=== PATIENT | female | born 1960 | race Caucasian/White ===

== ENCOUNTER → 2019-05-26 10:17 | Outpatient (BNVA) | payer BC, SELFPAY | PROVIDERS: Family Provider Family Medicine; PCP Family Medicine; Referring Provider Family Medicine; Visit Provider Orthopaedic Surgery | DX: M25.562 Pain in left knee (principal); M25.561 Pain in right knee | CPT/HCPCS: 73560; 73565 ==

== ENCOUNTER 2019-05-26 15:36 | Outpatient (CLI) | payer BC, SELFPAY | END 2019-05-26 15:37 | disposition home or self-care (01) | LOC: SPT 15:37 | PROVIDERS: Family Provider Family Medicine; PCP Family Medicine; Visit Provider Orthopaedic Surgery | DX: M17.0 Bilateral primary osteoarthritis of knee (principal) | CPT/HCPCS: L1812 ==

== ENCOUNTER 2019-08-31 16:44 | Inpatient (IN) | payer BC, SELFPAY ==
[2019-08-31] VITALS (8 sets, daily range): BP systolic 109–144; BP diastolic 56–85; PULSE 85–123; RESP 18–22; TEMP 36.5–36.9; O2SAT 94–97; BMI 46.8
--- NOTE | 2019-08-31 16:47 | XR_ITS ---
WS: [id number] PORTABLE CHEST HISTORY: cp COMPARISON: 07/27/2018 Lungs are clear and well expanded. No pleural effusion or pneumothorax. Cardiac size: Normal. Mediastinum/Aorta: Normal mediastinum. No osseous abnormality seen. XR/XR chest 1V portable [id number] IMPRESSION: Unremarkable portable chest.
--- NOTE | 2019-08-31 16:47 | ECG_ITS ---
Measurements Intervals [place] Rate: 119 P: 37 FL: 158 QRS: 166 QRSD: 136 T: 6 QT: 347 QTc: 490 SINUS TACHYCARDIA INDETERMINATE AXIS RIGHT BUNDLE BRANCH BLOCK [120+ ms QRS DURATION, UPRIGHT V1, 40+ ms S IN I/ I/aVL/V4/V5/V6] Compared to ECG 07/27/2018 19:36:47 Indeterminate axis now present Sinus rhythm no longer present Right-axis deviation no longer present Myocardial infarct finding no longer present Electronically Signed On 08-31-2019 18:11:32 CDT by Don Ruggiero M.D. [id number]
--- NOTE | 2019-08-31 16:49 | ED_ITS ---
HPI - Chest Pain General: Chief Complaint: Chest Pain Stated Complaint: CHEST PAIN Time Seen by Provider: 08/31/19 16:47 Source: patient and EMS Mode of arrival: EMS Limitations: no limitations History of Present Illness: HPI narrative: 59-year-old female has a history of high blood pressure along with diabetes states she was having chest pain at clinic today. She states the past pain is a pressure type pain radiates down her left arm and she did have nausea and diaphoresis with this. Denies any shortness of breath. Denies any worsening improving factors. Patient states her pain is currently improved after nitro. complaint: chest pain Onset (ago): hour(s) Timing of current episode: episodic Pain location: substernal Pain radiation: left arm Severity: moderate Quality: tightness Relieving factors: nitroglycerin Exacerbating factors: nothing Associated symptoms: Reports nausea; Deny abdominal pain, dyspnea, fever(s) or vomiting Review of Systems Const: Denies: fever, chills, body aches or change in appetite Eyes: Denies: blurry vision or eye discomfort ENMT: Denies: throat pain or dental pain Card: Reports: chest pain Resp: Denies: shortness of breath GI: Reports: nausea; Denies: abdominal pain, vomiting or diarrhea : Denies: painful urination Musc: Denies: neck pain or back pain Skin/Breast: Denies: rash Neuro: Denies: headache Psych: Denies: depression Kem/Lymph: Denies: easy bruising All/Imm: Denies: hives PFSH ED PFSH: Medical History (Updated 08/31/19 @ 20:11 by Jennifer Morgan MD) BMI 45.0-49.9, adult Controlled type 2 diabetes mellitus Degenerative joint disease of knee Depression Gastric reflux Hypertension Hypothyroid Morbid obesity JOSE (obstructive sleep apnea) Poor high blood pressure control Restless leg syndrome Sleep apnea Surgical History (Updated 08/31/19 @ 19:56 by Don Urbina MD) History of appendectomy History of intestinal surgery Bowel obstruction in childhood Hx of cholecystectomy Family History (Updated 08/31/19 @ 19:56 by Don Urbina MD) Other Cancer Family history of premature coronary artery disease Stroke Social History (Updated 08/31/19 @ 19:56 by Don Urbina MD) Smoking and tobacco status: never smoked Alcohol intake: never Substance/Drug Use: never Lives independently: Yes Housing: House Marital status: Single Physical Exam Const: COMMON NORMALS: no apparent distress, oriented x3 and healthy appearing HENMT: COMMON NORMALS: normocephalic and head/scalp atraumatic HEAD & SCALP: normocephalic and atraumatic Eye: COMMON NORMALS: PERRL and EOMs intact bilaterally PUPIL: Yes PERRL Neck/C-Spine: COMMON NORMALS: full ROM and supple Chest: COMMONS NORMALS: inspection of chest normal and palpation of chest normal Resp: COMMON NORMALS: normal respiratory effort, no retractions, no use of accessory muscles and clear to auscultation bilaterally AUSCULTATION: clear to auscultation bilaterally Cardio: COMMON NORMALS: regular rate, regular rhythm and no murmurs RATE: regular rate RHYTHM: regular rhythm GI: COMMON NORMALS: normal to inspection, nondistended, normoactive bowel sounds, soft to palpation, non-tender and no masses PALPATION: Yes soft Extremity: COMMON NORMALS: normal to inspection and full ROM Neuro: COMMON NORMALS: oriented x3, moves all extremities and no focal motor deficits Psych: COMMON NORMALS: mental status grossly normal, thought process normal and cooperative THOUGHT PROCESS: normal thought process Skin: COMMON NORMALS: no rashes or lesions noted and no wounds GENERAL SKIN EXAM: no rashes or lesions noted Course Vital Signs: Vital signs: Vital Signs Temperature 98.5 F 08/31/19 16:44 Pulse Rate 93 08/31/19 19:15 Respiratory Rate 18 08/31/19 19:15 Blood Pressure 109/71 08/31/19 19:15 Pulse Oximetry 96 08/31/19 19:15 MDM - Chest Pain MDM Narrative: Medical decision making narrative: Patient presents here with chest pain repeat troponins normal. EKG is unchanged from previous. She does have multiple risk factors I spoke to hospitalist on-call and will admit. Lab Data: Labs: Lab Results 08/31/19 08/31/19 08/31/19 Range/Units 17:02 17:02 17:02 WBC 13.5 H (4.0-10.0) 10^3/ uL RBC 5.09 (4.1-5.3) 10^6/u L Hgb 14.1 (11.5-15.3) g/dL Hct 46.6 (37.0-47.0) % MCV 91.6 (81-99) fL MCH 27.7 L (28.0-34.0) pg MCHC 30.3 (30.0-36.0) g/dL RDW 13.9 (12.1-15.1) % Plt Count 553 H (130-400) 10^3/c mm MPV 9.1 (7.4-10.4) fL Neut % (Auto) 73.4 % Lymph % (Auto) 17.3 % [place] % (Auto) 7.3 % Eos % (Auto) 1.1 % Baso % (Auto) 0.5 % Neut # (Auto) 9.9 H (1.8-7.7) 10^3/u L Lymph # (Auto) 2.3 (0.8-4.8) 10^3/u L [place] # (Auto) 1.0 H (0.2-0.9) 10^3/u L Eos # (Auto) 0.2 (0.0-0.8) 10^3/u L Baso # (Auto) 0.1 (0.0-0.1) 10^3/u L Nucleated RBC % (a uto) 0 % Nucleated RBCs # 0.0 /100WBC Sodium 141 (136-145) mmol/L Potassium 3.7 (3.5-5.1) mmol/L Chloride 109 H (98-107) mmol/L Carbon Dioxide 16 L (22-29) mmol/L Anion Gap 19.7 H (5-19) BUN 12 (8-23) mg/dL Creatinine 1.1 H (0.5-0.9) mg/dL GFR Calculation 50.5 L (90-130) mL/min Glucose 123 H (65-115) mg/dL Calculated Osmolal ity 289 (285-295) mOsm/k g Calcium 9.9 (8.5-10.5) mg/dL Total Bilirubin 0.2 (0.15-1.2) mg/dL AST 21 (0-32) U/L ALT 33 (0-33) U/L Alkaline Phosphata se 131 H (35-105) IU/L Troponin T Baselin e 11 H (0-10) ng/mL Troponin T 120 Min [place] (0-10) ng/mL Total Protein 6.7 (6.6-8.7) g/dL Albumin 3.9 (3.5-5.2) g/dL Globulin 2.8 (1.3-4.6) g/dL Lipase 40 (13-60) U/L 08/31/19 Range/Units 18:58 WBC (4.0-10.0) 10^3/ uL RBC (4.1-5.3) 10^6/u L Hgb (11.5-15.3) g/dL Hct (37.0-47.0) % MCV (81-99) fL MCH (28.0-34.0) pg MCHC (30.0-36.0) g/dL RDW (12.1-15.1) % Plt Count (130-400) 10^3/c mm MPV (7.4-10.4) fL Neut % (Auto) % Lymph % (Auto) % [place] % (Auto) % Eos % (Auto) % Baso % (Auto) % Neut # (Auto) (1.8-7.7) 10^3/u L Lymph # (Auto) (0.8-4.8) 10^3/u L [place] # (Auto) (0.2-0.9) 10^3/u L Eos # (Auto) (0.0-0.8) 10^3/u L Baso # (Auto) (0.0-0.1) 10^3/u L Nucleated RBC % (a uto) % Nucleated RBCs # /100WBC Sodium (136-145) mmol/L Potassium (3.5-5.1) mmol/L Chloride (98-107) mmol/L Carbon Dioxide (22-29) mmol/L Anion Gap (5-19) BUN (8-23) mg/dL Creatinine (0.5-0.9) mg/dL GFR Calculation (90-130) mL/min Glucose (65-115) mg/dL Calculated Osmolal ity (285-295) mOsm/k g Calcium (8.5-10.5) mg/dL Total Bilirubin (0.15-1.2) mg/dL AST (0-32) U/L ALT (0-33) U/L Alkaline Phosphata se (35-105) IU/L Troponin T Baselin e (0-10) ng/mL Troponin T 120 Min [place] 15.72 H (0-10) ng/mL Total Protein (6.6-8.7) g/dL Albumin (3.5-5.2) g/dL Globulin (1.3-4.6) g/dL Lipase (13-60) U/L Imaging Data^: CT Chest: Radiologist's impression: [address] [address] [address] Scan Report Signed Patient: Tracee Walden Unit #: [id number] : 1960 Age/Sex: 59 / F ADM Date: 08/31/19 Loc: ER Room/Bed: Attending Dr: Ordering Provider/Ordering MD: Jennifer Morgan MD Date of Service: 08/31/19 Procedure(s): CT angio chest PE protcl [id number] Accession Number(s): [id number] Report Number: [id number] PROCEDURE INFORMATION: Exam: CT Angiography Chest With Contrast Exam date and time: 08/31/2019 6:01 PM Age: 59 years old Clinical indication: Pain; Shortness of breath; Chest pressure; Additional info: Chest pain TECHNIQUE: Imaging protocol: Computed tomographic angiography of the chest with intravenous contrast. 3D rendering: MIP and/or 3D reconstructed images were created by the technologist. Radiation optimization: All CT scans at this facility use at least one of these dose optimization techniques: automated exposure control; mA and/or kV adjustment per patient size (includes targeted exams where dose is matched to clinical indication); or iterative reconstruction. Contrast material: VISI 320; Contrast volume: 66 ml; Contrast route: IV; COMPARISON: CTA Chest-Pulmonary Emb [id number] 07/27/2018 11:11 PM RADIATION DOSE METRICS: Total DLP: 614.03 mGy-cm FINDINGS: Pulmonary arteries: There is no evidence of filling defects within the pulmonary arterial circulation to suggest pulmonary embolism. Main pulmonary artery is 3.6 cm in diameter. This suggests some element of pulmonary hypertension. Correlation with clinical findings is suggested. Aorta: Unremarkable. No aortic aneurysm. No aortic dissection. Lungs: Unremarkable. No consolidation. No masses. Pleural space: Unremarkable. No pneumothorax. No pleural effusion. Heart: There are findings of left ventricular hypertrophy. Lymph nodes: There are small paratracheal lymph nodes and small prevascular lymph nodes but no adenopathy. Bones/joints: There are mild degenerative changes in the thoracic spine. Soft tissues: Unremarkable. CT/CT angio chest PE protcl [id number] IMPRESSION: 1. No evidence of pulmonary embolism. 2. Left ventricular hypertrophy. 3. Possible pulmonary hypertension. EKG Data^: EKG 1: Attestation: I personally reviewed and interpreted this EKG as follows: EKG interpretation date: 08/31/19 EKG interpretation time: 16:48 Interpretation: sinus tach hr 119 rbbb no change from ekg 07/27/18 qrs 136 qtc 418 EKG 2: Attestation: I personally reviewed and interpreted this EKG as follows: EKG interpretation date: 08/31/19 EKG interpretation time: 18:54 Interpretation: nsr hr [address] or t wave abnormalities qrs 146 qtc 44 3 Discharge Plan Discharge Patient Disposition: Admitted As Inpatient Clinical Impression: Chest pain Qualifiers: Chest pain type: other chest pain Qualified Code(s): R07.89 - Other chest pain Condition: Stable Referrals: Tracee Rivas DO [Primary Care Provider] - Coding Level of Care Code ED Nocturnist for Chg Fwd Exam Comprehensive
[2019-08-31] MEDS: morphine 4 mg/mL SDV 1 mL IVP (17:03)
[2019-08-31] MEDS: ondansetron 2 mg/ML SDV 2 mL 4 MG IVP (17:03)
[2019-08-31 17:07] LABS: Basophils # 0.1 10^3/uL (0.0-0.1); Basophils % 0.5 %; Eosinophils # 0.2 10^3/uL (0.0-0.8); Eosinophils % 1.1 %; Hematocrit 46.6 % (37.0-47.0); Hemoglobin 14.1 g/dL (11.5-15.3); Lymphocytes # 2.3 10^3/uL (0.8-4.8); Lymphocytes % 17.3 %; Mean Corpuscular HGB Conc 30.3 g/dL (30.0-36.0); Mean Corpuscular Hemoglobin 27.7 pg (28.0-34.0); Mean Corpuscular Volume 91.6 fL (81-99); Mean Platelet Volume 9.1 fL (7.4-10.4); Monocytes % 7.3 %; Neutrophils # 9.9 10^3/uL (1.8-7.7); Neutrophils % 73.4 %; Nucleated Red Blood Cells % 0 %; Platelet Count 553 10^3/cmm (130-400); Red Blood Count 5.09 10^6/uL (4.1-5.3); Red Cell Distribution Width 13.9 % (12.1-15.1); White Blood Count 13.5 10^3/uL (4.0-10.0)
[2019-08-31] MEDS: aspirin 81 mg Chew Tablet 324 MG PO (17:12)
[2019-08-31 17:22] LABS: Alanine Aminotransferase 33 U/L (0-33); Albumin Level 3.9 g/dL (3.5-5.2); Alkaline Phosphatase 131 IU/L (35-105); Anion Gap 19.7 (5-19); Aspartate Amino Transferase 21 U/L (0-32); Blood Urea Nitrogen 12 mg/dL (8-23); Calcium 9.9 mg/dL (8.5-10.5); Carbon Dioxide 16 mmol/L (22-29); Chloride 109 mmol/L (98-107); Globulin 2.8 g/dL (1.3-4.6); Glomerular Filtration Rate 50.5 mL/min (90-130); Glucose 123 mg/dL (65-115); Lipase 40 U/L (13-60); Osmolality Calculated 289 mOsm/kg (285-295); Potassium 3.7 mmol/L (3.5-5.1); Sodium 141 mmol/L (136-145); Total Bilirubin 0.2 mg/dL (0.15-1.2); Total Protein 6.7 g/dL (6.6-8.7)
[2019-08-31 17:32] LABS: Troponin(5th) Baseline 11 ng/mL (0-10)
--- NOTE | 2019-08-31 17:36 | CTR_ITS ---
PROCEDURE INFORMATION: Exam: CT Angiography Chest With Contrast Exam date and time: 08/31/2019 6:01 PM Age: 59 years old Clinical indication: Pain; Shortness of breath; Chest pressure; Additional info: Chest pain TECHNIQUE: Imaging protocol: Computed tomographic angiography of the chest with intravenous contrast. 3D rendering: MIP and/or 3D reconstructed images were created by the technologist. Radiation optimization: All CT scans at this facility use at least one of these dose optimization techniques: automated exposure control; mA and/or kV adjustment per patient size (includes targeted exams where dose is matched to clinical indication); or iterative reconstruction. Contrast material: VISI 320; Contrast volume: 66 ml; Contrast route: IV; COMPARISON: CTA Chest-Pulmonary Emb [id number] 07/27/2018 11:11 PM RADIATION DOSE METRICS: Total DLP: 614.03 mGy-cm FINDINGS: Pulmonary arteries: There is no evidence of filling defects within the pulmonary arterial circulation to suggest pulmonary embolism. Main pulmonary artery is 3.6 cm in diameter. This suggests some element of pulmonary hypertension. Correlation with clinical findings is suggested. Aorta: Unremarkable. No aortic aneurysm. No aortic dissection. Lungs: Unremarkable. No consolidation. No masses. Pleural space: Unremarkable. No pneumothorax. No pleural effusion. Heart: There are findings of left ventricular hypertrophy. Lymph nodes: There are small paratracheal lymph nodes and small prevascular lymph nodes but no adenopathy. Bones/joints: There are mild degenerative changes in the thoracic spine. Soft tissues: Unremarkable. CT/CT angio chest PE protcl [id number] IMPRESSION: 1. No evidence of pulmonary embolism. 2. Left ventricular hypertrophy. 3. Possible pulmonary hypertension. Radiation Dose CTDIVOL = (mGy): DLP = 614.03 (mGy-cm)
[2019-08-31] MEDS: iodixanol 320 mg/mL 100mL Btl IV (18:24)
--- NOTE | 2019-08-31 18:47 | ECG_ITS ---
Measurements Intervals [place] Rate: 91 P: 30 OR: 165 QRS: 172 QRSD: 146 T: 4 QT: 394 QTc: 486 SINUS RHYTHM INDETERMINATE AXIS RIGHT BUNDLE BRANCH BLOCK Compared to ECG 08/31/2019 16:48:51 Sinus tachycardia no longer present Electronically Signed On 09-01-2019 19:50:36 CDT by Lisa Mahan M.D. [email or web address]
[2019-08-31 19:19] LABS: Troponin 5 2HR 15.72 ng/mL (0-10); Troponin 5 2HR Delta 4.72 ABS# (0-10)
--- NOTE | 2019-08-31 19:57 | PM.HP ---
Providers/Chief Complaint Primary Care Provider: Tracee Rivas DO Chief Complaint: CHEST PAIN History of Present Illness Tracee Walden is a 59 year old female who does not carry any history of coronary disease/DC came in with chief complaint of chest pain. She carries multiple risk factors of coronary disease such as morbid obesity, obstructive sleep apnea, dyslipidemia, hypothyroidism, family history of coronary disease. Patient is stating that on Friday she started experiencing chest pain at rest, she would describe the chest pain as heaviness, substernal, reproducible, not associated with position. This chest pain lasted for couple of minutes, it was radiating towards her left arm which she would describe as tingling and numbness. She took sublingual nitroglycerin which relieved her left arm numbness and tingling but not her substernal chest pain. Her blood pressure was also in 200s. She also started experiencing semisolid stools on Friday, she had burger from [employer], she has had more than 10 episodes of liquidy stool. She has not noticed any bleeding in her stool nor fever or vomiting. She has been experiencing nausea, some abdominal cramps. Patient is also endorsing shortness of breath on exertion, she is denying orthopnea and PND, she is using CPAP machine with setting of 5 cm water at night for sleep apnea which she is avoiding using for last couple of days because she felt suffocation with its use. Today she went to PCP clinic and was interrupted to the emergency department via ambulance for her chest pain. Diagnostics in ER revealed normal hemodynamics, no significant delta of troponin, EKG shows LVH, initial EKG sinus tachycardia with subsequent EKG findings of normal sinus rhythm, CTA chest ruled out PE Patient asymptomatic at the time of my interview Review of Systems Const: Reports: body aches and fatigue; Denies: fever or chills Eyes: Denies: change in vision ENMT: Denies: throat pain Card: Reports: chest pain and shortness of breath on exertion; Denies: palpitations, swelling of feet/ankles, pre-syncope or shortness of breath when lying down Resp: Reports: shortness of breath GI: Reports: abdominal pain, nausea and diarrhea; Denies: vomiting, vomiting blood or difficulty swallowing : Denies: flank pain or difficulty urinating Musc: Reports: back pain, joint pain and limited range of motion; Denies: neck pain Skin/Breast: Reports: rash and chronic lesion Neuro: Denies: headache Psych: Reports: anxiety and depression Endo: Denies: excessive urination Kem/Lymph: Denies: easy bruising All/Imm: Denies: hives Medications/Allergies Home Medications Medication Instructions Recorded Confirmed Last Taken Type HINGED KNEE BRACE #1 ea NS 05/26/19 08/31/19 Unknown Rx bupropion HCl 150 mg 24 hr tablet, 300 mg PO QAM 05/26/19 08/31/19 08/31/19 History extended release duloxetine 30 mg capsule,delayed 30 mg PO DAILY 05/26/19 08/31/19 08/31/19 History release sprinkle hydrocodone 10 mg-acetaminophen 1 tab PO BID PRN 05/26/19 08/31/19 08/31/19 History 325 mg tablet metformin 1,000 mg tablet 1,000 mg PO BID 05/26/19 08/31/19 08/31/19 History spironolactone 25 mg tablet 25 mg PO DAILY PRN 05/26/19 08/31/19 08/31/19 History topiramate 200 mg capsule,extended 200 mg PO DAILY 05/26/19 08/31/19 08/31/19 History release 24 hr hydralazine 25 mg PO BID PRN 08/31/19 08/31/19 08/31/19 History levothyroxine 25 mcg PO DAILY 08/31/19 08/31/19 08/31/19 History levothyroxine 200 mcg PO DAILY 08/31/19 08/31/19 08/31/19 History lorazepam 0.5 mg PO BID PRN 08/31/19 08/31/19 08/31/19 History metoclopramide HCl 5 mg PO DAILY 08/31/19 08/31/19 08/31/19 History ropinirole 2 mg PO BEDTIME 08/31/19 08/31/19 08/30/19 History tramadol 50 mg PO DAILY 08/31/19 08/31/19 08/31/19 History trazodone 150 mg PO BEDTIME 08/31/19 08/31/19 08/30/19 History Allergies Allergy/AdvReac Type Severity Reaction Status Date / Time oxycodone Allergy ALGY-Hives Verified 08/31/19 16:52 PFSH Acute PFSH: Medical History BMI 45.0-49.9, adult Controlled type 2 diabetes mellitus Degenerative joint disease of knee Depression Gastric reflux Hypertension Hypothyroid Morbid obesity JOSE (obstructive sleep apnea) Poor high blood pressure control Restless leg syndrome Sleep apnea Surgical History History of appendectomy History of intestinal surgery Bowel obstruction in childhood Hx of cholecystectomy Family History Other Cancer Family history of premature coronary artery disease Stroke Social History Smoking and tobacco status: never smoked Alcohol intake: never Substance/Drug Use: never Lives independently: Yes Housing: House Marital status: Single Vitals/I&O/Wt Last Vital Signs Temp 98.5 F 08/31/19 16:44 Pulse 93 08/31/19 19:15 Resp 18 08/31/19 19:15 BP 109/71 08/31/19 19:15 Pulse Ox 96 08/31/19 19:15 Weight last 48 hrs Weight 139.706 kg Physical Exam Narrative: EXAM NARRATIVE: Very pleasant female Morbidly obese Sitting comfortable in her bed, saturating well on room air, normal hemodynamics S1, S2 no signs of active heart failure Abdomen soft, nontender, nondistended, bowel sound present, mild tenderness on deep palpation in mid hypogastric area Lower extremity no signs of edema GCS 15, alert oriented x3 Nonfocal neurological exam Patient seems to have low/depressed mood She has multiple tender points, chest pain is reproducible EOMI, Data : 08/31/19 17:02 08/31/19 17:02 A&P Assessment and plan (1) Unstable angina: Status: Acute (2) Morbid obesity: Status: Acute (3) Sleep apnea: Status: Acute (4) Hypertension: Status: Acute Additional A&P Information Unstable angina Chest pain at rest, lasted few minutes, relief of symptoms with nitroglycerin however chest pain is reproducible, she has multiple risk factors for coronary disease such as family history, obesity, JOSE, hypothyroidism She is denying previous history of coronary disease, I would go ahead order echo and Lexiscan stress test in the morning She cannot do a treadmill stress test because of her degenerative joint disease Currently chest pain-free, EKG does not show any infarct or ischemic changes, no significant rise in troponin, CTA ruled out PE Hypertension: Essential: Uncontrolled Patient is stating that her blood pressure was high on Friday when she started experiencing symptoms, EKG and CTA is consistent with LVH, will do echo, she might benefit from long-term use of lisinopril Obstructive sleep apnea: CPAP auto titration She has been avoiding use of CPAP at home Hypothyroidism: Continue levothyroxine, check TSH and A1c level Fibromyalgia: Patient is on multiple anti-psychotics and antidepressants We had discussion about trying to cut number of her medications to avoid complications Full code DVT prophylaxis Lovenox Cardiac diet, n.p.o. after midnight Attestations Medical Necessity Statement*: Anticipating discharge in less than 48 hours, needs stress test for chest pain Time Spent in Patient Care: 40 Coding Level of Care Code Acute Bran Mixer for [facility] Fwd Diagnoses Unstable angina I20.0 Morbid obesity E66.01 Sleep apnea G47.30 Hypertension I10
[2019-08-31 20:30] LABS: Lactic Acid level (Lactate) 1.7 mmol/L (0.5-2.2)
--- NOTE | 2019-08-31 22:43 | ECG_ITS ---
NAME OF STUDY: LEXISCAN SESTAMIBI STRESS TEST INDICATION: Chest Pain, NOTE: Please note that this is the electrocardiogram portion of the Lexiscan/Sestamibi stress test. The perfusion scan will be documented separately. DATA: Baseline heart rate was 78 beats per minute. Baseline blood pressure was 152/98 millimeters of mercury. Target heart rate was 159. Maximum heart rate achieved was 106. which was 66 % of the predicted target heart rate. Maximum blood pressure was 165/104 millimeters of mercury. The reason for ending the test was completion of the protocol. The patient did not experience any symptoms. ELECTROCARDIOGRAM: BASELINE: Sinus rhythm. Normal axis. Incomplete right bundle branch block, no ST-T changes suggestive of ischemia noted. No arrhythmia noted. After Lexiscan injection, nonspecific inferior ST-T changes noted. No arrhythmia noted. CONCLUSION: Please note due to baseline abnormality of the EKG specificity and sensitivity of the EKG portion of LexiScan MIBI stress test will be low 1. EKG not suggestive of ischemia 2. Lexiscan injection unremarkable. 3. Perfusion scan will be documented separately. Electronically Signed On 09-01-2019 13:29:05 CDT by Don Ruggiero M.D. [email or web address]
--- NOTE | 2019-08-31 22:47 | ECG_ITS ---
Measurements Intervals [place] Rate: 79 P: 58 NH: 180 QRS: 25 QRSD: 111 T: 41 QT: 375 QTc: 432 SINUS RHYTHM INDETERMINATE AXIS INCOMPLETE RIGHT BUNDLE BRANCH BLOCK MODERATE T-WAVE ABNORMALITY, CONSIDER ANTERIOR ISCHEMIA Compared to ECG 08/31/2019 16:48:51 Incomplete right bundle-branch block now present T-wave abnormality now present Possible ischemia now present Sinus tachycardia no longer present Right bundle-branch block no longer present Electronically Signed On 09-01-2019 19:47:39 CDT by Lisa Mahan M.D. [email or web address]
--- NOTE | 2019-08-31 23:13 | PC.NURSE ---
PT ARRIVED TO ROOM 254-2 FROM ED. PT AMBULATED TO BED FROM [place]. PT HAS A SINUS RHYTHM. VS T - 97.7, BP - 144/85, HR - 94, RR - 18, SPO2 - 95% ON ROOM AIR. C/O PAIN 6/10. PT C/O HEAD ACHE AND LEFT ARM PAIN. HYDROCODONE 10/325 WAS GIVEN FOR PAIN. WILL CONTINUE TO MONITOR.
[2019-08-31] MEDS: ropinirole 2 mg Tablet PO (23:21)
[2019-08-31] MEDS: enoxaparin 40 mg/0.4 mL Syringe SUBCUT (23:21)
[2019-08-31] MEDS: HYDROcodone-acetaminophen 10-325 mg Tablet 1 TAB PO (23:21)
[2019-08-31] MEDS: topiramate 100 mg Tablet 200 MG PO (23:21)
[2019-08-31] MEDS: trazodone 150 mg Tablet PO (23:21)
[2019-08-31 23:30] LABS: Troponin 5 6HR 15.65 ng/mL (0-10); Troponin 5 6HR Delta 4.65 ng/L (0-12)
[2019-08-31 23:35] LABS: Estmated Average Glucose 137; Hemoglobin A1C 6.4 % (4.0-6.0)
[2019-08-31 23:39] LABS: Chol HDL Ratio 4.06 mg/dL (0.0-4.40); Cholesterol 207 mg/dL (0-200); HDL Cholesterol 51 mg/dL (60-100); LDL Cholesterol Calculated 123 mg/dL (50-129); LDL HDL Ratio 2.41 RATIO (0.00-3.22); Thyroid Stimulating Hormone 1.07 uIU/mL (0.27-4.20); Triglycerides 167 mg/dL (0-150)
[2019-09-01] VITALS (7 sets, daily range): BP systolic 109–157; BP diastolic 73–101; PULSE 73–92; RESP 18–22; TEMP 36.3–36.7; O2SAT 92–95
[2019-09-01] MEDS: acetaminophen 325 mg Tablet 650 MG PO ×3 (00:25→22:50)
[2019-09-01 05:18] LABS: Basophils % 0.2 %; Eosinophils # 0.2 10^3/uL (0.0-0.8); Eosinophils % 1.2 %; Hematocrit 43.5 % (37.0-47.0); Hemoglobin 13.4 g/dL (11.5-15.3); Lymphocytes # 2.4 10^3/uL (0.8-4.8); Lymphocytes % 19.9 %; Mean Corpuscular HGB Conc 30.8 g/dL (30.0-36.0); Mean Corpuscular Volume 94.2 fL (81-99); Mean Platelet Volume 9.3 fL (7.4-10.4); Monocytes # 1.2 10^3/uL (0.2-0.9); Monocytes % 9.7 %; Neutrophils # 8.3 10^3/uL (1.8-7.7); Neutrophils % 68.4 %; Nucleated Red Blood Cells % 0 %; Platelet Count 475 10^3/cmm (130-400); Red Blood Count 4.62 10^6/uL (4.1-5.3); Red Cell Distribution Width 14.1 % (12.1-15.1); White Blood Count 12.1 10^3/uL (4.0-10.0)
[2019-09-01 05:39] LABS: Anion Gap 16.3 (5-19); Blood Urea Nitrogen 17 mg/dL (8-23); Calcium 10.3 mg/dL (8.5-10.5); Carbon Dioxide 22 mmol/L (22-29); Chloride 105 mmol/L (98-107); Glomerular Filtration Rate 41.6 mL/min (90-130); Glucose 111 mg/dL (65-115); Osmolality Calculated 287 mOsm/kg (285-295); Potassium 3.3 mmol/L (3.5-5.1); Sodium 140 mmol/L (136-145)
[2019-09-01] MEDS: buPROPion XL (24 HR) 300 mg Tablet PO (06:21)
--- NOTE | 2019-09-01 07:00 | USCV_ITS ---
Tracee Walden Age: 59 Gender: F : 1960 Exam Date: 09/01/2019 08:14 Ordering Phys: Don Urbina MD Technologist: Carolann Boo Exam Location: [facility] [place] Indication: chest pain BP: 158 / 97 HR: 82 Rhythm: Sinus Technical Quality: Adequate MEASUREMENTS (Male / Female) Normal Values 2D ECHO LV Diastolic Diameter PLAX 3.9 cm 4.2 - 5.9 / 3.9 - 5.3 cm LV Systolic Diameter PLAX 3.5 cm LV Chamber Size 3.5 cm IVS Diastolic Thickness 1.4 cm 0.6 - 1.0 / 0.6 - 0.9 cm IVS Systolic Thickness 1.7 cm LVPW Diastolic Thickness 1.6 cm 0.6 - 1.0 / 0.6 - 0.9 cm LVPW Systolic Thickness 1.7 cm RV Chamber Size 3.3 cm LVOT Diameter 2.0 cm LV Ejection Fraction 2D Teich 25.2 % LV Ejection Fraction MOD 2C 57.0 % LV Ejection Fraction 2C AL 55.9 % LA Diameter 4.3 cm LA Width 2.6 cm LA Height 3.8 cm RA Width 2.2 cm RA Height 3.1 cm Aorta at Sinotubular Diameter 2.5 cm M-MODE LV Diastolic Diameter MM 4.7 cm 4.2 - 5.9 / 3.9 - 5.3 cm LV Systolic Diameter MM 3.1 cm LV Ejection Fraction MM Teich 62.1 % IVS Diastolic Thickness MM 1.1 cm 0.6 - 1.0 / 0.6 - 0.9 cm IVS Systolic Thickness MM 1.4 cm LVPW Diastolic Thickness MM 1.1 cm 0.6 - 1.0 / 0.6 - 0.9 cm LVPW Systolic Thickness MM 1.3 cm Aortic Annulus Diameter 2.9 cm LA Ao Ratio MM 1.5 MV E Point Septal Separation 0.5 cm DOPPLER AV Peak Velocity 187.0 cm/s LVOT Peak Velocity 99.0 cm/s AV Area Cont Eq vti 2.0 cm squared AV Area Cont Eq pk 1.7 cm squared MV Area PHT 2.8 cm squared Mitral E to A Ratio 0.9 MV E' Velocity 11.0 cm/s Mitral E to MV E' Ratio 7.5 Mitral E to LV E' Lateral Ratio 6.7 Mitral E to LV E' Septal Ratio 8.5 TR Peak Velocity 198.0 cm/s TR Peak Gradient 15.7 mmHg TV Peak E Velocity 55.0 cm/s Right Atrial Pressure 3.0 mmHg Pulmonary Artery Systolic Pressu 18.7 mmHg PV Peak Velocity 135.0 cm/s RV Acceleration Time 0.1 s RV Ejection Time 0.4 s RV AcT/ET 0.3 FINDINGS Left Ventricle Normal left ventricular cavity size. Normal left ventricular systolic function. No regional wall motion abnormalities. Left ventricular ejection fraction is estimated at 62 %. Grade I/IV diastolic dysfunction (abnormal relaxation filling pattern), normal to mildly elevated filling pressures. Right Ventricle The right ventricle is normal in size and function. Right Atrium The right atrium is normal in size. Left Atrium The left atrium is normal in size. Mitral Valve Structurally normal mitral valve without significant stenosis or prolapse. There is no mitral regurgitation. Aortic Valve Structurally normal aortic valve without significant sclerosis or stenosis. There is no aortic regurgitation. Tricuspid Valve Structurally normal tricuspid valve without significant stenosis or regurgitation. Pulmonary artery systolic pressure is normal. Pulmonic Valve Structurally normal pulmonic valve without significant stenosis. There is no pulmonic regurgitation. Pericardium Normal pericardium without effusion. Aorta Normal ascending aorta dimension. CONCLUSIONS 1-Normal left ventricular cavity size. Normal left ventricular systolic function. No regional wall motion abnormalities. Left ventricular ejection fraction is estimated at 62 %. Grade I/IV diastolic dysfunction (abnormal relaxation filling pattern), normal to mildly elevated filling pressures. 2-There is no pericardial effusion. 3-No significant valve abnormalities. 4-Right atrial pressure is around 5 mm of mercury. 5-There are no prior echocardiogram studies to compare 12/12/2017. Don Ruggiero MD (Electronically Signed) Final Date: 01 September 2019 17:31 S
--- NOTE | 2019-09-01 07:00 | NMCV_ITS ---
NM gabi perf SPECT r/s* [id number] Tracee Walden Age: 59 Gender: F : 1960 Exam Date: 09/01/2019 07:13 Ordering Phys: Don Urbina MD Technologist: KEYA Armendariz Exam Location: [facility] Indications: CHEST PAIN STRESS TEST [facility] IMAGE PROTOCOL Rest/Stress 1 Lexiscan Day Radiopharmaceutical Dose (mCi) Administration Site Administered by Rest: Tc-99m 10.7 IV KEYA Armendariz Sestamibi Stress:Tc-99m 32.4 IV KEYA Mckeon Sestamibi Rest: 01-Sep-2019 60 Discovery 630 Stress: 01-Sep-2019 30 Discovery 630 0.4mg Lexiscan. Images obtained in supine and prone position. SPECT RESULTS Technical Quality: Good Raw Data Analysis: Breast attenuation Image Corrections: No attenuation or motion correction applied Summed Stress Score: 6 Summed Rest Score: 0 Summed Difference Score: 6 PERFUSION FINDINGS SPECT images demonstrate homogeneous tracer distribution throughout the myocardium. FUNCTIONAL RESULTS (calculated via Gated SPECT) Stress Image LV EF (%): 71 Stress EDV (mL):79 TID: 0.85 Stress ESV (mL):23 Rest Image LV EF (%): 71 FUNCTIONAL FINDINGS: There is normal left ventricular systolic function. IMPRESSIONS Myocardial perfusion imaging is normal and low probability for obstructive coronary artery disease. EKG segment will be documented separately. Don Ruggiero MD (Electronically Signed) Final Date: 01 September 2019 13:07 S
[2019-09-01] MEDS: regadenoson 0.4 Mg/5 ml Syringe IVP (08:13)
[2019-09-01] MEDS: topiramate 100 mg Tablet 200 MG PO (09:55)
[2019-09-01] MEDS: levothyroxine 25 mcg Tablet PO (09:55)
[2019-09-01] MEDS: duloxetine 30 mg Capsule PO (09:55)
[2019-09-01] MEDS: TRAMadol 50 mg Tablet PO (09:55)
[2019-09-01] MEDS: levothyroxine 100 mcg Tablet 200 MCG PO (09:55)
--- NOTE | 2019-09-01 09:59 | PC.CHAP ---
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 [] Patient/Family/Request visit [] Outpatient visit [] Follow-up visit [] Physician referral [] Code/Alert [x] Routine visit [] Staff referral [] Actively dying [] Patient sleeping [] Family support [] [] Out of room [] Palliative care [] [] Receiving care in room [] Pre-surgical visit [] Trauma [] Long length of stay [] ICU visit [] Other: Relational/Emotional Strength [] Patient feels connected with others/family/visitors/staff [] Distress [] Loneliness/isolation [] Abandonment Spirituality of Patient [] Person of Aubrie [] Attends Gnosticism of their Aubrie [] Believes in Prayer [] Reads Bible or Congregation materials [] There are Spiritual issues to be addressed 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] Prayer [] Active listening [] Non-anxious presence [] Spiritual/emotional support [] Crisis/trauma care [] Spiritual counseling [] Bereavement support [] Provided bereavement packet [] Provided Bible/devotional materials [] Provided toy/stuffed animal, coloring book to patient or family member [] Provided Communion [] Anointing/[place] [] Salvation [x] Completed spiritual assessment [] Other: Impact on Illness or Injury [] Angry [] Fearful [x] Anxious [] Often cries [] Exhaustion [] Unable to work [] Unable to attend roman catholic [] Unable to walk/stand [] Unable to read [] Unable to drive [] Unable to eat/drink [] Unable to sleep [] Unable to be with family [] Patient intubated [] Other: Summary Patient completed stress test. Little anxious, but feeling much better Time spent with patient 10 min
--- NOTE | 2019-09-01 13:46 | CTR_ITS ---
PROCEDURE INFORMATION: Exam: CT Abdomen And Pelvis With Contrast Exam date and time: 09/01/2019 1:55 PM Age: 59 years old Clinical indication: Nausea and other: Diarrhea; Abdominal pain; Localized; Lower; Prior surgery; Surgery type: Stomach, gb, appy; Additional info: Llq pain TECHNIQUE: Imaging protocol: Computed tomography of the abdomen and pelvis with intravenous contrast. Axial, coronal and sagittal reformatted images were created and reviewed. Radiation optimization: All CT scans at this facility use at least one of these dose optimization techniques: automated exposure control; mA and/or kV adjustment per patient size (includes targeted exams where dose is matched to clinical indication); or iterative reconstruction. Contrast material: VISI 320; Contrast volume: 95 ml; Contrast route: IV; COMPARISON: CT abdomen pelvis w con* [id number] 11/29/2016 8:05 PM RADIATION DOSE METRICS: Total DLP: 1908.02 mGy-cm FINDINGS: Mediastinum: Small hiatal hernia with contrast in the distal esophagus, suggesting reflux. Liver: Unremarkable. Gallbladder and bile ducts: Status post cholecystectomy. No biliary ductal dilatation. Pancreas: Unremarkable. Spleen: Unremarkable. Adrenals: Unchanged 1.6 cm low-density right adrenal nodule, likely a benign adenoma (no follow-up is indicated based on the imaging appearance. Kidneys and ureters: Indeterminate 11 mm low-density left renal lesion, similar to prior. 4 mm low-density right renal lesion, too small to characterize but also similar to prior. No radiodense calculi. No hydronephrosis. Stomach and bowel: Colonic diverticulosis with questionable subtle focal sigmoid wall thickening and perisigmoid stranding. No obstruction. No pneumatosis. Appendix: Status post appendectomy by history. Intraperitoneal space: No free fluid. No organized fluid collection. No free air. Vasculature: Unremarkable. No aneurysm. Lymph nodes: No pathologically enlarged lymph nodes. Bladder: Unremarkable. Reproductive: Unremarkable. Bones/joints: No acute osseous abnormality. Osteopenia. Degenerative changes. Soft tissues: Fat containing umbilical and inguinal hernias. Other findings: Elevated left hemidiaphragm. CT/CT abdomen pelvis w con* [id number] IMPRESSION: 1. Findings suggestive of mild/early acute sigmoid diverticulitis, as described above. No abscess, obstruction or free air. Follow-up to resolution is recommended. 2. Indeterminate 11 mm low-density left renal lesion, similar to prior. If clinically indicated, ultrasound may be useful to exclude a solid mass. 3. Additional findings, as above. Radiation Dose CTDIVOL = (mGy): DLP = 1908.02 (mGy-cm)
--- NOTE | 2019-09-01 13:47 | P.PN_ITS ---
Subjective Subjective: Interval history: Tracee reports no further chest discomfort. She does report some abdominal burning, left lower quadrant discomfort, diarrhea, nausea. She reports she feels this way every time she gets diverticulitis. Last episode was 3 months ago for which she got some Flagyl and was treated outpatient. She reports she occasionally feels chills as well. Medications: Reviewed: Yes Vitals/I&O/Wt Last Vital Signs Temp 97.7 F 09/01/19 11:00 Pulse 73 09/01/19 11:00 Resp 18 09/01/19 11:00 BP 127/81 09/01/19 11:00 Pulse Ox 92 09/01/19 11:00 08/31/19 09/01/19 09/01/19 22:59 06:59 14:59 Intake Total 400 / 400 120 / 120 Balance 400 / 400 120 / 120 Weight last 48 hrs Weight 139.706 kg Physical Exam Narrative: EXAM NARRATIVE: General exam is no apparent distress Cardiovascular regular rate and rhythm, no murmur Lungs clear no wheezing or crackles Abdomen is soft, tenderness left side. Positive bowel sounds. Obese. Extremities no cyanosis clubbing or edema Data : 09/01/19 04:58 09/01/19 04:58 A&P Assessment and plan (1) Chest pain: Nuclear stress test negative. Echocardiogram pending. Status: Acute Qualifiers: Chest pain type: other chest pain Qualified Code(s): R07.89 - Other chest pain (2) Abdominal pain: Clinically consistent with diverticulitis. White blood cell count slightly high. Patient reports past history. Changed to clear liquid diet Initiate Flagyl, Cipro CT scan abdomen and pelvis with contrast. May be some delay as she recently had a CTA. Therefore antibiotics above until this can be further delineated Check C. difficile, stool culture, Hemoccult Status: Acute (3) Morbid obesity: Status: Acute (4) Sleep apnea: Status: Acute (5) Hypertension: Continue home medications, hydralazine and schedule Await echocardiogram Status: Acute Additional A&P Information Hypothyroidism, stable Fibromyalgia, stable. Continue home meds Full code DVT prophylaxis with Lovenox Attestations Medical Necessity Statement*: Needs continued hospital stay for IV antibiotics for diverticulitis, pending further evaluation with CT scan. Coding Level of Care Code Acute [place] Attendant for [facility] Fwd Diagnoses Chest pain R07.89 Chest pain type: other chest pain Abdominal pain R10.9 Morbid obesity E66.01 Sleep apnea G47.30 Hypertension I10
[2019-09-01] MEDS: iohexol 300 mg/mL 50 mL Btl PO (14:01)
[2019-09-01] MEDS: ondansetron 2 mg/ML SDV 2 mL 4 MG IVP (14:07)
[2019-09-01] MEDS: diphenoxylate/atropine Tablet 1 TAB PO (14:07)
[2019-09-01] MEDS: hyDRALAzine 25 mg Tablet PO ×2 (14:08→19:59)
[2019-09-01] MEDS: metroNIDAZOLE IV 500 MG/100 ML PREMIX 100 MG IV ×2 (14:08→19:59)
[2019-09-01] MEDS: ciprofloxacin 400 MG/200 ML PREMIX 200 MG IV (15:25)
[2019-09-01] MEDS: iodixanol 320 mg/mL 100mL Btl IV (16:06)
[2019-09-01 16:40] LABS: Glucose Point of Care 100 mg/dL (70-110)
[2019-09-01] MEDS: trazodone 150 mg Tablet PO ×2 (19:58→23:43)
[2019-09-01] MEDS: ropinirole 2 mg Tablet PO (19:58)
[2019-09-01] MEDS: enoxaparin 40 mg/0.4 mL Syringe SUBCUT (21:08)
[2019-09-01 21:48] LABS: Glucose Point of Care 95 mg/dL (70-110)
[2019-09-01] MEDS: HYDROcodone-acetaminophen 10-325 mg Tablet 1 TAB PO (23:43)
[2019-09-02] MEDS: metroNIDAZOLE IV 500 MG/100 ML PREMIX 100 MG IV ×2 (01:17→08:30)
[2019-09-02] MEDS: ciprofloxacin 400 MG/200 ML PREMIX 200 MG IV (02:19)
[2019-09-02 03:00] VITALS: BP 113/63; PULSE 79; RESP 20; TEMP 36.4; O2SAT 96
[2019-09-02] MEDS: buPROPion XL (24 HR) 300 mg Tablet PO (05:39)
[2019-09-02 06:05] LABS: Basophils % 0.4 %; Eosinophils # 0.1 10^3/uL (0.0-0.8); Eosinophils % 1.8 %; Hematocrit 41.3 % (37.0-47.0); Hemoglobin 12.7 g/dL (11.5-15.3); Lymphocytes # 1.7 10^3/uL (0.8-4.8); Mean Corpuscular HGB Conc 30.8 g/dL (30.0-36.0); Mean Corpuscular Hemoglobin 28.5 pg (28.0-34.0); Mean Corpuscular Volume 92.6 fL (81-99); Mean Platelet Volume 9.2 fL (7.4-10.4); Monocytes # 0.9 10^3/uL (0.2-0.9); Monocytes % 11.8 %; Neutrophils # 4.9 10^3/uL (1.8-7.7); Neutrophils % 63.7 %; Nucleated Red Blood Cells % 0 %; Platelet Count 421 10^3/cmm (130-400); Red Blood Count 4.46 10^6/uL (4.1-5.3); Red Cell Distribution Width 14.2 % (12.1-15.1); White Blood Count 7.6 10^3/uL (4.0-10.0)
[2019-09-02 06:24] LABS: Alanine Aminotransferase 31 U/L (0-33); Albumin Level 3.7 g/dL (3.5-5.2); Alkaline Phosphatase 116 IU/L (35-105); Anion Gap 16.6 (5-19); Aspartate Amino Transferase 23 U/L (0-32); Blood Urea Nitrogen 10 mg/dL (8-23); Calcium 9.9 mg/dL (8.5-10.5); Carbon Dioxide 23 mmol/L (22-29); Chloride 107 mmol/L (98-107); Globulin 2.5 g/dL (1.3-4.6); Glomerular Filtration Rate 50.5 mL/min (90-130); Glucose 115 mg/dL (65-115); Osmolality Calculated 293 mOsm/kg (285-295); Potassium 3.6 mmol/L (3.5-5.1); Sodium 143 mmol/L (136-145); Total Bilirubin 0.2 mg/dL (0.15-1.2); Total Protein 6.2 g/dL (6.6-8.7)
[2019-09-02 06:28] LABS: Glucose Point of Care 113 mg/dL (70-110)
[2019-09-02 07:00] VITALS: BP 123/76; PULSE 86; RESP 20; TEMP 36.5; O2SAT 94
[2019-09-02 07:59] VITALS: O2SAT 94
[2019-09-02] MEDS: levothyroxine 25 mcg Tablet PO (08:19)
[2019-09-02] MEDS: hyDRALAzine 25 mg Tablet PO (08:19)
[2019-09-02] MEDS: topiramate 100 mg Tablet 200 MG PO (08:19)
[2019-09-02] MEDS: duloxetine 30 mg Capsule PO (08:19)
[2019-09-02] MEDS: levothyroxine 100 mcg Tablet 200 MCG PO (08:20)
[2019-09-02] MEDS: TRAMadol 50 mg Tablet PO (08:20)
[2019-09-02 10:34] VITALS: BP 116/57; PULSE 76; RESP 18; TEMP 36.6; O2SAT 90
--- NOTE | 2019-09-02 10:42 | P.DS_ITS ---
Discharge Providers Date of Admission: 09/01/19 13:49 Date of Discharge: September 02, 2019 Attending Provider at Admission: Don Urbina MD Attending Provider at Discharge: Dharmesh Ruiz MD Primary Care Provider: Tracee Rivas DO Diagnoses at Discharge Discharge Diagnosis (1) Chest pain: Status: Acute Problem details: Resolved. Atypical. No significant delta. Nuclear imaging low probability. CTA negative for pulmonary embolism. Echocardiogram normal EF, no wall motion abnormalities, 1/4 diastolic dysfunction Qualifiers: Chest pain type: other chest pain Qualified Code(s): R07.89 - Other chest pain (2) Abdominal pain: Status: Acute Problem details: Consistent with diverticulitis. CT confirms mild diverticulitis. Symptoms improved in the hospital and will discharge on Cipro and Flagyl. (3) Morbid obesity: Status: Acute Problem details: Counseled on weight loss (4) Sleep apnea: Status: Acute (5) Hypertension: Status: Acute Problem details: To change her hydralazine to scheduled Reason for Visit Reason for Visit: Reason For Visit: CHEST PAIN Hospital Course Hospital Course: Tracee presented to the hospital with atypical chest discomfort. Delta troponin was negative. EKG demonstrated no concerning changes. Nuclear imaging testing was performed demonstrating no significant reversible ischemia. Echocardiogram was largely normal with the exception of 1/4 diastolic dysfunction. While in the hospital patient complained of loose stools, left lower quadrant pain, subjective chills. CT scan of abdomen and p eda demonstrated mild diverticulitis sigmoid area. She was placed on Cipro and Flagyl, had clinical improvement, and was ready for discharge on September 01. She will follow-up with her primary care provider. Physical Exam Narrative: EXAM NARRATIVE: General exam no apparent distress Cardiovascular regular rate and rhythm without murmur Lungs clear Abdomen is soft, positive bowel sounds, obese, no significant tenderness today. Extremities no cyanosis clubbing or edema Discharge Data Data Completed and Pending: Completed Studies During Hospitalization Category Date Time Status CT abdomen pelvis w con* [id number] Rout ine Cat Scan 09/01/19 13:[address] angio chest PE protcl [id number] Urge nt Cat Scan 08/31/19 17:36 Completed Sestamibi Stress Test Request Routi ne Exams 08/31/19 22:43 Completed XR chest 1V roge ble [id number] Stat Exams 08/31/19 16:47 Completed NM gabi perf SPECT r/s* [id number] Routin e Nuc Med 09/01/19 07:00 Completed CV echo complete* [id number] Routine Ultrasound 09/01/19 07:00 Completed Pending at discharge Category Date Time Status Clostridium Diffi cile BY PCR Routin e Lab 09/01/19 13:48 Uncollected Enteric Bacterial Panel by PCR Rout ine Lab 09/01/19 13:48 Uncollected Immunochemical Fe jimi OCB Routine Lab 09/01/19 13:48 Uncollected Labs from last 24 hours 09/02/19 09/02/19 09/02/19 06:24 05:38 05:38 WBC 7.6 RBC 4.46 Hgb 12.7 Hct 41.3 MCV 92.6 MCH 28.5 MCHC 30.8 RDW 14.2 Plt Count 421 H MPV 9.2 Neut % (Auto) 63.7 Lymph % (Auto) 22.0 [place] % (Auto) 11.8 Eos % (Auto) 1.8 Baso % (Auto) 0.4 Neut # (Auto) 4.9 Lymph # (Auto) 1.7 [place] # (Auto) 0.9 Eos # (Auto) 0.1 Baso # (Auto) 0.0 Nucleated RBC % (a uto) 0 Nucleated RBCs # 0.0 Sodium 143 Potassium 3.6 Chloride 107 Carbon Dioxide 23 Anion Gap 16.6 BUN 10 Creatinine 1.1 H GFR Calculation 50.5 L Glucose 115 POC Glucose 113 Calculated Osmolal ity 293 Calcium 9.9 Total Bilirubin 0.2 AST 23 ALT 31 Alkaline Phosphata se 116 H Total Protein 6.2 L Albumin 3.7 Globulin 2.5 09/01/19 09/01/19 21:02 16:36 WBC RBC Hgb Hct MCV MCH MCHC RDW Plt Count MPV Neut % (Auto) Lymph % (Auto) [place] % (Auto) Eos % (Auto) Baso % (Auto) Neut # (Auto) Lymph # (Auto) [place] # (Auto) Eos # (Auto) Baso # (Auto) Nucleated RBC % (a uto) Nucleated RBCs # Sodium Potassium Chloride Carbon Dioxide Anion Gap BUN Creatinine GFR Calculation Glucose POC Glucose 95 100 Calculated Osmolal ity Calcium Total Bilirubin AST ALT Alkaline Phosphata se Total Protein Albumin Globulin Vitals: Last Vital Signs Temp 97.8 F 09/02/19 10:34 Pulse 76 09/02/19 10:34 Resp 18 09/02/19 10:34 BP 116/57 09/02/19 10:34 Pulse Ox 90 09/02/19 10:34 Discharge Plan Discharge Patient Disposition: Home, Self-Care Condition: Stable Prescriptions: New ciprofloxacin HCl [Cipro] 500 mg tablet 500 mg PO BID Qty: 18 RF: 0 metronidazole [Flagyl] 500 mg tablet 500 mg PO QID Qty: 36 RF: 0 Continued topiramate 200 mg capsule,extended release 24hr 200 mg PO DAILY RF: 0 duloxetine 30 mg capsule, delayed rel sprinkle 30 mg PO DAILY RF: 0 bupropion HCl 150 mg tablet extended release 24 hr 300 mg PO QAM RF: 0 spironolactone 25 mg tablet 25 mg PO DAILY PRN (Reason: SWELLING) RF: 0 metformin 1,000 mg tablet 1,000 mg PO BID RF: 0 hydrocodone-acetaminophen 10-325 mg tablet 1 tab PO BID PRN (Reason: Pain) RF: 0 (DME) HINGED KNEE BRACE Qty: 1 RF: 0 tramadol 50 mg tablet 50 mg PO DAILY RF: 0 levothyroxine 25 mcg tablet 25 mcg PO DAILY RF: 0 lorazepam 0.5 mg tablet 0.5 mg PO BID PRN (Reason: Anxiety) RF: 0 ropinirole 2 mg tablet 2 mg PO BEDTIME RF: 0 trazodone 150 mg tablet 150 mg PO BEDTIME RF: 0 levothyroxine 200 mcg tablet 200 mcg PO DAILY RF: 0 Changed hydralazine 25 mg tablet 25 mg PO BID Qty: 0 RF: 0 Discontinued metoclopramide HCl 5 mg tablet 5 mg PO DAILY RF: 0 Discharge Orders: Discharge Order (Routine); Ordered 09/02/19 Ordered By: Dharmesh Ruiz Referrals: Tracee Rivas DO [Primary Care Provider] - 4-7 days Discharge Diet: Cardiac and Diabetic Discharge Activity: Increase activity as tolerated Activity Restrictions/Additional Instructions: Take all medicines as prescribed Notify primary care provider or return for worsening symptoms of abdominal pain, or fever. 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
[2019-09-02 10:56] VITALS: BP 116/57; PULSE 76; RESP 18; TEMP 36.6; O2SAT 90
--- NOTE | 2019-09-02 11:14 | PC.NURSE ---
Discharge instructions given per the physician's order. Patient verbalized understanding of information and did not have any further questions. Patient ride has been contacted.
[2019-09-02 11:15] LABS: Glucose Point of Care 113 mg/dL (70-110)
== END 2019-09-02 11:20 | disposition home or self-care (01) | DRG 313 ==
LOC: ER 20:11 → MEDSURG 09-01 05:03
PROVIDERS: Admitting Provider Internal Medicine; Emergency Provider Emergency Medicine; Family Provider Family Medicine; PCP Family Medicine; Visit Provider Internal Medicine
DX: R07.89 Other chest pain (principal); Z68.42 Body mass index [BMI] 45.0-49.9, adult; K57.92 Diverticulitis of intestine, part unspecified, without perforation or abscess without bleeding; E66.01 Morbid (severe) obesity due to excess calories; G47.33 Obstructive sleep apnea (adult) (pediatric); E78.5 Hyperlipidemia, unspecified; E03.9 Hypothyroidism, unspecified; E11.9 Type 2 diabetes mellitus without complications; M17.10 Unilateral primary osteoarthritis, unspecified knee; F32.9 Major depressive disorder, single episode, unspecified; K21.9 Gastro-esophageal reflux disease without esophagitis; I10 Essential (primary) hypertension; G25.81 Restless legs syndrome; M79.7 Fibromyalgia; Z79.84 Long term (current) use of oral hypoglycemic drugs; Z79.891 Long term (current) use of opiate analgesic
CPT/HCPCS: 12345; 36415; 36416; 71045; 71275; 74177; 78452; 80048; 80053; 80061; 82962; 83036; 83605; 83690; 84443; 84484; 85025; 93005; 93017; 93306; 96372; 96375; 99283; A9500; G0378; J0744; J1650; J2270; J2405; J2785; Q9967; S0030

== ENCOUNTER 2019-10-11 09:46 | Outpatient (RCR) | payer BC, SELFPAY ==
--- NOTE | 2019-08-31 19:49 | P.HP_ITS ---
Providers/Chief Complaint Primary Care Provider: Tracee Rivas DO Chief Complaint: ACUTE CERVICAL MYOFASCIAL STRAIN, SEQUELA; ACUTE M History of Present Illness Tracee Walden is a 59 year old female Medications/Allergies Home Medications Medication Instructions Recorded Confirmed Last Taken Type HINGED KNEE BRACE #1 ea NS 05/26/19 08/31/19 Unknown Rx bupropion HCl 150 mg 24 hr tablet, 300 mg PO QAM 05/26/19 08/31/19 08/31/19 History extended release duloxetine 30 mg capsule,delayed 30 mg PO DAILY 05/26/19 08/31/19 08/31/19 History release sprinkle hydrocodone 10 mg-acetaminophen 1 tab PO BID PRN 05/26/19 08/31/19 08/31/19 History 325 mg tablet metformin 1,000 mg tablet 1,000 mg PO BID 05/26/19 08/31/19 08/31/19 History spironolactone 25 mg tablet 25 mg PO DAILY PRN 05/26/19 08/31/19 08/31/19 History topiramate 200 mg capsule,extended 200 mg PO DAILY 05/26/19 08/31/19 08/31/19 History release 24 hr hydralazine 25 mg PO BID PRN 08/31/19 08/31/19 08/31/19 History levothyroxine 25 mcg PO DAILY 08/31/19 08/31/19 08/31/19 History levothyroxine 200 mcg PO DAILY 08/31/19 08/31/19 08/31/19 History lorazepam 0.5 mg PO BID PRN 08/31/19 08/31/19 08/31/19 History metoclopramide HCl 5 mg PO DAILY 08/31/19 08/31/19 08/31/19 History ropinirole 2 mg PO BEDTIME 08/31/19 08/31/19 08/30/19 History tramadol 50 mg PO DAILY 08/31/19 08/31/19 08/31/19 History trazodone 150 mg PO BEDTIME 08/31/19 08/31/19 08/30/19 History Allergies Allergy/AdvReac Type Severity Reaction Status Date / Time oxycodone Allergy ALGY-Hives Verified 08/31/19 16:52 PFSH Acute PFSH: Medical History (Updated 08/31/19 @ 19:56 by Don Urbina MD) BMI 45.0-49.9, adult Controlled type 2 diabetes mellitus Degenerative joint disease of knee Depression Gastric reflux Hypertension Hypothyroid Morbid obesity JOSE (obstructive sleep apnea) Poor high blood pressure control Restless leg syndrome Sleep apnea Surgical History (Updated 08/31/19 @ 19:56 by Don Urbina MD) History of appendectomy History of intestinal surgery Bowel obstruction in childhood Hx of cholecystectomy Family History (Updated 08/31/19 @ 19:56 by Don Urbina MD) Other Cancer Family history of premature coronary artery disease Stroke Social History (Updated 08/31/19 @ 19:56 by Don Urbina MD) Smoking and tobacco status: never smoked Alcohol intake: never Substance/Drug Use: never Lives independently: Yes Housing: House Marital status: Single 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
== END 2019-11-02 23:59 | disposition home or self-care (01) ==
LOC: SPT 09:46
PROVIDERS: PCP Family Medicine; Referring Provider Family Medicine; Visit Provider Family Medicine
DX: S16.1XXS Strain of muscle, fascia and tendon at neck level, sequela (principal); V89.2XXS Person injured in unspecified motor-vehicle accident, traffic, sequela; M54.42 Lumbago with sciatica, left side; M54.41 Lumbago with sciatica, right side
CPT/HCPCS: 97110; 97162

== ENCOUNTER 2019-11-01 12:58 | Emergency (ER) | payer BC, SELFPAY ==
[2019-11-01 13:03] VITALS: BP 176/98; PULSE 66; RESP 20; TEMP 36; O2SAT 95
--- NOTE | 2019-11-01 13:09 | CTR_ITS ---
PROCEDURE INFORMATION: Exam: CT Angiography Head With Contrast Exam date and time: 11/01/2019 1:15 PM Age: 59 years old Clinical indication: Pain; Patient HX: Headache with high BP x 3 days. ; Additional info: Severe headache and neck pain TECHNIQUE: Imaging protocol: Computed tomography angiography of the head with intravenous contrast. 3D rendering: MIP and/or 3D reconstructed images were created by the technologist. Radiation optimization: All CT scans at this facility use at least one of these dose optimization techniques: automated exposure control; mA and/or kV adjustment per patient size (includes targeted exams where dose is matched to clinical indication); or iterative reconstruction. Contrast material: VISI 320; Contrast volume: 95 ml; Contrast route: INTRAVENOUS (IV); COMPARISON: CTA Head/Neck [id number] 12/12/2017 1:30 PM RADIATION DOSE METRICS: Total DLP (mGy-cm): 4802.02 FINDINGS: Anterior cerebral arteries: No occlusion or significant stenosis. No aneurysm. Right internal carotid artery: Intracranial segment is patent with no significant stenosis or occlusion. No aneurysm. Right middle cerebral artery: No occlusion or significant stenosis. No aneurysm. Right posterior cerebral artery: No occlusion or significant stenosis. No aneurysm. Right vertebral artery: No occlusion or significant stenosis. No aneurysm. Left internal carotid artery: Intracranial segment is patent with no significant stenosis or occlusion. No aneurysm. Left middle cerebral artery: No occlusion or significant stenosis. No aneurysm. Left posterior cerebral artery: No occlusion or significant stenosis. No aneurysm. Left vertebral artery: No occlusion or significant stenosis. No aneurysm. Basilar artery: No occlusion or significant stenosis. No aneurysm. Dural sinuses/cerebral veins: The venous sinuses are patent. HEAD: Mastoid air cells: Postoperative changes are seen involving the left mastoid. IMPRESSION: No acute abnormality. PROCEDURE INFORMATION: Exam: CT Angiography Neck With Contrast Exam date and time: 11/01/2019 1:15 PM Age: 59 years old Clinical indication: Pain; Patient HX: Headache with high BP x 3 days. ; Additional info: Severe headache and neck pain TECHNIQUE: Imaging protocol: Computed tomography angiography of the neck with intravenous contrast. 3D rendering: MIP and/or 3D reconstructed images were created by the technologist. Radiation optimization: All CT scans at this facility use at least one of these dose optimization techniques: automated exposure control; mA and/or kV adjustment per patient size (includes targeted exams where dose is matched to clinical indication); or iterative reconstruction. Contrast material: VISI 320; Contrast volume: 95 ml; Contrast route: INTRAVENOUS (IV); COMPARISON: CTA Head/Neck [id number] 12/12/2017 1:30 PM RADIATION DOSE METRICS: Total DLP (mGy-cm): 4802.02 FINDINGS: Right common carotid artery: No stenosis. No dissection or occlusion. Right internal carotid artery: No stenosis of the extracranial segment. No dissection or occlusion. Right external carotid artery: No occlusion or stenosis of the origin. Right vertebral artery: No stenosis. No dissection or occlusion. Left common carotid artery: No stenosis. No dissection or occlusion. Left internal carotid artery: No stenosis of the extracranial segment. No dissection or occlusion. Left external carotid artery: No occlusion or stenosis of the origin. Left vertebral artery: The proximal left vertebral artery is obscured by artifact from adjacent dense venous contrast. The mid/distal left vertebral artery is patent. Bones/joints: Moderate degenerative changes of the cervical spine are present. Soft tissues: Normal. No significant soft tissue swelling. CT/CT angio headneck* [id number] IMPRESSION: No acute abnormality. REFERENCES: NASCET CRITERIA. The degree of internal carotid artery stenosis is based on NASCET criteria. Normal is no stenosis. Mild is less than 50% stenosis. Moderate is 50-69% stenosis. Severe is 70% to 99% stenosis. Total occlusion is no detectable patent lumen. Radiation Dose CTDIVOL = (mGy): DLP = 4802.02~4802.02 (mGy-cm)
--- NOTE | 2019-11-01 13:10 | XRR_ITS ---
PROCEDURE INFORMATION: Exam: XR Chest, 1 View Exam date and time: 11/01/2019 1:13 PM Age: 59 years old Clinical indication: Chest wall pain; Patient HX: High blood pressure for 3 days; Additional info: Chest pain TECHNIQUE: Imaging protocol: XR of the chest Views: 1 view. COMPARISON: CR Chest 2 views* [id number] 12/30/2016 7:55 AM FINDINGS: Lungs: Unremarkable. No consolidation. Pleural space: Unremarkable. No pleural effusion. No pneumothorax. Heart/Mediastinum: Cardiomegaly is identified. Bones/joints: Unremarkable. XR/XR chest 1V portable [id number] IMPRESSION: There are no acute concerning abnormalities.
--- NOTE | 2019-11-01 13:11 | ECG_ITS ---
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 Measurements Intervals [place] Rate: 57 P: 63 [place]: 180 QRS: 10 QRSD: 106 T: 30 QT: 395 QTc: 388 Interpretive Statements SINUS BRADYCARDIA LOW QRS VOLTAGE IN PRECORDIAL LEADS [QRS DEFLECTION < 1.0 mV IN CHEST LEADS] Compared to ECG 08/31/2019 23:25:22 Low QRS voltage now present Sinus rhythm no longer present Indeterminate axis no longer present Incomplete right bundle-branch block no longer present T-wave abnormality no longer present Possible ischemia no longer present Electronically Signed On 11-01-2019 16:54:22 CDT by Brock Horn M.D. [id number]
--- NOTE | 2019-11-01 13:12 | W.ED.GENADLT ---
HPI - General Adult General: Chief complaint: General Medical Stated complaint: high bp Time Seen by Provider: 11/01/19 13:00 History of Present Illness: HPI narrative: This patient is a 59-year-old female presenting today with complaints of a severe headache and neck pain. She associates this with elevated blood pressure. Her blood pressure has been running around 170/100 at home. She normally takes hydralazine, 25 mg twice daily as well as spironolactone. She also had some lisinopril at home from a prior prescription and she took 1 of those this morning. She is been taking Tylenol for the headache without much relief. She denies any neuro symptoms other than the headache. Specifically no difficulty swallowing, with speech, vision, balance, sensation, strength. She does have some chest discomfort as well. She was seen here fairly recently with chest pain related to high blood pressure. She said she was told she had no blockages although I am not sure what testing was done. She has not ever had a headache like this before. It seems to be worse at night and keeps her from sleeping comfortably. Her medical history includes hypertension, anxiety depression, chronic pain, hypothyroidism, diabetes, sleep apnea. complaint: Severe headache and neck pain Onset (ago): day(s) (3) Location: head, neck and chest Quality: constant Pain Consistency: constant Associated symptoms: Reports chest pain, headache(s) and malaise; Deny dyspnea, nausea, rash or vomiting Review of Systems General: Reports: 10 or more systems reviewed and unremarkable except in HPI and below Const: Reports: fatigue and malaise; Denies: fever(s) or chills Eyes: Denies: change in vision ENMT: Denies: odynophagia Card: Reports: chest pain Resp: Denies: dyspnea, productive cough or non-productive cough GI: Denies: abdominal pain, nausea or vomiting : Denies: flank pain or difficulty voiding Musc: Reports: back pain; Denies: neck pain Skin/Breast: Denies: rash Neuro: Reports: headache(s); Denies: numbness in extremities or weakness in extremities Kem/Lymph: Denies: easy bruising or easy bleeding PFS ED PFSH: Medical History BMI 45.0-49.9, adult Controlled type 2 diabetes mellitus Degenerative joint disease of knee Depression Gastric reflux Hypertension Hypothyroid Morbid obesity JOSE (obstructive sleep apnea) Poor high blood pressure control Primary osteoarthritis of knees, bilateral Restless leg syndrome Sleep apnea Surgical History History of appendectomy History of intestinal surgery Bowel obstruction in childhood Hx of cholecystectomy Family History Other Cancer Family history of premature coronary artery disease Stroke Social History Smoking and tobacco status: never smoked Alcohol intake: never Lives independently: Yes Housing: House Marital status: Single Physical Exam Const: COMMON NORMALS: patient oriented x3, no limitations and alert GENERAL APPEARANCE: cooperative and comfortable HENMT: HEAD & SCALP: normal to inspection FACE & SINUS: normal facial exam Eye: GENERAL EYE: appearance normal, both eyes and all related structures Neck/C-Spine: COMMON NORMALS: supple, no meningeal signs and no JVD Chest: COMMONS NORMALS: normal inspection of the chest Resp: COMMON NORMALS: normal respiratory effort, No use of accessory muscles and clear to auscultation bilaterally AUSCULTATION: clear to auscultation bilaterally Cardio: COMMON NORMALS: no JVD, regular rate, regular rhythm and No murmurs present (Cardio) RATE: regular rate RHYTHM: regular rhythm GI: COMMON NORMALS: Normal to inspection, nondistended, normoactive bowel sounds present, Soft to palpation and non-tender INSPECTION: Yes normal to inspection AUSCULTATION: Yes normoactive bowel sounds PALPATION: Yes Soft to palpation Back/Pelvis: COMMON NORMALS: thoracic and lumbar spine normal to inspection Extremity: COMMON NORMALS: normal to inspection Neuro: COMMON NORMALS: patient oriented x3, moves all extremities, no focal motor deficits and no sensory deficits noted SENSORIUM/ORIENTATION: Yes alert MENINGEAL SIGNS: Yes no meningeal signs Psych: COMMON NORMALS: mental status grossly normal, cooperative and normal affect Skin: COMMON NORMALS: no rashes or lesions noted and turgor normal GENERAL SKIN EXAM: no rashes or lesions noted and turgor normal Course ED course: Patient with severe headache related with high blood pressure. She also had a little bit of chest pain but has had a recent work-up for that and her evaluation for that today was also normal. CT angiogram of the head and neck was negative for any acute findings. Her headache was fairly persistent but eventually did improve with medications. She was eager to go home. She will follow-up with her primary care doctor for management of her blood pressure and for further evaluation for headaches should they continue. Vital Signs: Vital signs: Vital Signs Temperature 96.8 F L 11/01/19 13:03 Pulse Rate 68 11/01/19 16:53 Respiratory Rate 18 11/01/19 16:53 Blood Pressure 165/67 11/01/19 16:53 Pulse Oximetry 98 11/01/19 16:53 [facility] - General Adult Lab Data: Labs: Lab Results 11/01/19 11/01/19 11/01/19 Range/Units 13:21 13:21 13:21 WBC 12.5 H (4.0-10.0) 10^3/ uL RBC 4.35 (4.1-5.3) 10^6/u L Hgb 11.9 (11.5-15.3) g/dL Hct 40.4 (37.0-47.0) % MCV 92.9 (81-99) fL MCH 27.4 L (28.0-34.0) pg MCHC 29.5 L (30.0-36.0) g/dL RDW 14.5 (12.1-15.1) % Plt Count 495 H (130-400) 10^3/c mm MPV 9.6 (7.4-10.4) fL Neut % (Auto) 67.6 % Lymph % (Auto) 21.3 % Randall % (Auto) 8.6 % Eos % (Auto) 1.5 % Baso % (Auto) 0.3 % Neut # (Auto) 8.5 H (1.8-7.7) 10^3/u L Lymph # (Auto) 2.7 (0.8-4.8) 10^3/u L Randall # (Auto) 1.1 H (0.2-0.9) 10^3/u L Eos # (Auto) 0.2 (0.0-0.8) 10^3/u L Baso # (Auto) 0.0 (0.0-0.1) 10^3/u L Nucleated RBC % (a uto) 0 % Nucleated RBCs # 0.0 /100WBC Sodium 141 (136-145) mmol/L Potassium 4.2 (3.5-5.1) mmol/L Chloride 107 (98-107) mmol/L Carbon Dioxide 24 (22-29) mmol/L Anion Gap 14.2 (5-19) BUN 17 (8-23) mg/dL Creatinine 1.0 H (0.5-0.9) mg/dL GFR Calculation 56.4 L (90-130) mL/min Glucose 95 (65-115) mg/dL Calculated Osmolal ity 288 (285-295) mOsm/k g Lactate (0.5-2.2) mmol/L Calcium 9.2 (8.5-10.5) mg/dL Total Bilirubin 0.2 (0.15-1.2) mg/dL AST 18 (0-32) U/L ALT 22 (0-33) U/L Alkaline Phosphata se 97 (35-105) IU/L Troponin T Baselin e 8 (0-10) ng/L Troponin T 120 Min [place] (0-10) ng/L Delta Troponin T (0-10) ABS# Total Protein 6.8 (6.6-8.7) g/dL Albumin 3.8 (3.5-5.2) g/dL Globulin 3.0 (1.3-4.6) g/dL Lipase 57 (13-60) U/L Urine Color (Yellow) Urine Appearance (CLEAR) Urine pH (5-7) Ur Specific Gravit y (1.005-1.030) Urine Protein (Negative) Urine Glucose (UA) (Normal) Urine Ketones (Negative) Urine Blood (Negative) Urine Nitrate (Negative) Urine Bilirubin (NEGATIVE) Urine Urobilinogen (Negative) mg/dL Ur Leukocyte Daphnie ase (Negative) 11/01/19 11/01/19 11/01/19 Range/Units 13:49 14:10 15:24 WBC (4.0-10.0) 10^3/ uL RBC (4.1-5.3) 10^6/u L Hgb (11.5-15.3) g/dL Hct (37.0-47.0) % MCV (81-99) fL MCH (28.0-34.0) pg MCHC (30.0-36.0) g/dL RDW (12.1-15.1) % Plt Count (130-400) 10^3/c mm MPV (7.4-10.4) fL Neut % (Auto) % Lymph % (Auto) % Randall % (Auto) % Eos % (Auto) % Baso % (Auto) % Neut # (Auto) (1.8-7.7) 10^3/u L Lymph # (Auto) (0.8-4.8) 10^3/u L Randall # (Auto) (0.2-0.9) 10^3/u L Eos # (Auto) (0.0-0.8) 10^3/u L Baso # (Auto) (0.0-0.1) 10^3/u L Nucleated RBC % (a uto) % Nucleated RBCs # /100WBC Sodium (136-145) mmol/L Potassium (3.5-5.1) mmol/L Chloride (98-107) mmol/L Carbon Dioxide (22-29) mmol/L Anion Gap (5-19) BUN (8-23) mg/dL Creatinine (0.5-0.9) mg/dL GFR Calculation (90-130) mL/min Glucose (65-115) mg/dL Calculated Osmolal ity (285-295) mOsm/k g Lactate 1.4 (0.5-2.2) mmol/L Calcium (8.5-10.5) mg/dL Total Bilirubin (0.15-1.2) mg/dL AST (0-32) U/L ALT (0-33) U/L Alkaline Phosphata se (35-105) IU/L Troponin T Baselin e (0-10) ng/L Troponin T 120 Min [place] 6.64 (0-10) ng/L Delta Troponin T -1.36 L (0-10) ABS# Total Protein (6.6-8.7) g/dL Albumin (3.5-5.2) g/dL Globulin (1.3-4.6) g/dL Lipase (13-60) U/L Urine Color Yellow (Yellow) Urine Appearance Clear (CLEAR) Urine pH 6 (5-7) Ur Specific Gravit y 1.015 (1.005-1.030) Urine Protein Neg (Negative) Urine Glucose (UA) Norm (Normal) Urine Ketones Negative (Negative) Urine Blood Neg (Negative) Urine Nitrate Negative (Negative) Urine Bilirubin Neg (NEGATIVE) Urine Urobilinogen Norm (Negative) mg/dL Ur Leukocyte Daphnie ase Negative (Negative) Discharge Plan Discharge Patient Disposition: Home, Self-Care Clinical Impression: Headache Qualifiers: Headache type: unspecified Headache chronicity pattern: acute headache Intractability: not intractable Qualified Code(s): R51 - Headache Hypertension Qualifiers: Hypertension type: unspecified Qualified Code(s): I10 - Essential (primary) hypertension Condition: Stable Prescriptions: No Action topiramate 200 mg capsule,extended release 24hr 200 mg PO BID RF: 0 duloxetine 30 mg capsule, delayed rel sprinkle 30 mg PO DAILY RF: 0 bupropion HCl 150 mg tablet extended release 24 hr 300 mg PO QAM RF: 0 spironolactone 25 mg tablet 25 mg PO DAILY PRN (Reason: SWELLING) RF: 0 metformin 1,000 mg tablet 1,000 mg PO BID RF: 0 hydrocodone-acetaminophen 10-325 mg tablet 1 tab PO BID PRN (Reason: Pain) RF: 0 tramadol 50 mg tablet 50 mg PO DAILY RF: 0 levothyroxine 25 mcg tablet 25 mcg PO DAILY RF: 0 lorazepam 0.5 mg tablet 0.5 mg PO BID PRN (Reason: Anxiety) RF: 0 ropinirole 2 mg tablet 2 mg PO BEDTIME RF: 0 levothyroxine 200 mcg tablet 200 mcg PO DAILY RF: 0 metronidazole [Flagyl] 500 mg tablet 500 mg PO QID Qty: 36 RF: 0 hydralazine 25 mg tablet 25 mg PO BID Qty: 0 RF: 0 hydroxyzine HCl 50 mg Tablet 50 mg PO BEDTIME RF: 0 pantoprazole 40 mg Tablet,Delayed Release (Dr/Ec) 40 mg PO BID RF: 0 metoprolol tartrate 50 mg Tablet 50 mg PO BID RF: 0 Referrals: Tracee Rivas DO [Primary Care Provider] - 1-3 days Discharge Diet: Advance as tolerated Discharge Activity: Resume usual activity Patient Instructions: Acute Headache (ED), Hypertension (ED) Activity Restrictions/Additional Instructions: Rest, take your blood pressure medications, limit salt and sodium in your diet. Return to the ED if any new or worsening symptoms. Follow-up with your primary care doctor to discuss changing your blood pressure medications. Discharge Date/Time: 11/01/19 16:55 Coding Level of Care Code ED Health Services Administrator for [place] Fwd Exam Comprehensive
[2019-11-01 13:33] VITALS: RESP 18
[2019-11-01] MEDS: ondansetron 2 mg/ML SDV 2 mL 4 MG IVP (13:33)
[2019-11-01] MEDS: HYDROmorphone 1 mg/mL INJ 1 mL 0.5 MG IVP ×2 (13:33→16:05)
[2019-11-01] MEDS: metoclopramide 5 mg/mL SDV 2 mL IVP (13:35)
[2019-11-01] MEDS: diphenhydrAMINE 50 mg/mL SDV 1mL IVP (13:35)
[2019-11-01 13:57] LABS: Basophils % 0.3 %; Eosinophils # 0.2 10^3/uL (0.0-0.8); Eosinophils % 1.5 %; Hematocrit 40.4 % (37.0-47.0); Hemoglobin 11.9 g/dL (11.5-15.3); Lymphocytes # 2.7 10^3/uL (0.8-4.8); Lymphocytes % 21.3 %; Mean Corpuscular HGB Conc 29.5 g/dL (30.0-36.0); Mean Corpuscular Hemoglobin 27.4 pg (28.0-34.0); Mean Corpuscular Volume 92.9 fL (81-99); Mean Platelet Volume 9.6 fL (7.4-10.4); Monocytes # 1.1 10^3/uL (0.2-0.9); Monocytes % 8.6 %; Neutrophils # 8.5 10^3/uL (1.8-7.7); Neutrophils % 67.6 %; Nucleated Red Blood Cells % 0 %; Platelet Count 495 10^3/cmm (130-400); Red Blood Count 4.35 10^6/uL (4.1-5.3); Red Cell Distribution Width 14.5 % (12.1-15.1); White Blood Count 12.5 10^3/uL (4.0-10.0)
[2019-11-01 14:10] LABS: Alanine Aminotransferase 22 U/L (0-33); Albumin Level 3.8 g/dL (3.5-5.2); Alkaline Phosphatase 97 IU/L (35-105); Anion Gap 14.2 (5-19); Aspartate Amino Transferase 18 U/L (0-32); Blood Urea Nitrogen 17 mg/dL (8-23); Calcium 9.2 mg/dL (8.5-10.5); Carbon Dioxide 24 mmol/L (22-29); Chloride 107 mmol/L (98-107); Glomerular Filtration Rate 56.4 mL/min (90-130); Glucose 95 mg/dL (65-115); Lipase 57 U/L (13-60); Osmolality Calculated 288 mOsm/kg (285-295); Potassium 4.2 mmol/L (3.5-5.1); Sodium 141 mmol/L (136-145); Total Bilirubin 0.2 mg/dL (0.15-1.2); Total Protein 6.8 g/dL (6.6-8.7)
[2019-11-01 14:11] LABS: Troponin(5th) Baseline 8 ng/L (0-10)
[2019-11-01 14:12] LABS: Add Urine Microscopic? NO
[2019-11-01 14:13] LABS: Lactate (Lactic Acid level) 1.4 mmol/L (0.5-2.2)
[2019-11-01 14:33] LABS: Bilirubin Urine Neg (NEGATIVE); Blood Urine Neg (Negative); Glucose Urine UA Norm (Normal); Ketones Urine Negative (Negative); Leukocyte Esterase Urine Negative (Negative); Nitrate Urine Negative (Negative); Protein Urine Neg (Negative); Specific Gravity, Urine 1.015 (1.005-1.030); Urine Appearance Clear (CLEAR); Urine Color Yellow (Yellow); Urobilinogen Urine Norm (Negative); pH Urine 6 (5-7)
[2019-11-01] MEDS: iohexol 350 mg/mL 100 mL Btl IV (15:10)
--- NOTE | 2019-11-01 15:11 | ECG_ITS ---
[facility] Test Date: 2019-11-01 Pat Name: Tracee Walden Department: Room: Gender: Female Database Operator: : 1960 Requested By: Lu Mcdonald Order Number: [id number] Talia MD: Brock Horn M.D. Measurements Intervals [place] Rate: 58 P: 50 [place]: 178 QRS: 23 QRSD: 113 T: 40 QT: 405 QTc: 401 Interpretive Statements SINUS BRADYCARDIA LOW QRS VOLTAGE IN PRECORDIAL LEADS [QRS DEFLECTION < 1.0 mV IN CHEST LEADS] MODERATE INTRAVENTRICULAR CONDUCTION DELAY [110+ ms QRS DURATION] Compared to ECG 11/01/2019 13:25:36 Intraventricular conduction delay now present Electronically Signed On 11-01-2019 16:56:30 CDT by Brock Horn M.D. [email or web address], [email or web address] [facility] of smith countyTolero [id number]
[2019-11-01 15:53] LABS: Troponin 5 2HR 6.64 ng/L (0-10)
[2019-11-01 16:05] VITALS: RESP 18
[2019-11-01] MEDS: ketorolac 30 mg/mL INJ 15 MG IVP (16:06)
[2019-11-01] MEDS: LORazepam 2 mg/mL INJ 1 mL 1 MG IVP (16:06)
[2019-11-01 16:18] LABS: Troponin 5 2HR Delta -1.36 ABS# (0-10)
[2019-11-01 16:53] VITALS: BP 165/67; PULSE 68; RESP 18; O2SAT 98
== END 2019-11-01 16:55 | disposition home or self-care (01) ==
PROVIDERS: Emergency Provider Emergency Medicine; PCP Family Medicine
DX: R51 Headache (principal); I10 Essential (primary) hypertension; Z79.84 Long term (current) use of oral hypoglycemic drugs; E11.9 Type 2 diabetes mellitus without complications
CPT/HCPCS: 12345; 36415; 70496; 70498; 71045; 80053; 81003; 83605; 83690; 84484; 85025; 93005; 96374; 96375; 96376; 99282; 99284; J1170; J1200; J1885; J2060; J2405; J2765; Q9967

== ENCOUNTER 2019-11-03 06:00 | Outpatient (RCR) | payer BC, SELFPAY | END 2019-12-03 23:59 | disposition home or self-care (01) | LOC: SPT 06:00 | PROVIDERS: PCP Family Medicine; Referring Provider Family Medicine; Visit Provider Family Medicine | DX: S16.1XXD Strain of muscle, fascia and tendon at neck level, subsequent encounter (principal); M54.42 Lumbago with sciatica, left side; M54.41 Lumbago with sciatica, right side; V89.2XXD Person injured in unspecified motor-vehicle accident, traffic, subsequent encounter | CPT/HCPCS: 97110 ==

== ENCOUNTER 2020-01-06 18:10 | Emergency (ER) | payer BC, SELFPAY ==
[2020-01-06 18:26] VITALS: BP 136/83; PULSE 92; RESP 16; TEMP 36.6; O2SAT 96; BMI 47.1
[2020-01-06 21:17] LABS: Basophils # 0.1 10^3/uL (0.0-0.1); Basophils % 0.5 %; Eosinophils # 0.2 10^3/uL (0.0-0.8); Eosinophils % 1.9 %; Hematocrit 43.8 % (37.0-47.0); Hemoglobin 12.9 g/dL (11.5-15.3); Lymphocytes % 20.8 %; Mean Corpuscular HGB Conc 29.5 g/dL (30.0-36.0); Mean Corpuscular Hemoglobin 26.5 pg (28.0-34.0); Mean Corpuscular Volume 90.1 fL (81-99); Mean Platelet Volume 9.2 fL (7.4-10.4); Monocytes # 0.7 10^3/uL (0.2-0.9); Monocytes % 7.4 %; Nucleated Red Blood Cells % 0 %; Platelet Count 449 10^3/cmm (130-400); Red Blood Count 4.86 10^6/uL (4.1-5.3); Red Cell Distribution Width 14.6 % (12.1-15.1); White Blood Count 9.6 10^3/uL (4.0-10.0)
[2020-01-06 21:21] VITALS: PULSE 75; RESP 16; O2SAT 98
[2020-01-06 21:31] LABS: INR 0.95 (0.8-1.2)
--- NOTE | 2020-01-06 21:34 | CTR_ITS ---
PROCEDURE INFORMATION: Exam: CT Abdomen And Pelvis With Contrast Exam date and time: 01/06/2020 9:38 PM Age: 59 years old Clinical indication: Abdominal pain; Generalized; Prior surgery; Surgery type: Stomach, gb, appy; Additional info: Abdominal pain, blood in stool TECHNIQUE: Imaging protocol: Computed tomography of the abdomen and pelvis with intravenous contrast. Radiation optimization: All CT scans at this facility use at least one of these dose optimization techniques: automated exposure control; mA and/or kV adjustment per patient size (includes targeted exams where dose is matched to clinical indication); or iterative reconstruction. Contrast material: VISI; Contrast volume: 95 ml; Contrast route: INTRAVENOUS (IV); COMPARISON: CT abdomen pelvis w con* [id number] 09/01/2019 4:02 PM RADIATION DOSE METRICS: Total DLP (mGy-cm): 1929.17 FINDINGS: Liver: Normal. No mass. Gallbladder and bile ducts: Status post cholecystectomy. Pancreas: Normal. No ductal dilation. Spleen: Normal. No splenomegaly. Adrenals: There is a small stable low-attenuation nodularity within the right adrenal gland measuring approximately 1.5 cm. There is a stable 12 mm hypoattenuation nodularity seen within the left adrenal gland. Kidneys and ureters: A stable low-attenuation lesion seen within the left kidney measuring approximately 9 mm in transverse dimension. This likely represents a benign cyst. Stomach and bowel: Diverticula are present on the descending and sigmoid colon. There are some hazy opacity seen adjacent to the distal descending colon and proximal sigmoid colon and some bowel wall thickening seen within the proximal sigmoid colon as well. These findings suggest mild diverticulitis. Appendix: Status post appendectomy. Intraperitoneal space: Unremarkable. No free air. No significant fluid collection. Vasculature: Unremarkable. No abdominal aortic aneurysm. Lymph nodes: Unremarkable. No enlarged lymph nodes. Bladder: Unremarkable as visualized. Reproductive: Unremarkable as visualized. Bones/joints: There is stable mild compression of the superior endplate T11 vertebral body. Soft tissues: Unremarkable. CT/CT abdomen pelvis w con* [id number] IMPRESSION: 1. Diverticulosis of the descending and sigmoid colon. Hazy opacities are seen adjacent to the distal descending colon and proximal sigmoid colon and there is some bowel wall thickening seen within the proximal sigmoid colon, findings suggesting diverticulitis. 2. Stable bilateral low-attenuation adrenal nodularities, the largest seen on the right measuring 1.5 cm. Consider 12 month follow-up adrenal CT. (Carmen Lester, ACR White Paper, 2017) 3. Stable hypoattenuation benign-appearing cystic lesion within the left kidney measuring approximately 9 mm in diameter. No further workup needed. Radiation Dose CTDIVOL = (mGy): DLP = 1929.17 (mGy-cm)
[2020-01-06 21:35] LABS: Alanine Aminotransferase 31 U/L (0-33); Albumin Level 3.9 g/dL (3.5-5.2); Alkaline Phosphatase 93 IU/L (35-105); Anion Gap 14.4 (5-19); Aspartate Amino Transferase 19 U/L (0-32); Blood Urea Nitrogen 8 mg/dL (8-23); Calcium 9.3 mg/dL (8.5-10.5); Carbon Dioxide 24 mmol/L (22-29); Chloride 107 mmol/L (98-107); Globulin 3.3 g/dL (1.3-4.6); Glomerular Filtration Rate 56.4 mL/min (90-130); Glucose 110 mg/dL (65-115); Lipase 50 U/L (13-60); Osmolality Calculated 291 mOsm/kg (285-295); Potassium 3.4 mmol/L (3.5-5.1); Sodium 142 mmol/L (136-145); Total Bilirubin 0.2 mg/dL (0.15-1.2); Total Protein 7.2 g/dL (6.6-8.7)
[2020-01-06] MEDS: iodixanol 320 mg/mL 100mL Btl IV (21:53)
[2020-01-06 22:00] LABS: Lactic Sepsis W/Reflex 2.1 mmol/L (0.5-2.2)
[2020-01-06] MEDS: HYDROmorphone 1 mg/mL INJ 1 mL 0.5 MG IVP (22:09)
[2020-01-06] MEDS: ondansetron 2 mg/ML SDV 2 mL 4 MG IVP (22:09)
[2020-01-06 22:13] VITALS: BP 127/63; PULSE 75; RESP 16; O2SAT 98
[2020-01-06] MEDS: metroNIDAZOLE 500 MG Tablet PO (22:49)
[2020-01-06] MEDS: ciprofloxacin 500 mg Tablet PO (22:49)
--- NOTE | 2020-01-06 22:51 | W.ED.GIBLEED ---
HPI - GI Bleed General: Chief complaint: GI Bleed Stated complaint: AB PAIN, BLOODY STOOL Time Seen by Provider: 01/06/20 21:18 History of Present Illness: HPI Narrative: This patient is a 59-year-old female who comes in today complaining of abdominal pain. She reports that on Friday she had some vomiting and then continued to feel poorly for several more days. On Friday she started having some blood in her stool. She reports one episode of bright red blood and then since then she has had dark small, hard stools. She said she has had a history of gastritis for which she takes Flagyl on an as-needed basis. Ask her if she meant colitis or diverticulitis and she said no. She has had a colonoscopy and endoscopy about 3 years ago. She was not told that she had ulcers. She said she called her doctor and her doctor told her to come in because she wanted to be seen by a minilab operator. She denies chest pain or shortness of breath. She denies fever. She denies urinary symptoms. complaint: blood streaked stool and gross hematochezia Onset (ago): day(s) (2) Pain Consistency: constant Severity: moderate Relieving factors: none Exacerbating factors: movement Associated symptoms: Reports abdominal pain, nausea and vomiting; Denies chills, easy bruising, fever(s), headache(s), malaise or rash Review of Systems General: Reports: 10 or more systems reviewed and unremarkable except in HPI and below Const: Denies: fever(s), chills, fatigue or malaise Eyes: Denies: change in vision ENMT: Denies: odynophagia Card: Denies: chest pain or swelling of feet/ankles Resp: Denies: dyspnea, productive cough or non-productive cough GI: Reports: abdominal pain, nausea, vomiting, constipation and hematochezia : Denies: flank pain or difficulty voiding Musc: Denies: neck pain or back pain Skin/Breast: Denies: rash Neuro: Denies: headache(s), numbness in extremities or weakness in extremities Kem/Lymph: Denies: easy bruising or easy bleeding PFS ED PFSH: Medical History (Updated 01/06/20 @ 22:39 by Lu Carrasco MD) BMI 45.0-49.9, adult Controlled type 2 diabetes mellitus Degenerative joint disease of knee Depression Gastric reflux Hypertension Hypothyroid Morbid obesity JOSE (obstructive sleep apnea) Poor high blood pressure control Primary osteoarthritis of knees, bilateral Restless leg syndrome Sleep apnea Surgical History History of appendectomy History of intestinal surgery Bowel obstruction in childhood Hx of cholecystectomy Family History Other Cancer Family history of premature coronary artery disease Stroke Social History (Updated 01/06/20 @ 18:33 by Saleem Arango RN) Smoking and tobacco status: never smoked Alcohol intake: never Substance/Drug Use: never Lives independently: Yes Housing: House Marital status: Single Physical Exam Const: COMMON NORMALS: no acute distress, patient oriented x3, no limitations and alert GENERAL APPEARANCE: cooperative NUTRITIONAL APPEARANCE: obese morbidly obese HENMT: HEAD & SCALP: normal to inspection FACE & SINUS: normal facial exam Eye: GENERAL EYE: appearance normal, both eyes and all related structures Neck/C-Spine: COMMON NORMALS: supple, no meningeal signs and no JVD Chest: COMMONS NORMALS: normal inspection of the chest Resp: COMMON NORMALS: normal respiratory effort, No use of accessory muscles and clear to auscultation bilaterally AUSCULTATION: clear to auscultation bilaterally Cardio: COMMON NORMALS: no JVD, regular rate, regular rhythm and No murmurs present (Cardio) RATE: regular rate RHYTHM: regular rhythm GI: COMMON NORMALS: Normal to inspection, nondistended, normoactive bowel sounds present, Soft to palpation and non-tender INSPECTION: Yes normal to inspection PALPATION: Yes Soft to palpation and Yes Tenderness to palpation present (GI) Details: LLQ and LUQ Back/Pelvis: COMMON NORMALS: thoracic and lumbar spine normal to inspection Extremity: COMMON NORMALS: normal to inspection Neuro: COMMON NORMALS: patient oriented x3, moves all extremities, no focal motor deficits and no sensory deficits noted SENSORIUM/ORIENTATION: Yes alert MENINGEAL SIGNS: Yes no meningeal signs Psych: COMMON NORMALS: mental status grossly normal, cooperative and normal affect Skin: COMMON NORMALS: no rashes or lesions noted and turgor normal GENERAL SKIN EXAM: no rashes or lesions noted and turgor normal Course ED course: Patient was given pain meds in the ED - Labs show no anemia, no elevated WBC. CT with evidence of mild diverticulitis. Discussed plan for outpatient management - patient feels well enough to go home. Cipro, flagyl, tramadol. Close follow up and colonoscopy in a few months. Return precautions discussed. Vital Signs: Vital signs: Vital Signs Temperature 97.9 F 01/06/20 18:26 Pulse Rate 75 01/06/20 22:13 Respiratory Rate 16 01/06/20 22:13 Blood Pressure 127/63 01/06/20 22:13 Pulse Oximetry 98 01/06/20 22:13 MDM - GI Bleed Lab Data: Labs: Lab Results 01/06/20 01/06/20 01/06/20 Range/Units 20:45 20:45 20:45 WBC 9.6 (4.0-10.0) 10^3/ uL RBC 4.86 (4.1-5.3) 10^6/u L Hgb 12.9 (11.5-15.3) g/dL Hct 43.8 (37.0-47.0) % MCV 90.1 (81-99) fL MCH 26.5 L (28.0-34.0) pg MCHC 29.5 L (30.0-36.0) g/dL RDW 14.6 (12.1-15.1) % Plt Count 449 H (130-400) 10^3/c mm MPV 9.2 (7.4-10.4) fL Neut % (Auto) 69.0 % Lymph % (Auto) 20.8 % [place] % (Auto) 7.4 % Eos % (Auto) 1.9 % Baso % (Auto) 0.5 % Neut # (Auto) 6.60 (1.8-7.7) 10^3/u L Lymph # (Auto) 2.0 (0.8-4.8) 10^3/u L [place] # (Auto) 0.7 (0.2-0.9) 10^3/u L Eos # (Auto) 0.2 (0.0-0.8) 10^3/u L Baso # (Auto) 0.1 (0.0-0.1) 10^3/u L Nucleated RBC % (a uto) 0 % Nucleated RBCs # 0.0 /100WBC PT 12.90 (12.1-14.9) SECO NDS INR 0.95 (0.8-1.2) Sodium 142 (136-145) mmol/L Potassium 3.4 L (3.5-5.1) mmol/L Chloride 107 (98-107) mmol/L Carbon Dioxide 24 (22-29) mmol/L Anion Gap 14.4 (5-19) BUN 8 (8-23) mg/dL Creatinine 1.0 H (0.5-0.9) mg/dL GFR Calculation 56.4 L (90-130) mL/min Glucose 110 (65-115) mg/dL Calculated Osmolal ity 291 (285-295) mOsm/k g Lactic Acid (0.5-2.2) mmol/L Calcium 9.3 (8.5-10.5) mg/dL Total Bilirubin 0.2 (0.15-1.2) mg/dL AST 19 (0-32) U/L ALT 31 (0-33) U/L Alkaline Phosphata se 93 (35-105) IU/L Total Protein 7.2 (6.6-8.7) g/dL Albumin 3.9 (3.5-5.2) g/dL Globulin 3.3 (1.3-4.6) g/dL Lipase 50 (13-60) U/L 01/06/20 Range/Units 21:31 WBC (4.0-10.0) 10^3/ uL RBC (4.1-5.3) 10^6/u L Hgb (11.5-15.3) g/dL Hct (37.0-47.0) % MCV (81-99) fL MCH (28.0-34.0) pg MCHC (30.0-36.0) g/dL RDW (12.1-15.1) % Plt Count (130-400) 10^3/c mm MPV (7.4-10.4) fL Neut % (Auto) % Lymph % (Auto) % [place] % (Auto) % Eos % (Auto) % Baso % (Auto) % Neut # (Auto) (1.8-7.7) 10^3/u L Lymph # (Auto) (0.8-4.8) 10^3/u L [place] # (Auto) (0.2-0.9) 10^3/u L Eos # (Auto) (0.0-0.8) 10^3/u L Baso # (Auto) (0.0-0.1) 10^3/u L Nucleated RBC % (a uto) % Nucleated RBCs # /100WBC PT (12.1-14.9) SECO NDS INR (0.8-1.2) Sodium (136-145) mmol/L Potassium (3.5-5.1) mmol/L Chloride (98-107) mmol/L Carbon Dioxide (22-29) mmol/L Anion Gap (5-19) BUN (8-23) mg/dL Creatinine (0.5-0.9) mg/dL GFR Calculation (90-130) mL/min Glucose (65-115) mg/dL Calculated Osmolal ity (285-295) mOsm/k g Lactic Acid 2.1 (0.5-2.2) mmol/L Calcium (8.5-10.5) mg/dL Total Bilirubin (0.15-1.2) mg/dL AST (0-32) U/L ALT (0-33) U/L Alkaline Phosphata se (35-105) IU/L Total Protein (6.6-8.7) g/dL Albumin (3.5-5.2) g/dL Globulin (1.3-4.6) g/dL Lipase (13-60) U/L Discharge Plan Discharge Patient Disposition: Home Clinical Impression: Diverticulitis Condition: Stable Prescriptions: New metronidazole 500 mg tablet 500 mg PO Q8H 7 Days Qty: 30 RF: 0 Cipro 500 mg tablet 500 mg PO BID Qty: 20 RF: 0 tramadol 50 mg tablet 50 mg PO Q6H PRN (Reason: pain) Qty: 14 RF: 0 No Action topiramate 200 mg capsule,extended release 24hr 200 mg PO BID RF: 0 spironolactone 25 mg tablet 25 mg PO DAILY PRN (Reason: SWELLING) RF: 0 metformin 1,000 mg tablet 1,000 mg PO BID RF: 0 hydrocodone-acetaminophen 10-325 mg tablet 1 tab PO BID PRN (Reason: Pain) RF: 0 tramadol 50 mg tablet 50 mg PO DAILY RF: 0 levothyroxine 25 mcg tablet 25 mcg PO DAILY RF: 0 lorazepam 0.5 mg tablet 0.5 mg PO BID PRN (Reason: Anxiety) RF: 0 ropinirole 2 mg tablet 2 mg PO BEDTIME RF: 0 levothyroxine 200 mcg tablet 200 mcg PO DAILY RF: 0 hydralazine 25 mg tablet 25 mg PO BID Qty: 0 RF: 0 pantoprazole 40 mg Tablet,Delayed Release (Dr/Ec) 40 mg PO BID RF: 0 metoprolol tartrate 50 mg Tablet 50 mg PO BID RF: 0 prochlorperazine maleate 5 mg tablet 5 mg PO Q6H PRN (Reason: N/V) RF: 0 trazodone 150 mg tablet 150 - 200 mg PO BEDTIME RF: 0 diclofenac sodium 1 % gel See Rx Instructions .ROUTE .COMPLEX RF: 0 Savella 12.5 mg (5)-25 mg(8)-50 mg(42) tablets,dose pack See Rx Instructions .ROUTE .COMPLEX RF: 0 Ozempic 0.25 mg or 0.5 mg(2 mg/1.5 mL) pen injector 0.25 mg SUBCUT Q7D RF: 0 Discharge Orders: Discharge Order (Routine); Ordered 01/06/20 Ordered By: Lu Carrasco Referrals: Tracee Rivas DO [Primary Care Provider] - Discharge Diet: Usual diet Discharge Activity: Resume usual activity Patient Instructions: Diverticulitis (ED) Activity Restrictions/Additional Instructions: Follow-up with your primary care provider to discuss referral for colonoscopy after your acute infection is better. Return to the emergency department if fever, worse pain, vomiting, bleeding per rectum. Take a stool softener while on the pain medications. Discharge Date/Time: 01/06/20 22:56 Coding Level of Care Code ED Market Manager for Nicanor Krueger
[2020-01-06 22:54] VITALS: BP 135/70; PULSE 74; RESP 18; O2SAT 96
== END 2020-01-06 22:56 | disposition home or self-care (01) ==
PROVIDERS: Emergency Medicine; Emergency Provider Emergency Medicine; PCP Family Medicine
DX: K57.92 Diverticulitis of intestine, part unspecified, without perforation or abscess without bleeding (principal); E11.9 Type 2 diabetes mellitus without complications; Z79.84 Long term (current) use of oral hypoglycemic drugs; I10 Essential (primary) hypertension
CPT/HCPCS: 12345; 36415; 74177; 80053; 83605; 83690; 85025; 85610; 86850; 86900; 96374; 96375; 99283; J1170; J2405; Q9967

== ENCOUNTER 2020-01-25 15:07 | Emergency (ER) | payer BC, SELFPAY ==
[2020-01-25] VITALS (7 sets, daily range): BP systolic 166–219; BP diastolic 102–130; PULSE 72–106; RESP 18–20; TEMP 37.1; O2SAT 94–98; BMI 43.9
[2020-01-25 16:39] LABS: Basophils # 0.1 10^3/uL (0.0-0.1); Basophils % 0.7 %; Eosinophils # 0.2 10^3/uL (0.0-0.8); Eosinophils % 1.8 %; Hematocrit 46.5 % (37.0-47.0); Lymphocytes # 1.8 10^3/uL (0.8-4.8); Lymphocytes % 18.6 %; Mean Corpuscular HGB Conc 30.1 g/dL (30.0-36.0); Mean Corpuscular Hemoglobin 26.7 pg (28.0-34.0); Mean Corpuscular Volume 88.7 fL (81-99); Mean Platelet Volume 9.1 fL (7.4-10.4); Monocytes # 1.1 10^3/uL (0.2-0.9); Monocytes % 11.3 %; Neutrophils # 6.51 10^3/uL (1.8-7.7); Neutrophils % 67.3 %; Nucleated Red Blood Cells % 0 %; Platelet Count 510 10^3/cmm (130-400); Red Blood Count 5.24 10^6/uL (4.1-5.3); Red Cell Distribution Width 14.6 % (12.1-15.1); White Blood Count 9.7 10^3/uL (4.0-10.0)
[2020-01-25 16:58] LABS: Alanine Aminotransferase 29 U/L (0-33); Albumin Level 4.2 g/dL (3.5-5.2); Alkaline Phosphatase 90 IU/L (35-105); Anion Gap 16.6 (5-19); Aspartate Amino Transferase 25 U/L (0-32); Blood Urea Nitrogen 6 mg/dL (8-23); Calcium 9.6 mg/dL (8.5-10.5); Carbon Dioxide 22 mmol/L (22-29); Chloride 106 mmol/L (98-107); Globulin 3.7 g/dL (1.3-4.6); Glomerular Filtration Rate 63.7 mL/min (90-130); Glucose 101 mg/dL (65-115); Lipase 44 U/L (13-60); Osmolality Calculated 290 mOsm/kg (285-295); Potassium 3.6 mmol/L (3.5-5.1); Sodium 141 mmol/L (136-145); Total Bilirubin 0.2 mg/dL (0.15-1.2); Total Protein 7.9 g/dL (6.6-8.7)
--- NOTE | 2020-01-25 18:19 | CTR_ITS ---
PROCEDURE INFORMATION: Exam: CT Abdomen And Pelvis With Contrast Exam date and time: 01/25/2020 6:56 PM Age: 59 years old Clinical indication: Nausea and vomiting and other: Diarrhea; Abdominal pain; Generalized; Prior surgery; Surgery type: Appy, gb, stomach TECHNIQUE: Imaging protocol: Computed tomography of the abdomen and pelvis with intravenous contrast. Radiation optimization: All CT scans at this facility use at least one of these dose optimization techniques: automated exposure control; mA and/or kV adjustment per patient size (includes targeted exams where dose is matched to clinical indication); or iterative reconstruction. Contrast material: OMNI 300; Contrast volume: 95 ml; Contrast route: INTRAVENOUS (IV); COMPARISON: CT abdomen pelvis w con* [id number] 01/06/2020 9:47 PM , 11/29/2016 RADIATION DOSE METRICS: Total DLP (mGy-cm): 1706.83 FINDINGS: Liver: Normal. No mass. Gallbladder and bile ducts: Cholecystectomy. Mild prominence of the bile ducts is most likely reservoir effect. Pancreas: Normal. No ductal dilation. Spleen: Normal. No splenomegaly. Adrenals: 1.5 cm stable bilateral adrenal nodules. Kidneys and ureters: Subcentimeter hypodensity in the left kidney is most likely a cyst but is too small to characterize. No follow-up recommended. The kidneys are otherwise unremarkable. Stomach and bowel: Gastric wall thickening is most likely related to under distension. Diverticulosis of the descending and sigmoid colon. Appendix: The appendix is absent. Intraperitoneal space: Unremarkable. No free air. No significant fluid collection. Vasculature: Unremarkable. No abdominal aortic aneurysm. Lymph nodes: Unremarkable. No enlarged lymph nodes. Bladder: Unremarkable as visualized. Reproductive: Unremarkable as visualized. Bones/joints: Mild T11 compression fracture. Disc space narrowing at L5-S1. Soft tissues: Fat containing umbilical hernias. CT/CT abdomen pelvis w con* [id number] IMPRESSION: 1. No acute abnormality identified in the abdomen or pelvis. 2. Diverticulosis of the distal colon. 3. Stable benign 1.5 cm nodules in both adrenal glands, most likely adenomas. COMMENTS: Consistent with the [employer]'s Incidental Findings Committee white paper (J Am Yehuda Radiol 2018): Any incidental renal lesion less than 1 cm or classified as too small to characterize, or any incidental cystic renal lesion characterized as simple-appearing, is likely benign. No follow-up imaging is recommended for these lesions per consensus recommendations based on imaging criteria. Radiation Dose CTDIVOL = (mGy): DLP = 1706.83 (mGy-cm)
[2020-01-25] MEDS: sodium chloride 0.9% 1,000 ML 999 ML IV (18:48)
[2020-01-25] MEDS: metoclopramide 5 mg/mL SDV 2 mL 10 MG IV (18:49)
[2020-01-25] MEDS: morphine 4 mg/mL SDV 1 mL IVP ×2 (18:50→20:14)
--- NOTE | 2020-01-25 18:51 | ED_ITS ---
HPI - Abdominal Pain General: Chief Complaint: Abdominal Pain Stated Complaint: N/V/D Time Seen by Provider: 01/25/20 18:20 Source: patient Mode of arrival: ambulatory Limitations: no limitations History of Present Illness: HPI narrative: Tracee is a nice 59-year-old female who comes in complaining of abdominal pain for the last month. She states she has been diagnosed with diverticulitis and prior to that had been treated with 10 days of antibiotics for a presumptive diagnosis of diverticulitis. She states that even after completing both courses she feels no better. She continues to have nausea vomiting and diarrhea. She also has diffuse cramping abdominal pain. She denies any fever or chills. He is not had any urinary frequency, urgency or dysuria. Patient states that her she does have heartburn. The patient was supposed to be seen by Dr. Benitez for possible colonoscopy but ultimately was referred here to the ER as she has ongoing pain. The patient denies any exacerbating or alleviating factors. She is never had anything quite like this before. She states she is unable to keep down some of her medications because of the vomiting. It does not appear as though the patient has been given anything for nauseousness at home. Associated Symptoms: Reports diarrhea, nausea and vomiting; Denies chills, coffee ground emesis, constipation, GI cramping, dysuria, fever(s), heartburn, hematochezia, hematuria, hematemesis, melena and syncope Review of Systems Const: Denies: fever(s), chills, body aches, fatigue, malaise or diaphoresis Eyes: Denies: change in vision, blurry vision, photophobia, eye discomfort, eye discharge, eye redness or yellow eyes ENMT: Denies: throat pain, odynophagia, hoarseness, swelling of lips/tongue, ear or mastoid pain, ear discharge, change in hearing or nasal discharge Card: Denies: chest pain, palpitations, irregular heart rhythm, edema, lightheadedness, syncope, pre-syncope, dyspnea on exertion or orthopnea Resp: Denies: dyspnea, productive cough, non-productive cough, wheezing, hemoptysis or chest congestion GI: Reports: abdominal pain, nausea, vomiting and diarrhea; Denies: hematemesis, coffee ground emesis, heartburn, constipation, GI cramping, hematochezia or melena : Denies: flank pain, dysuria, urinary frequency, urinary urgency or hematuria Musc: Denies: neck pain, back pain, extremity pain, extremity swelling, joint pain, joint swelling, joint redness, joint warmth or joint stiffness Skin/Breast: Denies: rash, pruritus, erythema, skin pain or skin tenderness Neuro: Denies: headache(s), numbness in extremities, weakness in extremities, sensory changes, lack of coordination, difficulty walking, dizziness, vertigo, confusion, Slurred speech present or seizure-like activity Kem/Lymph: Denies: easy bruising, easy bleeding, petechiae, purpura or enlarged lymph nodes All/Imm: Denies: urticaria, throat swelling, tongue swelling, facial swelling or acute wheezing PFSH ED PFSH: Medical History BMI 45.0-49.9, adult Controlled type 2 diabetes mellitus Degenerative joint disease of knee Depression Gastric reflux Hypertension Hypothyroid Morbid obesity JOSE (obstructive sleep apnea) Poor high blood pressure control Primary osteoarthritis of knees, bilateral Restless leg syndrome Sleep apnea Surgical History History of appendectomy History of intestinal surgery Bowel obstruction in childhood Hx of cholecystectomy Family History Other Cancer Family history of premature coronary artery disease Stroke Social History Smoking and tobacco status: never smoked Alcohol intake: never Lives independently: Yes Housing: House Marital status: Single Physical Exam Const: COMMON NORMALS: no acute distress, patient oriented x3, no limitations and alert GENERAL APPEARANCE: cooperative HENMT: COMMON NORMALS: normocephalic, atraumatic, external ears normal, EAC's normal and Normal external nose present HEAD & SCALP: normal to inspection, normocephalic and atraumatic FACE & SINUS: normal facial exam and face symmetric NOSE: Normal external nose present and Normal nares present EXTERNAL EAR: Yes external ears normal EXTERNAL AUDITORY CANAL: EAC's normal MOUTH: Normal oral and palatal mucosa present, lip normal and tongue normal Eye: COMMON NORMALS: Equal, round and reactive pupils present and conjunctivae normal GENERAL EYE: appearance normal, both eyes and all related structures ALIGNMENT: Yes alignment normal PERIORBITAL: periorbital findings normal EYELID: eyelids normal CONJUNCTIVA: Yes conjunctivae normal SCLERA: sclerae normal PUPIL: Yes Equal, round and reactive pupils present Neck/C-Spine: COMMON NORMALS: full ROM, no lymphadenopathy, supple, no meningeal signs and no JVD GENERAL: Yes normal visual inspection and Yes trachea midline Chest: COMMONS NORMALS: normal inspection of the chest and normal palpation of entire chest wall Resp: COMMON NORMALS: normal respiratory effort, No retractions, No use of accessory muscles and clear to auscultation bilaterally EFFORT & INSPECTION: Yes able to speak in complete sentences and Yes symmetric chest movement AUSCULTATION: clear to auscultation bilaterally, no crackles, no rales, no rh onchi and no wheezes Cardio: COMMON NORMALS: no JVD, regular rate, regular rhythm, S1 normal heart sound present and S2 normal heart sound present RATE: regular rate RHYTHM: regular rhythm HEART SOUNDS: S1 normal heart sound present, S2 normal heart sound present, no click, no gallops, no murmurs and no rubs GI: COMMON NORMALS: Soft to palpation and No hepatosplenomegaly present PALPATION: Yes Soft to palpation, Yes Tenderness to palpation present (GI) (Mild diffusely), No Guarding due to palpation present (GI), No Rigid due to palpation, Yes No hepatosplenomegaly present, No Hernia present, No Palpable mass present and No Pulsatile mass present : COMMON NORMALS: Yes no CVA tenderness BLADDER/KIDNEY EXAM: Yes no CVA tenderness EXTERNAL FEMALE EXAM: No Hernia present Back/Pelvis: COMMON NORMALS: no CVA tenderness, thoracic and lumbar spine normal to inspection, no thoracic nor lumbar tenderness and thoraco-lumbar ROM normal Extremity: COMMON NORMALS: normal to inspection, full ROM, capillary refill normal, no joint enlargement, no clubbing, cyanosis or edema and no calf tenderness Neuro: COMMON NORMALS: patient oriented x3, CN's II-XII intact bilaterally, moves all extremities, no focal motor deficits and no sensory deficits noted SENSORIUM/ORIENTATION: Yes alert MENINGEAL SIGNS: Yes no meningeal signs SPEECH: speech normal Psych: COMMON NORMALS: mental status grossly normal, Normal thought process present, cooperative, normal affect, speech normal and activity/motor behavior normal SPEECH: Yes normal speech THOUGHT PROCESS: Normal thought process present Skin: COMMON NORMALS: no rashes or lesions noted, turgor normal, no jaundice, no petechiae and no mottling GENERAL SKIN EXAM: no rashes or lesions noted and turgor normal Course Vital Signs: Vital signs: Vital Signs Temperature 98.7 F 01/25/20 15:53 Pulse Rate 74 01/25/20 21:00 Respiratory Rate 18 01/25/20 21:00 Blood Pressure 166/102 01/25/20 21:00 Pulse Oximetry 98 01/25/20 21:00 MDM - Abdominal Pain MDM Narrative: Medical decision making narrative: Tracee is a nice 59-year-old female who comes in complaining of a months worth of abdominal pain. On exam she does not demonstrate any sign of peritonitis. Her pain is located diffusely. Her CT scan and her lab work-up are unremarkable. The patient is frustrated as a cause for abdominal pain cannot be determined but she is encouraged as she believes now that there is no sign of active inflammation or infection in her abdomen Dr. Benitez may be able to do the colonoscopy as planned. I have informed her that she will need to follow-up with him in regards to that. The patient's blood pressure shot up here and I ordered a cardiac work-up but her first troponin is within normal limits but her EKG shows some nonspecific findings in the lateral precordial leads. The patient states occasionally she gets some burning chest discomfort after vomiting but only then. Nonetheless because of her multiple risk factors I have informed her that she should stay for at least another EKG and troponin and then we should make a determination about what to do at that point but she refuses. She states that she does not believe this is her heart but her abdomen and she refuses to stay for any further evaluation or care. Her repeat blood pressures are better and she states that she is not always keeping her blood pressure medication down because of the nausea and vomiting. She is not been tried anything for nausea or diarrhea at home so I will prescribe her Zofran and Bentyl. I have repeatedly try to encourage the patient to stay here for further cardiac testing even if just a repeat EKG and troponin in the ER but she refuses. She understands our problems can be life-threatening but nonetheless she still chooses to go home. The patient was warned but she was also welcomed to return. Medical Records: Attestation: I reviewed the patient's medical records. Lab Data: Attestation: I reviewed the patient's lab results. Labs: Lab Results 01/25/20 01/25/20 01/25/20 Range/Units 16:34 16:34 16:34 WBC 9.7 (4.0-10.0) 10^3/ uL RBC 5.24 (4.1-5.3) 10^6/u L Hgb 14.0 (11.5-15.3) g/dL Hct 46.5 (37.0-47.0) % MCV 88.7 (81-99) fL MCH 26.7 L (28.0-34.0) pg MCHC 30.1 (30.0-36.0) g/dL RDW 14.6 (12.1-15.1) % Plt Count 510 H (130-400) 10^3/c mm MPV 9.1 (7.4-10.4) fL Neut % (Auto) 67.3 % Lymph % (Auto) 18.6 % [facility] % (Auto) 11.3 % Eos % (Auto) 1.8 % Baso % (Auto) 0.7 % Neut # (Auto) 6.51 (1.8-7.7) 10^3/u L Lymph # (Auto) 1.8 (0.8-4.8) 10^3/u L [facility] # (Auto) 1.1 H (0.2-0.9) 10^3/u L Eos # (Auto) 0.2 (0.0-0.8) 10^3/u L Baso # (Auto) 0.1 (0.0-0.1) 10^3/u L Nucleated RBC % (a uto) 0 % Nucleated RBCs # 0.0 /100WBC Sodium 141 (136-145) mmol/L Potassium 3.6 (3.5-5.1) mmol/L Chloride 106 (98-107) mmol/L Carbon Dioxide 22 (22-29) mmol/L Anion Gap 16.6 (5-19) BUN 6 L (8-23) mg/dL Creatinine 0.9 (0.5-0.9) mg/dL GFR Calculation 63.7 L (90-130) mL/min Glucose 101 (65-115) mg/dL Calculated Osmolal ity 290 (285-295) mOsm/k g Calcium 9.6 (8.5-10.5) mg/dL Total Bilirubin 0.2 (0.15-1.2) mg/dL AST 25 (0-32) U/L ALT 29 (0-33) U/L Alkaline Phosphata se 90 (35-105) IU/L Troponin T Baselin e (0-10) ng/L Total Protein 7.9 (6.6-8.7) g/dL Albumin 4.2 (3.5-5.2) g/dL Globulin 3.7 (1.3-4.6) g/dL Lipase 44 (13-60) U/L Urine Color (Yellow) Urine Appearance (CLEAR) Urine pH (5-7) Ur Specific Gravit y (1.005-1.030) Urine Protein (Negative) Urine Glucose (UA) (Normal) Urine Ketones (Negative) Urine Blood (Negative) Urine Nitrate (Negative) Urine Bilirubin (Negative) Urine Urobilinogen (Negative) mg/dL Ur Leukocyte Daphnie ase (Negative) Urine RBC (0-2) /hpf Urine WBC (0-5) /hpf Ur Squamous Epith Cells (0-5) /hpf Amorphous Sediment Urine Bacteria (NONE) /hpf Urine Yeast /hpf H. pylori IgG Anti body Negative (Negative) 01/25/20 01/25/20 Range/Units 18:43 19:35 WBC (4.0-10.0) 10^3/ uL RBC (4.1-5.3) 10^6/u L Hgb (11.5-15.3) g/dL Hct (37.0-47.0) % MCV (81-99) fL MCH (28.0-34.0) pg MCHC (30.0-36.0) g/dL RDW (12.1-15.1) % Plt Count (130-400) 10^3/c mm MPV (7.4-10.4) fL Neut % (Auto) % Lymph % (Auto) % [facility] % (Auto) % Eos % (Auto) % Baso % (Auto) % Neut # (Auto) (1.8-7.7) 10^3/u L Lymph # (Auto) (0.8-4.8) 10^3/u L [facility] # (Auto) (0.2-0.9) 10^3/u L Eos # (Auto) (0.0-0.8) 10^3/u L Baso # (Auto) (0.0-0.1) 10^3/u L Nucleated RBC % (a uto) % Nucleated RBCs # /100WBC Sodium (136-145) mmol/L Potassium (3.5-5.1) mmol/L Chloride (98-107) mmol/L Carbon Dioxide (22-29) mmol/L Anion Gap (5-19) BUN (8-23) mg/dL Creatinine (0.5-0.9) mg/dL GFR Calculation (90-130) mL/min Glucose (65-115) mg/dL Calculated Osmolal ity (285-295) mOsm/k g Calcium (8.5-10.5) mg/dL Total Bilirubin (0.15-1.2) mg/dL AST (0-32) U/L ALT (0-33) U/L Alkaline Phosphata se (35-105) IU/L Troponin T Baselin e 8 (0-10) ng/L Total Protein (6.6-8.7) g/dL Albumin (3.5-5.2) g/dL Globulin (1.3-4.6) g/dL Lipase (13-60) U/L Urine Color Yellow (Yellow) Urine Appearance Hazy A (CLEAR) Urine pH 6 (5-7) Ur Specific Gravit y 1.005 (1.005-1.030) Urine Protein Neg (Negative) Urine Glucose (UA) Norm (Normal) Urine Ketones Negative (Negative) Urine Blood Neg (Negative) Urine Nitrate Negative (Negative) Urine Bilirubin Neg (Negative) Urine Urobilinogen Norm (Negative) mg/dL Ur Leukocyte Daphnie ase Negative (Negative) Urine RBC None (0-2) /hpf Urine WBC 0-4 H (0-5) /hpf Ur Squamous Epith Cells 10-15 H (0-5) /hpf Amorphous Sediment Not Reportable Urine Bacteria 1+ H (NONE) /hpf Urine Yeast 1+ H /hpf H. pylori IgG Anti body (Negative) Imaging Data ^: CT Abd/Pel: Radiologist's impression: [address] [address] [address] Scan Report Signed Patient: Tracee Walden Unit #: [id number] : 1960 Acct#:OV [id number] Age/Sex: 59 / F ADM Date: 01/25/20 Loc: ER Room/Bed: Attending Dr: Ordering Provider/Ordering MD: Lu Carrasco MD Date of Service: 01/25/20 Procedure(s): CT abdomen pelvis w con* [id number] Accession Number(s): [id number] Report Number: [id number] PROCEDURE INFORMATION: Exam: CT Abdomen And Pelvis With Contrast Exam date and time: 01/25/2020 6:56 PM Age: 59 years old Clinical indication: Nausea and vomiting and other: Diarrhea; Abdominal pain; Generalized; Prior surgery; Surgery type: Appy, gb, stomach TECHNIQUE: Imaging protocol: Computed tomography of the abdomen and pelvis with intravenous contrast. Radiation optimization: All CT scans at this facility use at least one of these dose optimization techniques: automated exposure control; mA and/or kV adjustment per patient size (includes targeted exams where dose is matched to clinical indication); or iterative reconstruction. Contrast material: OMNI 300; Contrast volume: 95 ml; Contrast route: INTRAVENOUS (IV); COMPARISON: CT abdomen pelvis w con* [id number] 01/06/2020 9:47 PM , 11/29/2016 RADIATION DOSE METRICS: Total DLP (mGy-cm): 1706.83 FINDINGS: Liver: Normal. No mass. Gallbladder and bile ducts: Cholecystectomy. Mild prominence of the bile ducts is most likely reservoir effect. Pancreas: Normal. No ductal dilation. Spleen: Normal. No splenomegaly. Adrenals: 1.5 cm stable bilateral adrenal nodules. Kidneys and ureters: Subcentimeter hypodensity in the left kidney is most likely a cyst but is too small to characterize. No follow-up recommended. The kidneys are otherwise unremarkable. Stomach and bowel: Gastric wall thickening is most likely related to under distension. Diverticulosis of the descending and sigmoid colon. Appendix: The appendix is absent. Intraperitoneal space: Unremarkable. No free air. No significant fluid collection. Vasculature: Unremarkable. No abdominal aortic aneurysm. Lymph nodes: Unremarkable. No enlarged lymph nodes. Bladder: Unremarkable as visualized. Reproductive: Unremarkable as visualized. Bones/joints: Mild T11 compression fracture. Disc space narrowing at L5-S1. Soft tissues: Fat containing umbilical hernias. CT/CT abdomen pelvis w con* [id number] IMPRESSION: 1. No acute abnormality identified in the abdomen or pelvis. 2. Diverticulosis of the distal colon. 3. Stable benign 1.5 cm nodules in both adrenal glands, most likely adenomas. COMMENTS: Consistent with the [employer]'s Incidental Findings Committee white paper (J Am Yehuda Radiol 2018): Any incidental renal lesion less than 1 cm or classified as too small to characterize, or any incidental cystic renal lesion characterized as simple-appearing, is likely benign. No follow-up imaging is recommended for these lesions per consensus recommendations based on imaging criteria. Radiation Dose CTDIVOL = (mGy): DLP = 1706.83 (mGy-cm) Dictated By: Domenic Crowder Signed By: Domenic Crowder Signed Date/Time: 01/25/201953 DD/ 52 CXR: Attestation: I personally reviewed and interpreted this imaging study as follows: My impression: No acute cardiopulmonary findings. EKG Data ^: EKG 1: Attestation: I personally reviewed and interpreted this EKG as follows: EKG interpretation date: 01/25/20 EKG interpretation time: 19:06 Interpretation: Normal sinus rhythm at 95 beats a minute, ST segment depression in V2, V4 through V6. Incomplete right bundle branch block. Discharge Plan Discharge Patient Disposition: Home Clinical Impression: Abdominal pain Qualifiers: Abdominal location: generalized Qualified Code(s): R10.84 - Generalized abdominal pain Condition: Stable Prescriptions: New Zofran 4 mg tablet 4 mg PO Q6H PRN (Reason: nausea and vomiting) Qty: 20 RF: 0 dicyclomine 20 mg tablet 20 mg PO QID Qty: 30 RF: 0 No Action topiramate 200 mg capsule,extended release 24hr 200 mg PO BID RF: 0 spironolactone 25 mg tablet 25 mg PO DAILY PRN (Reason: SWELLING) RF: 0 metformin 1,000 mg tablet 1,000 mg PO BID RF: 0 hydrocodone-acetaminophen 10-325 mg tablet 1 tab PO BID PRN (Reason: Pain) RF: 0 tramadol 50 mg tablet 50 mg PO DAILY RF: 0 levothyroxine 25 mcg tablet 25 mcg PO DAILY RF: 0 lorazepam 0.5 mg tablet 0.5 mg PO BID PRN (Reason: Anxiety) RF: 0 ropinirole 2 mg tablet 2 mg PO BEDTIME RF: 0 levothyroxine 200 mcg tablet 200 mcg PO DAILY RF: 0 hydralazine 25 mg tablet 25 mg PO BID Qty: 0 RF: 0 pantoprazole 40 mg Tablet,Delayed Release (Dr/Ec) 40 mg PO BID RF: 0 metoprolol tartrate 50 mg Tablet 50 mg PO BID RF: 0 trazodone 150 mg tablet 150 - 200 mg PO BEDTIME RF: 0 diclofenac sodium 1 % gel See Rx Instructions .ROUTE .COMPLEX RF: 0 Savella 12.5 mg (5)-25 mg(8)-50 mg(42) tablets,dose pack See Rx Instructions .ROUTE .COMPLEX RF: 0 Ozempic 0.25 mg or 0.5 mg(2 mg/1.5 mL) pen injector 0.25 mg SUBCUT Q7D RF: 0 tramadol 50 mg tablet 50 mg PO Q6H PRN (Reason: pain) Qty: 14 RF: 0 bupropion HCl 150 mg tablet sustained-release 12 hr 300 mg PO DAILY RF: 0 metronidazole 500 mg tablet 500 mg PO Q8H RF: 0 metoclopramide HCl 5 mg tablet 5 mg PO DAILY RF: 0 Discharge Orders: Discharge Order (Routine); Ordered 01/25/20 Ordered By: Yolette Conway Referrals: Tracee Rivas DO [Primary Care Provider] - 1-3 days Discharge Diet: Advance as tolerated and Clear Liquid Discharge Activity: Increase activity as tolerated Patient Instructions: Chest Pain (ED), Abdominal Pain (ED) Activity Restrictions/Additional Instructions: Please return to the ER immediately for any of the signs or symptoms listed on your discharge instruction sheets, worsening/changing of your symptoms, you are not getting better as quickly as expected, or for ANY other cause or concerns. You're leaving AGAINST MEDICAL ADVICE and are at risk for or severe permanent disability by doing so. You are more than welcome to return at any time for recheck and for further evaluation and care suture change you change your mind. I have recommended and offered to perform further testing on your heart due to your abnormal EKG and blood pressure but you have refused. Of course any heart problem can be life-threatening so if your symptoms return, you develop chest pain, you break out in a sweat, beginn to vomit, or you simply change your mind you are more than welcome to return to the ER at any time for f urther evaluation and care of your heart. Be certain to follow-up with Dr. Benitez as well as your primary care physician for further evaluation and care of your abdomen as well as your abnormal EKG. Discharge Date/Time: 01/25/20 21:17 Coding Level of Care Code ED Database Developer for Chg Fwd Exam Comprehensive
[2020-01-25 18:55] LABS: H. Pylori IgG Antibody Negative (Negative)
--- NOTE | 2020-01-25 18:55 | ECG_ITS ---
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 Measurements Intervals [place] Rate: 95 P: 41 VT: 177 QRS: -34 QRSD: 110 T: 17 QT: 367 QTc: 463 Interpretive Statements SINUS RHYTHM INDETERMINATE AXIS LOW QRS VOLTAGE IN PRECORDIAL LEADS [QRS DEFLECTION < 1.0 mV IN CHEST LEADS] POSSIBLE ANTERIOR MYOCARDIAL INFARCTION , PROBABLY OLD [30 ms Q WAVE IN V3/V4, OR R < 0.2 mV IN V4] Compared to ECG 11/01/2019 15:26:57 Indeterminate axis now present Myocardial infarct finding now present Sinus bradycardia no longer present Intraventricular conduction delay no longer present Electronically Signed On 01-26-2020 13:56:53 CDT by Lisa Mahan M.D. [id number]
[2020-01-25 19:05] LABS: Add Urine Microscopic? YES; Bilirubin Urine Neg (Negative); Blood Urine Neg (Negative); Glucose Urine UA Norm (Normal); Ketones Urine Negative (Negative); Leukocyte Esterase Urine Negative (Negative); Nitrate Urine Negative (Negative); Protein Urine Neg (Negative); Specific Gravity, Urine 1.005 (1.005-1.030); Urine Appearance Hazy (CLEAR); Urine Color Yellow (Yellow); Urobilinogen Urine Norm (Negative); pH Urine 6 (5-7)
[2020-01-25 19:17] LABS: Add Urine Culture? No; Bacteria Urine 1+ /hpf; WBC Urine 0-4 /hpf (0-5)
[2020-01-25] MEDS: iohexol 300 mg/mL 100 mL Btl IV (19:21)
[2020-01-25] MEDS: labetalol 5 mg/mL SDV 20mL 10 MG IVP (19:29)
--- NOTE | 2020-01-25 19:42 | XRR_ITS ---
PROCEDURE INFORMATION: Exam: XR Chest, 1 View Exam date and time: 01/25/2020 8:28 PM Age: 59 years old Clinical indication: Other: D/n/v; Chest pain; Type not specified; Patient HX: D/v/n x 1 month TECHNIQUE: Imaging protocol: XR of the chest Views: 1 view. COMPARISON: CR XR chest 1V portable [id number] 11/01/2019 1:14 PM FINDINGS: Lungs: The lungs are clear bilaterally. Pulmonary vasculature within normal limits. Pleural space: No visible pneumothorax or pleural effusion. Heart/Mediastinum: Cardiomediastinal silhouette contour within normal limits. Bones/joints: No emergent findings identified. XR/XR chest 1V portable [id number] IMPRESSION: 1. No radiographic findings of acute cardiopulmonary disease.
[2020-01-25 20:04] LABS: Troponin(5th) Baseline 8 ng/L (0-10)
== END 2020-01-25 21:17 | disposition home or self-care (01) ==
PROVIDERS: Nurse Practitioner Family; Emergency Provider Emergency Medicine; PCP Family Medicine
DX: R10.84 Generalized abdominal pain (principal); Z79.84 Long term (current) use of oral hypoglycemic drugs; E11.9 Type 2 diabetes mellitus without complications; I10 Essential (primary) hypertension
CPT/HCPCS: 12345; 36415; 71045; 74177; 80053; 81001; 83690; 84484; 85025; 86677; 93005; 96374; 96375; 96376; 99283; J2270; J2765; J3490; J7030; Q9967

== ENCOUNTER → 2020-02-14 14:26 | Outpatient (BNVA) | payer BC, SELFPAY | PROVIDERS: PCP Family Medicine; Visit Provider Surgery | DX: Z20.828 Contact with and (suspected) exposure to other viral communicable diseases (principal) | CPT/HCPCS: 87635 ==

== ENCOUNTER 2020-02-17 06:00 | Day surgery (SDC) | payer BC, SELFPAY ==
[2020-02-14 12:06] VITALS: BMI 44.1
[2020-02-17 06:14] VITALS: BP 160/124; PULSE 101; RESP 18; TEMP 36.3; O2SAT 96
[2020-02-17 06:28] LABS: Glucose Point of Care 98 mg/dL (70-110)
--- NOTE | 2020-02-17 06:31 | ANES.PREANE2 ---
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 Was Beta Arianne taken within 24 hours: Yes Last intake: Intake Last Liquid Date 02/16/20 Last Liquid Time 20:00 Last Solid Date 02/15/20 Last Solid Time 20:00 Social: Social History: No alcohol and No tobacco Exam: Pre-Anes Outpt Exam: alert, oriented x 3, clear to auscultation bilaterally and regular rate & rhythm Airway: Cervical ROM: WNL MP: 4 Dentition: False Additional comments: exremely large neck circumference, receding chin Pulmonary: Pulmonary: Sleep apnea CV/HEM: CV/HEM: HTN GI: GI: GERD Metabolic: Metabolic: DM, Hyperlipidemia, Morbid obesity and Thyroid Musc/skel: Musc/skel: Lower Back Pain Neuropsych: Neuropsych: TIA (a coulpe of years ago) Anesthetic Plan: ASA status: 3 Anesthesia: MAC Risk of > 500 ml blood loss (7ml/kg in children): No PFSH Anesthesia PFSH: Medical History BMI 45.0-49.9, adult Controlled type 2 diabetes mellitus Degenerative joint disease of knee Depression Gastric reflux Hypertension Hypothyroid Morbid obesity JOSE (obstructive sleep apnea) Poor high blood pressure control Primary osteoarthritis of knees, bilateral Restless leg syndrome Sleep apnea Surgical History History of appendectomy History of intestinal surgery Bowel obstruction in childhood Hx of cholecystectomy Family History Other Cancer Family history of premature coronary artery disease Stroke Social History Smoking and tobacco status: never smoked Alcohol intake: never Lives independently: Yes Housing: House Marital status: Single Data Anesthesia Other Labs: Laboratory Results - last 48 hr 02/17/20 06:24 POC Glucose 98 Cardiac Studies: No Data to Display
[2020-02-17] MEDS: metoprolol tartrate 50 mg Tablet PO (06:44)
[2020-02-17] MEDS: sodium chloride 0.9% 1,000 ML 30 ML IV (06:45)
--- NOTE | 2020-02-17 07:04 | W.PM.OPSUD ---
Surgery/Procedure H&P Update DATE OF PROCEDURE: February 17, 2020 DATE H&P PERFORMED: 02/08/20 H&P UPDATE INFORMATION: No changes to prior documentation PREOP DIAGNOSIS: abdomen PLANNED PROCEDURE: Operation Date: 02/17/20 07:00 Proposed Procedures p Colonoscopy(Not Applicable) - Jasper Benitez MD
[2020-02-17 07:26] VITALS: BP 133/76; PULSE 65; RESP 18; TEMP 36.1; O2SAT 2
[2020-02-17 07:40] VITALS: BP 125/64; PULSE 65; RESP 18; O2SAT 100
--- NOTE | 2020-02-17 08:00 | ANE.PACU2 ---
Inpatient post-anesthesia follow up: Airway intact: Yes Vital signs: Temperature 97 F Pulse Rate 65 Respiratory Rate 18 Blood Pressure 125/64 Pulse Oximetry 100 Oxygen Delivery Me thod Room Air Oxygen Flow Rate Fraction of Inspir ed Oxygen Hydration adequate: Yes Nausea and vomiting: No Pain level: 1 Mental status: Baseline
== END 2020-02-17 08:07 | disposition home or self-care (01) ==
PROVIDERS: PCP Family Medicine; Visit Provider Surgery
PROC: 0DJD8ZZ Inspection of Lower Intestinal Tract, Via Natural or Artificial Opening Endoscopic (ICD-10-PCS; CPT 45378; principal; 2020-02-17 07:00)
DX: R19.7 Diarrhea, unspecified (principal); K92.1 Melena; K57.30 Diverticulosis of large intestine without perforation or abscess without bleeding; K64.8 Other hemorrhoids; I10 Essential (primary) hypertension; K21.9 Gastro-esophageal reflux disease without esophagitis; E11.9 Type 2 diabetes mellitus without complications; E78.5 Hyperlipidemia, unspecified; E66.01 Morbid (severe) obesity due to excess calories; Z68.41 Body mass index [BMI] 40.0-44.9, adult; Z86.73 Personal history of transient ischemic attack (TIA), and cerebral infarction without residual deficits; G47.33 Obstructive sleep apnea (adult) (pediatric); E03.9 Hypothyroidism, unspecified
CPT/HCPCS: 12345; 36416; 45378; 82962; J2704; J7030

== ENCOUNTER 2020-08-22 21:57 | Emergency (ER) | payer OTHER, SELFPAY ==
[2020-08-22 22:03] VITALS: BP 189/110; PULSE 69; RESP 18; TEMP 36.7; O2SAT 97; BMI 45.1
--- NOTE | 2020-08-22 22:56 | XR_ITS ---
WS: [id number] Right shoulder, 3 views, 08/22/2020 Clinical Data: injury Comparison: None. Findings: No fractures or dislocations are seen. The AC joint shows osteoarthritis.. The adjacent right clavicl e, right scapula and ribs are normal. The soft tissues are unremarkable. XR/XR shoulder RT min 2V* [id number] Impression: Osteoarthritis of the right AC joint with probable bursal calcification.
--- NOTE | 2020-08-22 22:56 | XR_ITS ---
WS: [id number] Portable AP upright chest, 08/22/2020 Clinical Data: chest pain Comparison: Portable chest, 01/25/2020. Findings: No nodules, masses or effusions are seen. The heart is slightly enlarged. The pulmonary vas cularity is not increased. No pneumonia or pneumothorax is seen. XR/XR chest 1V portable [id number] Impression: Cardiomegaly.
--- NOTE | 2020-08-22 22:58 | W.ED.EXTPRO ---
HPI - Extremity Problem General: Chief complaint: Neck Pain/Injury Stated complaint: R SHOULDER PAIN - WOKE THIS WAY YESTERDAY Time Seen by Provider: 08/22/20 22:44 Source: patient Mode of arrival: ambulatory Limitations: no limitations History of Present Illness: HPI Narrative: Patient is a 59-year-old female who presents to ED today with a complaint of right shoulder pain. She states approximately 2 to 3 days ago she noticed right shoulder pain when she awoke from sleep. She states pain is throughout her shoulder joint. Reports some mild pain into her right anterior chest and down her right lateral chest pain. Pain is worse with movement and palpation. She tells me she has thrown her shoulder out previously but has never been this severe. She has no history of actual shoulder dislocation. She has not noticed any redness, swelling, color, or temperature changes to her extremity. Complaint: joint pain Onset (ago): day(s) Pain Consistency: constant Location: right and upper extremity Quality: aching and constant Relieving factors: nothing Exacerbating factors: range of motion and palpation Associated symptoms: Reports chest pain (more anterior shoulder but moves into chest-states this is reproducible ); Deny fever(s) Review of Systems Const: Denies: fever(s) or chills Eyes: Denies: change in vision ENMT: Denies: throat pain or odynophagia Card: Reports: chest pain (more anterior shoulder but moves into chest-states this is reproducible ); Denies: palpitations, irregular heart rhythm, edema, lightheadedness, syncope, pre-syncope, dyspnea on exertion or orthopnea Resp: Denies: dyspnea GI: Denies: abdominal pain : Denies: flank pain Musc: Reports: joint pain and limited range of motion (R shoulder); Denies: neck pain, back pain, extremity pain, extremity swelling or joint swelling Neuro: Denies: numbness in extremities, weakness in extremities or sensory changes PFS ED PFSH: Medical History (Updated 08/22/20 @ 23:50 by SAMINA Madsen) BMI 45.0-49.9, adult Controlled type 2 diabetes mellitus Degenerative joint disease of knee Depression Gastric reflux Hypertension Hypothyroid Morbid obesity JOSE (obstructive sleep apnea) Poor high blood pressure control Primary osteoarthritis of knees, bilateral Restless leg syndrome Sleep apnea Surgical History History of appendectomy History of intestinal surgery Bowel obstruction in childhood Hx of cholecystectomy Family History Other Cancer Family history of premature coronary artery disease Stroke Social History Smoking and tobacco status: never smoked Alcohol intake: never Lives independently: Yes Housing: House Marital status: Single Physical Exam Const: COMMON NORMALS: patient oriented x3, no limitations and alert GENERAL APPEARANCE: cooperative and in distress (in pain) NUTRITIONAL APPEARANCE: obese morbidly obese ORIENTATION/CONSCIOUSNESS: Yes awake, Yes oriented to person, Yes oriented to place and Yes oriented to time Neck/C-Spine: COMMON NORMALS: full ROM Chest: COMMONS NORMALS: normal inspection of the chest Chest images (female): 1. TTP-palpation directly reproduces pts pain Resp: COMMON NORMALS: normal respiratory effort and clear to auscultation bilaterally AUSCULTATION: clear to auscultation bilaterally Cardio: COMMON NORMALS: regular rate and regular rhythm RATE: regular rate RHYTHM: regular rhythm Extremity: GENERAL: Yes normal exam except as noted RIGHT UPPER EXTREMITY: Yes shoulder joint (TTP throughout shoulder joint) Right shoulder: Yes Right shoulder joint ROM exam (limited secondary to pain) and Yes Right shoulder joint neurovascular exam (normal) OTHER: extremity with normal pulses/cap refill, sensory intact, no redness, swelling, temp changes noted Neuro: COMMON NORMALS: patient oriented x3, moves all extremities, no focal motor deficits and no sensory deficits noted SENSORIUM/ORIENTATION: Yes alert, Yes oriented to person, Yes oriented to place and Yes oriented to time Skin: COMMON NORMALS: no rashes or lesions noted GENERAL SKIN EXAM: no rashes or lesions noted Course Vital Signs: Vital signs: Vital Signs Temperature 98.1 F 08/22/20 22:03 Pulse Rate 69 08/22/20 22:03 Respiratory Rate 18 08/22/20 23:16 Blood Pressure 189/110 08/22/20 22:03 Pulse Oximetry 97 08/22/20 23:16 MDM - Extremity (Nontraumatic) MDM Narrative: Medical decision making narrative: Patient rates her pain down from a 15/10 to a 5/10 . She feels comfortable going home. Recommend follow up with PCP. Return to ED precautions given. Imaging Data^: CXR: My impression: NAD XR R shoulder: My impression: AC joint narrowing; NAD Discharge Plan Discharge Patient Disposition: Home Clinical Impression: Acute pain of right shoulder Condition: Stable Prescriptions: New ibuprofen 800 mg tablet 800 mg PO Q8H PRN (Reason: pain) Qty: 20 RF: 0 Medrol (Valdemar) 4 mg tablets,dose pack See Rx Instructions .ROUTE .COMPLEX Qty: 21 RF: 0 cyclobenzaprine 10 mg tablet 10 mg PO TID Qty: 14 RF: 0 Discontinued hydrocodone-acetaminophen 10-325 mg tablet 1 tab PO BID PRN (Reason: Pain) RF: 0 No Action topiramate 200 mg capsule,extended release 24hr 200 mg PO BID RF: 0 spironolactone 25 mg tablet 25 mg PO DAILY PRN (Reason: SWELLING) RF: 0 metformin 1,000 mg tablet 1,000 mg PO BID RF: 0 tramadol 50 mg tablet 50 mg PO DAILY RF: 0 levothyroxine 25 mcg tablet 25 mcg PO DAILY RF: 0 lorazepam 0.5 mg tablet 0.5 mg PO BID PRN (Reason: Anxiety) RF: 0 ropinirole 2 mg tablet 2 mg PO BEDTIME RF: 0 levothyroxine 200 mcg tablet 200 mcg PO DAILY RF: 0 hydralazine 25 mg tablet 25 mg PO BID Qty: 0 RF: 0 pantoprazole 40 mg Tablet,Delayed Release (Dr/Ec) 40 mg PO BID RF: 0 metoprolol tartrate 50 mg Tablet 50 mg PO BID RF: 0 trazodone 150 mg tablet 300 mg PO BEDTIME RF: 0 diclofenac sodium 1 % gel See Rx Instructions .ROUTE .COMPLEX RF: 0 Savella 12.5 mg (5)-25 mg(8)-50 mg(42) tablets,dose pack See Rx Instructions .ROUTE .COMPLEX RF: 0 Ozempic 0.25 mg or 0.5 mg(2 mg/1.5 mL) pen injector 0.25 mg SUBCUT Q7D RF: 0 bupropion HCl 150 mg tablet sustained-release 12 hr 300 mg PO DAILY RF: 0 metronidazole 500 mg tablet 500 mg PO Q8H RF: 0 metoclopramide HCl 5 mg tablet 5 mg PO DAILY RF: 0 ondansetron HCl [Zofran] 4 mg tablet 4 mg PO Q6H PRN (Reason: nausea and vomiting) Qty: 20 RF: 0 dicyclomine 20 mg tablet 20 mg PO QID Qty: 30 RF: 0 Discharge Orders: Discharge ED (Routine); Ordered 08/22/20 Ordered By: Rimma Collier Referrals: Tracee Rivas DO [Primary Care Provider] - Patient Instructions: Opioid Safety Activity Restrictions/Additional Instructions: [facility] is committed to fighting the nationwide opiate epidemic. We are providing ALL patients with information regarding opiate safety. If you received opiate pain medication during your stay or if you received a prescription for opiate pain medication-please review this handout. If not, you may disregard. Thank you. Coding Level of Care Code ED Fly Winder for Nicanor Krueger
[2020-08-22] MEDS: ketorolac 60 mg/2 mL INJ IM (23:15)
[2020-08-22 23:16] VITALS: RESP 18; O2SAT 97
[2020-08-22] MEDS: morphine 4 mg/mL SDV 1 mL IM (23:16)
[2020-08-22] MEDS: orphenadrine 30 mg/mL Inj 2 mL 60 MG IM (23:16)
== END 2020-08-23 00:19 | disposition home or self-care (01) ==
PROVIDERS: Emergency Provider Physician Assistant; PCP Family Medicine
DX: M25.511 Pain in right shoulder (principal); E11.9 Type 2 diabetes mellitus without complications; I10 Essential (primary) hypertension
CPT/HCPCS: 71045; 73030; 96372; 99283; J1885; J2270; J2360

== ENCOUNTER 2020-09-03 15:33 | Emergency (ER) | payer MEDICARE, SELFPAY ==
[2020-09-03 15:47] VITALS: RESP 18; TEMP 36.6; BMI 43.3
--- NOTE | 2020-09-03 16:05 | ED_ITS ---
HPI - Extremity Problem General: Chief complaint: Extremity Problem,Nontraumatic Stated complaint: right shoulder pain Time Seen by Provider: 09/03/20 15:57 Source: patient Mode of arrival: ambulatory Limitations: no limitations History of Present Illness: HPI Narrative: Right shoulder pain. Patient has been evaluated 1 week ago in primary care and then prior to that in the em ergency department for shoulder pain. Patient continues to have shoulder discomfort with movement. Patient has been using prescription hydrocodone with minimal to no relief. Patient appears well. Patient appears mild to moderate pain. MD Complaint: extremity pain Location: right Quality: aching Relieving factors: nothing Exacerbating factors: range of motion Review of Systems General: Reports: 10 or more systems reviewed and unremarkable except in HPI and below Musc: Reports: other (Right shoulder pain) [facility] ED PFSH: Medical History (Updated 09/03/20 @ 16:25 by REENA Kate) BMI 45.0-49.9, adult Controlled type 2 diabetes mellitus Degenerative joint disease of knee Depression Gastric reflux Hypertension Hypothyroid Morbid obesity JOSE (obstructive sleep apnea) Poor high blood pressure control Primary osteoarthritis of knees, bilateral Restless leg syndrome Sleep apnea Surgical History History of appendectomy History of intestinal surgery Bowel obstruction in childhood Hx of cholecystectomy Family History Other Cancer Family history of premature coronary artery disease Stroke Social History Smoking and tobacco status: never smoked Alcohol intake: never Lives independently: Yes Housing: House Marital status: Single Physical Exam Const: COMMON NORMALS: no acute distress and patient oriented x3 GENERAL APPEARANCE: cooperative HENMT: COMMON NORMALS: normocephalic and Normal external nose present HEAD & SCALP: normal to inspection and normocephalic NOSE: Normal external nose present Eye: GENERAL EYE: appearance normal, both eyes and all related structures Neck/C-Spine: COMMON NORMALS: full ROM Chest: COMMONS NORMALS: normal inspection of the chest Resp: COMMON NORMALS: normal respiratory effort EFFORT & INSPECTION: Yes able to speak in complete sentences Cardio: COMMON NORMALS: regular rate and regular rhythm RATE: regular rate RHYTHM: regular rhythm GI: COMMON NORMALS: non-tender Back/Pelvis: COMMON NORMALS: thoracic and lumbar spine normal to inspection Extremity: COMMON NORMALS: normal to inspection NARRATIVE EXTREMITY EXAM: On examination patient has reduced abduction of the right shoulder due to pain. Pain seems to be localized more in the trapezius muscle and upper thoracic paraspinous muscles. Patient has aggravating pain with range of motion of the shoulder. No obvious swelling is noted to the arm. No redness is noted. Good pulses and prompt capillary refills are noted to the nails. Neuro: COMMON NORMALS: patient oriented x3 and moves all extremities Psych: COMMON NORMALS: mental status grossly normal and cooperative Skin: COMMON NORMALS: no rashes or lesions noted GENERAL SKIN EXAM: no rashes or lesions noted Course Vital Signs: Vital signs: Vital Signs Temperature 97.9 F 09/03/20 15:47 Respiratory Rate 18 09/03/20 15:47 MDM - Extremity (Nontraumatic) MDM Narrative: Medical decision making narrative: Patient comes in today with complaints of right shoulder pain. Patient reports that the pain is persisted since she was first evaluated on 22 August. X-rays at that time did not show any acute abnormality. Patient did have some degenerative changes. Exam today notes tenderness in the trapezius of the right shoulder. Distal pulses were intact without any signs of swelling or redness. Differential diagnosis includes not limited to shoulder sprain, bursitis, tendinitis, rotator cuff syndrome. Patient has just been using hydrocodone for her pain. Recommended the use of the anti-inflammatory NSAID like ibuprofen or Celebrex. I wrote a prescription for Celebrex 200 twice a day. And refilled cyclobenzaprine because she states she was able to use that at night which helped her sleep. We will also consult case management to help patient get into orthopedics for further evaluation of the shoulder while she is waiting for her MRI. I explained her that at this time an MRI was not necessary until it was decided that she may need to have surgery for further treatment. Patient reported understanding and agreed to plan. Discharge Plan Discharge Patient Disposition: Home Clinical Impression: Pain, joint, shoulder region, right Condition: Stable Prescriptions: New Celebrex 200 mg capsule 200 mg PO BID Qty: 30 RF: 0 Continued cyclobenzaprine 10 mg tablet 10 mg PO TID Qty: 14 RF: 0 Discontinued ibuprofen 800 mg tablet 800 mg PO Q8H PRN (Reason: pain) Qty: 20 RF: 0 No Action topiramate 200 mg capsule,extended release 24hr 200 mg PO BID RF: 0 spironolactone 25 mg tablet 25 mg PO DAILY PRN (Reason: SWELLING) RF: 0 metformin 1,000 mg tablet 1,000 mg PO BID RF: 0 tramadol 50 mg tablet 50 mg PO DAILY RF: 0 levothyroxine 25 mcg tablet 25 mcg PO DAILY RF: 0 lorazepam 0.5 mg tablet 0.5 mg PO BID PRN (Reason: Anxiety) RF: 0 ropinirole 2 mg tablet 2 mg PO BEDTIME RF: 0 levothyroxine 200 mcg tablet 200 mcg PO DAILY RF: 0 hydralazine 25 mg tablet 25 mg PO BID Qty: 0 RF: 0 pantoprazole 40 mg Tablet,Delayed Release (Dr/Ec) 40 mg PO BID RF: 0 metoprolol tartrate 50 mg Tablet 50 mg PO BID RF: 0 trazodone 150 mg tablet 300 mg PO BEDTIME RF: 0 diclofenac sodium 1 % gel See Rx Instructions .ROUTE .COMPLEX RF: 0 Savella 12.5 mg (5)-25 mg(8)-50 mg(42) tablets,dose pack See Rx Instructions .ROUTE .COMPLEX RF: 0 Ozempic 0.25 mg or 0.5 mg(2 mg/1.5 mL) pen injector 0.25 mg SUBCUT Q7D RF: 0 bupropion HCl 150 mg tablet sustained-release 12 hr 300 mg PO DAILY RF: 0 metronidazole 500 mg tablet 500 mg PO Q8H RF: 0 metoclopramide HCl 5 mg tablet 5 mg PO DAILY RF: 0 ondansetron HCl [Zofran] 4 mg tablet 4 mg PO Q6H PRN (Reason: nausea and vomiting) Qty: 20 RF: 0 dicyclomine 20 mg tablet 20 mg PO QID Qty: 30 RF: 0 Medrol (Valdemar) 4 mg tablets,dose pack See Rx Instructions .ROUTE .COMPLEX Qty: 21 RF: 0 Discharge Orders: Discharge ED (Routine); Ordered 09/03/20 Ordered By: Andrew Sarabia Referrals: Tracee Rivas DO [Primary Care Provider] - Patient Instructions: Shoulder Sprain (ED), Opioid Safety Activity Restrictions/Additional Instructions: Activity as tolerated. Gentle stretching and range of motion exercises of the shoulder region. Use ice and heat to the area for further pain control. Use acetaminophen and ibuprofen for routine pain control. Use hydrocodone for breakthrough pain. Follow-up with primary care for further instruction. Case management will contact you regarding follow-up appointment with orthopedics for further evaluation and treatment. Return to the emergency department for new concerns. Coding Level of Care Code ED Paint Grinder for Nicanor Krueger Exam Comprehensive
[2020-09-03] MEDS: ketorolac 30 mg/mL INJ IM (16:50)
[2020-09-03] MEDS: orphenadrine 30 mg/mL Inj 2 mL 60 MG IM (16:50)
[2020-09-03 17:28] VITALS: BP 142/76; PULSE 65; RESP 18; O2SAT 96
--- NOTE | 2020-09-04 09:38 | DCPLANNER ---
b2b sales manager had message to schedule a follow up appointment for patient with ortho. b2b sales manager called the ortho clinic, spoke with Arlyn, gave clinic patients information. b2b sales manager was told that patients information would be printed and reviewed. Clinic will call patient with appointment information.
--- NOTE | 2020-09-13 15:34 | DCPLANNER ---
Patient has a follow up appointment scheduled for , September 21, 2020 at 11:[address] Crain at ortho. Clinic will call patient with appointment information.
--- NOTE | 2020-11-20 08:09 | DCPLANNER ---
Patient had a follow up appointment scheduled with ortho - appointment was cancelled.
== END 2020-09-03 17:31 | disposition home or self-care (01) ==
PROVIDERS: Emergency Provider Nurse Practitioner Family; PCP Family Medicine
DX: M25.511 Pain in right shoulder (principal); Z79.84 Long term (current) use of oral hypoglycemic drugs; E11.9 Type 2 diabetes mellitus without complications; I10 Essential (primary) hypertension
CPT/HCPCS: 96372; 99283; J1885; J2360

== ENCOUNTER 2020-09-11 09:48 | Outpatient (CLI) | payer MEDICARE, SELFPAY ==
--- NOTE | 2020-09-11 09:54 | MR_ITS ---
WS: [id number] MRI RIGHT SHOULDER HISTORY: INJURY OF RT SHOULDER COMPARISON: RIGHT shoulder 08/22/2020 TECHNIQUE: Multiplanar sequences of the shoulder joint are submitted. Quality of examination is limited by motion artifact. Severe bone and soft tissue hypertrophy with inflammatory changes involving the AC joint. Large osteo phytes encroach upon the supraspinatus muscle and tendon anteriorly. There is a small amount of fluid in the subacromial and subdeltoid bursa. Increased fluid signal along the AC ligament. Small caliber biceps tendon at the bicipital groove with a small amount of adjacent fluid. No os acromion. Moderate-sized tear extending over length of 12 mm involving the anterior most supraspinatus tendon. There is also increased signal extending into the distal tendon consistent with interstitial extensio n of the tear and tendinopathy. Complete versus near complete full-thickness tear of the supraspinatu s tendon. Moderate atrophy of the supraspinatus muscle with no edema. No subscapularis tendon tear or infraspinatus tendon tear identified. Mild narrowing of the glenohumeral joint. Loss of cartilage over the glenoid. No definite labral tear s identified. There is intrasubstance degeneration and a possible tear involving the posterior labrum . MR/MR shoulder RT wo con* [id number] IMPRESSION: 1. Quality of this examination is limited by motion. 2. Severe AC joint osteoarthritic changes with edema and encroachment upon the supraspinatus tendon and muscle. 3. Moderate size full thickness versus near full-thickness tear of the distal supraspinatus tendon with interstitial extension of the tear and tendinopathy. 4. Moderate atrophy of the supraspinatus muscle. 5. Glenohumeral joint osteoarthritis.
== END 2020-09-11 09:49 | disposition home or self-care (01) ==
LOC: RADWPI 09:51
PROVIDERS: PCP Family Medicine; Visit Provider Family Medicine
DX: S49.91XA Unspecified injury of right shoulder and upper arm, initial encounter (principal); X58.XXXA Exposure to other specified factors, initial encounter; M62.511 Muscle wasting and atrophy, not elsewhere classified, right shoulder
CPT/HCPCS: 73221

== ENCOUNTER 2020-09-27 09:15 | Outpatient (CLI) | payer MEDICARE, SELFPAY ==
--- NOTE | 2020-09-27 | MR_ITS ---
WS: [id number] MRI CERVICAL SPINE NONCONTRAST TECHNIQUE: Sagittal T1, T2 and STIR imaging. Axial T2, gradient, and fiesta imaging. CLINICAL INFORMATION: CERVICAL STENOSIS COMPARISON: None. FINDINGS: Straightening of the normal cervical lordosis. Disc bulging worse at C6-7 with disc osteophyte protru tash. Cord signal is normal.. C2-C3: Normal. C3-C4: Mild disc bulging with osteophytic ridging. Tiny central protrusion. Spinal canal is patent. M oderate left facet arthropathy. Mild to moderate left and mild right bony foraminal narrowing. C4-C5: Disc osteophyte complex with endplate ridging. Mild central canal stenosis. Advanced left face t arthropathy. Moderate to severe left bony foraminal narrowing. C5-C6: Disc osteophyte complex with endplate ridging. Moderate central canal stenosis slight indentat ion on cervical cord. Mild bilateral bony foraminal narrowing. C6-C7: Disc osteophyte complex with endplate ridging. Moderate central canal stenosis. Indentation an d flattening of the cervical cord. Central disc osteophyte protrusion. Moderate left and mild right b garrison foraminal narrowing. C7-T1: Mild left and no significant right foraminal narrowing. Spinal canal is patent. Visualized brain stem structures: Normal. Prevertebral soft tissues: Normal. MR/MR cervical spin wo con* [id number] IMPRESSION: 1. Straightening of the normal cervical lordosis. Cord signal is normal. 2. Moderate central canal stenosis C5-C6 and C6-C7 due to small disc osteophyt e protrusions. Slight indentation and flattening of the cervical cord at C6-7. Stenosis worse at C6-7. 3. Mild central canal stenosis C3-C4 and C4-C5 with small central disc osteoph yte protrusions. 4. Multilevel bony foraminal narrowing worse at left C3-C4, left C4-C5, and le ft C6-7. 5. Moderate to advanced left facet arthropathy at C3-C4 and C4-C5.
== END 2020-09-27 09:16 | disposition home or self-care (01) ==
PROVIDERS: PCP Family Medicine; Visit Provider Orthopaedic Surgery
DX: M48.02 Spinal stenosis, cervical region (principal); M47.812 Spondylosis without myelopathy or radiculopathy, cervical region
CPT/HCPCS: 72141

== ENCOUNTER → 2021-05-16 14:06 | Outpatient (BNVA) | payer MEDICARE, SELFPAY | PROVIDERS: PCP Family Medicine; Referring Provider Family Medicine; Visit Provider Anesthesiology Pain Medicine | DX: M48.062 Spinal stenosis, lumbar region with neurogenic claudication (principal); M47.816 Spondylosis without myelopathy or radiculopathy, lumbar region; M54.2 Cervicalgia; Z79.891 Long term (current) use of opiate analgesic; Z87.891 Personal history of nicotine dependence | CPT/HCPCS: 99205 ==

== ENCOUNTER 2021-11-19 21:51 | Emergency (ER) | payer MEDICARE, SELFPAY ==
[2021-11-19 22:05] VITALS: BP 194/119; PULSE 96; RESP 18; TEMP 37.1; O2SAT 98; BMI 41.3
--- NOTE | 2021-11-19 22:20 | ECG_ITS ---
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 Measurements Intervals [place] Rate: 88 P: 53 HI: 167 QRS: -79 QRSD: 135 T: 14 QT: 374 QTc: 454 Interpretive Statements SINUS RHYTHM RIGHT BUNDLE BRANCH BLOCK [120+ ms QRS DURATION, UPRIGHT V1, 40+ ms S IN I/aVL/V4/V5/V6] LEFT ANTERIOR FASCICULAR BLOCK [QRS AXIS <= -45, QR IN I, RS IN II] Compared to ECG 01/25/2020 19:06:21 Right bundle-branch block now present Left anterior fascicular block now present Indeterminate axis no longer present Myocardial infarct finding no longer present Electronically Signed On 11-20-2021 20:49:32 CDT by Lorena Brush M.D. [email or web address]
--- NOTE | 2021-11-19 22:25 | XRR_ITS ---
PROCEDURE INFORMATION: Exam: XR Chest Exam date and time: 11/19/2021 10:40 PM Age: 61 years old Clinical indication: Pain; Shortness of breath; Chest pressure; Patient HX: C/O chest discomfort with SOB. ; Additional info: Cp TECHNIQUE: Imaging protocol: Radiologic exam of the chest. Views: 1 view. COMPARISON: CR XR chest 1V portable [id number] 08/22/2020 10:57 PM FINDINGS: Lungs: Mildly hyperaerated lungs consistent with deep inspiratory effort vs reactive airway disease vs mild COPD . Pleural spaces: Unremarkable. No pleural effusion. No pneumothorax. Heart/Mediastinum: Unremarkable. No cardiomegaly. Bones/joints: Unremarkable. XR/XR chest 1V portable [id number] IMPRESSION: Mildly hyperaerated lungs consistent with deep inspiratory effort vs reactive airway disease vs mild COPD .
[2021-11-19 22:42] LABS: Basophils % 0.5 %; Eosinophils % 0.1 %; Hematocrit 43.8 % (37.0-47.0); Hemoglobin 12.6 g/dL (11.5-15.3); Lymphocytes # 1.8 10^3/uL (0.8-4.8); Lymphocytes % 20.1 %; Mean Corpuscular HGB Conc 28.8 g/dL (30.0-36.0); Mean Corpuscular Hemoglobin 24.6 pg (28.0-34.0); Mean Corpuscular Volume 85.5 fl (81-99); Mean Platelet Volume 9.6 fL (7.4-10.4); Monocytes # 0.7 10^3/uL (0.2-0.9); Monocytes % 8.3 %; Neutrophils # 6.16 10^3/uL (1.8-7.7); Neutrophils % 70.8 %; Nucleated Red Blood Cells % 0 %; Platelet Count 406 10^3/cmm (130-400); Red Blood Count 5.12 10^6/uL (4.1-5.3); White Blood Count 8.7 10^3/uL (4.0-10.0)
[2021-11-19 23:04] LABS: Troponin(5th) Baseline 13 ng/L (0-10)
[2021-11-19 23:05] LABS: Anion Gap 16.4 (5-19); Blood Urea Nitrogen 12 mg/dL (8-23); Calcium 9.6 mg/dL (8.5-10.5); Carbon Dioxide 22 mmol/L (22-29); Chloride 107 mmol/L (98-107); Glucose 105 mg/dL (65-115); Osmolality Calculated 292 mOsm/kg (285-295); Potassium 4.4 mmol/L (3.5-5.1); Sodium 141 mmol/L (136-145)
--- NOTE | 2021-11-19 23:10 | W.ED.GENADLT ---
HPI - General Adult General: Chief complaint: General Medical Stated complaint: wants bp checked Time Seen by Provider: 11/19/21 22:50 Source: patient Mode of arrival: ambulatory Limitations: no limitations History of Present Illness: 61-year-old female who states she has a history of high blood pressure states that over the last 2 days her blood pressures been running higher than normal. Is 195/84 states that she went to her PCP this morning and it was high as well. She states that she has been having some headaches along with some slight chest pain she denies any shortness of breath states pain is a 1 out of 10 she states she been taking her meds as prescribed her blood pressures continue to be high. Associated symptoms: Reports chest pain, dyspnea and headache(s); Deny nausea, rash or vomiting Review of Systems Const: Denies: fever(s), chills, body aches or change in appetite Eyes: Denies: blurry vision or eye discomfort ENMT: Denies: throat pain or dental pain Card: Reports: chest pain Resp: Reports: dyspnea GI: Denies: abdominal pain, nausea, vomiting or diarrhea : Denies: dysuria Musc: Denies: neck pain or back pain Skin/Breast: Denies: rash Neuro: Reports: headache(s) Psych: Denies: depression Kem/Lymph: Denies: easy bruising All/Imm: Denies: urticaria PFSH ED PFSH: Medical History BMI 45.0-49.9, adult Controlled type 2 diabetes mellitus Degenerative joint disease of knee Depression Gastric reflux Hypertension Hypothyroid Morbid obesity JOSE (obstructive sleep apnea) Poor high blood pressure control Primary osteoarthritis of knees, bilateral Restless leg syndrome Sleep apnea Surgical History History of appendectomy History of intestinal surgery Bowel obstruction in childhood Hx of cholecystectomy Family History Other Cancer Family history of premature coronary artery disease Stroke Social History Smoking and tobacco status: former smoker Alcohol intake: never Lives independently: Yes Housing: House Marital status: Single Physical Exam Const: COMMON NORMALS: no acute distress, patient oriented x3 and healthy appearing HENMT: COMMON NORMALS: normocephalic and atraumatic HEAD & SCALP: normocephalic and atraumatic Eye: COMMON NORMALS: Equal, round and reactive pupils present and EOMs intact bilaterally PUPIL: Yes Equal, round and reactive pupils present Neck/C-Spine: COMMON NORMALS: full ROM and supple Chest: COMMONS NORMALS: normal inspection of the chest and normal palpation of entire chest wall Resp: COMMON NORMALS: normal respiratory effort, No retractions, No use of accessory muscles and clear to auscultation bilaterally AUSCULTATION: clear to auscultation bilaterally Cardio: COMMON NORMALS: regular rate, regular rhythm and No murmurs present (Cardio) RATE: regular rate RHYTHM: regular rhythm GI: COMMON NORMALS: Normal to inspection, nondistended, normoactive bowel sounds present, Soft to palpation, non-tender and no masses PALPATION: Yes Soft to palpation Extremity: COMMON NORMALS: normal to inspection and full ROM Neuro: COMMON NORMALS: patient oriented x3, moves all extremities and no focal motor deficits Psych: COMMON NORMALS: mental status grossly normal, Normal thought process present and cooperative THOUGHT PROCESS: Normal thought process present Skin: COMMON NORMALS: no rashes or lesions noted and no wounds GENERAL SKIN EXAM: no rashes or lesions noted Course Vital Signs: Vital signs: Vital Signs Temperature 98.7 F 11/19/21 22:05 Pulse Rate 96 11/19/21 22:05 Respiratory Rate 16 11/20/21 00:37 Blood Pressure 167/118 11/20/21 00:37 Pulse Oximetry 98 11/20/21 00:37 [facility] - General Adult Medical Decision Making Patient presents here with hypertension she is having some mild chest pain and headaches likely from her blood pressure blood pressures improved and she feels improved here we will increase her metoprolol to 100 mg twice daily she is to keep a log of her blood pressure and follow-up with her PCP in 2 to 4 days she understands agrees to plan. Lab Data : 11/19/21 22:35 11/19/21 22:35 Radiology Impressions Chest X-Ray 11/19/21 22:25 IMPRESSION: Mildly hyperaerated lungs consistent with deep inspiratory effort vs reactive airway disease vs mild COPD . Laboratory Results WBC 8.7 10^3/uL (4.0-10.0) 11/19/21 22:35 RBC 5.12 10^6/uL (4.1-5.3) 11/19/21 22:35 Hgb 12.6 g/dL (11.5-15.3) 11/19/21: Hct 43.8 % (37.0-47.0) 11/19/21 22: MCV 85.5 fl (81-99) 11/19/21: MCH 24.6 pg (28.0-34.0) L 11/19/21: MCHC 28.8 g/dL (30.0-36.0) L 11/19/21: RDW 20.0 % (12.1-15.1) H 11/19/21: Plt Count 406 10^3/cmm (130-400) H 11/19/21: MPV 9.6 fL (7.4-10.4) 11/19/21: Neut % (Auto) 70.8 % 11/19/21: Lymph % (Auto) 20.1 % 11/19/21:35 [place] % (Auto) 8.3 % 11/19/21 22:35 Eos % (Auto) 0.1 % 11/19/21:35 Baso % (Auto) 0.5 % 11/19/21: Neut # (Auto) 6.16 10^3/uL (1.8-7.7) 11/19/21: Lymph # (Auto) 1.8 10^3/uL (0.8-4.8) 11/19/21:35 [place] # (Auto) 0.7 10^3/uL (0.2-0.9) 11/19/21 22:35 Eos # (Auto) 0.0 10^3/uL (0.0-0.8) 11/19/21:35 Baso # (Auto) 0.0 10^3/uL (0.0-0.1) 11/19/21:35 Nucleated RBC % (auto) 0 % 11/19/21: Nucleated RBCs # 0.0 /100WBC 11/19/21: Sodium 141 mmol/L (136-145) 11/19/21 22:35 Potassium 4.4 mmol/L (3.5-5.1) 11/19/21 22:35 Chloride 107 mmol/L (98-107) 11/19/21 22:35 Carbon Dioxide 22 mmol/L (22-29) 11/19/21 22:35 Anion Gap 16.4 (5-19) 11/19/21 22:35 BUN 12 mg/dL (8-23) 11/19/21 22:35 Creatinine 1.0 mg/dL (0.5-0.9) H 11/19/21 22:35 GFR Calculation 56.0 mL/min (90-130) L 11/19/21 22:35 Glucose 105 mg/dL (65-115) 11/19/21 22:35 Calculated Osmolality 292 mOsm/kg (285-295) 11/19/21 22:35 Calcium 9.6 mg/dL (8.5-10.5) 11/19/21 22:35 Troponin T Baseline 13 ng/L (0-10) H 11/19/21 22:35 Troponin T 120 Minute 9.20 ng/L (0-10) 11/20/21 01:02 Delta Troponin T -3.80 ABS# (0-10) L 11/20/21 01:02 EKG Data EKG 1: I personally reviewed and interpreted this EKG as follows: EKG interpretation date: 11/19/21 EKG interpretation time: 23:15 Interpretation: nsr hr [address] elevation rbbb qrs 135 qtc 420 Computer generated interpretation: Chest X-Ray 11/19/21 22:25 IMPRESSION: Mildly hyperaerated lungs consistent with deep inspiratory effort vs reactive airway disease vs mild COPD . Discharge Plan Discharge Patient Disposition: Home Clinical Impression: Chest pain Hypertension Qualifiers: Hypertension type: unspecified Qualified Code(s): I10 - Essential (primary) hypertension Condition: Stable Prescriptions: Changed metoprolol tartrate 50 mg Tablet 100 mg PO BID Qty: 60 0RF No Action topiramate 200 mg capsule,extended release 24hr 200 mg PO BID 0RF spironolactone 25 mg tablet 25 mg PO DAILY PRN (Reason: SWELLING) 0RF Rx Instructions: PT STATES SHE TAKES 2 TABS IN THE AM metformin 1,000 mg tablet 1,000 mg PO BID 0RF Rx Instructions: TAKE BID WITH MEALS cyclobenzaprine 5 mg tablet 5 mg PO TID PRN (Reason: muscle spasm) Qty: 90 0RF gabapentin 300 mg capsule 300 mg PO TID Qty: 90 0RF tramadol 50 mg tablet 50 mg PO DAILY 0RF levothyroxine 25 mcg tablet 25 mcg PO DAILY 0RF Rx Instructions: TAKE WITH 200 MCG FOR A TOTAL OF 225 MCG. lorazepam 0.5 mg tablet 0.5 mg PO BID PRN (Reason: Anxiety) 0RF ropinirole 2 mg tablet 2 mg PO BEDTIME 0RF levothyroxine 200 mcg tablet 200 mcg PO DAILY 0RF Rx Instructions: TAKE WITH 25 MCG FOR A TOTAL OF 225 MCG. hydralazine 25 mg tablet 25 mg PO BID Qty: 0 0RF pantoprazole 40 mg Tablet,Delayed Release (Dr/Ec) 40 mg PO BID 0RF trazodone 150 mg tablet 300 mg PO BEDTIME 0RF diclofenac sodium 1 % gel See Rx Instructions .ROUTE .COMPLEX 0RF Rx Instructions: topically APPLY 2 GRAMS TO AFFECTED AREA QID. Savella 12.5 mg (5)-25 mg(8)-50 mg(42) tablets,dose pack See Rx Instructions .ROUTE .COMPLEX 0RF Rx Instructions: ea orally TAKE DIRECTED. Ozempic 0.25 mg or 0.5 mg(2 mg/1.5 mL) pen injector 0.25 mg SUBCUT Q7D 0RF Rx Instructions: PT STATES SHE TAKES THIS ON FRIDAYS. bupropion HCl 150 mg tablet sustained-release 12 hr 300 mg PO DAILY 0RF metronidazole 500 mg tablet 500 mg PO Q8H 0RF Rx Instructions: PT STATES SHE IS OUT OF THIS MEDICATON. metoclopramide HCl 5 mg tablet 5 mg PO DAILY 0RF Rx Instructions: TAKE BEFORE BREAKFAST. ondansetron HCl [Zofran] 4 mg tablet 4 mg PO Q6H PRN (Reason: nausea and vomiting) Qty: 20 0RF dicyclomine 20 mg tablet 20 mg PO QID Qty: 30 0RF Medrol (Valdemar) 4 mg tablets,dose pack See Rx Instructions .ROUTE .COMPLEX Qty: 21 0RF Rx Instructions: orally per package directions Celebrex 200 mg capsule 200 mg PO BID Qty: 30 0RF cyclobenzaprine 10 mg tablet 10 mg PO TID Qty: 14 0RF Discharge Orders: Discharge ED (Routine); Ordered 11/20/21 Ordered By: Jennifer Morgan Referrals: Tracee Rivas DO [Primary Care Provider] - 1-3 days Discharge Diet: Advance as tolerated Discharge Activity: Resume usual activity Patient Instructions: Hypertension (ED) Coding Level of Care Code ED National Sales Director for Chg Fwd Exam Comprehensive
[2021-11-19] MEDS: labetalol 5 mg/mL SDV 20mL 10 MG IVP (23:17)
[2021-11-19 23:49] VITALS: BP 167/113
--- NOTE | 2021-11-20 00:20 | ECG_ITS ---
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 Measurements Intervals [place] Rate: 75 P: 69 MN: 188 QRS: -12 QRSD: 149 T: 28 QT: 432 QTc: 485 Interpretive Statements SINUS RHYTHM RIGHT BUNDLE BRANCH BLOCK [120+ ms QRS DURATION, UPRIGHT V1, 40+ ms S IN I/aVL/V4/V5/V6] Compared to ECG 11/19/2021 22:15:17 Left anterior fascicular block no longer present Electronically Signed On 11-20-2021 21:00:35 CDT by Lorena Brush M.D. [id number]
[2021-11-20] MEDS: hyDRALAzine 20 mg/mL INJ 1 mL 10 MG IVP (00:22)
[2021-11-20 00:37] VITALS: BP 167/118; RESP 16; O2SAT 98
[2021-11-20] MEDS: morphine 4 mg/mL SDV 1 mL IVP ×2 (00:37→01:57)
[2021-11-20] MEDS: ondansetron 2 mg/ML SDV 2 mL 4 MG IVP (00:38)
[2021-11-20 01:57] VITALS: RESP 20
[2021-11-20 01:58] VITALS: BP 147/82
== END 2021-11-20 02:01 | disposition home or self-care (01) ==
PROVIDERS: Emergency Medicine; Emergency Provider Emergency Medicine; PCP Family Medicine
DX: I10 Essential (primary) hypertension (principal); R07.9 Chest pain, unspecified; Z79.84 Long term (current) use of oral hypoglycemic drugs; E11.9 Type 2 diabetes mellitus without complications; Z87.891 Personal history of nicotine dependence
CPT/HCPCS: 71045; 80048; 84484; 85025; 93005; 96374; 96375; 96376; 99285; J0360; J2270; J2405; J3490

== ENCOUNTER 2022-02-12 07:04 | Outpatient (CLI) | payer OTHER, MEDICAID, SELFPAY ==
--- NOTE | 2022-02-12 | USCV_ITS ---
Tracee Walden Age: 61 Gender: F : 1960 Exam Date: 02/12/2022 07:21 Ordering Phys: Luis Hernandez Technologist: FRIDA [place] [facility] [place]: BILATERAL LEG EDEMA HISTORY: Lower extremity edema. PROCEDURES: The venous duplex Doppler examination of both lower extremities was performed in the standard fashion. The following venous structures were evaluated: common femoral vein, profunda vein, proximal portion of the greater saphenous vein, superficial femoral vein, and the popliteal vein. In addition, the posterior tibial veins were evaluated. In addition, the posterior tibial and peroneal trunk were evaluated. Serial compression, augmentation maneuvers, and spectral Doppler flow evaluation were performed. FINDINGS: Normal 2-D Doppler and augmentation and compressibility throughout the lower extremity venous structures. Additional imaging through the proximal calf veins also reveals no thrombus. Limited evaluation of the greater saphenous vein is patent with no thrombus. CONCLUSIONS No DVT bilateral lower extremities. Dr. Natacha Gonzales DO (Electronically Signed) Final Date: 12 February 2022 09:36 S
== END 2022-02-12 07:05 | disposition home or self-care (01) ==
LOC: RAD 07:05
PROVIDERS: PCP Family Medicine; Visit Provider Nurse Practitioner Family
DX: R60.0 Localized edema (principal)
CPT/HCPCS: 93970

== ENCOUNTER 2022-03-15 10:09 | Outpatient (CLI) | payer MEDICAID, SELFPAY ==
--- NOTE | 2022-03-15 10:16 | MM_ITS ---
WS: [id number] BILATERAL SCREENING DIGITAL TOMOSYNTHESIS MAMMOGRAM WITH CAD HISTORY: SCREENING COMPARISON: 02/16/2019 and 08/15/2017 Bilateral CC and MLO views with tomosynthesis and synthetic mammography submitted. Computer aided det ection analyzed. Breast composition: There are scattered areas of fibroglandular density. No suspicious masses, microc alcifications or architectural distortion. MM/[place] [id number] IMPRESSION: BI-RADS: 1-Negative FOLLOW UP: 1 Year Follow-up
== END 2022-03-15 10:10 | disposition home or self-care (01) ==
LOC: RAD 10:10
PROVIDERS: PCP Family Medicine; Visit Provider Family Medicine
DX: Z12.31 Encounter for screening mammogram for malignant neoplasm of breast (principal)
CPT/HCPCS: 77063; 77067

== ENCOUNTER 2022-11-17 10:06 | Emergency (ER) | payer MEDICARE, MEDICAID, SELFPAY ==
[2022-11-17 10:23] VITALS: BP 202/100; PULSE 67; RESP 18; TEMP 36.9; O2SAT 100
--- NOTE | 2022-11-17 11:21 | XRR_ITS ---
PROCEDURE INFORMATION: Exam: XR Chest Exam date and time: 11/17/2022 11:26 AM Age: 62 years old Clinical indication: Pain; Chest pressure; Additional info: Shortness of breath TECHNIQUE: Imaging protocol: Radiologic exam of the chest. Views: 1 view. COMPARISON: CR XR chest 1V portable [id number] 11/19/2021 10:40 PM FINDINGS: Lungs: The lung parenchyma is clear. Pleural spaces: No pneumothorax. No pleural effusion. Heart/Mediastinum: The cardiac silhouette is mildly enlarged, similar to prior exam. Bones/joints: Unremarkable. XR/XR chest 1V portable [id number] IMPRESSION: No acute cardiopulmonary abnormality identified.
--- NOTE | 2022-11-17 11:26 | W.ED.BACK ---
HPI - Back Pain/Injury General: Chief Complaint: Back Pain/Injury Stated Complaint: pain in left upper back Time Seen by Provider: 11/17/22 11:10 History of Present Illness: Patient presents to the ER with a chief complaint of lower posterior chest/upper back pain and shortness of breath. This been going on for 3 days. This is worse when she takes a big deep breath. Patient also had some nausea and diarrhea. Patient states this pain wraps around from her left flank region to her left abdomen. 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 Review of Systems General: Reports: 10 or more systems reviewed and unremarkable except in HPI and below PFSH ED PFSH: Medical History BMI 45.0-49.9, adult Controlled type 2 diabetes mellitus Degenerative joint disease of knee Depression Gastric reflux Hypertension Hypothyroid Morbid obesity JOSE (obstructive sleep apnea) Poor high blood pressure control Primary osteoarthritis of knees, bilateral Restless leg syndrome Sleep apnea Surgical History History of appendectomy History of intestinal surgery Bowel obstruction in childhood Hx of cholecystectomy Family History Other Cancer Family history of premature coronary artery disease Stroke Social History Smoking and tobacco status: former smoker Alcohol intake: never Substance/Drug Use: never Lives independently: Yes Housing: House Marital status: Single Physical Exam Const: COMMON NORMALS: no acute distress, average body habitus, patient oriented x3, no limitations, healthy appearing, alert and well nourished HENMT: COMMON NORMALS: normocephalic, atraumatic, hearing grossly normal bilaterally, external ears normal, Normal external nose present and moist oral mucous membranes HEAD & SCALP: normocephalic and atraumatic NOSE: Normal external nose present EXTERNAL EAR: Yes external ears normal Neck/C-Spine: COMMON NORMALS: full ROM, no lymphadenopathy, supple, no meningeal signs, no JVD and Thyroid normal THYROID: Thyroid normal Chest: COMMONS NORMALS: normal inspection of the chest and normal palpation of entire chest wall Resp: COMMON NORMALS: normal respiratory effort, No retractions, No use of accessory muscles and clear to auscultation bilaterally AUSCULTATION: clear to auscultation bilaterally Cardio: COMMON NORMALS: no JVD, regular rate, regular rhythm, S1 normal heart sound present, S2 normal heart sound present, No gallops present (Cardio) and No clicks present (Cardio) RATE: regular rate RHYTHM: regular rhythm HEART SOUNDS: S1 normal heart sound present and S2 normal heart sound present GI: COMMON NORMALS: Normal to inspection, nondistended, normoactive bowel sounds present, Soft to palpation, No hepatosplenomegaly present and no masses; negative for non-tender (Tender to palpate over left lateral abdomen and flank region.) PALPATION: Yes Soft to palpation and Yes No hepatosplenomegaly present Back/Pelvis: OTHER: Tender to palpate over the left lateral thoracolumbar junction into flank region. Neuro: COMMON NORMALS: patient oriented x3 SENSORIUM/ORIENTATION: Yes alert MENINGEAL SIGNS: Yes no meningeal signs Course Vital Signs: Vital signs: Vital Signs Temperature 98.5 F 11/17/22 10:23 Pulse Rate 64 11/17/22 13:02 Respiratory Rate 20 H 11/17/22 13:02 Blood Pressure 178/87 11/17/22 13:02 Pulse Oximetry 99 11/17/22 13:02 Oxygen Delivery Me thod Room Air 11/17/22 13:02 MDM - Back Pain/Injury Medical Decision Making Patient presents to the ER with left-sided back and flank pain. Patient had blood work and urine done as well as a chest x-ray. All of which were essentially benign. Patient was given Toradol and Norflex in the ER which seem to mildly relieve the pain. These labs were discussed with the patient patient be discharged home on [place] and Norflex and she is to rest for the next couple days. Patient should follow-up with her PCP in approximately 7 days as needed. Differential Diagnosis Likely lumbar radiculopathy, strain of lumbar region and thoracic back pain; Unlikely sciatica, renal colic, pyelonephritis, AAA or discitis Medical Records I reviewed the patient's medical records. Labs I reviewed the patient's lab results. 11/17/22 12:10 11/17/22 12:10 Radiology Impressions Chest X-Ray 11/17/22 11:21 IMPRESSION: No acute cardiopulmonary abnormality identified. Laboratory Results WBC 11.7 10^3/uL (4.0-10.0) H 11/17/22 12:10 RBC 4.46 10^6/uL (4.1-5.3) 11/17/22 12:10 Hgb 10.6 g/dL (11.5-15.3) L 11/17/22 12:10 Hct 37.5 % (37.0-47.0) 11/17/22 12:10 MCV 84.1 fl (81-99) 11/17/22 12:10 MCH 23.8 pg (28.0-34.0) L 11/17/22 12:10 MCHC 28.3 g/dL (30.0-36.0) L 11/17/22 12:10 RDW 15.9 % (12.1-15.1) H 11/17/22 12:10 Plt Count 423 10^3/cmm (130-400) H 11/17/22 12:10 MPV 9.4 fL (7.4-10.4) 11/17/22 12:10 Neut % (Auto) 69.2 % 11/17/22 12:10 Lymph % (Auto) 15.1 % 11/17/22 12:10 [place] % (Auto) 11.3 % 11/17/22 12:10 Eos % (Auto) 3.2 % 11/17/22 12:10 Baso % (Auto) 0.7 % 11/17/22 12:10 Neut # (Auto) 8.06 10^3/uL (1.8-7.7) H 11/17/22 12:10 Lymph # (Auto) 1.8 10^3/uL (0.8-4.8) 11/17/22 12:10 [place] # (Auto) 1.3 10^3/uL (0.2-0.9) H 11/17/22 12:10 Eos # (Auto) 0.4 10^3/uL (0.0-0.8) 11/17/22 12:10 Baso # (Auto) 0.1 10^3/uL (0.0-0.1) 11/17/22 12:10 Nucleated RBC % (auto) 0 % 11/17/22 12:10 Nucleated RBCs # 0.0 /100WBC 11/17/22 12:10 Sodium 139 mmol/L (136-145) 11/17/22 12:10 Potassium 3.2 mmol/L (3.5-5.1) L 11/17/22 12:10 Chloride 103 mmol/L (98-107) 11/17/22 12:10 Carbon Dioxide 26 mmol/L (22-29) 11/17/22 12:10 Anion Gap 13.2 (5-19) 11/17/22 12:10 BUN 10 mg/dL (8-23) 11/17/22 12:10 Creatinine 1.0 mg/dL (0.5-0.9) H 11/17/22 12:10 GFR Calculation 55.8 mL/min (90-130) L 11/17/22 12:10 Glucose 88 mg/dL (65-115) 11/17/22 12:10 Calculated Osmolality 286 mOsm/kg (285-295) 11/17/22 12:10 Calcium 9.4 mg/dL (8.5-10.5) 11/17/22 12:10 Total Bilirubin 0.2 mg/dL (0.15-1.2) 11/17/22 12:10 AST 18 U/L (0-32) 11/17/22 12:10 ALT 14 U/L (0-33) 11/17/22 12:10 Alkaline Phosphatase 120 U/L (35-105) H 11/17/22 12:10 NT-Pro-B Natriuret Pep 109 pg/mL (0-125) 11/17/22 12:10 Total Protein 7.6 g/dL (6.6-8.7) 11/17/22 12:10 Albumin 4.0 g/dL (3.5-5.2) 11/17/22 12:10 Globulin 3.6 g/dL (1.3-4.6) 11/17/22 12:10 Urine Color Yellow (Yellow) 11/17/22 12:10 Urine Appearance Hazy (CLEAR) A 11/17/22 12:10 Urine pH 7 (5-7) 11/17/22 12:10 Ur Specific [place] 1.005 (1.005-1.030) 11/17/22 12:10 Urine Protein Neg (Negative) 11/17/22 12:10 Urine Glucose (UA) Norm (Normal) 11/17/22 12:10 Urine Ketones Negative (Negative) 11/17/22 12:10 Urine Blood Neg (Negative) 11/17/22 12:10 Urine Nitrate Negative (Negative) 11/17/22 12:10 Urine Bilirubin Neg (Negative) 11/17/22 12:10 Urine Urobilinogen Norm mg/dL (Negative) 11/17/22 12:10 Ur Leukocyte Esterase Negative (Negative) 11/17/22 12:10 Urine RBC None /hpf (0-2) 11/17/22 12:10 Urine WBC None /hpf (0-5) 11/17/22 12:10 Ur Squamous Epith Cells 5-10 /hpf (0-5) H 11/17/22 12:10 Amorphous Sediment Not Reportable 11/17/22 12:10 Urine Bacteria 2+ /hpf (NONE) H 11/17/22 12:10 Urine Mucus 1+ /hpf 11/17/22 12:10 Discharge Plan Discharge Patient Disposition: Home Clinical Impression: Strain of lumbar region Qualifiers: Encounter type: initial encounter Qualified Code(s): S39.012A - Strain of muscle, fascia and tendon of lower back, initial encounter Condition: Stable Prescriptions: New hydrocodone-acetaminophen 5-325 mg tablet 1 tab PO Q8H PRN (Reason: pain) Qty: 14 0RF orphenadrine citrate 100 mg tablet extended release 100 mg PO Q12H PRN (Reason: Muscle spasm/pain) Qty: 14 0RF No Action topiramate 200 mg capsule,extended release 24hr 200 mg PO BID gabapentin 300 mg capsule 300 mg PO TID Qty: 90 0RF hydralazine 25 mg tablet 25 mg PO BID PRN Mounjaro 7.5 mg/0.5 mL pen injector 7.5 mg SUBCUT .once weekly Xarelto 15 mg tablet PO BID furosemide 40 mg tablet PO potassium chloride [Klor-Con M20] 20 mEq tablet,ER particles/crystals PO amiodarone 200 mg tablet PO sulfamethoxazole-trimethoprim [Bactrim DS] 800-160 mg tablet 1 tab PO BID 7 Days Qty: 14 0RF tramadol 50 mg tablet 50 mg PO DAILY ropinirole 2 mg tablet 2 mg PO BEDTIME levothyroxine 200 mcg tablet 200 mcg PO DAILY Rx Instructions: TAKE WITH 25 MCG FOR A TOTAL OF 225 MCG. trazodone 150 mg tablet 300 mg PO BEDTIME diclofenac sodium 1 % gel See Rx Instructions .ROUTE .COMPLEX Rx Instructions: topically APPLY 2 GRAMS TO AFFECTED AREA QID. bupropion HCl 150 mg tablet sustained-release 12 hr 300 mg PO DAILY Discharge Orders: Discharge ED (Routine); Ordered 11/17/22 Ordered By: Giancarlo Franco Referrals: Tracee Rivas DO [Primary Care Provider] - 1 week Patient Instructions: Acute Low Back Pain (ED) Activity Restrictions/Additional Instructions: Please take your pain medicine muscle relaxer as directed as needed. Please try to limit your activity for the next couple days. Please follow-up with your family practice doctor in the next 7 to 10 days as needed. Please return to the ER if your pain is uncontrolled with this regimen. Coding Level of Care Code ED Precision Assembly Inspector for Nicanor Krueger
[2022-11-17 12:35] LABS: Basophils # 0.1 10^3/uL (0.0-0.1); Basophils % 0.7 %; Eosinophils # 0.4 10^3/uL (0.0-0.8); Eosinophils % 3.2 %; Hematocrit 37.5 % (37.0-47.0); Hemoglobin 10.6 g/dL (11.5-15.3); Lymphocytes # 1.8 10^3/uL (0.8-4.8); Lymphocytes % 15.1 %; Mean Corpuscular HGB Conc 28.3 g/dL (30.0-36.0); Mean Corpuscular Hemoglobin 23.8 pg (28.0-34.0); Mean Corpuscular Volume 84.1 fl (81-99); Mean Platelet Volume 9.4 fL (7.4-10.4); Monocytes # 1.3 10^3/uL (0.2-0.9); Monocytes % 11.3 %; Neutrophils # 8.06 10^3/uL (1.8-7.7); Neutrophils % 69.2 %; Nucleated Red Blood Cells % 0 %; Platelet Count 423 10^3/cmm (130-400); Red Blood Count 4.46 10^6/uL (4.1-5.3); Red Cell Distribution Width 15.9 % (12.1-15.1); White Blood Count 11.7 10^3/uL (4.0-10.0)
[2022-11-17 12:46] LABS: Add Urine Microscopic? YES; Bilirubin Urine Neg (Negative); Blood Urine Neg (Negative); Glucose Urine UA Norm (Normal); Ketones Urine Negative (Negative); Leukocyte Esterase Urine Negative (Negative); Nitrate Urine Negative (Negative); Protein Urine Neg (Negative); Specific Gravity, Urine 1.005 (1.005-1.030); Urine Appearance Hazy (CLEAR); Urine Color Yellow (Yellow); Urobilinogen Urine Norm (Negative); pH Urine 7 (5-7)
[2022-11-17 12:48] LABS: Bacteria Urine 2+ /hpf; Mucus Urine 1+ /hpf
[2022-11-17 12:49] LABS: Add Urine Culture? No
[2022-11-17] MEDS: ketorolac 30 mg/mL INJ IVP (12:54)
[2022-11-17] MEDS: orphenadrine 30 mg/mL Inj 2 mL 60 MG IVP (12:54)
[2022-11-17] MEDS: ondansetron 2 mg/ML SDV 2 mL 4 MG IVP (12:54)
[2022-11-17 13:02] VITALS: BP 178/87; PULSE 64; RESP 20; O2SAT 99
[2022-11-17 13:02] LABS: Alanine Aminotransferase 14 U/L (0-33); Alkaline Phosphatase 120 U/L (35-105); Anion Gap 13.2 (5-19); Aspartate Amino Transferase 18 U/L (0-32); Blood Urea Nitrogen 10 mg/dL (8-23); Calcium 9.4 mg/dL (8.5-10.5); Carbon Dioxide 26 mmol/L (22-29); Chloride 103 mmol/L (98-107); Globulin 3.6 g/dL (1.3-4.6); Glomerular Filtration Rate 55.8 mL/min (90-130); Glucose 88 mg/dL (65-115); NT Pro B Type Natriuretic Pept 109 pg/mL (0-125); Osmolality Calculated 286 mOsm/kg (285-295); Potassium 3.2 mmol/L (3.5-5.1); Sodium 139 mmol/L (136-145); Total Bilirubin 0.2 mg/dL (0.15-1.2); Total Protein 7.6 g/dL (6.6-8.7)
[2022-11-17 14:11] VITALS: BP 214/108; PULSE 81; RESP 18; O2SAT 95
== END 2022-11-17 13:55 | disposition home or self-care (01) ==
PROVIDERS: Emergency Provider Emergency Medicine; PCP Family Medicine
DX: S39.012A Strain of muscle, fascia and tendon of lower back, initial encounter (principal); E11.9 Type 2 diabetes mellitus without complications; I10 Essential (primary) hypertension; Z87.891 Personal history of nicotine dependence; X50.9XXA Other and unspecified overexertion or strenuous movements or postures, initial encounter; Y99.0 Civilian activity done for income or pay
CPT/HCPCS: 71045; 80053; 81001; 83880; 85025; 96374; 96375; 99284; J1885; J2360; J2405

== ENCOUNTER 2022-11-30 00:39 | Emergency (ER) | payer MEDICARE, MEDICAID, SELFPAY ==
--- NOTE | 2022-11-30 | CTR_ITS ---
PROCEDURE INFORMATION: Exam: CT Cervical Spine Without Contrast Exam date and time: 11/30/2022 1:42 AM Age: 62 years old Clinical indication: Patient HX: C/O worsening left sided neck pain after chiropractic adjustment yesterday. ; Additional info: Neck pain with radiculopathy c3/4 distribution TECHNIQUE: Imaging protocol: Computed tomography of the cervical spine without contrast. Radiation optimization: All CT scans at this facility use at least one of these dose optimization techniques: automated exposure control; mA and/or kV adjustment per patient size (includes targeted exams where dose is matched to clinical indication); or iterative reconstruction. REPORTING DATA: Count of CT and Cardiac NM exams in prior 12 months: This patient has received 0 known CTs and 0 known cardiac nuclear medicine studies in the 12 months prior to the current study. COMPARISON: MR cervical spin wo con* [id number] 09/27/2020 9:34 AM RADIATION DOSE METRICS: Total DLP (mGy-cm): 971.66 FINDINGS: Bones/joints: Relative straightening of the cervical lordosis. The alignment is otherwise maintained. Other than osteoarthritis of the middle atlantoaxial joint, the craniocervical junction is maintained. The vertebral body heights are maintained. No evidence of acute fractures. C2-C3: Diffuse disc bulge. No high-grade spinal canal stenosis. Mild right and advanced left facet arthropathy. Mild uncovertebral hypertrophy. No high-grade neural foraminal stenosis. C3-C4: Diffuse disc bulge. Mild spinal canal stenosis. Mild right and advanced left facet arthropathy. Mild right and advanced left uncovertebral joint arthropathy. Moderate right and severe left neural foraminal stenosis. C4-C5: Diffuse disc bulge/disc osteophyte complex and ossification of the PLL causing indentation on the ventral aspect of the thecal sac. Minimal spinal canal stenosis. Bilateral facet arthropathy and uncovertebral hypertrophy. Severe left neural foraminal stenosis. C5-C6 call Diffuse disc bulge. [id number] spinal canal stenosis. Bilateral facet arthropathy and uncovertebral hypertrophy. Moderate or moderate to severe right and severe left neural foraminal stenosis. C6-C7: Mild disc bulge. Bilateral facet arthropathy and uncovertebral hypertrophy. No high-grade spinal canal stenosis. Mild right and [id number] left neural foraminal stenosis. C7-T1: mild disc bulge. No high-grade spinal canal stenosis. Bilateral facet arthropathy and uncovertebral hypertrophy. Mild right and moderate left neural foraminal stenosis. Dental: The patient is edentulous. Lungs: Lung apices are normal. Soft tissues: Unremarkable. IMPRESSION: 1. No acute fracture or traumatic malalignment in the cervical spine. 2. Multilevel degenerative disc and joint disease of the cervical spine as detailed [id number] above. MTDD
[2022-11-30 00:44] VITALS: BP 144/78; PULSE 61; RESP 18; TEMP 36.6; O2SAT 99; BMI 40.1
--- NOTE | 2022-11-30 01:18 | W.ED.EXTPRO ---
HPI - Extremity Problem General: Chief complaint: Extremity Injury, Upper Stated complaint: neck pain, left shoulder pain Time Seen by Provider: 11/30/22 00:57 History of Present Illness: Tracee Walden is a 62-year-old female that presents to the emergency department with left-sided neck pain that radiates into the left shoulder. Onset of symptoms yesterday. She reports she woke up with the symptoms. She reports a prickly feeling in her hand that started yesterday as well. She denies weakness or dropping objects. Associated symptoms: Deny chest pain, fever(s) or rash Review of Systems General: Reports: 10 or more systems reviewed and unremarkable except in HPI and below Const: Denies: fever(s), chills, change in appetite, change in weight, fatigue or malaise Eyes: Denies: change in vision, eye discomfort, eye discharge or eye redness ENMT: Denies: throat pain, enlarged tonsils, odynophagia, hoarseness, ear or mastoid pain, ear discharge, change in hearing, tinnitus, nasal discharge, nasal congestion, post nasal drip or sinus pain Card: Denies: chest pain, palpitations, irregular heart rhythm, edema, dyspnea on exertion, orthopnea or leg pain with exertion Resp: Denies: dyspnea, productive cough, non-productive cough, wheezing, stridor or chest congestion GI: Denies: abdominal pain, nausea, vomiting, dysphagia, diarrhea, constipation, bloating, GI cramping or hematochezia : Denies: flank pain, difficulty voiding, dysuria, urinary frequency, urinary urgency, urinary hesitancy, oliguria or hematuria Musc: Denies: neck pain, back pain, extremity pain, joint pain, joint swelling, joint redness, joint warmth or muscle weakness Skin/Breast: Denies: rash, pruritus, erythema, photosensitivity or new lesions Neuro: Reports: numbness in extremities and other (Pain that radiates into the trapezius and shoulder); Denies: headache(s), weakness in extremities, sensory changes, lack of coordination, difficulty walking, frequent falls, dizziness, confusion, Slurred speech present, difficulty communicating thoughts, seizure-like activity or involuntary movements Endo: Denies: polyuria, polydipsia or tired all the time Kem/Lymph: Denies: easy bruising or easy bleeding PFSH ED PFSH: Medical History BMI 45.0-49.9, adult Controlled type 2 diabetes mellitus Degenerative joint disease of knee Depression Gastric reflux Hypertension Hypothyroid Morbid obesity JOSE (obstructive sleep apnea) Poor high blood pressure control Primary osteoarthritis of knees, bilateral Restless leg syndrome Sleep apnea Surgical History History of appendectomy History of intestinal surgery Bowel obstruction in childhood Hx of cholecystectomy Family History Other Cancer Family history of premature coronary artery disease Stroke Social History Smoking and tobacco status: former smoker Alcohol intake: never Substance/Drug Use: never Lives independently: Yes Housing: House Marital status: Single Physical Exam Const: COMMON NORMALS: no acute distress, patient oriented x3 and alert GENERAL APPEARANCE: cooperative ORIENTATION/CONSCIOUSNESS: Yes awake, Yes oriented to person, Yes oriented to place and Yes oriented to time HENMT: COMMON NORMALS: normocephalic and atraumatic HEAD & SCALP: normocephalic and atraumatic FACE & SINUS: normal facial exam MOUTH: Normal oral and palatal mucosa present THROAT: posterior oropharynx normal Eye: COMMON NORMALS: Equal, round and reactive pupils present, EOMs intact bilaterally, conjunctivae normal and no scleral icterus GENERAL EYE: appearance normal, both eyes and all related structures ALIGNMENT: Yes alignment normal PERIORBITAL: periorbital findings normal CONJUNCTIVA: Yes conjunctivae normal PUPIL: Yes Equal, round and reactive pupils present Neck/C-Spine: COMMON NORMALS: full ROM GENERAL: Yes normal visual inspection Lymph: LYMPHATIC: no lymphadenopathy noted Chest: COMMONS NORMALS: normal inspection of the chest Breast/axilla inspection: Yes no chest deformity, asymmetry, normal contours, no nodules, masses, tenderness Resp: COMMON NORMALS: normal respiratory effort, No retractions, No use of accessory muscles and clear to auscultation bilaterally EFFORT & INSPECTION: Yes able to speak in complete sentences and Yes symmetric chest movement AUSCULTATION: clear to auscultation bilaterally Cardio: COMMON NORMALS: regular rate, regular rhythm and Peripheral pulses 2+ throughout RATE: regular rate RHYTHM: regular rhythm PERIPHERAL PULSES: Peripheral pulses 2+ throughout GI: COMMON NORMALS: Normal to inspection, nondistended, normoactive bowel sounds present, Soft to palpation, non-tender and No hepatosplenomegaly present INSPECTION: Yes normal to inspection AUSCULTATION: Yes normoactive bowel sounds PALPATION: Yes Soft to palpation and Yes No hepatosplenomegaly present RECTAL EXAM: deferred Extremity: COMMON NORMALS: normal to inspection NARRATIVE EXTREMITY EXAM: Neck pain Paraspinous muscle spasm Pain radiates into the left C3/C4 nerve distribution She describes prickly sensation in her left hand Teacher Counselor, bicep, triceps 5/5 bilateral upper extremities Limited range of motion due to pain Full active range of motion of shoulder Full active range of motion of elbow Sensation intact to light touch at axillary, radial, median, ulnar nerve distribution Radial pulses palpable and cap refills less than 3 seconds GENERAL: Yes normal exam except as noted Neuro: COMMON NORMALS: patient oriented x3 SENSORIUM/ORIENTATION: Yes alert, Yes oriented to person, Yes oriented to place and Yes oriented to time CRANIAL NERVES: Yes CN normal except as noted Psych: COMMON NORMALS: mental status grossly normal, Normal thought process present, cooperative, activity/motor behavior normal, denies homicidal ideation and denies suicidal ideation THOUGHT PROCESS: Normal thought process present Skin: COMMON NORMALS: no rashes or lesions noted, no wounds and turgor normal GENERAL SKIN EXAM: no rashes or lesions noted and turgor normal Course Vital Signs: Vital signs: Vital Signs Temperature 97.8 F 11/30/22 00:44 Pulse Rate 61 11/30/22 00:44 Respiratory Rate 18 11/30/22 00:44 Blood Pressure 163/89 11/30/22 01:34 Pulse Oximetry 100 11/30/22 01:34 MDM - Extremity (Nontraumatic) Medical Decision Making Patient was evaluated in the emergency department for neck pain that radiates into the left trapezius and shoulder She describes radicular symptoms in the hand Patient denies injuries, falls She denies any previous cervical spine issues Denies weakness. Patient underwent CT of the cervical spine which revealed multilevel degenerative changes with facet arthropathy, central canal stenosis from disc bulge and arthropathy, foraminal stenosis with worst level being C3/C4; this does correlate clinically with her left upper extremity complaints. Patient already has a neurosurgeon that she has seen for lumbar complaints. She is going to call him Friday to set up follow-up. In the meantime she is going to restart her gabapentin I am going to give her a prescription of Robaxin and a Medrol Dosepak. All questions answered Discharge Plan Discharge Patient Disposition: Home Clinical Impression: BMI 45.0-49.9, adult, Morbid obesity, Neck pain, Cervical radiculopathy due to degenerative joint disease of spine, Degenerative disc disease, cervical, Arthropathy of cervical facet joint, Foraminal stenosis of cervical region Condition: Stable Prescriptions: New prednisone 20 mg tablet 20 mg PO DAILY 5 Days Qty: 5 0RF methocarbamol 500 mg tablet 500 mg PO QID PRN (Reason: Muscle spasms) Qty: 30 0RF No Action topiramate 200 mg capsule,extended release 24hr 200 mg PO BID gabapentin 300 mg capsule 300 mg PO TID Qty: 90 0RF hydralazine 25 mg tablet 25 mg PO BID PRN Mounjaro 7.5 mg/0.5 mL pen injector 7.5 mg SUBCUT .once weekly Xarelto 15 mg tablet PO BID furosemide 40 mg tablet PO potassium chloride [Klor-Con M20] 20 mEq tablet,ER particles/crystals PO amiodarone 200 mg tablet PO sulfamethoxazole-trimethoprim [Bactrim DS] 800-160 mg tablet 1 tab PO BID 7 Days Qty: 14 0RF tramadol 50 mg tablet 50 mg PO DAILY ropinirole 2 mg tablet 2 mg PO BEDTIME levothyroxine 200 mcg tablet 200 mcg PO DAILY Rx Instructions: TAKE WITH 25 MCG FOR A TOTAL OF 225 MCG. trazodone 150 mg tablet 300 mg PO BEDTIME diclofenac sodium 1 % gel See Rx Instructions .ROUTE .COMPLEX Rx Instructions: topically APPLY 2 GRAMS TO AFFECTED AREA QID. bupropion HCl 150 mg tablet sustained-release 12 hr 300 mg PO DAILY hydrocodone-acetaminophen 5-325 mg tablet 1 tab PO Q8H PRN (Reason: pain) Qty: 14 0RF orphenadrine citrate 100 mg tablet extended release 100 mg PO Q12H PRN (Reason: Muscle spasm/pain) Qty: 14 0RF Discharge Orders: Discharge ED (Routine); Ordered 11/30/22 [facility]: [facility] Referrals: Tracee Rivas DO [Primary Care Provider] - Discharge Diet: Advance as tolerated Discharge Activity: Resume usual activity Patient Instructions: Cervical Spinal Stenosis (ED), Cervical Radiculopathy (ED), Acute Neck Pain (ED), Opioid Safety, Pain Management Activity Restrictions/Additional Instructions: Want you to start taking your gabapentin as directed. I also want you to take the muscle relaxers that I prescribed?Robaxin. You are going to take steroids once a day for the next 5 days. Remember that this will likely increase her blood sugars. I want you to contact your neurosurgeon or primary care doctor on Friday and that we can get the recommended diagnostics for your complaints. He will likely need an MRI. Follow-up with primary care and neurosurgery as directed. Coding Level of Care Code ED Radio Repairman for Nicanor Krueger
[2022-11-30] MEDS: dexamethasone 10 mg/mL INJ IVP (01:25)
[2022-11-30] MEDS: orphenadrine 30 mg/mL Inj 2 mL 60 MG IVP (01:25)
[2022-11-30] MEDS: ketorolac 30 mg/mL INJ IVP (01:25)
[2022-11-30 01:34] VITALS: BP 163/89; O2SAT 100
[2022-11-30 03:14] VITALS: BP 160/85; PULSE 64; RESP 18; O2SAT 96
== END 2022-11-30 03:23 | disposition home or self-care (01) ==
PROVIDERS: Emergency Provider Nurse Practitioner; PCP Family Medicine
DX: M47.22 Other spondylosis with radiculopathy, cervical region (principal); M48.02 Spinal stenosis, cervical region; E11.9 Type 2 diabetes mellitus without complications; I10 Essential (primary) hypertension; E03.9 Hypothyroidism, unspecified; E66.01 Morbid (severe) obesity due to excess calories; Z68.41 Body mass index [BMI] 40.0-44.9, adult; Z87.891 Personal history of nicotine dependence; Z79.899 Other long term (current) drug therapy; Z79.01 Long term (current) use of anticoagulants
CPT/HCPCS: 72125; 96374; 96375; 99284; J1100; J1885; J2360

== ENCOUNTER 2023-08-03 22:19 | Emergency (ER) | payer MEDICARE, MEDICAID, SELFPAY ==
[2023-08-03 22:20] VITALS: BP 185/98; PULSE 59; RESP 18; TEMP 36.6; O2SAT 98; BMI 41.5
[2023-08-03 22:30] VITALS: BP 152/122; PULSE 61; RESP 18; TEMP 36.6; O2SAT 99
--- NOTE | 2023-08-03 22:34 | CTR_ITS ---
PROCEDURE INFORMATION: Exam: CT Abdomen And Pelvis With Contrast Exam date and time: 08/03/2023 10:51 PM Age: 62 years old Clinical indication: Nausea and vomiting; Abdominal pain; Generalized; Prior surgery; Surgery date: 6+ months; Surgery type: Gb; Patient HX: Diffuse abd pain with n/v; Additional info: Abd pain vomiting TECHNIQUE: Imaging protocol: Computed tomography of the abdomen and pelvis with contrast. Radiation optimization: All CT scans at this facility use at least one of these dose optimization techniques: automated exposure control; mA and/or kV adjustment per patient size (includes targeted exams where dose is matched to clinical indication); or iterative reconstruction. Contrast material: OMNI 350; Contrast volume: 100 ml; Contrast route: INTRAVENOUS (IV); COMPARISON: CT abdomen pelvis w con* [id number] 01/25/2020 7:14 PM RADIATION DOSE METRICS: Total DLP (mGy-cm): 1162.63 FINDINGS: Diaphragm: Small hiatal hernia. Liver: Normal. No mass. Gallbladder and bile ducts: Cholecystectomy. Pancreas: Normal. No ductal dilation. Spleen: Normal. No splenomegaly. Adrenal glands: Bilateral adrenal stable 1.5 mm nodules similar to prior exam, likely benign given stability. Kidneys and ureters: Bilateral renal cysts, negative for follow-up advised. Stomach and bowel: Prominent fluid in the stomach and small bowel may reflect a gastroenteritis. Diverticulosis without diverticulitis. Appendix: No evidence of appendicitis. Intraperitoneal space: Unremarkable. No free air. No significant fluid collection. Vasculature: Unremarkable. No abdominal aortic aneurysm. Lymph nodes: Unremarkable. No enlarged lymph nodes. Urinary bladder: Unremarkable as visualized. Reproductive: Unremarkable as visualized. Bones/joints: Unremarkable. No acute fracture. Soft tissues: Small bilateral fat containing inguinal hernias without bowel or inflammation. CT/CT abdomen pelvis w con* [id number] IMPRESSION: 1. Prominent fluid in the stomach and small bowel may reflect a gastroenteritis. 2. Diverticulosis without diverticulitis. 3. Small bilateral fat containing inguinal hernias without bowel or inflammation. 4. Bilateral renal cysts, negative for follow-up advised. 5. Bilateral adrenal stable 1.5 mm nodules similar to prior exam, likely benign given stability. 6. Small hiatal hernia. 7. Cholecystectomy. COMMENTS: Consistent with the [employer]'s Incidental Findings Committee white paper (J Am Yehuda Radiol 2018): Any incidental renal lesion less than 1 cm or classified as too small to characterize, or any incidental cystic renal lesion characterized as simple-appearing, is likely benign. No follow-up imaging is recommended for these lesions per consensus recommendations based on imaging criteria.
[2023-08-03 22:48] LABS: Basophils # 0.1 10^3/uL (0.0-0.1); Basophils % 0.5 %; Eosinophils # 0.2 10^3/uL (0.0-0.8); Eosinophils % 1.6 %; Hematocrit 49.8 % (36-47); Lymphocytes # 2.2 10^3/uL (0.8-4.8); Lymphocytes % 20.5 %; Mean Corpuscular HGB Conc 32.1 g/dL (30-55); Mean Corpuscular Hemoglobin 28.5 pg (27-33); Mean Corpuscular Volume 88.8 fl (85-98); Mean Platelet Volume 9.4 fL (7.4-10.4); Monocytes # 0.9 10^3/uL (0.2-0.9); Monocytes % 7.9 %; Neutrophils # 7.55 10^3/uL (1.8-7.7); Neutrophils % 69.1 %; Nucleated Red Blood Cells % 0 %; Platelet Count 435 10^3/cmm (157-399); Red Blood Count 5.61 10^6/uL (3.85-5.65); Red Cell Distribution Width 13.5 % (12.1-15.1); White Blood Count 10.91 10^3/uL (3.29-11.43)
[2023-08-03] MEDS: iohexol 350 mg/mL 500 mL Btl (per mL) IV (22:54)
[2023-08-03 22:58] LABS: Alanine Aminotransferase 17 U/L (0-33); Albumin Level 4.3 g/dL (3.5-5.2); Alkaline Phosphatase 144 U/L (35-105); Aspartate Amino Transferase 22 U/L (0-32); Blood Urea Nitrogen 14 mg/dL (8-23); C Reactive Protein 3.6 mg/L (0.0-4.9); Calcium 10.1 mg/dL (8.5-10.5); Carbon Dioxide 21 mmol/L (22-29); Chloride 109 mmol/L (98-107); Creatinine Clr Calc Pharmacy 98.5513; Globulin 3.9 g/dL (1.3-4.6); Glomerular Filtration Rate 72.2 mL/min (90-130); Glucose 98 mg/dL (65-115); Lipase 28 U/L (13-60); Osmolality Calculated 294 mOsm/kg (285-295); Sodium 142 mmol/L (136-145); Total Bilirubin 0.3 mg/dL (0.15-1.2); Total Protein 8.2 g/dL (6.6-8.7)
[2023-08-03 22:59] LABS: Lactic Sepsis W/Reflex 1.4 mmol/L (0.5-2.2)
[2023-08-03 23:00] LABS: Anion Gap 15.8 (5-19); Potassium 3.8 mmol/L (3.5-5.1)
[2023-08-03] MEDS: ondansetron 2 mg/ML SDV 2 mL 4 MG IVP (23:14)
[2023-08-03] MEDS: sodium chloride 0.9% 1,000 ML 999 ML IV (23:14)
[2023-08-03 23:16] VITALS: RESP 20; O2SAT 96
[2023-08-03] MEDS: morphine 4 mg/mL SDV 1 mL IVP (23:16)
[2023-08-03 23:18] VITALS: BP 189/109; PULSE 65; RESP 20; O2SAT 100
[2023-08-03 23:26] LABS: Add Urine Microscopic? NO; Charge for UA Resulting for Rev
[2023-08-03 23:36] LABS: Bilirubin Urine Neg (Negative); Blood Urine Neg (Negative); Glucose Urine UA Norm (Normal); Ketones Urine Negative (Negative); Leukocyte Esterase Urine Negative (Negative); Nitrate Urine Negative (Negative); Protein Urine Neg (Negative); Sulfosalicylic Acid Urine Negative (Negative); Urine Appearance Cloudy (CLEAR); Urine Color Yellow (Yellow); Urobilinogen Urine Neg (Negative); pH Urine 9 (5-7)
--- NOTE | 2023-08-04 00:04 | ED_ITS ---
HPI - Nausea/Vomiting/Diarrhea 2 General: Chief complaint: Nausea/Vomiting/Diarrhea Stated complaint: N/V Time Seen by Provider: 08/03/23 22:21 History of Present Illness: 62-year-old female complaining of genera lized abdominal pain, vomiting since yesterday afternoon. She has vomited multiple times. No definite fever. No known sick contacts. No blood in the vomitus. No diarrhea. She has a history of cholecystectomy. Associated nausea: Yes Associated symtoms: Reports nausea; Denies chest pain or palpitations Review of Systems 2 Const: Reports: chills; Denies: fever(s) ENMT: Denies: throat pain Card: Denies: chest pain or palpitations Resp: Denies: dyspnea, productive cough or non-productive cough GI: Reports: abdominal pain, nausea and vomiting; Denies: hematemesis, diarrhea or hematochezia : Denies: flank pain PFSH ED 2 PFSH: Medical History Lumbar disc disorder Cervical disc disorder at C4-C5 level with radiculopathy Primary osteoarthritis of knees, bilateral Degenerative joint disease of knee Depression Restless leg syndrome Morbid obesity JOSE (obstructive sleep apnea) Hypertension Hypothyroid Gastric reflux Controlled type 2 diabetes mellitus Poor high blood pressure control Sleep apnea BMI 45.0-49.9, adult Surgical History History of intestinal surgery Bowel obstruction in childhood Hx of cholecystectomy History of appendectomy Family History Other Cancer Family history of premature coronary artery disease Stroke Social History Smoking and tobacco/nicotine status: former use of tobacco/nicotine Alcohol intake: never Substance/Drug Use: never Lives independently: Yes Housing: House Marital status: Single Physical Exam 2 Const: COMMON NORMALS: no acute distress GENERAL APPEARANCE: cooperative and ill appearing (Mildly); not frail appearing HENMT: COMMON NORMALS: normocephalic, atraumatic and Normal external nose present HEAD & SCALP: normocephalic and atraumatic FACE & SINUS: normal facial exam and face symmetric NOSE: Normal external nose present Eye: COMMON NORMALS: Equal, round and reactive pupils present and EOMs intact bilaterally PUPIL: Yes Equal, round and reactive pupils present Neck/C-Spine: GENERAL: Yes trachea midline Chest: CHEST: Yes Symmetrical chest wall rise Resp: COMMON NORMALS: normal respiratory effort, No retractions, No use of accessory muscles and clear to auscultation bilaterally AUSCULTATION: clear to auscultation bilaterally Cardio: COMMON NORMALS: regular rate and regular rhythm RATE: regular rate RHYTHM: regular rhythm GI: COMMON NORMALS: Normal to inspection, nondistended, normoactive bowel sounds present PALPATION: Yes Tenderness to palpation present (GI) (Generalized) Extremity: COMMON NORMALS: no pedal edema Neuro: GAVIN COMA SCALE: document GCS findings [place] coma scale eye opening: Spontaneous [place] coma scale verbal response: Orientated Gavin coma scale motor response: Obey commands Gavin coma scale total score: 15 S ENSORY EXAM: Yes extremities (intact) Psych: COMMON NORMALS: speech normal SPEECH: Yes normal speech Skin: COMMON NORMALS: no rashes or lesions noted GENERAL SKIN EXAM: no rashes or lesions noted Course 2 Vital Signs: Vital signs: Vital Signs Temperature 97.9 F 08/03/23 22:30 Pulse Rate 65 08/03/23 23:18 Respiratory Rate 20 H 08/03/23 23:18 Blood Pressure 189/109 08/03/23 23:18 Pulse Oximetry 100 08/03/23 23:18 Oxygen Delivery Me thod Room Air 08/03/23 23:18 MDM - Nausea/Vomiting/Diarrhea Medical Decision Making No vomiting after administration of morphine and Zofran here. She has received fluids which has helped her symptoms as well. No leukocytosis. Hemoglobin is 16. CRP is 3. Lactic acid is 1.4. Liver enzymes are normal. Urinalysis is negative. CT shows a small hiatal hernia, and prominent fluid in the stomach and small bowel reflecting likely gastroenteritis. With improvement in her symptoms. She will be discharged. She knows to return for worsening symptoms. Lab Data 08/03/23 22:05 08/03/23 22:05 Radiology Impressions Abdomen/Pelvis CT 08/03/23 22:34 IMPRESSION: 1. Prominent fluid in the stomach and small bowel may reflect a gastroenteritis. 2. Diverticulosis without diverticulitis. 3. Small bilateral fat containing inguinal hernias without bowel or inflammation. 4. Bilateral renal cysts, negative for follow-up advised. 5. Bilateral adrenal stable 1.5 mm nodules similar to prior exam, likely benign given stability. 6. Small hiatal hernia. 7. Cholecystectomy. COMMENTS: Consistent with the [employer]'s Incidental Findings Committee white paper (J Am Yehuda Radiol 2018): Any incidental renal lesion less than 1 cm or classified as too small to characterize, or any incidental cystic renal lesion characterized as simple-appearing, is likely benign. No follow-up imaging is recommended for these lesions per consensus recommendations based on imaging criteria. Laboratory Results WBC 10.91 10^3/uL (3.29-11.43) 08/03/23 22:05 RBC 5.61 10^6/uL (3.85-5.65) 08/03/23 22:05 Hgb 16.00 g/dL (11.27-16.99) 08/03/23 22:05 Hct 49.8 % (36-47) H 08/03/23 22:05 MCV 88.8 fl (85-98) 08/03/23 22:05 MCH 28.5 pg (27-33) 08/03/23 22:05 MCHC 32.1 g/dL (30-55) 08/03/23 22:05 RDW 13.5 % (12.1-15.1) 08/03/23 22:05 Plt Count 435 10^3/cmm (157-399) H 08/03/23 22:05 MPV 9.4 fL (7.4-10.4) 08/03/23 22:05 Neut % (Auto) 69.1 % 08/03/23 22:05 Lymph % (Auto) 20.5 % 08/03/23 22:05 [place] % (Auto) 7.9 % 08/03/23 22:05 Eos % (Auto) 1.6 % 08/03/23 22:05 Baso % (Auto) 0.5 % 08/03/23 22:05 Neut # (Auto) 7.55 10^3/uL (1.8-7.7) 08/03/23 22:05 Lymph # (Auto) 2.2 10^3/uL (0.8-4.8) 08/03/23 22:05 [place] # (Auto) 0.9 10^3/uL (0.2-0.9) 03/31/24 22:05 Eos # (Auto) 0.2 10^3/uL (0.0-0.8) 08/03/23 22:05 Baso # (Auto) 0.1 10^3/uL (0.0-0.1) 08/03/23 22:05 Nucleated RBC % (auto) 0 % 08/03/23 22:05 Nucleated RBCs # 0.0 /100WBC 08/03/23 22:05 Sodium 142 mmol/L (136-145) 08/03/23 22:05 Potassium 3.8 mmol/L (3.5-5.1) 08/03/23 22:05 Chloride 109 mmol/L (98-107) H 08/03/23 22:05 Carbon Dioxide 21 mmol/L (22-29) L 08/03/23 22:05 Anion Gap 15.8 (5-19) 08/03/23 22:05 BUN 14 mg/dL (8-23) 08/03/23 22:05 Creatinine 0.8 mg/dL (0.5-0.9) 08/03/23 22:05 GFR Calculation 72.2 mL/min (90-130) L 08/03/23 22:05 Glucose 98 mg/dL (65-115) 08/03/23 22:05 Calculated Osmolality 294 mOsm/kg (285-295) 08/03/23 22:05 Lactic Acid 1.4 mmol/L (0.5-2.2) 08/03/23 22:05 Calcium 10.1 mg/dL (8.5-10.5) 08/03/23 22:05 Total Bilirubin 0.3 mg/dL (0.15-1.2) 08/03/23 22:05 AST 22 U/L (0-32) 08/03/23 22:05 ALT 17 U/L (0-33) 08/03/23 22:05 Alkaline Phosphatase 144 U/L (35-105) H 08/03/23 22:05 C-Reactive Protein 3.6 mg/L (0.0-4.9) 08/03/23 22:05 Total Protein 8.2 g/dL (6.6-8.7) 08/03/23 22:05 Albumin 4.3 g/dL (3.5-5.2) 08/03/23 22:05 Globulin 3.9 g/dL (1.3-4.6) 08/03/23 22:05 Lipase 28 U/L (13-60) 08/03/23 22:05 Urine Color Yellow (Yellow) 08/03/23 22:59 Urine Appearance Cloudy (CLEAR) A 08/03/23 22:59 Urine pH 9 (5-7) H 08/03/23 22:59 Ur Specific [place] 1.010 (1.005-1.030) 08/03/23 22:59 Urine Protein Neg (Negative) 08/03/23 22:59 Urine Glucose (UA) Norm (Normal) 08/03/23 22:59 Urine Ketones Negative (Negative) 08/03/23 22:59 Urine Blood Neg (Negative) 08/03/23 22:59 Urine Nitrate Negative (Negative) 08/03/23 22:59 Urine Bilirubin Neg (Negative) 08/03/23 22:59 Prot Sulfosalicylic Acd Negative (Negative) 08/03/23 22:59 Urine Urobilinogen Neg mg/dL (Negative) 08/03/23 22:59 Ur Leukocyte Esterase Negative (Negative) 08/03/23 22:59 All radiology interpretation(s) finalized by discharge Discharge Plan Discharge Patient Disposition: Home Clinical Impression: Gastroenteritis Condition: Stable Prescriptions: New ondansetron 4 mg tablet,disintegrating 4 mg PO Q6H PRN (Reason: nausea and vomiting) Qty: 14 0RF No Action topiramate 200 mg capsule,extended release 24hr 200 mg PO BID Mounjaro 7.5 mg/0.5 mL pen injector 7.5 mg SUBCUT .once weekly furosemide 40 mg tablet PO amiodarone 200 mg tablet PO sulfamethoxazole-trimethoprim [Bactrim DS] 800-160 mg tablet 1 tab PO BID 7 Days Qty: 14 0RF potassium chloride [Klor-Con M20] 20 mEq tablet,ER particles/crystals 40 meq PO DAILY duloxetine 60 mg capsule,delayed release(DR/EC) 60 mg PO DAILY cholecalciferol (vitamin D3) 25 mcg (1,000 unit) capsule 25 mcg PO DAILY ferrous sulfate 325 mg (65 mg iron) tablet 325 mg PO DAILY pravastatin 10 mg tablet 10 mg PO DAILY oxybutynin chloride 5 mg tablet 5 mg PO DAILY nortriptyline 10 mg capsule 10 mg PO DAILY rivaroxaban 20 mg tablet 20 mg PO DAILY Qty: 90 0RF Rx Instructions: must administer with evening meal hydrocodone-acetaminophen 10-325 mg tablet 1 tab PO BID PRN (Reason: pain) 15 Days Qty: 30 0RF hydralazine 25 mg tablet 25 mg PO TID lisinopril 20 mg tablet 20 mg PO DAILY Qty: 30 4RF tramadol 50 mg tablet 50 mg PO DAILY ropinirole 2 mg tablet 2 mg PO BEDTIME levothyroxine 200 mcg tablet 200 mcg PO DAILY Rx Instructions: TAKE WITH 25 MCG FOR A TOTAL OF 225 MCG. trazodone 150 mg tablet 300 mg PO BEDTIME diclofenac sodium 1 % gel See Rx Instructions .ROUTE .COMPLEX Rx Instructions: topically APPLY 2 GRAMS TO AFFECTED AREA QID. bupropion HCl 150 mg tablet sustained-release 12 hr 300 mg PO DAILY hydrocodone-acetaminophen 5-325 mg tablet 1 tab PO Q8H PRN (Reason: pain) Qty: 14 0RF orphenadrine citrate 100 mg tablet extended release 100 mg PO Q12H PRN (Reason: Muscle spasm/pain) Qty: 14 0RF methocarbamol 500 mg tablet 500 mg PO QID PRN (Reason: Muscle spasms) Qty: 30 0RF Discharge Orders: Discharge ED (Routine); Ordered 08/03/23 Ordered By: Maged Metz Referrals: Tracee Rivas DO [Primary Care Provider] - 1-3 days Patient Instructions: Gastroenteritis (ED), Opioid Safety, Pain Management Activity Restrictions/Additional Instructions: Follow a liquid diet for the next 24 hours. Take your nausea medication scheduled whether you are nauseated or not for the next 24 hours, then as needed following that. Return for worsening pain, worsening vomiting despite treatment, any other concerning symptoms. See your doctor this week. Coding Level of Care Code ED Food Chemist for Nicanor Krueger
[2023-08-04] MEDS: hyDRALAzine 20 mg/mL INJ 1 mL IVP (00:37)
[2023-08-04] MEDS: lisinopril 20 mg Tablet PO (00:37)
[2023-08-04] MEDS: haloperidol inj 5 mg/mL INJ 1 mL 3 MG IVP (01:03)
[2023-08-04 01:46] VITALS: BP 178/84; PULSE 61; RESP 20; O2SAT 98
== END 2023-08-04 01:39 | disposition home or self-care (01) ==
PROVIDERS: Emergency Provider Emergency Medicine; PCP Family Medicine
DX: K52.9 Noninfective gastroenteritis and colitis, unspecified (principal); Z87.891 Personal history of nicotine dependence; I10 Essential (primary) hypertension; E11.9 Type 2 diabetes mellitus without complications
CPT/HCPCS: 74177; 80053; 81003; 83605; 83690; 85025; 86140; 96361; 96374; 96375; 99285; J0360; J1630; J2270; J2405; J7030; Q9967

== ENCOUNTER → 2023-09-24 09:06 | Outpatient (BNVA) | payer MEDICARE, SELFPAY | PROVIDERS: PCP Family Medicine; Referring Provider Emergency Medicine; Visit Provider Surgery | DX: R10.9 Unspecified abdominal pain (principal); Z68.42 Body mass index [BMI] 45.0-49.9, adult | CPT/HCPCS: 99204 ==

== ENCOUNTER 2023-10-21 08:07 | Day surgery (SDC) | payer MEDICARE, SELFPAY ==
[2023-10-21 08:25] VITALS: BP 149/98; PULSE 66; RESP 16; TEMP 36.6; O2SAT 96; BMI 40.7
[2023-10-21] MEDS: sodium chloride 0.9% 1,000 ML 30 ML IV (08:30)
--- NOTE | 2023-10-21 08:34 | ANES.PREANE2 ---
Pre-Anesthetic Assessment Height/Weight: Height 1.73 m Weight 121.563 kg Temp Pulse Resp BP Pulse Ox O2 Del Method 97.9 F 66 16 149/98 96 Room Air 10/21/23 08:25 10/21/23 08:25 10/21/23 08:25 10/21/23 08:25 10/21/23 08:25 10/21/23 08:25 Preop Diagnosis: abdominal pain, screening Operation Date: 10/21/23 10:00 Proposed Procedures p EGD 59896, 66669, G0105 , R10.9, z12.11(Not Applicable) - Meño Waggoner MD s Colonoscopy(Not Applicable) - Meño Waggoner MD Was Beta Arianne taken within 24 hours: Yes Was Clonidine taken within 24 hours: N/A Last intake: Intake Last Liquid Date 10/20/23 Last Liquid Time 21:30 Last Solid Date 10/19/23 Last Solid Time 16:00 Social No tobacco Exam alert and oriented x 3 Airway Submandibular: within normal limits Cervical ROM: within normal limits Dentition: false (uppers in place- removed prior to procedure) History/ROS No significant history except as noted Pulmonary Sleep Apnea CV/HEM Atrial Fibrillation (DVT history RLL), Hypertension and Murmur Chronic Renal Insufficiency 6 years ago had hospitalization regarding kidney failure Hepatic None reported GI Gastroesophageal Reflux Disease (controlled with medications) Metabolic Diabetes Mellitus and Thyroid Disease last took ozempic on October 10 [facility] Fibromyalgia and Lower Back Pain Neuropsych Anxiety, Cerebrovascular Accident (denies weakness; CVA 7 years ago) and Depression Anesthetic Plan ASA status: 3 Anesthesia: MAC Risk of > 500 ml blood loss (7ml/kg in children): No Medications/Allergies Home Medications Medication Instructions Recorded Confirmed Last Taken Type topiramate 200 mg capsule,extended 200 mg PO BID 05/26/19 10/21/23 10/21/23 History release 24 hr levothyroxine 200 mcg tablet 200 mcg PO DAILY 08/31/19 10/21/23 10/21/23 History tramadol 50 mg tablet 50 mg PO DAILY 08/31/19 10/21/23 10/21/23 History diclofenac sodium 1 % topical gel See Rx Instructions .Route .COMPLEX 01/06/20 10/17/23 10/16/23 History trazodone 150 mg tablet 300 mg PO BEDTIME 01/06/20 10/21/23 10/20/23 History bupropion HCl 150 mg tablet,12 hr 300 mg PO DAILY 01/25/20 10/21/23 10/20/23 History sustained-release amiodarone 200 mg tablet 200 mg PO DAILY 09/12/22 10/21/23 10/21/23 History orphenadrine citrate 100 mg 100 mg PO Q12H PRN Muscle 11/17/22 10/21/23 10/15/23 Rx tablet,extended release spasm/pain #14 tabs methocarbamol 500 mg tablet 500 mg PO QID PRN Muscle spasms 11/30/22 10/21/23 10/20/23 Rx #30 tabs duloxetine 60 mg capsule,delayed 60 mg PO DAILY 01/13/23 10/21/23 10/20/23 History release hydralazine 25 mg tablet 25 mg PO TID PRN Edema 01/13/23 10/21/23 3 Months Ago History ~07/17/23 lisinopril 20 mg tablet 20 mg PO DAILY #30 tabs 01/13/23 10/21/23 10/19/23 Rx oxybutynin chloride 5 mg tablet 5 mg PO DAILY 01/13/23 10/21/23 10/20/23 History potassium chloride 20 mEq 40 meq PO DAILY 01/13/23 10/21/23 10/20/23 History tablet,extended release(part/cryst) (Klor-Con M) pravastatin 10 mg tablet 10 mg PO DAILY 01/13/23 10/21/23 10/21/23 History ondansetron 4 mg disintegrating 4 mg PO Q6H PRN nausea and 08/03/23 10/21/23 3 Weeks Ago Rx tablet vomiting #14 tabs ~09/26/23 metronidazole 500 mg tablet 500 mg PO Q8H 7 days #21 tabs 08/09/23 10/21/23 10/17/23 Rx aspirin 81 mg tablet 81 mg PO DAILY 10/17/23 10/17/23 10/18/23 History hydrocodone 10 mg-acetaminophen 1 tab PO DAILY PRN pain 10/17/23 10/21/23 10/13/23 History 325 mg tablet semaglutide 1 mg/dose (2 mg/1.5 1 mg SUBCUT DIRECTED 10/17/23 10/17/2310/10/24 History mL) subcutaneous pen injector amlodipine 5 mg tablet 5 mg PO DAILY 10/21/23 10/21/23 10/21/23 History Allergies Allergy/AdvReac Type Severity Reaction Status Date / Time oxycodone Allergy ALGY-Hives Verified 09/24/23 09:07 Current Medications Generic Name Dose Route Start Last Admin Trade Name Ángelq PRN Reason Stop Dose Admin Sodium Chloride 1,000 mls @ 30 mls/hr 10/21/23 08:15 10/21/23 08:30 Sodium Chloride 0.9% IV 30 mls/hr .Q24H RONNI Administration PFSH Anesthesia Medical History Lumbar disc disorder Cervical disc disorder at C4-C5 level with radiculopathy Primary osteoarthritis of knees, bilateral Degenerative joint disease of knee Depression Restless leg syndrome Morbid obesity JOSE (obstructive sleep apnea) Hypertension Hypothyroid Gastric reflux Controlled type 2 diabetes mellitus Poor high blood pressure control Sleep apnea BMI 45.0-49.9, adult Surgical History History of intestinal surgery Bowel obstruction in childhood Hx of cholecystectomy History of appendectomy Family History Other Cancer Family history of premature coronary artery disease Stroke Social History Smoking and tobacco/nicotine status: never used tobacco/nicotine Alcohol intake: never Substance/Drug Use: never Lives independently: Yes Housing: House Marital status: Single Data Anesthesia Cardiac Studies: Echocardiogram Ultrasound 09/01/19 Sestamibi Stress Test (Cardiology) 08/31/19
--- NOTE | 2023-10-21 08:42 | W.PM.OPSUD ---
Surgery/Procedure H&P Update DATE OF PROCEDURE: October 21, 2023 DATE H&P PERFORMED: 09/24/23 H&P UPDATE INFORMATION: I have reviewed H&P completed within last 30 days, I have examined patient prior to procedure, No changes to prior documentation and H&P is in [facility] on date indicated PREOP DIAGNOSIS: abdominal pain, screening PLANNED PROCEDURE: Operation Date: 10/21/23 10:00 Proposed Procedures p EGD 18337, 55630, G0105 , R10.9, z12.11(Not Applicable) - Meño Waggoner MD s Colonoscopy(Not Applicable) - Meño Waggoner MD
[2023-10-21 10:51] VITALS: BP 128/74; PULSE 55; RESP 18; TEMP 36.5; O2SAT 98
[2023-10-21 11:01] VITALS: BP 148/89; PULSE 51; RESP 18; TEMP 36.4; O2SAT 98
--- NOTE | 2023-10-21 11:15 | ANE.PACU2 ---
Inpatient post-anesthesia follow up: Airway intact: Yes Vital signs: Temperature 97.6 F Pulse Rate 51 Respiratory Rate 18 Blood Pressure 148/89 Pulse Oximetry 98 Oxygen Delivery Me thod Room Air Oxygen Flow Rate Fraction of Inspir ed Oxygen Hydration adequate: Yes Nausea and vomiting: No Pain level: 1 Mental status: Baseline
== END 2023-10-21 11:18 | disposition home or self-care (01) ==
PROVIDERS: PCP Family Medicine; Visit Provider Surgery
PROC: 0DJ08ZZ Inspection of Upper Intestinal Tract, Via Natural or Artificial Opening Endoscopic (ICD-10-PCS; CPT 43235; principal; 2023-10-21 10:00)
PROC: 0DJD8ZZ Inspection of Lower Intestinal Tract, Via Natural or Artificial Opening Endoscopic (ICD-10-PCS; CPT 45378; 2023-10-21 10:00)
DX: Z12.11 Encounter for screening for malignant neoplasm of colon (principal); R10.9 Unspecified abdominal pain; K29.50 Unspecified chronic gastritis without bleeding; K57.30 Diverticulosis of large intestine without perforation or abscess without bleeding; K44.9 Diaphragmatic hernia without obstruction or gangrene; I48.91 Unspecified atrial fibrillation; Z86.718 Personal history of other venous thrombosis and embolism; I10 Essential (primary) hypertension; K21.9 Gastro-esophageal reflux disease without esophagitis; E11.9 Type 2 diabetes mellitus without complications; G47.33 Obstructive sleep apnea (adult) (pediatric); E03.9 Hypothyroidism, unspecified
CPT/HCPCS: 43239; 45380; 88305; J2704; J7030

== ENCOUNTER → 2023-11-12 10:24 | Outpatient (BNVA) | payer MEDICARE, SELFPAY | PROVIDERS: PCP Family Medicine; Visit Provider Surgery | DX: Z09 Encounter for follow-up examination after completed treatment for conditions other than malignant neoplasm (principal) | CPT/HCPCS: 99212 ==

== ENCOUNTER → 2024-04-14 15:47 | Outpatient (BNVA) | payer MEDICARE, SELFPAY | PROVIDERS: PCP Family Medicine; Visit Provider Podiatrist Foot & Ankle Surgery | DX: E11.8 Type 2 diabetes mellitus with unspecified complications (principal); G62.9 Polyneuropathy, unspecified; E11.42 Type 2 diabetes mellitus with diabetic polyneuropathy | CPT/HCPCS: 99203 ==

== ENCOUNTER 2025-02-08 20:04 | Emergency (ER) | payer MEDICARE, SELFPAY ==
--- OUTSIDE RECORDS SUMMARY | 2024-12-07 08:00 | XMS_ITS ---
Author Organization [facility] Address [address] [place] [address] Care Team Providers Care Quilt Maker Name Role Phone Rob Tracee ARIAS Primary Care Provider Gustavo Carlos Unavailable [phone] Sidney Sheridan Unavailable [phone] REASON FOR VISIT discuss surgery / f/u after injection Encounters Encounter Location Date Provider Diagnosis [facility] [place] [address] [place] [address] 12/07/2024 Sidney Sheridan Plan Of Treatment Next Appt Details Provider Name:Aston Peters, 03/28/2025 01:40:00 PM, [address] [place], [address], Provider Name:Gustavo Marcos, 04/15/2025 08:40:00 AM, [address] [place], [address], Progress Notes * TRACEE ALVAREZ CDOB: (64 yo F)Acc No.[id number]:12/07/2024 Progress Notes Patient: Tamara TRACEE TRAVIS Provider: Tamara Sheridan MD :1960 A ge:64 Y S ex:Female Date:12/07/2024 Address:[address] [place], [place] [id number] Pcp:Tracee Rivas DO Subjective: * Chief Complaints: * D iscuss surgery / f/u after injection Billing Information: * Procedure Codes: Care Plan Details* * Electronic signature of Sebastian Sheridan MD on 02/08/2025 at 08:22 PM CDT Sign off status: Pending * Provider: Tamara Sheridan MD Date: 0 12/07/2024 Generated for Dmitri ruiz/Melida/Lauri on: 1 08:22 PM CDT
--- OUTSIDE RECORDS SUMMARY | 2025-01-21 05:10 | XMS_ITS ---
Author Organization [facility] Address [address] [place] [address] Care Team Providers Care Typesetters Printer Name Role Phone Tracee Rivas DO Primary Care Provider Gustavo Carlos Unavailable [phone] REASON FOR VISIT RT KNEE Encounters Encounter Location Date Provider Diagnosis [facility] [address] [place] [address] 01/21/2025 Gustavo Marcos Plan Of Treatment Next Appt Details Provider Name:Aston Peters, 03/28/2025 01:40:00 PM, [address] [place], [address], Provider Name:Gustavo Marcos, 04/15/2025 08:40:00 AM, [address] [place], [address], Progress Notes * TRACEE ALVAREZ CDOB: (64 yo F)Acc No.[id number]:01/21/2025 Progress Notes Patient: Tamara TRACEE TRAVIS Provider: Brittany Marcos M.D. :1960 A ge:64 Y S ex:Female Date:01/21/2025 Address:[address] [place], [place] [phone] Pcp:Tracee Rivas DO Subjective: * Chief Complaints: * R T KNEE Billing Information: * Procedure Codes: Care Plan Details* * Electronic signature of Mika Marcos MD on 02/08/2025 at 08:23 PM CDT Sign off status: Pending * Provider: Brittany Marcos M.D. Date: 0 01/21/2025 Generated for Dmitri ruiz/Melida/Lauri on: 1 08:23 PM CDT
--- OUTSIDE RECORDS SUMMARY | 2025-02-01 15:00 | XMS_ITS | Encounter Summary ---
Author Organization [facility] Address [address] [place] [address] Care Team Providers Care Parts Facilitator Name Role Phone Tracee Rivas Tamara ARIAS Primary Care Provider [phone] Reason for Visit * Reason Comments Fall Pt states she fell a bout 2 or 3 weeks ago Encounter Details Date Type Department Care Team (Late st Contact Info) Description 02/01/2025 3:00 PM CDT Office Visit [facility] [place] [address] [place] [address] ZaidiAugust, [facility] [address] [place] [address] Primary insomnia (Primary Dx); Pain of right shoulder region; Swelling of both lower extremities Social History Tobacco Use Types Packs/Day Years Used Date Smoking Tobacco: Never Passive Smoke Exposure: Never Smokeless Tobacco: Never Alcohol Use Standard Drinks/Week Comments No 0 (1 standard drink = 0.6 oz pur e alcohol) Financial Resource Strain Answer Date R ecorded How hard is it for you to pa y for the very basics like food, housing, medical care, and heating? Patient declined 12/12/2022 Food Insecurity Answer Date Recorded In the past 12 months, have you worried that your food would run out before you had money to buy more? Patient declined 2022 In the past 12 months, did y ou run out of food and didn't have money to buy more? Patient declined 12/12/2022 Transportation Needs Answer Date Record ed In the past 12 months, has l ack of transportation kept you from medical appointments or from getting medications? No 12/12/2022 Lack of Transportation (Non-Medical) Not on file 12/12/2022 Feeling Safe Answer Date Recorded Are you in a relationship wi th someone who hurts you emotionally and/or physically? No 09/25/2022 Food Insecurity Answer Date Recorded Social/Environmental Concerns No concerns Transportation Needs Answer Date Record ed Social/Environmental Concerns No concerns Housing Stability Answer Date Recorded Social/Environmental Concerns No concerns Utility Needs Answer Date Recorded Social/Environmental Concerns No concerns Comments No Sex and Gender Information Value Date Recorded Sex Assigned at Female 09/04/2023 6:09 PM CDT Legal Sex Female 8:53 AM REGULATORY ASSOCIATE Gender Identity Not on file Sexual Orientation Not on file documented as of this encounter Last Filed Vital Signs Vital Sign Reading Time Taken Comments Blood Pressure 134/76 02/01/2025 2:57 PM CDT Pulse 94 02/01/2025 2:57 PM CDT Temperature 36.4 C (97.6 F) 02/01/2025 2:57 PM CDT Respiratory Rate 18 02/01/2025 2:57 PM CDT Oxygen Saturation 94% 02/01/2025 2:57 PM CDT Inhaled Oxygen Concentration - - Weight 141.4 kg (311 lb 12.8 oz) 02/01/2025 2:57 PM CDT Height 172.7 cm (5' 8 ) 02/01/2025 2:57 PM CDT Body Mass Index 47.41 02/01/2025 2:57 PM CDT documented in this encounter Progress Notes * Dyan, August, CERTIFIED COATINGS INSPECTOR - 02/01/2025 3:18 PM CDT Chief Complaint Patient presents with Fall Pt states she fell about 2 or 3 weeks ago History of Present Illness The patient is a 64-year-old female who presents to the clinic for fall, sleep issues, swelling, fibromyalgia, depression, and anxiety. She experienced a fall a few weeks ago due to balance issues, landing on her back. She reports constant pain in her shoulder, which occasionally locks and then pops when she attempts to raise it. She has been applying topical treatments for relief. An x-ray of her shoulder was performed at [facility], but no abnormalities were detected. She takes Bumex once daily in the morning, even though the prescription indicates twice daily, as taking it in the afternoon disrupts her sleep. She also takes potassium supplements. Her swelling hasworsened. She uses a wedge pillow to elevate her feet while sleeping. She has tried taking Lasix and Bumex together, which seemed to help with the swelling. She reports clonidine did not help her sleep. Tried increasing clonidine dosage to 0.2 mg but that was not effective as well. 10 point review of systems is otherwise negative except as mentioned above. Past Medical History: Diagnosis Date Anxiety Cardiac murmur Deep vein thrombosis (DVT) ([facility]) Depression Diabetes GERD (gastroesophageal reflux disease) HTN (hypertension) Hyperlipidemia Hypothyroidism Obstructive sleep apnea (adult) (pediatric) no c-pap per pt Other injury of other sites of trunk 09/2008 Sleep apnea cpap not wearing Current Outpatient Medications Medication Instructions albuterol sulfate HFA 90 mcg/actuation aerosol inhaler 2 Puffs, EVERY 6 HOURS PRN amiodarone (CORDARONE) 200 mg, Oral, DAILY amLODIPine (NORVASC) 5 mg, Oral, DAILY aspirin (ECOTRIN EC) 81 mg, DAILY blood sugar diagnostic (Blood Glucose Test) Strip Use to check blood sugar two times daily Blood-Glucose Meter (Infinity Meter Kit) Kit USE TO TEST BLOOD GLUCOSE bumetanide (BUMEX) 2 mg, Oral, TWO TIMES DAILY PRN, Take at 9 am and 5 pm cloNIDine HCL (CATAPRES) 0.1 mg, Oral, DAILY AT BEDTIME compr.stocking,thigh,reg,x-lrg (Comp.Stocking,Thigh,Reg,X-Lrg) Wear compression stockings daily. Diagnosis venous insufficiency cyclobenzaprine (FLEXERIL) 10 mg, Oral, THREE TIMES DAILY PRN doxepin (SILENOR) 6 mg, Oral, DAILY AT BEDTIME DULoxetine (CYMBALTA) 60 mg, Oral, TWO TIMES DAILY HYDROcodone-acetaminophen (NORCO) 10-325 mg Tablet 1 Tablet, Oral, THREE TIMES DAILY PRN, Do not fill until 01/27/25 Klor-Con M20 20 mEq Extended Release tablet 20 mEq, Oral, DAILY latanoprost (XALATAN) 0.005 % solution Administer 1 Drop in both eyes daily at bedtime. levothyroxine (SYNTHROID) 150 mcg, Oral, DAILY EARLY lisinopriL (PRINIVIL) 20 mg, Oral, DAILY metoprolol tartrate (LOPRESSOR) 25 mg, Oral, TWO TIMES DAILY mupirocin calcium (BACTROBAN) 2 % Cream Topical, TWO TIMES DAILY naloxone (NARCAN) 4 mg, SEE ADMIN INSTRUCTIONS omeprazole (PRILOSEC) 20 mg, Oral, TWO TIMES DAILY ondansetron (ZOFRAN ODT) 4 mg, Oral, EVERY 8 HOURS PRN, Dissolve tablet on top of tongue, then swallow with saliva. Ozempic 2 mg, subCUT, EVERY 7 DAYS triamcinolone acetonide (KENALOG) 0.1 % Cream Topical, TWO TIMES DAILY Past Surgical History: Procedure Laterality Date HX APPENDECTOMY HX BLOOD TRANSFUSION 5-6 years ago HX CHOLECYSTECTOMY HX EAR SURGERY 1969's HX ESOPHAGOGASTRODUODENOSCOPY N/A 09/26/2022 ESOPHAGOGASTRODUODENOSCOPY performed by Ben Mcdaniel MD at [facility] ENDOSCOPY HX SURGICAL OTHER 1960 stomach obstruction FL COLONOSCOPY FLX DX W/COLLJ SPEC WHEN PFRMD 02/23/2009 COLONOSCOPY performed by CYN [place] at [facility] ENDOSCOPY FL ESOPHAGOGASTRODUODENOSCOPY TRANSORAL DIAGNOSTIC 02/23/2009 ESOPHAGOGASTRODUODENOSCOPY performed by CYN [place] at [facility] ENDOSCOPY FL PRIM PRQ TRLUML MCHNL THRMBC N-COR N-ICRA 1ST Right 08/19/2022 THROMBECTOMY ARTERIAL PERCUTANEOUS MECHANICAL performed by Angel Sanchez MD at [facility] MAIN OR Past social, family, and medical history reviewed. BP 134/76 Pulse 94 Temp 97.6 ??F (36.4 ??C) Resp 18 Ht 5' 8 (1.727 m) Wt (!) 141.4 kg (311 lb 12.8 oz) SpO2 94% BMI 47.41 kg/m?? Physical Exam Physical Exam Constitutional: Appearance: Normal appearance. HENT: Head: Normocephalic. Right Ear: External ear normal. Left Ear: External ear normal. Eyes: Conjunctiva/sclera: Conjunctivae normal. Cardiovascular: Rate and Rhythm: Normal rate and regular rhythm. Pulses: Normal pulses. Heart sounds: Normal heart sounds. Comments: 1+ non-pitting edema to bilateral lower extremities. Pulmonary: Effort: Pulmonary effort is normal. Breath sounds: Normal breath sounds. Abdominal: General: Bowel sounds are normal. Palpations: Abdomen is soft. Musculoskeletal: General: Normal range of motion. Right shoulder: Tenderness present. No swelling. Cervical back: Neck supple. Skin: General: Skin is warm. Neurological: General: No focal deficit present. Mental Status: She is alert. Psychiatric: Mood and Affect: Mood normal. Behavior: Behavior normal. Assessment & Plan 1. Primary insomnia (Primary) - She reports difficulty sleeping. - A prescription for prazosin 1 mg has been provided to aid sleep. If ineffective, she may increasethe dosage to 2 mg. Concurrent use of low-dose melatonin is also suggested if needed. - prazosin (MINIPRESS) 1 mg capsule; Take 1 Capsule (1 mg) by mouth daily at bedtime. Dispense: 30 Capsule; Refill: 1 2. Pain of right shoulder region - She experienced a fall a couple of weeks ago, resulting in persistent shoulder pain. X-ray taken at [facility] was normal. Advised to continue using topical ointment and application of ice. If symptoms persist or worsen she is advised to follow-up. 3. Swelling of both lower extremities - She reports worsening swelling. - She is currently taking Bumex once daily but will adjust the dosage to 1 mg in the afternoon in addition to her morning dose to see if it helps with the swelling. Follow-up: Follow-up with Dr. Barry in March. ANH Esparza The author of this note, patient (or authorized media sales representative), and all other persons present consent to the audio recording of this visit for charting documentation purposes. This note was automatically generated, edited by a Quality Extruder, and finalized by REENA Esparza. documented in this encounter Plan of Treatment Upcoming Encounters Date Type Department Care Team (Late st Contact Info) Description 03/10/2025 3:00 PM REGULATORY ASSOCIATE Office Visit [facility] [address] [place] [address] Tracee Rivas, DO [address] [place] [address] 06/09/2025 1:00 PM REGULATORY ASSOCIATE Office Visit [facility] [address] [place] [phone] Tracee Rivas, DO [address] [place] [address] 07/28/2025 2:00 PM CDT Appointment [facility] [address] [place] [id number] Ezequiel Gonzales MD [address] [place] [address] 09/06/2025 11:20 AM CDT Office Visit [facility] [address] [place] [phone] Tracee Rivas, DO [address] [place] [address] documented as of this encounter Visit Diagnoses Diagnosis Primary insomnia- Primary Persistent disorder of initiating or maintaining sleep Pain of right shoulder region Swelling of both lower extremities documented in this encounter Additional Health Concerns Assessment Noted Time PHQ-9 Depression Total Score: 3 05/12/19 25 2:17 PM REGULATORY ASSOCIATE documented as of this encounter Care Teams Parts Facilitator Relationship Specialty Start Date End Date Tracee Rivas DO [address] [place] [phone] PCP - General Family Practice 12/17/17 documented as of this encounter
--- OUTSIDE RECORDS SUMMARY | 2025-02-04 05:40 | XMS_ITS ---
Author Organization [facility] Address [address] [place] [address] Care Team Providers Care Marketing Representative Name Role Phone Tracee Rivas DO Primary Care Provider Gustavo Carlos Unavailable [phone] REASON FOR VISIT RT KNEE Encounters Encounter Location Date Provider Diagnosis [facility] [address] [place] [address] 02/04/2025 Gustavo Marcos Plan Of Treatment Next Appt Details Provider Name:Aston Peters, 03/28/2025 01:40:00 PM, [address] [place], [address], Provider Name:Gustavo Marcos, 04/15/2025 08:40:00 AM, [address] [place], [address], Progress Notes * TRACEE ALVAREZ CDOB: (64 yo F)Acc No.[id number]:02/04/2025 Progress Notes Patient: Tamara THADDEUS TRACEE Medina Provider: Brittany Marcos M.D. :1960 A ge:64 Y S ex:Female Date:02/04/2025 Address:[address] [place], [place] [phone] Pcp:Tracee Rivas DO Subjective: * Chief Complaints: * R T KNEE Billing Information: * Procedure Codes: Care Plan Details* * Electronic signature of Mika Marcos MD on 02/08/2025 at 08:21 PM CDT Sign off status: Pending * Provider: Brittany Marcos M.D. Date: Generated for Dmitri ruiz/Melida/Lauri on: 08:21 PM CDT
--- NOTE | 2025-02-08 20:20 | XRR_ITS ---
PROCEDURE INFORMATION: Exam: XR Left Knee Exam date and time: 02/08/2025 8:28 PM Age: 64 years old Clinical indication: Injury or trauma; Fall; Blunt trauma; Left; Prior surgery; Surgery date: 6+ months; Surgery type: Lt knee TECHNIQUE: Imaging protocol: Radiologic exam of the left knee. Views: 3 views. COMPARISON: CR XR knee LT 4V [id number] 08/12/2018 10:18 AM FINDINGS: Bones/joints: Knee arthroplasty changes in place. Soft tissues: Normal. XR/XR knee LT 3V* [id number] IMPRESSION: 1. Negative for fracture or dislocation. 2. Knee arthroplasty changes in place.
--- NOTE | 2025-02-08 20:20 | CTR_ITS ---
PROCEDURE INFORMATION: Exam: CT Cervical Spine Without Contrast Exam date and time: 02/08/2025 8:38 PM Age: 64 years old Clinical indication: Injury or trauma; Fall; Blunt trauma; Additional info: Fall/neck pain TECHNIQUE: Imaging protocol: Computed tomography of the cervical spine without contrast. Radiation optimization: All CT scans at this facility use at least one of these dose optimization techniques: automated exposure control; mA and/or kV adjustment per patient size (includes targeted exams where dose is matched to clinical indication); or iterative reconstruction. COMPARISON: CT cervical spin wo con* [id number] 11/30/2022 1:42 AM RADIATION DOSE METRICS: Total DLP (mGy-cm): 597.3 FINDINGS: Bones/joints: Multilevel largely mid to lower cervical spine moderate severe disc space narrowing and productive degenerative endplate changes. C2-C3: No significant disc bulge or herniation. No severe spinal canal stenosis. No significant neural foraminal narrowing. C3-C4: No significant disc bulge or herniation. No severe spinal canal stenosis. No significant neural foraminal narrowing. C4-C5: No significant disc bulge or herniation. No severe spinal canal stenosis. No significant neural foraminal narrowing. C5-C6: No significant disc bulge or herniation. No severe spinal canal stenosis. No significant neural foraminal narrowing. C6-C7: No significant disc bulge or herniation. No severe spinal canal stenosis. No significant neural foraminal narrowing. C7-T1: No significant disc bulge or herniation. No severe spinal canal stenosis. No significant neural foraminal narrowing. Lungs: Lung apices are normal. Soft tissues: Unremarkable. CT/CT cervical spin wo con* [id number] IMPRESSION: Negative for fracture or dislocation.
--- NOTE | 2025-02-08 20:20 | CTR_ITS ---
PROCEDURE INFORMATION: Exam: CT Head Without Contrast Exam date and time: 02/08/2025 8:38 PM Age: 64 years old Clinical indication: Injury or trauma; Fall; Blunt trauma (contusions or hematomas) TECHNIQUE: Imaging protocol: Computed tomography of the head without contrast. Radiation optimization: All CT scans at this facility use at least one of these dose optimization techniques: automated exposure control; mA and/or kV adjustment per patient size (includes targeted exams where dose is matched to clinical indication); or iterative reconstruction. COMPARISON: CT angio headneck* [id number] 11/01/2019 2:59 PM RADIATION DOSE METRICS: Total DLP (mGy-cm): 1200.2 FINDINGS: Brain: Moderate diffuse white matter disease likely reflecting chronic microvascular ischemic changes. Cerebral ventricles: No ventriculomegaly. Paranasal sinuses: Visualized sinuses are unremarkable. No fluid levels. Mastoid air cells: Visualized mastoid air cells are well aerated. Bones: Unremarkable. No acute fracture. Soft tissues: Unremarkable. CT/CT head wo con* [id number] IMPRESSION: Negative for intracranial hemorrhage or mass effect.
--- OUTSIDE RECORDS SUMMARY | 2025-02-08 20:21 | XMS_ITS | Encounter Summary ---
Author Organization [facility] Address [address] [place] [address] Care Team Providers Care Ranch Rider Name Role Phone Tracee Rivas DO Primary Care Provider +1- [phone] Encounter Details Date Type Department Care Team (Latest Contact Info) Description 12/05/1999 Outpatient Historical [facility] Jasper Benitez MD [address] [facility] [address] [place] [address] Follow-up examination following surgery (Primary Dx) Social History Tobacco Use Types Packs/Day Years Used Date Smoking Tobacco: Never Assessed Comments Unknown Sex and Gender Information Value Date Recorded Sex Assigned at Not on file Legal Sex Female 2:49 AM CHIEF DIGITAL MEDIA OFFICER Gender Identity Not on file Sexual Orientation Not on file documented as of this encounter Plan of Treatment Not on file documented as of this encounter Visit Diagnoses Diagnosis Follow-up examination following surgery- Primary documented in this encounter Additional Health Concerns Infection Onset Date Last Indicated Resolved Time R/O COVID-19 12/30/2019 12/30/2019 01/01/2020 2:00 AM CDT R/O C. diff 03/14/2020 03/14/2020 03/15/2020 10:1 1 AM CHIEF DIGITAL MEDIA OFFICER documented as of this encounter Care Teams Ranch Rider Relationship Specialty Start Date End Date Tracee Rivas DO [address] [place] [address] PCP - General Family Practice 12/17/17 documented as of this encounter
--- OUTSIDE RECORDS SUMMARY | 2025-02-08 20:21 | XMS_ITS | Encounter Summary ---
Author Organization [facility] Address [address] [place] [address] Care Team Providers Care Inspector Packer Name Role Phone Tracee Rivas DO Primary Care Provider +1- [phone] Encounter Details Date Type Department Care Team (Latest Contact Info) Description 01/29/2000 Outpatient Historical [facility] Fredi Hodge NO ADDRESS ON FILE Anemia, unspecified (Primary Dx); External hemorrhoids without mention of complication; Anal fissure; Lumbago Social History Tobacco Use Types Packs/Day Years Used Date Smoking Tobacco: Never Assessed Comments Unknown Sex and Gender Information Value Date Recorded Sex Assigned at Not on file Legal Sex Female 2:49 AM AEROSPACE ENGINEER OFFICER ARMAMENT Gender Identity Not on file Sexual Orientation Not on file documented as of this encounter Plan of Treatment Not on file documented as of this encounter Visit Diagnoses Diagnosis Anemia, unspecified- Primary External hemorrhoids without mention of complication Anal fissure Lumbago documented in this encounter Additional Health Concerns Infection Onset Date Last Indicated Resolved Time R/O COVID-19 12/30/2019 12/30/2019 01/01/2020 2:00 AM CDT R/O C. diff 03/14/2020 03/14/2020 03/15/2020 10:1 1 AM AEROSPACE ENGINEER OFFICER ARMAMENT documented as of this encounter Care Teams Inspector Packer Relationship Specialty Start Date End Date Tracee Rivas DO [address] [place] [address] PCP - General Family Practice 12/17/17 documented as of this encounter
--- OUTSIDE RECORDS SUMMARY | 2025-02-08 20:21 | XMS_ITS | Encounter Summary ---
Author Organization [facility] Address [address] [place] [address] Care Team Providers Care Orientation And Mobility Specialist Name Role Phone Tracee Rivas DO Primary Care Provider +1- [phone] Encounter Details Date Type Department Care Team (Latest Contact Info) Description 11/21/1999 Outpatient Historical [facility] Jasper Benitez MD [address] [facility] [address] [place] [address] Other specified disorder of gallbladder (Primary Dx) Social History Tobacco Use Types Packs/Day Years Used Date Smoking Tobacco: Never Assessed Comments Unknown Sex and Gender Information Value Date Recorded Sex Assigned at Not on file Legal Sex Female 2:49 AM TECHNOLOGY LEAD Gender Identity Not on file Sexual Orientation Not on file documented as of this encounter Plan of Treatment Not on file documented as of this encounter Visit Diagnoses Diagnosis Other specified disorder of gallbladder- Primary documented in this encounter Additional Health Concerns Infection Onset Date Last Indicated Resolved Time R/O COVID-19 12/30/2019 12/30/2019 01/01/2020 2:00 AM CDT R/O C. diff 03/14/2020 03/14/2020 03/15/2020 10:1 1 AM TECHNOLOGY LEAD documented as of this encounter Care Teams Orientation And Mobility Specialist Relationship Specialty Start Date End Date Tracee Rivas DO [address] [place] [address] PCP - General Family Practice 12/17/17 documented as of this encounter
--- OUTSIDE RECORDS SUMMARY | 2025-02-08 20:22 | XMS_ITS | Encounter Summary ---
Author Organization [facility] Address [address] [place] [address] Care Team Providers Care Mattress Weaver Name Role Phone Tracee Rivas DO Primary Care Provider +1- [phone] Encounter Details Date Type Department Care Team (Latest Contact Info) Description 10/30/1999 Outpatient Historical [facility] Fredi Hodge NO ADDRESS ON FILE Dyspepsia and other specified disorders of function of stomach (Primary Dx) Social History Tobacco Use Types Packs/Day Years Used Date Smoking Tobacco: Never Assessed Comments Unknown Sex and Gender Information Value Date Recorded Sex Assigned at Not on file Legal Sex Female 2:49 AM RANGE OPERATOR Gender Identity Not on file Sexual Orientation Not on file documented as of this encounter Plan of Treatment Not on file documented as of this encounter Visit Diagnoses Diagnosis Dyspepsia and other specified disorders of function of stomach- Primary documented in this encounter Additional Health Concerns Infection Onset Date Last Indicated Resolved Time R/O COVID-19 12/30/2019 12/30/2019 01/01/2020 2:00 AM CDT R/O C. diff 03/14/2020 03/14/2020 03/15/2020 10:1 1 AM RANGE OPERATOR documented as of this encounter Care Teams Mattress Weaver Relationship Specialty Start Date End Date Tracee Rivas DO [address] [place] [address] PCP - General Family Practice 12/17/17 documented as of this encounter
--- OUTSIDE RECORDS SUMMARY | 2025-02-08 20:22 | XMS_ITS | Encounter Summary ---
Author Organization [facility] Address [address] [place] [address] Care Team Providers Care Fountain Operator Name Role Phone Tracee Rivas DO Primary Care Provider +1- [phone] Encounter Details Date Type Department Care Team (Latest Contact Info) Description 06/29/1999 Outpatient Historical [facility] Onel Martinez Jr., MD [address] [place] [address] Acute upper respiratory infections of unspecified site (Primary Dx) Social History Tobacco Use Types Packs/Day Years Used Date Smoking Tobacco: Never Assessed Comments Unknown Sex and Gender Information Value Date Recorded Sex Assigned at Not on file Legal Sex Female 2:49 AM ELEVATOR INSTALLER Gender Identity Not on file Sexual Orientation Not on file documented as of this encounter Plan of Treatment Not on file documented as of this encounter Visit Diagnoses Diagnosis Acute upper respiratory infections of unspecified site- Primary documented in this encounter Additional Health Concerns Infection Onset Date Last Indicated Resolved Time R/O COVID-19 12/30/2019 12/30/2019 01/01/2020 2:00 AM CDT R/O C. diff 03/14/2020 03/14/2020 03/15/2020 10:1 1 AM ELEVATOR INSTALLER documented as of this encounter Care Teams Fountain Operator Relationship Specialty Start Date End Date Tracee Rivas DO [address] [place] [address] PCP - General Family Practice 12/17/17 documented as of this encounter
--- OUTSIDE RECORDS SUMMARY | 2025-02-08 20:22 | XMS_ITS | Encounter Summary ---
Author Organization [facility] Address [address] [place] [address] Care Team Providers Care Staff Attorney Name Role Phone Tracee Rivas DO Primary Care Provider +1- [phone] Encounter Details Date Type Department Care Team (Latest Contact Info) Description 11/26/2002 Outpatient Historical [facility] Onel Martinez Jr., MD [address] [place] [address] POLYARTHRITIS NOS-MULT (Primary Dx) Social History Tobacco Use Types Packs/Day Years Used Date Smoking Tobacco: Never Assessed Comments Unknown Sex and Gender Information Value Date Recorded Sex Assigned at Not on file Legal Sex Female 2:49 AM BROOM BUNDLER Gender Identity Not on file Sexual Orientation Not on file documented as of this encounter Plan of Treatment Not on file documented as of this encounter Visit Diagnoses Diagnosis Unspecified polyarthropathy or polyarthritis, multiple sites- Primary documented in this encounter Additional Health Concerns Infection Onset Date Last Indicated Resolved Time R/O COVID-19 12/30/2019 12/30/2019 01/01/2020 2:00 AM CDT R/O C. diff 03/14/2020 03/14/2020 03/15/2020 10:1 1 AM BROOM BUNDLER documented as of this encounter Care Teams Staff Attorney Relationship Specialty Start Date End Date Tracee Rivas DO [address] [place] [address] PCP - General Family Practice 12/17/17 documented as of this encounter
--- OUTSIDE RECORDS SUMMARY | 2025-02-08 20:22 | XMS_ITS | Encounter Summary ---
Author Organization [facility] Address [address] [place] [address] Care Team Providers Care Communications Associate Name Role Phone Tracee Rivas DO Primary Care Provider +1- [phone] Encounter Details Date Type Department Care Team (Latest Contact Info) Description 03/28/2003 Outpatient Historical [facility] Gino Victoria MD [address] [place] [address] OBST CHRON BRONCHITIS WITH EXAC (CMS/[facility]) (Primary Dx) Social History Tobacco Use Types Packs/Day Years Used Date Smoking Tobacco: Never Assessed Comments Unknown Sex and Gender Information Value Date Recorded Sex Assigned at Not on file Legal Sex Female 2:49 AM DECK LID FITTER Gender Identity Not on file Sexual Orientation Not on file documented as of this encounter Plan of Treatment Not on file documented as of this encounter Visit Diagnoses Diagnosis Obstructive chronic bronchitis with exacerbation ([facility])- Primary Obstructive chronic bronchitis with exacerbation documented in this encounter Additional Health Concerns Infection Onset Date Last Indicated Resolved Time R/O COVID-19 12/30/2019 12/30/2019 01/01/2020 2:00 AM CDT R/O C. diff 03/14/2020 03/14/2020 03/15/2020 10:1 1 AM DECK LID FITTER documented as of this encounter Care Teams Communications Associate Relationship Specialty Start Date End Date Tracee Rivas DO [address] [place] [address] PCP - General Family Practice 12/17/17 documented as of this encounter
--- OUTSIDE RECORDS SUMMARY | 2025-02-08 20:22 | XMS_ITS | Encounter Summary ---
Author Organization [facility] Address [address] [place] [address] Care Team Providers Care Reporting Manager Name Role Phone Tracee Rivas DO Primary Care Provider +1- [phone] Encounter Details Date Type Department Care Team (Latest Contact Info) Description 12/09/2002 Outpatient Historical [facility] Onel Martinez Jr., MD [address] [place] [address] LUMBAGO (Primary Dx); Elevated sediment rate Social History Tobacco Use Types Packs/Day Years Used Date Smoking Tobacco: Never Assessed Comments Unknown Sex and Gender Information Value Date Recorded Sex Assigned at Not on file Legal Sex Female 2:49 AM SALES ENGINEERING MANAGER Gender Identity Not on file Sexual Orientation Not on file documented as of this encounter Plan of Treatment Not on file documented as of this encounter Visit Diagnoses Diagnosis Lumbago- Primary Elevated sediment rate Elevated sedimentation rate documented in this encounter Additional Health Concerns Infection Onset Date Last Indicated Resolved Time R/O COVID-19 12/30/2019 12/30/2019 01/01/2020 2:00 AM CDT R/O C. diff 03/14/2020 03/14/2020 03/15/2020 10:1 1 AM SALES ENGINEERING MANAGER documented as of this encounter Care Teams Reporting Manager Relationship Specialty Start Date End Date Tracee Rivas DO [address] [place] [address] PCP - General Family Practice 12/17/17 documented as of this encounter
--- OUTSIDE RECORDS SUMMARY | 2025-02-08 20:22 | XMS_ITS | Encounter Summary ---
Author Organization [facility] Address [address] [place] [address] Care Team Providers Care Breast Buffer Name Role Phone Tracee Rivas DO Primary Care Provider +1- [phone] Encounter Details Date Type Department Care Team (Latest Contact Info) Description 03/23/1999 Outpatient Historical [facility] Onel Martinez Jr., MD [address] [place] [address] Routine medical exam (Primary Dx); Solitary cyst of breast Social History Tobacco Use Types Packs/Day Years Used Date Smoking Tobacco: Never Assessed Comments Unknown Sex and Gender Information Value Date Recorded Sex Assigned at Not on file Legal Sex Female 2:49 AM GOLDBEATER Gender Identity Not on file Sexual Orientation Not on file documented as of this encounter Plan of Treatment Not on file documented as of this encounter Visit Diagnoses Diagnosis Routine medical exam- Primary Routine general medical examination at a health care facility Solitary cyst of breast documented in this encounter Additional Health Concerns Infection Onset Date Last Indicated Resolved Time R/O COVID-19 12/30/2019 12/30/2019 01/01/2020 2:00 AM CDT R/O C. diff 03/14/2020 03/14/2020 03/15/2020 10:1 1 AM GOLDBEATER documented as of this encounter Care Teams Breast Buffer Relationship Specialty Start Date End Date Tracee Rivas DO [address] [place] [address] PCP - General Family Practice 12/17/17 documented as of this encounter
--- OUTSIDE RECORDS SUMMARY | 2025-02-08 20:22 | XMS_ITS | Encounter Summary ---
Author Organization [facility] Address [address] [place] [address] Care Team Providers Care Cloth Cutting Inspector Name Role Phone Tracee Rivas DO Primary Care Provider +[phone] Reason for Visit * Reason Comments Provider Call Encounter Details Date Type Department Care Team ([facility] Contact Info) Description 01/31/[address] [facility] Medicine [place] [address] [place] [address] Tracee Rivas DO [address] [place] [address] Provider Call Social History Tobacco Use Types Packs/Day Years [...] PM CDT Legal Sex Female 8:53 AM DATA CONSULTANT Gender Identity Not on file Sexual Orientation Not on file documented as of this encounter Miscellaneous Notes * Telephone Encounter - Saleem Lyles - 02/03/2025 1:37 PM CDT Copied from [facility] #[id number]. Topic: [id number] Call >> Feb 03, 2025 1:34 PM Saleem Soto wrote: Caller is requesting to speak with Clinical Care Team. Caller Name: Onel - [facility] Callback Number: [phone] Is the caller a Physician, Nurse Practitioner or Physician Dredge Pump Operator? No Call Notes: Onel is calling to check on fax. Will be re faxing today. Is this addressing an immediate patient care need? No * Telephone Encounter - Edison Guaman LPN - 02/02/2025 8:47 AM CDT Reviewed all incoming labs in system. Nothing noted from [facility] or for this pt. Attempted to return call to Onel. left about return call. Edison Guaman LPN, 02/02/2025 8:49 AM * Telephone Encounter - Shabana Cuevas - 02/01/2025 11:21 AM CDT I went through faxes this morning and have not received anything as of yet. Shabanabelkys Stallingsarcadio Cuevas, 02/01/2025 11:22 AM * Telephone Encounter - Stepan Vanegas - 01/31/2025 1:59 PM CDT Copied from [facility] #[id number]. Topic: [id number] Call >> Jan 31, 2025 1:58 PM Stepan Tobias wrote: Caller is requesting to speak with Clinical Care Team. Caller Name: Onel mao/ [employer] (Other) Callback Number: [phone] Is the caller a Physician, Nurse Practitioner or Physician Dredge Pump Operator? No Call Notes: Onel states that a fax was sent over on the patient. He was calling to verify if that was received. Is this addressing an immediate patient care need? No documented in this encounter Plan of Treatment Upcoming Encounters Date Type Department Care Team (Late st Contact Info) Description 03/10/2025 3:00 PM DATA CONSULTANT Office Visit [facility] [address] [place] [address] Tracee Rivas, DO [address] [place] [address] 06/09/2025 1:00 PM DATA CONSULTANT Office Visit [facility] [address] [place] [address] Tracee Rivas, DO [address] [place] [address] 07/28/2025 2:00 PM CDT Appointment [facility] [address] [place] [address] Ezequiel Gonzales MD [address] [place] [address] 09/06/2025 11:20 AM CDT Office Visit [facility] [address] [facility] [place] [id number] Tracee Rivas DO [address] [facility] [place] [address] documented as of this encounter Visit Diagnoses Not on filedocumented in this encounter Additional Health Concerns Assessment Noted Time PHQ-9 Depression Total Score: 3 05/12/19 25 2:17 PM DATA CONSULTANT documented as of this encounter Care Teams Cloth Cutting Inspector Relationship Specialty Start Date End Date Tracee Rivas DO [address] [facility] [place] [address] PCP - General Family Practice 12/17/17 documented as of this encounter
--- OUTSIDE RECORDS SUMMARY | 2025-02-08 20:22 | XMS_ITS | Encounter Summary ---
Author Organization [facility] Address [address] [place] [address] Care Team Providers Care Paper Stripper Name Role Phone Tracee Rivas DO Primary Care Provider +1- [phone] Encounter Details Date Type Department Care Team (Late st Contact Info) Description 12/10/2002 Outpatient Historical [facility] Rheumatology- [facility] [address] [place] [address] Yunior Lopez DO [address] [facility] [address] [place] [address] Pain in limb (Primary Dx); RHEUMATISM NOS; IMMUNOLOGICAL FIND OTHR OR UNSPEC Social History Tobacco Use Types Packs/Day Years Used Date Smoking Tobacco: Never Assessed Comments Unknown Sex and Gender Information Value Date Recorded Sex Assigned at Not on file Legal Sex Female 2:49 AM INTERNET ASSESSOR Gender Identity Not on file Sexual Orientation Not on file documented as of this encounter Plan of Treatment Not on file documented as of this encounter Visit Diagnoses Diagnosis Pain in limb- Primary Pain in soft tissues of limb Rheumatism, unspecified and fibrositis Other and unspecified nonspecific immunological findings documented in this encounter Additional Health Concerns Infection Onset Date Last Indicated Resolved Time R/O COVID-19 12/30/2019 12/30/2019 01/01/2020 2:00 AM CDT R/O C. diff 03/14/2020 03/14/2020 03/15/2020 10:1 1 AM INTERNET ASSESSOR documented as of this encounter Care Teams Paper Stripper Relationship Specialty Start Date End Date Tracee Rivas DO [address] [place] [address] PCP - General Family Practice 12/17/17 documented as of this encounter
--- OUTSIDE RECORDS SUMMARY | 2025-02-08 20:22 | XMS_ITS | Encounter Summary ---
Author Organization [facility] Address [address] [place] [address] Care Team Providers Care Career Services Coordinator Name Role Phone Tracee Rivas DO Primary Care Provider +1- [phone] Encounter Details Date Type Department Care Team (Latest Contact Info) Description 02/07/2000 Outpatient Historical [facility] Medicine [address] [address] Kingsley Menezes MD Rectal/anal hemorrhage (Primary Dx) Social History Tobacco Use Types Packs/Day Years Used Date Smoking Tobacco: Never Assessed Comments Unknown Sex and Gender Information Value Date Recorded Sex Assigned at Not on file Legal Sex Female 2:49 AM EMS MANAGER Gender Identity Not on file Sexual Orientation Not on file documented as of this encounter Plan of Treatment Not on file documented as of this encounter Visit Diagnoses Diagnosis Rectal/anal hemorrhage- Primary Hemorrhage of rectum and anus documented in this encounter Additional Health Concerns Infection Onset Date Last Indicated Resolved Time R/O COVID-19 12/30/2019 12/30/2019 01/01/2020 2:00 AM CDT R/O C. diff 03/14/2020 03/14/2020 03/15/2020 10:1 1 AM EMS MANAGER documented as of this encounter Care Teams Career Services Coordinator Relationship Specialty Start Date End Date Tracee Rivas DO [address] [place] [address] PCP - General Family Practice 12/17/17 documented as of this encounter
--- OUTSIDE RECORDS SUMMARY | 2025-02-08 20:22 | XMS_ITS | Encounter Summary ---
Author Organization [facility] Address [address] [place] [address] Care Team Providers Care Cull Grader Name Role Phone Tracee Rivas DO Primary Care Provider +1- [phone] Encounter Details Date Type Department Care Team (Latest Contact Info) Description 02/02/1999 Outpatient Historical [facility] Onel Martinez Jr., MD [address] [place] [address] Unspecified essential hypertension (Primary Dx) Social History Tobacco Use Types Packs/Day Years Used Date Smoking Tobacco: Never Assessed Comments Unknown Sex and Gender Information Value Date Recorded Sex Assigned at Not on file Legal Sex Female 2:49 AM SWITCHGEAR REPAIRER Gender Identity Not on file Sexual Orientation Not on file documented as of this encounter Plan of Treatment Not on file documented as of this encounter Visit Diagnoses Diagnosis Unspecified essential hypertension- Primary documented in this encounter Additional Health Concerns Infection Onset Date Last Indicated Resolved Time R/O COVID-19 12/30/2019 12/30/2019 01/01/2020 2:00 AM CDT R/O C. diff 03/14/2020 03/14/2020 03/15/2020 10:1 1 AM SWITCHGEAR REPAIRER documented as of this encounter Care Teams Cull Grader Relationship Specialty Start Date End Date Tracee Rivas DO [address] [place] [address] PCP - General Family Practice 12/17/17 documented as of this encounter
--- OUTSIDE RECORDS SUMMARY | 2025-02-08 20:22 | XMS_ITS | Encounter Summary ---
Author Organization [facility] Address [address] [place] [address] Care Team Providers Care Pourer Crane Ladle Name Role Phone Tracee Rivas DO Primary Care Provider +1- [phone] Encounter Details Date Type Department Care Team (Late st Contact Info) Description 02/25/2003 Outpatient Historical [facility] Social History Tobacco Use Types Packs/Day Years Used Date Smoking Tobacco: Never Assessed Comments Unknown Sex and Gender Information Value Date Recorded Sex Assigned at Not on file Legal Sex Female 2:49 AM OTHER WOOD PROCESSING MACHINE OPERATOR Gender Identity Not on file Sexual Orientation Not on file documented as of this encounter Plan of Treatment Not on file documented as of this encounter Visit Diagnoses Not on filedocumented in this encounter Additional Health Concerns Infection Onset Date Last Indicated Resolved Time R/O COVID-19 12/30/2019 12/30/2019 01/01/2020 2:00 AM CDT R/O C. diff 03/14/2020 03/14/2020 03/15/2020 10:1 1 AM OTHER WOOD PROCESSING MACHINE OPERATOR documented as of this encounter Care Teams Pourer Crane Ladle Relationship Specialty Start Date End Date Tracee Rivas DO [address] [place] [address] PCP - General Family Practice 12/17/17 documented as of this encounter
--- OUTSIDE RECORDS SUMMARY | 2025-02-08 20:22 | XMS_ITS | Encounter Summary ---
Author Organization [facility] Address [address] [place] [address] Care Team Providers Care Chain Maker Hand Name Role Phone Tracee Rivas DO Primary Care Provider [phone]- [phone] Encounter Details Date Type Department Care Team (Late st Contact Info) Description 11/30/2002 Outpatient Historical [facility] Social History Tobacco Use Types Packs/Day Years Used Date Smoking Tobacco: Never Assessed Comments Unknown Sex and Gender Information Value Date Recorded Sex Assigned at Not on file Legal Sex Female 2:49 AM METAL BASE BLOCKER Gender Identity Not on file Sexual Orientation Not on file documented as of this encounter Plan of Treatment Not on file documented as of this encounter Visit Diagnoses Not on filedocumented in this encounter Additional Health Concerns Infection Onset Date Last Indicated Resolved Time R/O COVID-19 12/30/2019 12/30/2019 01/01/2020 2:00 AM CDT R/O C. diff 03/14/2020 03/14/2020 03/15/2020 10:1 1 AM METAL BASE BLOCKER documented as of this encounter Care Teams Chain Maker Hand Relationship Specialty Start Date End Date Tracee Rivas DO [address] [place] [address] PCP - General Family Practice 12/17/17 documented as of this encounter
--- OUTSIDE RECORDS SUMMARY | 2025-02-08 20:22 | XMS_ITS | Encounter Summary ---
Author Organization [facility] Address [address] [place] [address] Care Team Providers Care Die Repairer Trimmer Dies Name Role Phone Tracee Rivas DO Primary Care Provider [phone]- [phone] Encounter Details Date Type Department Care Team (Latest Contact Info) Description 04/14/2000 Outpatient Historical [facility] Onel Martinez Jr., MD [address] [place] [address] Lumbago (Primary Dx); Carbuncle and furuncle of unspecified site Social History Tobacco Use Types Packs/Day Years Used Date Smoking Tobacco: Never Assessed Comments Unknown Sex and Gender Information Value Date Recorded Sex Assigned at Not on file Legal Sex Female 2:49 AM HOOP RIVETER Gender Identity Not on file Sexual Orientation Not on file documented as of this encounter Plan of Treatment Not on file documented as of this encounter Visit Diagnoses Diagnosis Lumbago- Primary Carbuncle and furuncle of unspecified site documented in this encounter Additional Health Concerns Infection Onset Date Last Indicated Resolved Time R/O COVID-19 12/30/2019 12/30/2019 01/01/2020 2:00 AM CDT R/O C. diff 03/14/2020 03/14/2020 03/15/2020 10:1 1 AM HOOP RIVETER documented as of this encounter Care Teams Die Repairer Trimmer Dies Relationship Specialty Start Date End Date Tracee Rivas DO [address] [place] [address] PCP - General Family Practice 12/17/17 documented as of this encounter
--- OUTSIDE RECORDS SUMMARY | 2025-02-08 20:22 | XMS_ITS | Encounter Summary ---
Author Organization [facility] Address [address] [place] [address] Care Team Providers Care Disability Case Manager Name Role Phone Tracee Rivas DO Primary Care Provider +1- [phone] Encounter Details Date Type Department Care Team (Latest Contact Info) Description 12/23/2002 Outpatient Historical [facility] Onel Martinez Jr., MD [address] [place] [address] OTHER UNSPEC SLEEP APNEA (Primary Dx); MYALGIA AND MYOSITIS NOS; ABNORMAL THYROID FUNCT STUDY; SCREENING MAL NEOP-BREAST,UNSPEC Social History Tobacco Use Types Packs/Day Years Used Date Smoking Tobacco: Never Assessed Comments Unknown Sex and Gender Information Value Date Recorded Sex Assigned at Not on file Legal Sex Female 2:49 AM ENGINEERING AIDE Gender Identity Not on file Sexual Orientation Not on file documented as of this encounter Plan of Treatment Not on file documented as of this encounter Visit Diagnoses Diagnosis Unspecified sleep apnea- Primary Myalgia and myositis, unspecified Mylagia and myositis, unspecified Nonspecific abnormal results of thyroid function study Breast screening, unspecified documented in this encounter Additional Health Concerns Infection Onset Date Last Indicated Resolved Time R/O COVID-19 12/30/2019 12/30/2019 01/01/2020 2:00 AM CDT R/O C. diff 03/14/2020 03/14/2020 03/15/2020 10:1 1 AM ENGINEERING AIDE documented as of this encounter Care Teams Disability Case Manager Relationship Specialty Start Date End Date Tracee Rivas DO [address] [place] [address] PCP - General Family Practice 12/17/17 documented as of this encounter
--- OUTSIDE RECORDS SUMMARY | 2025-02-08 20:22 | XMS_ITS | Encounter Summary ---
Author Organization [facility] Address [address] [place] [address] Care Team Providers Care Real Estate Rep Name Role Phone Tracee Rivas DO Primary Care Provider +[phone]- [phone] Encounter Details Date Type Department Care Team (Latest Contact Info) Description 01/31/2000 Outpatient Historical [facility] Kingsley Menezes MD Rectal/anal hemorrhage (Primary Dx) Social History Tobacco Use Types Packs/Day Years Used Date Smoking Tobacco: Never Assessed Comments Unknown Sex and Gender Information Value Date Recorded Sex Assigned at Not on file Legal Sex Female 2:49 AM PLATE COLORER Gender Identity Not on file Sexual Orientation [...] diff 03/14/2020 03/14/2020 03/15/2020 10:1 1 AM PLATE COLORER documented as of this encounter Care Teams Real Estate Rep Relationship Specialty Start Date End Date Tracee Rivas DO [address] [place] [address] PCP - General Family Practice 12/17/17 documented as of this encounter
--- OUTSIDE RECORDS SUMMARY | 2025-02-08 20:22 | XMS_ITS | Encounter Summary ---
Author Organization [facility] Address [address] [place] [address] Care Team Providers Care Vegetable Tier Name Role Phone Tracee Rivas DO Primary Care Provider [phone]- [phone] Encounter Details Date Type Department Care Team (Late st Contact Info) Description 10/23/2020 Telephone [facility] [place] [address] [place] [address] Tracee Rivas DO [address] [place] [address] Social History Tobacco Use Types Packs/Day Years Used Date Smoking Tobacco: Never Smokeless Tobacco: Never Alcohol Use Standard Drinks/Week Comments No 0 (1 standard drink = 0.6 oz pur e alcohol) Comments No Sex and Gender Information Value Date Recorded Sex Assigned at Not on file Legal Sex Female 2:49 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 No / Unsure 10/05/2020 3:04 PM CDT documented as of this encounter Miscellaneous Notes * Telephone Encounter - Maggie yanes - 10/23/2020 12:49 PM CDT Pt states on November 27 she is getting a knee replacement states if Dr Rivas has any concerns to give Dr Marcos a call. [phone] documented in this encounter Plan of Treatment Not on file documented as of this encounter Visit Diagnoses Not on filedocumented in this encounter Additional Health Concerns Assessment Noted Time PHQ-9 Depression Total Score: 1 01/21/20 18 3:00 PM CDT documented as of this encounter Care Teams Vegetable Tier Relationship Specialty Start Date End Date Tracee Rivas DO [address] [place] [address] PCP - General Family Practice 12/17/17 documented as of this encounter
--- OUTSIDE RECORDS SUMMARY | 2025-02-08 20:22 | XMS_ITS | Encounter Summary ---
Author Organization [facility] Address [address] [place] [address] Care Team Providers Care Office Executive Name Role Phone Tracee Rivas DO Primary Care Provider +1- [phone] Encounter Details Date Type Department Care Team (Latest Contact Info) Description 03/10/2000 Outpatient Historical [facility] [address] [place] [address] Floyd Ramirez MD NO ADDRESS ON FILE Rheumatism, unspecified and fibrositis (Primary Dx); Other abnormal clinical finding Social History Tobacco Use Types Packs/Day Years Used Date Smoking Tobacco: Never Assessed Comments Unknown Sex and Gender Information Value Date Recorded Sex Assigned at Not on file Legal Sex Female 2:49 AM THERMOFORMING MACHINE OPERATOR Gender Identity Not on file Sexual Orientation Not on file documented as of this encounter Plan of Treatment Not on file documented as of this encounter Visit Diagnoses Diagnosis Rheumatism, unspecified and fibrositis- Primary Other abnormal clinical finding documented in this encounter Additional Health Concerns Infection Onset Date Last Indicated Resolved Time R/O COVID-19 12/30/2019 12/30/2019 01/01/2020 2:00 AM CDT R/O C. diff 03/14/2020 03/14/2020 03/15/2020 10:1 1 AM THERMOFORMING MACHINE OPERATOR documented as of this encounter Care Teams Office Executive Relationship Specialty Start Date End Date Tracee Rivas DO [address] [place] [address] PCP - General Family Practice 12/17/17 documented as of this encounter
--- OUTSIDE RECORDS SUMMARY | 2025-02-08 20:22 | XMS_ITS | Encounter Summary ---
Author Organization [facility] Address [address] [place] [address] Care Team Providers Care Model Set Artist Name Role Phone RobGabrielaTracee L DO Primary Care Provider [phone] Reason for Visit * Reason Onset Date Comments Information 02/04/2025 Encounter Details Date Type Department Care Team ([facility] st Contact Info) Description 02/04/2025 Telephone [facility] Neurology Eloina Vazquez [address] [place] [address] Mal Segal MD [address] [place] [address] Information Social History Tobacco Use Types Packs/Day Years [...] PM CDT Legal Sex Female 8:53 AM RECREATION SUPERVISOR Gender Identity Not on file Sexual Orientation Not on file documented as of this encounter Miscellaneous Notes * Telephone Encounter - Maria Luz Bean CMA - 02/07/2025 12:35 PM CDT Patient canceled appointment with Dr. Segal in [facility] for 02.04.25 stating she was finding another sleep provider * Telephone Encounter - Pradeep Phillips - 02/04/2025 4:17 PM CDT Latoya from [facility] called stating that they have tried to schedule pt for her CPAP machine and she has not shown up. Latoya states that since she has no- showed several times. documented in this encounter Plan of Treatment Upcoming Encounters Date Type Department Care Team (Late st Contact Info) Description 03/10/2025 3:00 PM RECREATION SUPERVISOR Office Visit [facility] [address] [facility] [place] [phone] Tracee Rivas, DO [address] [facility] [place] [address] 06/09/2025 1:00 PM RECREATION SUPERVISOR Office Visit [facility] [address] [place] [address] Tracee Rivas, DO [address] [place] [address] 07/28/2025 2:00 PM CDT Appointment [facility] Neurology [facility] [address] [place] [id number] Ezequiel Gonzales MD [address] [place] [address] 09/06/2025 11:20 AM CDT Office Visit [facility] Family Medicine [place] [address] [place] [address] Tracee Rivas DO [address] [place] [address] documented as of this encounter Visit Diagnoses Not on filedocumented in this encounter Additional Health Concerns Assessment Noted Time PHQ-9 Depression Total Score: 3 05/12/19 25 2:17 PM RECREATION SUPERVISOR documented as of this encounter Care Teams Model Set Artist Relationship Specialty Start Date End Date Tracee Rivas DO [address] [place] [address] PCP - General Family Practice 12/17/17 documented as of this encounter
--- OUTSIDE RECORDS SUMMARY | 2025-02-08 20:22 | XMS_ITS | Encounter Summary ---
Author Organization [facility] Address [address] [place] [address] Care Team Providers Care Butter Melter Name Role Phone Tracee Rivas DO Primary Care Provider [phone]- [phone] Encounter Details Date Type Department Care Team (Latest Contact Info) Description 06/07/1999 Outpatient Historical [facility] Onel Martinez Jr., MD [address] [place] [address] Peripheral vascular disease, unspecified (Primary Dx) Social History Tobacco Use Types Packs/Day Years Used Date Smoking Tobacco: Never Assessed Comments Unknown Sex and Gender Information Value Date Recorded Sex Assigned at Not on file Legal Sex Female 2:49 AM ACCOUNTING ANALYST Gender Identity Not on file Sexual Orientation Not on file documented as of this encounter Plan of Treatment Not on file documented as of this encounter Visit Diagnoses Diagnosis Peripheral vascular disease, unspecified- Primary documented in this encounter Additional Health Concerns Infection Onset Date Last Indicated Resolved Time R/O COVID-19 12/30/2019 12/30/2019 01/01/2020 2:00 AM CDT R/O C. diff 03/14/2020 03/14/2020 03/15/2020 10:1 1 AM ACCOUNTING ANALYST documented as of this encounter Care Teams Butter Melter Relationship Specialty Start Date End Date Tracee Rivas DO [address] [place] [address] PCP - General Family Practice 12/17/17 documented as of this encounter
--- OUTSIDE RECORDS SUMMARY | 2025-02-08 20:22 | XMS_ITS | Clinical Summary ---
Author Organization [facility] / [facility] Address [address] [place] [address] Care Team Providers Care Special Events Assistant Name Role Phone Tracee Rivas DO Primary Care Provider Allergies Active Allergy Reactions Criticality Noted Date Comments Adhesive Tape-Silicones Rash Low 01/31/2023 Methocarbamol Itching Low 06/18/2021 Nitrofurantoin Monohyd/M-Cryst Rash Low 03/12 Oxycodone Hives,Itching High 10/15/2018 Medications blood sugar diagnostic (Blood Glucose Test) StripIndications :Type 2 diabetes mellitus with diabetic peripheral angiopathy without gangrene, without long-term current use of insulin Use to check blood sugar two times daily 100 Each 5 022 Active compr.stocking,t high,reg,x-lrg (Comp.Stocking,T high,Reg,X-Lrg)I ndications:Type 2 diabetes mellitus without complication, without long-term current use of insulin,Venous insufficiency of both lower extremities,Bobo is dermatitis of both legs Wear compression stockings daily. Diagnosis venous insufficiency 1 Each 022 Active aspirin (ECOTRIN EC) 81 mg Tablet, Delayed Release (E.C.) Take 81 mg by mouth daily. Active albuterol sulfate HFA 90 mcg/actuation aerosol inhaler Take 2 Puffs by inhalation every 6 hours as needed for Shortness of Breath. Active levothyroxine 150 mcg tablet Take 1 Tablet (150 mcg) by mouth daily in the morning. 90 Tablet 4 024 Active mupirocin calcium (BACTROBAN) 2 % CreamIndications :Skin sore Apply to affected area 2 times daily. 15 Gram 2 025 Active metoprolol tartrate (LOPRESSOR) 25 mg tablet TAKE 1 TABLET BY MOUTH TWICE A DAY 180 Tablet 3 025 Active Klor-Con M20 20 mEq Extended Release tablet TAKE 1 TABLET BY MOUTH EVERY DAY 90 Tablet 2 025 Active amiodarone (CORDARONE) 200 mg tabletIndication s:Paroxysmal atrial fibrillation (CMS/HCC) Take 1 Tablet (200 mg) by mouth daily. 90 Tablet 4 025 Active amLODIPine (NORVASC) 5 mg tablet Take 1 Tablet (5 mg) by mouth daily. 90 Tablet 4 025 Active omeprazole (PriLOSEC) 20 mg Capsule, Delayed Release(E.C.) Take 1 Capsule (20 mg) by mouth 2 times daily. 180 Capsule 4 025 Active lisinopriL (PRINIVIL) 20 mg tablet TAKE 1 TABLET BY MOUTH EVERY DAY 100 Tablet 3 025 Active triamcinolone acetonide (KENALOG) 0.1 % CreamIndications :Skin rash Apply to affected area 2 times daily. 28.4 Gram 1 025 Active ondansetron (ZOFRAN ODT) 4 mg Tablet, Rapid DissolveIndicati ons:Nausea and vomiting, unspecified vomiting type Take 1 Tablet (4 mg) by mouth every 8 hours as needed for Nausea/Emesis. Dissolve tablet on top of tongue, then swallow with saliva. 30 Tablet 025 Active Blood-Glucose Meter (Infinity Meter Kit) Kit USE TO TEST BLOOD GLUCOSE Active naloxone (NARCAN) 4 mg/spray [place], Non-Aerosol Administer 4 mg in one nostril (alternate nostril with each dose) see administration instructions. Active bumetanide (BUMEX) 2 mg tablet Take 1 Tablet (2 mg) by mouth 2 times daily as needed for Other (See Comment) (swelling). Take at 9 am and 5 pm 60 Tablet 1 025 Active cyclobenzaprine (FLEXERIL) 10 mg tabletIndication s:Chronic pain of left knee Take 1 Tablet (10 mg) by mouth 3 times daily as needed for Spasm. 90 Tablet 11 025 Active latanoprost (XALATAN) 0.005 % solution Administer 1 Drop in both eyes daily at bedtime. 5 mL 6 025 Active DULoxetine (Cymbalta) 60 mg Capsule, Delayed Release(E.C.) Take 1 Capsule (60 mg) by mouth 2 times daily. 180 Capsule 4 025 Active HYDROcodone-acet aminophen (NORCO) 10-325 mg TabletIndication s:Chronic pain of left knee,Chronic right-sided low back pain with right-sided sciatica Take 1 Tablet by mouth 3 times daily as needed for Pain, Moderate. Do not fill until 01/27/25 Max Daily Amount: 3 Tablets 90 Tablet 025 Active semaglutide (Ozempic) 2 mg/dose (8 mg/3 mL) Pen Injector Inject 2 mg by subcutaneous injection every 7 days. 9 mL 3 025 Active prazosin (MINIPRESS) 1 mg capsuleIndicatio ns:Primary insomnia Take 1 Capsule (1 mg) by mouth daily at bedtime. 30 Capsule 1 025 Active busPIRone (BUSPAR) 15 mg TabletIndication s:Generalized anxiety disorder Take 1 Tablet (15 mg) by mouth 3 times daily as needed for Anxiety. 270 Tablet 4 023 2024 Discontinued furosemide (LASIX) 40 mg tablet Take 40 mg by mouth daily. 2024 Discontinued diclofenac sodium (VOLTAREN) 1 % gelIndications:P rimary osteoarthritis of right shoulder APPLY 2-4 GRAMS TO AFFECTED AREA TOPICALLY 4 TIMES DAILY 100 Gram 4 025 2024 Discontinued(C ost) cpap medical deviceIndication s:JSOE (obstructive sleep apnea) Resmed autoCPAP with EPAPmin=8cwp and EPAPmax=10cwp, with upright position, heated humidity, heated tubing, efficacy data download feature and mask fitting. . Length of need:99 months; patient preference mask with headgear every 6 months; mask only every 3 months; cushions per month; Tubing heated 1 every 3 months, water chamber 1 every 6 months, chin strap 1 every 6 months, filters disposable 2 per month, filters reusable 1 per 6 months. 1 Each 025 2024 Discontinued HYDROcodone-acet aminophen (NORCO) 10-325 mg TabletIndication s:Chronic pain of left knee,Chronic right-sided low back pain with right-sided sciatica Take 1 Tablet by mouth 3 times daily as needed for Pain, Moderate. Max Daily Amount: 3 Tablets 90 Tablet 025 2024 Discontinued(R eorder) tirzepatide (Mounjaro) 12.5 mg/0.5 mL Pen Injector Inject 0.5 mL (12.5 mg) by subcutaneous injection every 7 days. 3 mL 025 2024 Discontinued doxepin (SILENOR) 6 mg TabletIndication s:Primary insomnia Take 1 Tablet (6 mg) by mouth daily at bedtime. 30 Tablet 2 025 2024 Discontinued(A lternate therapy prescribed) cloNIDine HCL (CATAPRES) 0.1 mg tabletIndication s:Primary insomnia Take 1 Tablet (0.1 mg) by mouth daily at bedtime. 30 Tablet 2 025 2024 Discontinued(A lternate therapy prescribed) Active Problems Problem Noted Date Diagnosed Date Recurrent major depressive disorder, in full rem ission 12/06/2024 Personal history of DVT (deep vein thrombosis) 1 06/21/2022 Chronic venous insufficiency 12/17/2022 Coffee ground emesis 09/26/2022 Melena 09/26/2022 Abdominal pain 09/26/2022 Anemia 09/26/[address] scan, stomach 09/26/2022 Acute upper GI bleed 09/26/2022 Nausea and vomiting 09/25/2022 Dizziness 09/25/2022 GI bleed 09/25/2022 Hypertensive urgency 09/25/2022 JERSEY (acute kidney injury) 09/25/2022 Hypokalemia 09/25/2022 Skin rash 08/20/2022 Paroxysmal atrial fibrillation 08/17/2022 Overview (08/17/2022): New onset History of TIA (transient ischemic attack) and s troke 08/17/2022 Absence of bladder continence 07/23/2022 Bilateral leg edema 07/23/2022 Stasis dermatitis of both legs 07/23/2022 Type 2 diabetes mellitus wit h diabetic peripheral angiopathy without gangrene, without long-term current use of insulin 02/24/2022 Primary osteoarthritis involving multiple joints 10/24/2021 Chronic right-sided low back pain with right-julisa ed sciatica 03/19/2021 Generalized anxiety disorder 03/19/2021 Restless leg syndrome 09/10/2020 Sleep apnea 06/22/2020 Gastroesophageal reflux disease without esophagi tis 09/28/2018 Vitamin D insufficiency 05/21/2018 Fibromyalgia 01/20/2018 Hypertensive emergency 12/17/2017 Primary insomnia 12/17/2017 Chronic pain of left knee 12/17/2017 Left leg paresthesias 12/17/2017 Morbid obesity with body mass index of 40.0-49.9 12/17/2017 History of stroke with residual effects 12/18/19 18 Urinary frequency 10/28/2013 Essential hypertension 08/12/2011 Acquired hypothyroidism 08/12/2011 Hemorrhage of rectum and anus 02/23/2009 Resolved Problems Problem Noted Date Diagnosed Date Resolved Date Atrial fibrillation with rap id ventricular response 08/18/2022 08/20/2022 Right leg pain 08/17/2022 08/20/2022 Acute deep vein thrombosis ( DVT) of femoral vein of right lower extremity 08/09/2022 12/06/2024 Stage 3a chronic kidney disease 02/24/2022 05/19/2022 Strain of muscle, fascia and tendon of lower back, sequela 06/29/2019 06/22/2020 Arm paresthesia, left 12/17/20172020 Abdominal pain, epigastric 02/23/2009 0 06/22/2020 Encounters Date Type Department Care Team Description 02/04/2025 Telephone [facility] Geovanny Vazquez [address] [place] [address] Mal Segal MD Information 02/01/2025 3:00 PM CDT Office Visit [facility] [address] [phone] 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, 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 Primary insomnia (Primary Dx); Pain of right shoulder region; Swelling of both lower extremities 01/31/2025 Telephone [facility] [address] [address] Tracee Rivas, DO Provider Call 01/24/2025 Refill [facility] [address] [place] [address] Tracee Rivas, DO Chronic pain of left knee; Chronic right-sided low back pain with right-sided sciatica 01/22/2025 Refill [facility] [address] [place] [address] Tracee Rivas, 01/20/2025 Orders Only [facility] [address] [place] [address] Zaidiaugust, 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 Primary insomnia (Primary Dx) 01/20/2025 Telephone [facility] [address] [place] [address] Tracee Rivas, DO New Prescription Request 01/18/2025 3:00 PM CDT Office Visit [facility] [address] [place] [address] 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, 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 Primary insomnia (Primary Dx); Fibromyalgia 01/06/2025 Telephone [facility] [address] [place] [address] Tracee Rivas, New Prescription Request 01/05/2025 Refill [facility] [address] [place] [address] Tracee Rivas, 12/27/2024 Orders Only [facility] [address] [place] [address] 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, 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 Skin lesion (Primary Dx) 12/27/2024 Telephone [facility] [address] [place] [address] Tracee Rivas, DO Needs Orders Written 12/27/2024 Telephone [facility] [address] [place] [address] Tracee Rivas, Needs Orders Written 12/27/2024 Telephone [facility] [address] [place] [address] Tracee Rivas, DO Erroneous encounter-disregard 12/27/2024 Telephone [facility] [address] [place] [facility] [address] Tracee Rivas, Medication Assistance 12/27/2024 Refill [facility] [address] [place] [address] Tracee Rivas, Chronic pain of left knee; Chronic right-sided low back pain with right-sided sciatica 12/21/2024 Telephone [facility] [address] [address] Mal Segal MD Results 12/21/2024 Telephone [facility] [address] [place] [phone] Mal Segal MD Results 12/21/2024 Orders Only [facility] [address] [place] [address] [address] Mal Segal MD JOSE (obstructive sleep apnea) (Primary Dx) 12/20/2024 Chart Note [facility] [address] [place] [place] [address] Mal Segal MD 12/18/2024 7:13 PM CDT - 12/18/2024 11:59 PM CDT Hospital Encounter [facility] [address] [place] [phone] Mal Segal MD Discharge Disposition: Home or Self Care 12/06/2024 Orders Only [facility] [address] [place] [address] Tracee Rivas, 12/05/2024 Results Follow-Up [facility] [address] [place] [address] Tracee Rivas DO CBC WITH DIFFERENTIAL, COMPREHENSIVE METABOLIC PANEL, TSH, Additional followed-up results: 3 12/03/2024 Abstract [facility] [address] [facility] [address] [place] [phone] Mal Segal MD 11/27/2024 Orders Only [facility] [address] [place] [address] Tracee Rivas DO 11/26/2024 Telephone [facility] [address] [place] [address] Tracee Rivas DO New Med Request 11/25/2024 2:20 PM CDT Office Visit [facility] [address] [place] [address] Tracee Rivas DO Primary osteoarthritis involving multiple joints (Primary Dx); Chronic pain of left knee; Primary osteoarthritis of right shoulder; Obstructive sleep apnea syndrome; Chronic right-sided low back pain with right-sided sciatica; Paroxysmal atrial fibrillation ([facility]); Type 2 diabetes mellitus with diabetic peripheral angiopathy without gangrene, without long-term current use of insulin ([facility]); Other iron deficiency anemia; Morbid obesity with body mass index of 40.0-49.9 ([facility]); Acquired hypothyroidism; Essential hypertension; Generalized anxiety disorder; Gastroesophageal reflux disease without esophagitis; Chronic venous insufficiency; Bilateral leg edema; Personal history of DVT (deep vein thrombosis); History of stroke with residual effects; Primary insomnia; Recurrent major depressive disorder, in full remission; Statin myopathy (includes myalgia) 11/25/2024 Nurse Triage [facility] [address] [place] [address] Tracee Rivas, DO 11/23/2024 Telephone [facility] [address] [facility] [place] [address] Mal Segal MD Results 11/22/2024 Chart Note [facility] [address] [facility] [place] [address] Mal Segal MD 11/21/2024 7:09 PM CDT - 11/21/2024 11:59 PM CDT Hospital Encounter [facility] [address] [place] [address] Mal Segal MD Discharge Disposition: Home or Self Care 11/17/2024 External Device Data STL ABSTRACTION Provider, Abstract 11/17/2024 Telephone [facility] [address] [place] [address] Tracee Rivas, DO Bleeding/Bruising; Weight Gain; Patient Communication; Medication Assistance 11/12/2024 Telephone [facility] [address] [place] [address] Tracee Rivas, DO Patient Communication 11/11/2024 [facility] [address] [place] [address] Tracee Rivas, DO Question 11/09/2024 [place] [place] [address] Tracee Rivas, DO Medication Question; Patient Communication from Last 3 Months Immunizations Immunization Administration Dates Next Due (TDVAX)(7 YRS UP) TETANUS AN D DIPHTHERIA TOXOIDS, ADSORBED (2 LF OF TETANUS TOXOID AND 2 LF OF DIPHTHERIA TOXOID), 0.5ML (PF), IM 04/26/2002 INFLUENZA VACCINE HIGH DOSE TRIVALENT SPLIT VIRUS, (65 YR UP), 0.5ML (PF), IM 01/14/2024 INFLUENZA VACCINE QUADRIVALE NT 3 YR UP PF IM 03/19/2021 INFLUENZA VACCINE QUADRIVALENT 6 MOS UP IM 03/01,01/20/2018 INFLUENZA VACCINE QUADRIVALE NT 6 MOS UP PF IM 03/07/2023,01/15/2022,01/13/2020 Influenza Seasonal Unspecifi ed Formulation IM 02/09/2013,02/24/2012 Influenza Vaccine Quad Split 3+ Yrs Im 8 Family History Medical History Relation Name Comments Brain Cancer Brother Lung Cancer Brother Ovarian Cancer Maternal Grandmother Breast Cancer Sister 1 TWICE Lung Cancer Sister 2 Relation Name Status Comments Brother Father Maternal Grandmother Mother Sister 1 Alive Sister 2 Social History Tobacco Use Types Packs/Day Years Used Date Smoking Tobacco: Never Passive Smoke Exposure: Never Smokeless Tobacco: Never Tobacco Cessation:Counseling Given: No Alcohol Use Standard Drinks/Week Comments No 0 [...] PM CDT Legal Sex Female 8:53 AM CONTROL [employer] Gender Identity Not on file Sexual Orientation Not on file Last Filed Vital Signs Vital Sign Reading [...] Mass Index 47.41 02/01/2025 2:57 PM CDT Plan of Treatment Upcoming Encounters Date Type Department Care Team (Late st Contact Info) Description 03/10/2025 3:00 PM [employer] Office Visit [facility] [address] [place] [phone] Tracee Rivas, DO [address] [place] [phone] 06/09/2025 1:00 PM [employer] Office Visit [facility] [address] [place] [phone] Tracee Rivas, DO [address] [place] [phone] 07/28/2025 2:00 PM CDT Appointment [facility] [address] [place] [phone] Ezequiel Gonzales MD [address] [place] [phone] 09/06/2025 11:20 AM CDT Office Visit [facility] [place] [address] [place] [address] Tracee Rivas, DO [address] [facility] [phone] Health Maintenance Due Date Last Done Comments FIT/ DNA Q 3 YEARS (AUTO ORDER) 1976 FIT/FOBT Q 1 YEAR (AUTO ORDER) 1976 PNEUMOCOCCAL VACCINE 50+ YEA RS (1 of 2 - PCV) 1977 FIT-DNA Q 3 years 08/26/2003 FIT/FOBT Q 1 year 08/26/2003 Flex Sig/CT Colonography Q 5 years 08/26/2003 FLEX SIG/CT COLONOGRAPHY Q 5 YEARS (AUTO ORDER) 02/06/2005 02/07/2000, 02/07/2000 ZOSTER VACCINE (1 of 2) 2008 RSV VACCINE (60+ or ) (1 - Risk 60-74 years 1-dose series) 2018 DIABETES ANNUAL FOOT EXAM 08/09/2022 08/09/2021 DTAP/TDAP/TD VACCINES (2 - T d or Tdap) 11/20/2022 11/20/2012, 04/26/2002 OSTEOPOROSIS SCREENING 08/26/2023 [place] Preventative Visit/Annual Wellness Visit 05/05/2024 01/14/2024, 12/11/2022, 10/10/2021 DIABETES ANNUAL RETINAL EXAM 08/26/2024, 11/30/2021, 03/22/2021, Additional history exists INFLUENZA VACCINE (#1) 2024 , 03/07/2023, 01/15/2022, Additional history exists COVID-19 Vaccine (3 - 2024-2 6 season) 2025 07/19/2020, 05/31/2020 DIABETES HBA1C Q 6 MONTHS 01/13/20252024, 03/18/2024, 09/17/2023, Additional history exists DIABETES MICROALBUMIN ANNUAL SCREEN 05/12/2025 05/12/2024, 01/14/2024, 07/30/2023, Additional history exists BREAST CANCER SCREENING 07/08/2025 07/09/19 25, 06/23/2023, 03/15/2022, Additional history exists DIABETES: A1C (Auto Order) 07/13/202507/13, 03/18/2024, 09/17/2023, Additional history exists LDL CHOLESTEROL ANNUAL 07/13/2025 , 03/18/2024, 09/17/2023, Additional history exists COLORECTAL CANCER SCREENING (AUTO ORDER) 10/20/2033 10/21/2023, 02/17/2020, 02/17/2020, Additional history exists COLORECTAL SCREENING 10/20/2033 10/21/2023, 02/17/2020, 02/17/2020, Additional history exists Colorectal Cancer Screening (AUTO ORDER) 10/20/2033 Colorectal Cancer Screening 10/20/2033 [facility] uACR (Auto Order) Completed 05/12/2024 , 01/14/2024, 06/25/2022, Additional history exists KHE eGFR (Auto Order) Completed 11/25/2024 , 10/28/2024, 07/13/2024, Additional history exists Procedures Procedure Name Priority Date/Time Associated Diagnosis Comments POLYSOMNOGRAPHY 4 OR MORE PARAMETERS WITH CPAP Routine 12/20/2024 JOSE (obstructive sleep apnea) SYSTEMIC AUTOIMMUNE PANEL Routine 11/25/2024 3:41 PM CDT Chronic pain of left knee Primary osteoarthritis of right shoulder Primary osteoarthritis involving multiple joints Obstructive sleep apnea syndrome Chronic right-sided low back pain with right-sided sciatica Paroxysmal atrial fibrillation (CMS/HCC) Type 2 diabetes mellitus with diabetic peripheral angiopathy without gangrene, without long-term current use of insulin (CMS/HCC) Other iron deficiency anemia Morbid obesity with body mass index of 40.0-49.9 (CMS/HCC) Acquired hypothyroidism Essential hypertension Generalized anxiety disorder Gastroesophageal reflux disease without esophagitis Chronic venous insufficiency Bilateral leg edema VITAMIN B12 LEVEL Routine 11/25/2024 3:4 1 PM CDT Chronic pain of left knee Primary osteoarthritis of right shoulder Primary osteoarthritis involving multiple joints Obstructive sleep apnea syndrome Chronic right-sided low back pain with right-sided sciatica Paroxysmal atrial fibrillation (CMS/HCC) Type 2 diabetes mellitus with diabetic peripheral angiopathy without gangrene, without long-term current use of insulin ([facility]) Other iron deficiency anemia Morbid obesity with body mass index of 40.0-49.9 (CMS/HCC) Acquired hypothyroidism Essential hypertension Generalized anxiety disorder Gastroesophageal reflux disease without esophagitis Chronic venous insufficiency Bilateral leg edema URIC ACID Routine 11/25/2024 3:41 PM CDT Chronic pain of left knee Primary osteoarthritis of right shoulder Primary osteoarthritis involving multiple joints Obstructive sleep apnea syndrome Chronic right-sided low back pain with right-sided sciatica Paroxysmal atrial fibrillation (CMS/HCC) Type 2 diabetes mellitus with diabetic peripheral angiopathy without gangrene, without long-term current use of insulin ([facility]) Other iron deficiency anemia Morbid obesity with body mass index of 40.0-49.9 ([facility]) Acquired hypothyroidism Essential hypertension Generalized anxiety disorder Gastroesophageal reflux disease without esophagitis Chronic venous insufficiency Bilateral leg edema TSH Routine 11/25/2024 3:41 PM CDT Chronic pain of left knee Primary osteoarthritis of right shoulder Primary osteoarthritis involving multiple joints Obstructive sleep apnea syndrome Chronic right-sided low back pain with right-sided sciatica Paroxysmal atrial fibrillation ([facility]) Type 2 diabetes mellitus with diabetic peripheral angiopathy without gangrene, without long-term current use of insulin ([facility]) Other iron deficiency anemia Morbid obesity with body mass index of 40.0-49.9 ([facility]) Acquired hypothyroidism Essential hypertension Generalized anxiety disorder Gastroesophageal reflux disease without esophagitis Chronic venous insufficiency Bilateral leg edema COMPREHENSIVE METABOLIC PANEL Routine 11/25/2024 3:41 PM CDT Chronic pain of left knee Primary osteoarthritis of right shoulder Primary osteoarthritis involving multiple joints Obstructive sleep apnea syndrome Chronic right-sided low back pain with right-sided sciatica Paroxysmal atrial fibrillation (CMS/HCC) Type 2 diabetes mellitus with diabetic peripheral angiopathy without gangrene, without long-term current use of insulin ([facility]) Other iron deficiency anemia Morbid obesity with body mass index of 40.0-49.9 ([facility]) Acquired hypothyroidism Essential hypertension Generalized anxiety disorder Gastroesophageal reflux disease without esophagitis Chronic venous insufficiency Bilateral leg edema CBC WITH DIFFERENTIAL Routine 11/25/2024 3:41 PM CDT Chronic pain of left knee Primary osteoarthritis of right shoulder Primary osteoarthritis involving multiple joints Obstructive sleep apnea syndrome Chronic right-sided low back pain with right-sided sciatica Paroxysmal atrial fibrillation ([facility]) Type 2 diabetes mellitus with diabetic peripheral angiopathy without gangrene, without long-term current use of insulin ([facility]) Other iron deficiency anemia Morbid obesity with body mass index of 40.0-49.9 ([facility]) Acquired hypothyroidism Essential hypertension Generalized anxiety disorder Gastroesophageal reflux disease without esophagitis Chronic venous insufficiency Bilateral leg edema REDUCED POLYSOMNOGRAPHY 4 OR MORE PARAMETERS WITH CPAP Routine 11/23/2024 Sleep apnea, unspecified type LIPID PANEL Routine 07/13/2024 11:59 AM CDT Type 2 diabetes mellitus with diabetic peripheral angiopathy without gangrene, without long-term current use of insulin ([facility]) HEMOGLOBIN A1C Routine 07/13/2024 11:59 AM CDT Type 2 diabetes mellitus with diabetic peripheral angiopathy without gangrene, without long-term current use of insulin ([facility]) MAMMO 3D JACOB SCREEN BILAT W OR WO CAD Routine 07/08/2024 3:05 PM [employer] Encounter for screening mammogram for breast cancer MICROALBUMIN/CREATININ E RATIO, RANDOM UR Routine 05/12/2024 3:37 PM [employer] Type 2 diabetes mellitus with diabetic peripheral angiopathy without gangrene, without long-term current use of insulin ([facility]) ENDOSCOPY, COLON, SCREENING Routine 10/21/2023 9:39 AM CDT DIABETES EYE EXAM Routine 08/27/2023 10:45 AM CDT from Last 3 Months or Most Recently Relevant to Health Maintenance Results * POLYSOMNOGRAPHY 4 OR MORE PARAMETERS WITH CPAP (12/20/2024) A+H INDEX RDI INDEX LOW O2 SAT% PLMS INDEX TOTAL PLMS AROUSAL INDEX CPAP PRESSURE (cm) BILEVEL PRESSURE MSLT AVERAGE LATENCY MSLT REM ONSET/S Maria Luz De Dios CMA - 12/20/2024 [facility] [facility] [place] Tracee Walden [id number] PHYSICIAN: Mal Segal MD PhD ADMISSION DATE: 12/18/2024 SLEEP STUDY DATE OF SERVICE: 12/18/2024 PARAMETERS MONITORED: 16 channel: 2 EOG, 4 EEG, 3 EMG (submental, L+R Ant. Tib.), ECG, 2 respiratory excursion (thoracic & abdominal), 2 airflow (L+R nares & oral), snore sensor and O2 saturation. I have reviewed the entire raw data recording for this study. The quality of the recording and the scoring were sufficient to allow for interpretation. CLINICAL HISTORY: Tracee Walden is a 64 y.o. female who presents with snoring, stops breathing while sleeping, wakes up gasping for air, tosses and turns while sleeping, morning headaches, talks in sleep, takes medicine to sleep, feels like she has to move her legs, fatigue and excessive daytime sleepiness. Elaine Sleepiness Score = 21 (this indicates excessive sleepiness). She underwent a diagnostic sleep study which showed mild obstructive sleep apnea/hypopnea (hypopnea was defined with 4% or more desaturation) with apnea/hypopnea index (AHI) of 13.1 per hour of sleep, more than 75% of sleep apnea/hypopnea was obstructive events, and oxygen desaturation to the shana of 82%. No supine sleep was recorded. IMPRESSION: This attended polysomnography was performed as a titration sleep study on room air at upright position. SLEEP ARCHITECTURE: Sleep efficiency was significantly reduced to 38.1% due to very prolonged sleep onset latency and frequent and prolonged awakenings after sleep onset. Total sleep time reduced to 169.5 minutes. No REM sleep was recorded. RESPIRATORY: Respiratory monitoring showed obstructive sleep apnea/hypopnea and hypoxemia were eliminated at the setting of CPAP pressure 8cwp. The lowest oxygen saturation at this pressure was 85%. 0.5 minutes of sleep was spent with oxygen saturation less than or equal to 88% at this pressure setting. Upright NREM sleep was recorded at this pressure setting. LIMB MOVEMENTS: Periodic limb movements were not observed. MOTOR ACTIVITY: No abnormal motor activity was noted. EKG: Single lead EKG demonstrated sinus rhythm. EEG: With the limited montage employed, no epileptiform discharge was observed. DIAGNOSIS: G47.33 - Obstructive Sleep Apnea MANAGEMENT OPTIONS/RECOMMENDATIONS: Recommend Resmed autoCPAP with EPAPmin=8cwp and EPAPmax=10cwp, with upright position, heated humidity, heated tubing, efficacy data download feature and mask fitting. This study does not support the need for nocturnal oxygen with the use of above recommended PAP setting. Recommend to follow-up in the clinic for PAP compliance and efficacy data download and assess clinical response - day after initiating therapy. Mal Segal MD PhD FAASM Diplomate, [place] [employer] of Sleep Medicine [facility] [employer] [facility] Lab at [facility] ([place], [place]) [facility] [employer] [facility] at [facility] us Mal Segal MD SLEEP CENTER ORDERABLES Final Re sult * (ABNORMAL) SYSTEMIC AUTOIMMUNE PANEL (11/25/2024 3:41 PM CDT) JUAN DAVID SCREEN NEGATIVE NEGATIVE [facility], Comment: JUAN DAVID IFA is a first line screen for detecting the presence of up to approximately 150 autoantibodies in various autoimmune diseases. A negative JUAN DAVID IFA result suggests an JUAN DAVID-associated autoimmune disease is not present at this time, but is not definitive. If there is high clinical suspicion for Sjogren's syndrome, testing for anti-SS-A/Ro antibody should be considered. Anti-Katlyn-1 antibody should be considered for clinically suspected inflammatory myopathies. AC-0: Negative International Consensus on JUAN DAVID Patterns https://doi.org/10.1515/uutz-5761-9696 For additional information, please refer to http://education.SeamlessDocs.Ocapi/faq/UAE815 (This link is being provided for informational/educational purposes only.) DNA AB (DS) CRITHIDIA,IFA NEGATIVE NEGATIVE [facility]/ [facility], CHROMATIN (NUCLEOSOMAL) ANTIBODY <1.0 NEG <1.0 NEGATIVE AI [facility], MATA IGG AB <1.0 NEG <1.0 NEGATIVE AI [facility], NOAH ABS, SM/BOWLING OR SKATING FRONT DESK CLERK AB <1.0 NEG <1.0 NEGATIVE AI [facility], BOWLING OR SKATING FRONT DESK CLERK AB <1.0 NEG <1.0 NEGATIVE AI [facility], SJOGRENS ABS (SSA) <1.0 NEG <1.0 NEGATIVE AI [facility], SJOGRENS ABS (SSB) <1.0 NEG <1.0 NEGATIVE [facility], SCLERODERMA AB SCL 70 <1.0 NEG <1.0 NEGATIVE [facility], JO1 AB <1.0 NEG <1.0 NEGATIVE AI [facility], CENTROMERE AB <1.0 NEG <1.0 NEGATIVE AI [facility], COMPLEMENT C3 167 83 - 193 mg/dL [facility], COMPLEMENT C4 26 15 - 57 mg/dL [facility], CARDIOLIPIN IGA AB <2.0 APL-U/mL [facility], Comment: Value Interpretation ----- <20.0 Antibody not detected > or = 20.0 Antibody detected CARDIOLIPIN IGG AB <2.0 GPL-U/mL [facility], Comment: Value Interpretation ----- <20.0 Antibody not detected > or = 20.0 Antibody detected CARDIOLIPIN IGM AB <2.0 MPL-U/mL [facility], Comment: Value Interpretation ----- <20.0 Antibody not detected > or = 20.0 Antibody detected B2 GLYCOPROTEIN I IGA <2.0 U/mL [facility]/ [facility], Comment: Value Interpretation ----- <20.0 Antibody not detected > or = 20.0 Antibody detected B2 GLYCOPROTEIN I IGG <2.0 U/mL [facility]/ [facility], Comment: Value Interpretation ----- <20.0 Antibody not detected > or = 20.0 Antibody detected B2 GLYCOPROTEIN I IGM <2.0 U/mL [facility]/ [facility], Comment: The antiphospholipid antibody syndrome (APS) is a clinical-pathologic correlation that includes a clinical event (e.g. arterial or venous thrombosis, morbidity) and persistent positive antiphospholipid antibodies (IgM, IgG Cardiolipin or b2GPI antibodies greater than the 99th percentile; or a lupus anticoagulant). International consensus guidelines for APS suggest waiting at least 12 weeks before retesting to confirm antibody persistence. The Systemic Lupus International Collaborating Clinics immunological classification criteria for systemic lupus erythematosus (SLE) include testing for isotype IgA, which has yet to be incorporated into APS criteria. Low level antiphospholipid antibodies may sometimes be detected in the setting of infection, drug therapy or aging. For additional information, please refer to http://education.just.me/faq/NHV719 (This link is being provided for informational/educational purposes only.) Value Interpretation ----- <20.0 Antibody not detected > or = 20.0 Antibody detected RHEUMATOID FACTOR (IGA) <5 U [facility]/ [facility], Comment: Reference Range: <=6 NEGATIVE >6 POSITIVE RHEUMATOID FACTOR IGG <5 U [facility]/ [facility], Comment: Reference Range: <=6 NEGATIVE >6 POSITIVE RHEUMATOID FACTOR (IGM) <5 U [facility]/ [facility], Comment: Reference Range: <=6 NEGATIVE >6 POSITIVE CYCLIC CITRULLINATED PEPTIDE AB IGG <16 Units [facility]/ [facility], Comment: Reference Range: NEGATIVE: <20 WEAK POSITIVE: 20-39 MODERATE POSITIVE: 40-59 STRONG POSITIVE >59 MUTATED CITRULLINATED VIMENTIN AB <20 <20 U/mL [facility]/ [facility], Comment: Anti-mutated citrullinated vimentin antibody may be used as a second-line marker of rheumatoid arthritis, in addition to rheumatoid factor and anti-cyclic citrullinated peptide (CCP). THYROID PEROXIDASE AB 41(H) <9 IU/mL [facility]/ [facility], Comment: FASTING:UNKNOWN FASTING: UNKNOWN Test Performed at: [facility], [address] [place] [phone] Luanne Perez MD,PhD,BERNARDA Blood 11/25/2024 3:41 PM CDT 11/25/2024 3:41 PM CDT us Tracee Rivas DO CHEMISTRY ORDERABLES Final Result [facility] [place] [facility] [phone] [facility], [address] [place] [phone] * (ABNORMAL) CBC WITH DIFFERENTIAL (11/25/2024 3:41 PM CDT) WBC 7.1 3.8 - 10.8 Thousand/u L [facility] RBC 4.29 3.80 - 5.10 Million/uL [facility] HEMOGLOBIN 12.5 11.7 - 15.5 g/dL [facility] HEMATOCRIT 40.4 35.0 - 45.0 % [facility] MCV 94.2 80.0 - 100.0 fL [facility] MCH 29.1 27.0 - 33.0 pg [facility] MCHC 30.9(L) 32.0 - 36.0 g/dL [facility] Comment: For adults, a slight decrease in the calculated MCHC value (in the range of 30 to 32 g/dL) is most likely not clinically significant; however, it should be interpreted with caution in correlation with other red cell parameters and the patient's clinical condition. RDW 13.2 11.0 - 15.0 % [facility] PLATELETS 313 140 - 400 Thousand/u L [facility] MPV 9.6 7.5 - 12.5 fL [facility] NEUTROPHIL ABSOLUTE 4,104 1,500 - 7,800 cells/uL [facility] LYMPHOCYTE ABSOLUTE 1,782 850 - 3,900 cells/uL [facility] MONOCYTE ABSOLUTE 724 200 - 950 cells/uL [facility] EOSINOPHIL ABSOLUTE 412 15 - 500 cells/uL [facility] BASOPHILS ABSOLUTE 78 0 - 200 cells/uL [facility] NEUTROPHIL 57.8 % [facility] LYMPHOCYTES 25.1 % [facility] MONOCYTE 10.2 % [facility] EOSINOPHILS 5.8 % [facility] BASOPHILS 1.1 % [facility] Comment: FASTING:UNKNOWN FASTING: UNKNOWN Test Performed at: [facility] [address] [place] [phone] Michelle Rowley MD Blood 11/25/2024 3:41 PM CDT 11/25/2024 3:41 PM CDT Tracee Rivas DO HEMATOLOGY ORDERABLES Final Result [facility] [facility] [phone] [facility] [address] [place] [phone] * URIC ACID (11/25/2024 3:41 PM CDT) URIC ACID 4.5 2.5 - 7.0 mg/dL [facility] Comment: Therapeutic target for gout patients: <6.0 mg/dL Test Performed at: [facility] [address] [place] [phone] Michelle Rowley MD Blood 11/25/2024 3:41 PM CDT 11/25/2024 3:41 PM CDT Tracee GRAVIDIan DO CHEMISTRY ORDERABLES Final Result Performing Organization Address [facility] Co de Phone Number [facility] [facility] [phone] [facility] [address] * TSH (11/25/2024 3:41 PM CDT) [facility] TSH 3.20 0.40 - 4.50 mIU/L [facility] Comment: Test Performed at: [facility] [phone] Michelle Rowley MD Blood 11/25/2024 3:41 PM CDT 11/25/2024 3:41 PM CDT Tracee GRAVIDIan DO CHEMISTRY ORDERABLES Final Result Performing Organization Address [facility] de Phone Number [facility] [facility] [phone] [facility] [address] * VITAMIN B12 LEVEL (11/25/2024 3:41 PM CDT) [facility] VITAMIN B12 305 200 - 1100 pg/mL [facility] Comment: Please Note: Although the reference range for vitamin B12 is 200-1100 pg/mL, it has been reported that between 5 and 10% of patients with values between 200 and 400 pg/mL may experience neuropsychiatric and hematologic abnormalities due to occult B12 deficiency; less than 1% of patients with values above 400 pg/mL will have symptoms. FASTING:UNKNOWN FASTING: UNKNOWN Test Performed at: [facility] [address] Michelle Rowley MD Blood 11/25/2024 3:41 PM CDT 11/25/2024 3:41 PM CDT OQOan DO CHEMISTRY ORDERABLES Final Result [facility] [facility] [phone] [facility] [address] [place] [address] * (ABNORMAL) COMPREHENSIVE METABOLIC PANEL (11/25/2024 3:41 PM CDT) GLUCOSE 91 65 - 99 mg/dL [facility] Comment: Fasting reference interval BUN 10 7 - 25 mg/dL [facility] CREATININE 0.88 0.50 - 1.05 mg/dL [facility] GFR 72 > OR = 60 mL/min/1. 73m2 [facility] BUN/CREAT RATIO SEE NOTE: 6 - (calc) [facility] Comment: Not Reported: BUN and Creatinine are within reference range. SODIUM 141 135 - 146 mmol/L [facility] POTASSIUM 4.3 3.5 - 5.3 mmol/L [facility] CHLORIDE 104 98 - 110 mmol/L [facility] CO2 31 20 - 32 mmol/L [facility] CALCIUM 8.7 8.6 - 10.4 mg/dL [facility] TOTAL PROTEIN 6.1 6.1 - 8.1 g/dL [facility] ALBUMIN 3.4(L) 3.6 - 5.1 g/dL [facility] GLOBULIN 2.7 1.9 - 3.7 g/dL (calc) [facility] ALBUMIN/GLOBULIN RATIO 1.3 1.0 - 2.5 (calc) [facility] BILIRUBIN TOTAL 0.3 0.2 - 1.2 mg/dL [facility] ALKALINE PHOSPHATASE 90 37 - 153 U/L [facility] AST 14 10 - 35 U/L [facility] ALT 14 6 - 29 U/L [facility] Comment: FASTING:UNKNOWN FASTING: UNKNOWN Test Performed at: [facility] [address] [place] [address] Michelle Rowley MD Blood 11/25/2024 3:41 PM CDT 11/25/2024 3:41 PM CDT us Tracee Rivas DO CHEMISTRY ORDERABLES Final Result [facility] [phone] [facility] [address] [place] [phone] * REDUCED POLYSOMNOGRAPHY 4 OR MORE PARAMETERS WITH CPAP (11/23/2024) Narrative Perez Dimas Ivon - 11/23/2024 [place], [place] Tracee Walden [id number] 1960 PHYSICIAN: Mal Segal MD PhD ADMISSION DATE: 11/21/2024 SLEEP STUDY DATE OF SERVICE: 11/21/2024 PARAMETERS MONITORED: 16 channel: 2 EOG, 4 EEG, 3 EMG (submental, L+R Ant. Tib.), ECG, 2 respiratory excursion (thoracic & abdominal), 2 airflow (L+R nares & oral), snore sensor and O2 saturation. I have reviewed the entire raw data recording for this study. The quality of the recording and the scoring were sufficient to allow for interpretation. CLINICAL HISTORY: Tracee Walden is a 64 y.o. female who presents with snoring, stops breathing while sleeping, wakes up gasping for air, tosses and turns while sleeping, morning headaches, talks in sleep, takes medicine to sleep, feels like she has to move her legs, fatigue and excessive daytime sleepiness. Elaine Sleepiness Score = 21 (this indicates excessive sleepiness). IMPRESSION: This attended polysomnography was performed as a diagnostic sleep study with head of bed elevation in a recliner on room air. SLEEP ARCHITECTURE: Sleep efficiency was significantly reduced to 25% due to very prolonged sleep onset latency and frequent and prolonged awakenings after sleep onset. Total sleep time reduced to 100.5 minutes. No REM sleep was recorded. RESPIRATORY: Respiratory monitoring showed mild obstructive sleep apnea/hypopnea (hypopnea was defined with 4% or more desaturation) with apnea/hypopnea index (AHI) of 13.1 per hour of sleep, more than 75% of sleep apnea/hypopnea was obstructive events, and oxygen desaturation to the shana of 82%. No supine sleep was recorded. LIMB MOVEMENTS: Periodic limb movements were not observed. MOTOR ACTIVITY: No abnormal motor activity was noted. EKG: Single lead EKG demonstrated sinus rhythm. EEG: With the limited montage employed, no epileptiform discharge was observed. DIAGNOSIS: G47.33 - Obstructive Sleep Apnea MANAGEMENT OPTIONS/RECOMMENDATIONS: Nasal CPAP may be indicated and is the therapy most likely to succeed due to the severity of sleep-disordered breathing and the history of hypertension and mood disorder, as well as the complaint of fatigue and excessive sleepiness during the day. Recommend CPAP titration study. The severity of sleep disordered breathing may be underestimated in this study since no REM sleep was recorded. Mal Segal MD PhD FAASM Diplomate, [place] [employer] of Sleep Medicine [facility] at [facility] ([place], [place]) [facility] at [facility] us Mal Segal MD SLEEP CENTER ORDERABLES Final Re sult * HEMOGLOBIN A1C (07/13/2024 11:59 AM CDT) HEMOGLOBIN A1C 5.3 <5.7 % of total Hgb [facility] Comment: For the purpose of screening for the presence of diabetes: <5.7% Consistent with the absence of diabetes 5.7-6.4% Consistent with increased risk for diabetes (prediabetes) > or =6.5% Consistent with diabetes This assay result is consistent with a decreased risk of diabetes. Currently, no consensus exists regarding use of hemoglobin A1c for diagnosis of diabetes in children. According to [place] Diabetes Association (ADA) guidelines, hemoglobin A1c <7.0% represents optimal control in non- diabetic patients. Different metrics may apply to specific patient populations. Standards of Medical Care in Diabetes(ADA). ESTIMATED AVERAGE GLUCOSE (MG/DL) 105 mg/dL [facility] ESTIMATED AVERAGE GLUCOSE (MMOL/L) 5.8 mmol/L [facility] Comment: Test Performed at: [facility] [address] [place] [address] Michelle Rowley MD Blood 07/13/2024 11:5 9 AM CDT 07/14/2024 5:10 AM CDT us Tracee Dillardan DO CHEMISTRY ORDERABLES Final Result [facility] [facility] [phone] [facility] [address] [place] [address] * (ABNORMAL) LIPID PANEL (07/13/2024 11:59 AM CDT) CHOLESTEROL 224(H) <200 mg/dL [facility] HDL 69 > OR = 50 mg/dL [facility] TRIGLYCERIDE 136 <150 mg/dL [facility] LDL CALCULATED 130(H) mg/dL (calc) [facility] Comment: Reference range: <100 Desirable range <100 mg/dL for primary prevention; <70 mg/dL for patients with CHD or diabetic patients with > or = 2 CHD risk factors. LDL-C is now calculated using the Melanie calculation, which is a validated novel method providing better accuracy than the Friedewald equation in the estimation of LDL-C. Jeancarlos LIND et al. NAOMI. 2013;310(19): 7891-9546 (http://education.SeamlessDocs.Ocapi/faq/KYJ837) CHOL/HDL RATIO 3.2 <5.0 (calc) [facility] NON-HDL CHOLESTEROL 155(H) <130 mg/dL (calc) [facility] Comment: For patients with diabetes plus 1 major ASCVD risk factor, treating to a non-HDL-C goal of <100 mg/dL (LDL-C of <70 mg/dL) is considered a therapeutic option. Test Performed at: [facility] [address] [place] [address] Michelle Rowley MD Blood 07/13/2024 11:5 9 AM CDT 07/14/2024 5:10 AM CDT us Tracee Tamara Rivas DO CHEMISTRY ORDERABLES Final Result [facility] [facility] [phone] [facility] [id number] [facility] [place] [phone] * MAMMO 3D JACOB SCREEN BILAT W OR WO CAD (07/08/2024 3:05 PM CONTROL CLERK [employer]) Anatomical Region Laterality Modality Breast Bilateral Mammography, Dig ital Radiography Impressions 07/10/2024 5:44 AM CONTROL CLERK [employer] : No mammographic evidence of malignancy. BI-RADS ASSESSMENT: 1 - Negative RECOMMENDATION: Routine annual screening mammography. Narrative 07/10/2024 5:44 AM CONTROL CLERK [employer] EXAM: MAMMO SCRN BILAT 3D JACOB W OR WO CAD INDICATION: Screening COMPARISON: 06/23/2023 MAMMO 3D JACOB SCREEN IMPL UNI LT W OR WO CAD, 03/15/2022 MAMMO PRIOR STUDY, 02/16/2019 MAMMO PRIOR STUDY, 08/15/2017 MAMMO PRIOR STUDY, and 07/23/2013 MAMMO PRIOR STUDY BREAST COMPOSITION: There are scattered areas of fibroglandular density. FINDINGS: RIGHT BREAST: There are no suspicious masses, calcifications, or areas of architectural distortion. LEFT BREAST: There are no suspicious masses, calcifications, or areas of architectural distortion. us Tracee Rivas DO MAMMO ORDERABLES Final Resu lt * MICROALBUMIN/CREATININE RATIO, RANDOM UR (05/12/2024 3:37 PM CONTROL CL[employer]) Creatinine, Urine 158 20 - 275 mg/dL [facility] MICROALBUMIN, URINE <0.2 See Note: mg/dL [facility] Comment: Reference Range: Reference Range Not established MICROALBUMIN/CREAT RATIO, UR NOTE <30 mg/g creat [facility] Comment: NOTE: The urine albumin value is less than 0.2 mg/dL therefore we are unable to calculate excretion and/or creatinine ratio. The ADA defines abnormalities in albumin excretion as follows: Albuminuria Category Result (mg/g creatinine) Normal to Mildly increased <30 Moderately increased 30-299 Severely increased > OR = 300 The ADA recommends that at least two of three specimens collected within a 3-6 month period be abnormal before considering a patient to be within a diagnostic category. Test Performed at: [facility] [id number] [facility] [place] [address] Michelle Rowley MD Urine URINE SPECIMEN OBTAINED BY CLEAN CATCH PROCEDURE / Unknown 05/12/2024 3:37 PM CONTROL CL[employer] 05/13/2024 2:45 AM CONTROL CL[employer] us Inootilia Hernandez 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 URINE ORDERABLES Final Res ult [facility] [place] [facility] [phone] [facility] [address] [place] [phone] * ENDOSCOPY, COLON, SCREENING (10/21/2023 9:39 AM CDT) us Abstract Provider GI PROCEDURE ORDERABLES Final Result * DIABETES EYE EXAM (08/27/2023 10:45 AM CDT) us Abstract Provider HEALTH MAINTENANCE Final Resul t from Last 3 Months or Most Recently Relevant to Health Maintenance Insurance PPO [facility] [employer] Medicare Part D Advance Directives For more information, please contact: [phone] * Full Code (Latest Code Status on File) Date Activated Date Inactivated Comments 09/25/2022 4:42 PM 09/28/2022 4:30 PM * Full Code Date Activated Date Inactivated Comments 08/17/2022 8:38 AM 08/20/2022 7:03 PM Care Teams Special Events Assistant Relationship Specialty Start Date End Date Tracee Rivas DO [address] [place] [address] PCP - General Family Practice 12/17/17
--- OUTSIDE RECORDS SUMMARY | 2025-02-08 20:22 | XMS_ITS | Encounter Summary ---
Author Organization [facility] Address [address] [place] [address] Care Team Providers Care Creative Lead Name Role Phone Tracee Rivas DO Primary Care Provider [phone] Encounter Details Date Type Department Care Team (Latest Contact Info) Description 02/28/2000 Outpatient Historical [facility] Onel Martinez Jr., MD [address] [place] [address] Peripheral vascular disease, unspecified (Primary Dx); Unspecified hemorrhoids without mention of complication Social History Tobacco Use Types Packs/Day Years Used Date Smoking Tobacco: Never Assessed Comments Unknown Sex and Gender Information Value Date Recorded Sex Assigned at Not on file Legal Sex Female 2:49 AM TELECOMMUNICATIONS ADMINISTRATOR Gender Identity Not on file Sexual Orientation Not on file documented as of this encounter Plan of Treatment Not on file documented as of this encounter Visit Diagnoses Diagnosis Peripheral vascular disease, unspecified- Primary Unspecified hemorrhoids without mention of complication documented in this encounter Additional Health Concerns Infection Onset Date Last Indicated Resolved Time R/O COVID-19 12/30/2019 12/30/2019 01/01/2020 2:00 AM CDT R/O C. diff 03/14/2020 03/14/2020 03/15/2020 10:1 1 AM TELECOMMUNICATIONS ADMINISTRATOR documented as of this encounter Care Teams Creative Lead Relationship Specialty Start Date End Date Tracee Rivas DO [address] [place] [phone] PCP - General Family Practice 12/17/17 documented as of this encounter
--- OUTSIDE RECORDS SUMMARY | 2025-02-08 20:22 | XMS_ITS | Encounter Summary ---
Author Organization [facility] Address [address] [place] [address] Care Team Providers Care Milk Runner Name Role Phone Tracee Rivas DO Primary Care Provider [phone] Encounter Details Date Type Department Care Team (Latest Contact Info) Description 12/05/2024 Results Follow-Up [facility] [place] [address] [place] [address] Tracee Rivas, DO [address] [place] [address] CBC WITH DIFFERENTIAL, COMPREHENSIVE METABOLIC PANEL, TSH, Additional followed-up results: 3 Social History Tobacco Use Types Packs/Day Years [...] PM CDT Legal Sex Female 8:53 AM PULL OVER MACHINE OPERATOR Gender Identity Not on file Sexual Orientation Not on file documented as of this encounter Plan of Treatment Upcoming Encounters Date Type Department Care Team (Late st Contact Info) Description 03/10/2025 3:00 PM PULL OVER MACHINE OPERATOR Office Visit [facility] [address] [place] [id number] Tracee Rivas, DO [address] [place] [address] 06/09/2025 1:00 PM PULL OVER MACHINE OPERATOR Office Visit [facility] [address] [place] [address] Tracee Rivas, DO [address] [place] [address] 07/28/2025 2:00 PM CDT Appointment [facility] Neurology [facility] [address] [place] [address] Ezequiel Gonzales MD [address] [place] [address] 09/06/2025 11:20 AM CDT Office Visit [facility] [address] [place] [address] Tracee Rivas DO [address] [place] [phone] documented as of this encounter Visit Diagnoses Not on filedocumented in this encounter Additional Health Concerns Assessment Noted Time PHQ-9 Depression Total Score: 3 05/12/19 25 2:17 PM PULL OVER MACHINE OPERATOR documented as of this encounter Care Teams Milk Runner Relationship Specialty Start Date End Date Tracee Rivas DO [address] [place] [address] PCP - General Family Practice 12/17/17 documented as of this encounter
--- OUTSIDE RECORDS SUMMARY | 2025-02-08 20:22 | XMS_ITS | Encounter Summary ---
Author Organization [facility] Address [address] [place] [address] Care Team Providers Care Cyber Security Specialist Name Role Phone Tracee Rivas DO Primary Care Provider [phone]- [phone] Encounter Details Date Type Department Care Team (Latest Contact Info) Description 11/30/2002 Outpatient Historical [facility] Thomas Mejia MD NO ADDRESS ON FILE LUMB/LUMBOSAC DISC DEGEN (Primary Dx) Social History Tobacco Use Types Packs/Day Years Used Date Smoking Tobacco: Never Assessed Comments Unknown Sex and Gender Information Value Date Recorded Sex Assigned at Not on file Legal Sex Female 2:49 AM DISCOUNT CLERK Gender Identity Not on file Sexual Orientation Not on file documented as of this encounter Plan of Treatment Not on file documented as of this encounter Visit Diagnoses Diagnosis Degeneration of lumbar or lumbosacral intervertebral disc- Primary documented in this encounter Additional Health Concerns Infection Onset Date Last Indicated Resolved Time R/O COVID-19 12/30/2019 12/30/2019 01/01/2020 2:00 AM CDT R/O C. diff 03/14/2020 03/14/2020 03/15/2020 10:1 1 AM DISCOUNT CLERK documented as of this encounter Care Teams Cyber Security Specialist Relationship Specialty Start Date End Date Tracee Rivas DO [address] [place] [address] PCP - General Family Practice 12/17/17 documented as of this encounter
--- OUTSIDE RECORDS SUMMARY | 2025-02-08 20:22 | XMS_ITS | Encounter Summary ---
Author Organization [facility] Address [address] [place] [address] Care Team Providers Care Civil Transportation Engineer Name Role Phone Tracee Rivas DO Primary Care Provider [phone]- [phone] Encounter Details Date Type Department Care Team (Latest Contact Info) Description 03/13/2000 Outpatient Historical [facility] Onel Martinez Jr., MD [address] [place] [address] Myalgia and myositis, unspecified (Primary Dx) Social History Tobacco Use Types Packs/Day Years Used Date Smoking Tobacco: Never Assessed Comments Unknown Sex and Gender Information Value Date Recorded Sex Assigned at Not on file Legal Sex Female 2:49 AM ASSISTANT PROFESSOR OF NURSING Gender Identity Not on file Sexual Orientation Not on file documented as of this encounter Plan of Treatment Not on file documented as of this encounter Visit Diagnoses Diagnosis Myalgia and myositis, unspecified- Primary Mylagia and myositis, unspecified documented in this encounter Additional Health Concerns Infection Onset Date Last Indicated Resolved Time R/O COVID-19 12/30/2019 12/30/2019 01/01/2020 2:00 AM CDT R/O C. diff 03/14/2020 03/14/2020 03/15/2020 10:1 1 AM ASSISTANT PROFESSOR OF NURSING documented as of this encounter Care Teams Civil Transportation Engineer Relationship Specialty Start Date End Date Tracee Rivas DO [address] [place] [phone] PCP - General Family Practice 8/15/18 documented as of this encounter
--- OUTSIDE RECORDS SUMMARY | 2025-02-08 20:22 | XMS_ITS | Encounter Summary ---
Author Organization [facility] Address [address] [place] [address] Care Team Providers Care Asset Protection Detective Name Role Phone Tracee Rivas DO Primary Care Provider [phone]- [phone] Encounter Details Date Type Department Care Team (Latest Contact Info) Description 02/29/2000 Outpatient Historical [facility] Onel Martinez Jr., MD [address] [place] [address] Elevated sediment rate (Primary Dx) Social History Tobacco Use Types Packs/Day Years Used Date Smoking Tobacco: Never Assessed Comments Unknown Sex and Gender Information Value Date Recorded Sex Assigned at Not on file Legal Sex Female 2:49 AM 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 diff 03/14/2020 03/14/2020 03/15/2020 10:1 1 AM STRETCHING MACHINE TENDER FRAME documented as of this encounter Care Teams Asset Protection Detective Relationship Specialty Start Date End Date Tracee Rivas DO [address] [place] [address] PCP - General Family Practice 12/17/17 documented as of this encounter
--- OUTSIDE RECORDS SUMMARY | 2025-02-08 20:22 | XMS_ITS | Clinical Summary ---
Author Organization [facility] Address [address] [place] [address] Care Team Providers Care Acid Patroller Name Role Phone RobGabrielaTracee L DO Primary Care Provider Allergies Active Allergy Reactions Criticality Noted Date Comments Oxycodone Hives,Itching High 10/15/2018 Medications calcium carbonate + vitamin D (CALTRATE+D) 600 mg(1,500mg) -400 unit TabletIndications :Vitamin D insufficiency Take 1 Tablet by mouth daily. 90 Tablet 2 08/08/19 19 Active ergocalciferol (VITAMIN D2) 50,000 unit capsuleIndication s:Vitamin D insufficiency Take 1 Capsule (50,000 Units) by mouth see administration instructions Take 1 tab weekly x 8 weeks then take twice monthly after that.. 16 Capsule 2 08/11/19 19 Active mupirocin (BACTROBAN) 2 % OintmentIndicatio ns:Staphylococcal infection of skin Apply to affected area daily Apply to nares once daily. 60 Gram 3 12/23/19 19 Active Accu-Chek Giana Plus test strp Strip TEST TWO TIMES DAILY 200 Strip 09/29/19 20 Active Easy Comfort Lancets 30 gauge TEST TWO TIMES DAILY 200 Each 09/29/19 20 Active Alcohol Pads Pads, Medicated USE TWO TIMES DAILY 200 Each 09/29/19 20 Active Easy Mini Eject Lancing Device USE DIRECTED. 1 Each 09/29/19 20 Active Accu-Chek Giana Control Soln Solution USE DIRECTED. 2 Each 09/29/19 20 Active Accu-Chek Giana Plus Meter USE DIRECTED. 1 Each 09/29/19 20 Active hydrOXYzine HCL (ATARAX) 50 mg tabletIndications :Generalized anxiety disorder Take 1 Tablet (50 mg) by mouth daily at bedtime. 30 Tablet 6 10/25/19 20 Active diclofenac sodium (VOLTAREN) 1 % gelIndications:Ch ronic pain of left knee APPLY 2-4 GRAMS TO AFFECTED AREA TOPICALLY 4 TIMES DAILY 100 Gram 2 12/31/19 20 Active LORazepam (ATIVAN) 0.5 mg tabletIndications :Generalized anxiety disorder Take 1 tablet by mouth twice daily as needed for anxiety 30 Tablet 03/22/20 20 Active traZODone (DESYREL) 150 mg tabletIndications :Primary insomnia TAKE 1 & 1/2 (ONE & ONE-HALF) TABLETS BY MOUTH AT BEDTIME 135 Tablet 3 04/26/20 20 Active metFORMIN (GLUCOPHAGE) 1,000 mg tabletIndications :Type 2 diabetes mellitus without complication, without long-term current use of insulin Take 1 Tablet (1,000 mg) by mouth daily with breakfast. 90 Tablet 3 04/26/20 20 Active metoprolol tartrate (LOPRESSOR) 50 mg tabletIndications :Essential hypertension Take 1 Tablet (50 mg) by mouth 2 times daily. 180 Tablet 3 04/26/20 20 Active amitriptyline (ELAVIL) 50 mg tabletIndications :Primary insomnia,Fibromya lgia Take 1 Tablet (50 mg) by mouth daily at bedtime. 90 Tablet 3 04/26/20 20 Active buPROPion HCL (WELLBUTRIN SR) 150 mg Sustained Release 12 hour tabletIndications :Severe depression (CMS/HCC) Take 2 tablets by mouth once daily 180 Tablet 3 04/26/20 20 Active levothyroxine 200 mcg tabletIndications :Hypothyroidism, unspecified type TAKE 1 TABLET BY MOUTH ONCE DAILY TAKE WITH 25MCG TAB TO EQUAL 225MCG DAILY 90 Tablet 9 04/26/20 20 Active milnacipran (Savella) 50 mg tablet Take 1 Tablet (50 mg) by mouth 2 times daily. 60 Tablet 2 05/09/19 21 Active semaglutide (Ozempic) 0.25 mg or 0.5 mg(2 mg/1.5 mL) Pen InjectorIndicatio ns:Morbid obesity with body mass index of 40.0-49.9,Type 2 diabetes mellitus without complication, without long-term current use of insulin INJECT 0.25 MG SUB-Q EVERY 7 DAYS 2 mL 5 05/09/19 21 Active DULoxetine (CYMBALTA) 30 mg Capsule, Delayed Release(E.C.)Massiel cations:Fibromyal nena TAKE 1 CAPSULE BY MOUTH EVERY DAY 90 Capsule 4 06/15/19 21 Active hydrALAZINE (APRESOLINE) 25 mg tabletIndications :Essential hypertension TAKE 1 TABLET BY MOUTH TWICE A DAY NEEDED FOR ELEVATED BLOOD PRESSURE 180 Tablet 3 06/15/19 21 Active topiramate (TOPAMAX) 200 mg tabletIndications :Increased appetite TAKE 1 TABLET BY MOUTH TWICE A DAY 180 Tablet 4 06/15/19 21 Active phentermine (ADIPEX P) 37.5 mg tabletIndications :Morbid obesity with body mass index of 40.0-49.9 Take 1 Tablet (37.5 mg) by mouth daily before breakfast. 30 Tablet 2 06/19/19 21 Active omeprazole magnesium (PriLOSEC OTC) 20 mg Tablet, Delayed Release (E.C.) Take 1 Tablet (20 mg) by mouth daily. 30 Tablet 6 07/04/19 21 Active spironolactone (ALDACTONE) 25 mg tabletIndications :Bilateral lower extremity edema TAKE 1 TO 2 TABLETS BY MOUTH DAILY NEEDED FOR SWELLING 60 Tablet 2 08/09/19 21 Active prochlorperazine maleate (COMPAZINE) 5 mg tabletIndications :Non-intractable vomiting with nausea, unspecified vomiting type TAKE 1 TABLET (5 MG) BY MOUTH EVERY 6 HOURS NEEDED FOR NAUSEA/EMESIS. 30 Tablet 08/18/19 21 Active rOPINIRole (Requip) 2 mg Tablet Take 1 Tablet (2 mg) by mouth daily at bedtime. 30 Tablet 3 08/23/19 21 Active HYDROcodone-aceta minophen (NORCO) 10-325 mg TabletIndications :Injury of right shoulder, subsequent encounter Take 1 Tablet by mouth every 6 hours as needed for Pain, Moderate. Max Daily Amount: 4 Tablets 30 Tablet 08/29/19 21 Active gabapentin (NEURONTIN) 300 mg capsule TAKE 1 CAPSULE BY MOUTH THREE TIMES A DAY 90 Capsule 2 09/09/19 21 Active traMADoL (ULTRAM) 50 mg tabletIndications :Chronic pain of left knee Take 1 Tablet (50 mg) by mouth every 6 hours as needed for Pain. 120 Tablet 09/09/19 21 Active tiZANidine (ZANAFLEX) 4 mg TabletIndications :Strain of muscle, fascia and tendon of lower back, sequela TAKE 1 TABLET BY MOUTH 3 TIMES DAILY NEEDED FOR SPASM. 90 Tablet 1 10/31/19 21 Active Active Problems Problem Noted Date Diagnosed Date Restless leg syndrome 09/10/2020 Obstructive sleep apnea 06/22/2020 Gastroesophageal reflux disease without esophagi tis 09/28/2018 Type 2 diabetes mellitus wit hout complication, without long-term current use of insulin 09/28/2018 Vitamin D insufficiency 05/21/2018 Fibromyalgia 01/20/2018 Primary insomnia 12/17/2017 Left leg paresthesias 12/17/2017 Chronic pain of left knee 12/17/2017 Morbid obesity with body mass index of 40.0-49.9 12/17/2017 History of stroke with residual effects 12/18/19 Essential hypertension 08/12/2011 Acquired hypothyroidism 08/12/2011 Hemorrhage of rectum and anus 02/23/2009 Resolved Problems Problem Noted Date Diagnosed Date Resolved Date Strain of muscle, fascia and tendon of lower back, sequela 06/29/2019 06/22/2020 Hypertensive emergency 12/17/201706/22 Arm paresthesia, left 12/17/20172020 Abdominal pain, epigastric 02/23/2009 0 06/22/2020 Immunizations Immunization Administration Dates Next Due (TDVAX)(7 YRS UP) TETANUS AN D DIPHTHERIA TOXOIDS, ADSORBED (2 LF OF TETANUS TOXOID AND 2 LF OF DIPHTHERIA TOXOID), 0.5ML (PF), IM 04/26/2002 INFLUENZA VACCINE QUADRIVALENT 6 MOS UP IM 03/01 INFLUENZA VACCINE QUADRIVALENT 6 MOS UP PF IM Influenza Vaccine Quad Split 3+ Yrs Im 8 Family History Medical History Relation Name Comments Breast Cancer Sister Relation Name Status Comments Father Mother Sister Alive Social History Tobacco Use Types Packs/Day Years Used Date Smoking Tobacco: Never Smokeless Tobacco: Never Tobacco Cessation:Counseling Given: Yes Alcohol Use Standard Drinks/Week Comments No 0 (1 standard drink = 0.6 oz pur e alcohol) Comments No Sex and Gender Information Value Date Recorded Sex Assigned at Not on file Legal Sex Female 2:49 AM STRUCTURAL STEEL TRADES WORKER Gender Identity Not on file Sexual Orientation Not on file Last Filed Vital Signs Vital Sign Reading Time Taken Comments Blood Pressure 162/90 08/28/2020 4:03 PM CDT Pulse 80 08/28/2020 4:03 PM CDT Temperature 36.4 C (97.5 F) 08/28/2020 4:03 PM CDT Respiratory Rate 22 08/28/2020 4:03 PM CDT Oxygen Saturation 97% 08/28/2020 4:03 PM CDT Inhaled Oxygen Concentration - - Weight 130.6 kg (288 lb) 08/28/2020 4:03 PM CDT Height 172.7 cm (5' 8 ) 08/28/2020 4:03 PM CDT Body Mass Index 43.79 08/28/2020 4:03 PM CDT Plan of Treatment Health Maintenance Due Date Last Done Comments DIABETES ANNUAL FOOT EXAM 1976 PNEUMOCOCCAL VACCINE 50+ YEA RS (1 of 2 - PCV) 1977 DTAP/TDAP/TD VACCINES (1 - Tdap) 04/27/2002 04/26/20 02 FIT-DNA Q 3 years 08/26/2003 FIT/FOBT Q 1 year 08/26/2003 10/30/1999, 03/23/1999 Flex Sig/CT Colonography Q 5 years 02/06/20051999 ZOSTER VACCINE (1 of 2) 2008 RSV VACCINE (60+ or ) (1 - Risk 60-74 years 1-dose series) 2018 DIABETES HBA1C Q 6 MONTHS 09/10/20202019, 10/25/2019, 08/07/2018, Additional history exists DIABETES MICROALBUMIN ANNUAL SCREEN 03/13/2021 03/13/2020, 12/22/2018, 05/21/2017, Additional history exists LDL CHOLESTEROL ANNUAL 03/13/2021 0, 10/25/2019, 05/03/2019, Additional history exists BREAST CANCER SCREENING 03/15/2023 03/15/20 22, 02/16/2019, 08/15/2017 OSTEOPOROSIS SCREENING 08/26/2023 Preventative Visit- Commercial 05/05/2024 09/07/2001 , 03/23/1999 DIABETES ANNUAL RETINAL EXAM 08/26/2024, 11/30/2021, 03/22/2021, Additional history exists INFLUENZA VACCINE (#1) 2024 0, 03/01/2019, 01/20/2018, Additional history exists COLORECTAL SCREENING 10/20/2033 10/21/2023, 02/17/2020, 02/23/2009, Additional history exists Colorectal Cancer Screening 10/20/2033 Procedures Procedure Name Priority Date/Time Associated Diagnosis Comments DIABETES EYE EXAM Routine 10/12/2020 MICROALBUMIN/CREATIN INE RATIO, RANDOM UR Routine 03/13/2020 1:30 PM STRUCTURAL STEEL TRADES WORKER Type 2 diabetes mellitus without complication, without long-term current use of insulin ([facility]) LIPID PANEL Routine 03/13/2020 1:30 PM STRUCTURAL STEEL TRADES WORKER Type 2 diabetes mellitus without complication, without long-term current use of insulin ([facility]) HEMOGLOBIN A1C Routine 03/13/2020 1:30 PM STRUCTURAL STEEL TRADES WORKER Type 2 diabetes mellitus without complication, without long-term current use of insulin ([facility]) ENDOSCOPY, COLON, DIAGNOSTIC Routine 02/17/2020 Diverticulitis Bloody stool MAMMO SCREEN BILAT W OR WO CAD Routine 02/16/2019 Visit for screening mammogram from Last 3 Months or Most Recently Relevant to Health Maintenance Results * DIABETES EYE EXAM (10/12/2020) us Abstract Spg Provider HEALTH MAINTENANCE Final R esult * (ABNORMAL) MICROALBUMIN/CREATININE RATIO, RANDOM UR (03/13/2020 1:30 PM STRUCTURAL STEEL TRADES WORKER) MICROALBUMIN, URINE 2.3 No Reference Range mg/dL 03/13/2020 9:49 PM STRUCTURAL STEEL TRADES WORKER [facility] [facility] CREATININE, URINE 320.3(H) 29.0 - 226.0 mg/dL 03/13/2020 9:49 PM STRUCTURAL STEEL TRADES WORKER [facility] [facility] Comment:Reference Range vari es with fluid intake and diet. MICROALBUMIN/ CREAT RATIO, UR 7.2 <25.0 mg/g 03/13/2020 9:49 PM STRUCTURAL STEEL TRADES WORKER [facility] Urine URINE SPECIMEN OBTAINED BY CLEAN CATCH PROCEDURE / Unknown Collection / Unknown 03/13/2020 1:30 PM STRUCTURAL STEEL TRADES WORKER 03/13/2020 8:16 PM STRUCTURAL STEEL TRADES WORKER Narrative [facility] [facility] - 03/13/2020 9:49 PM STRUCTURAL STEEL TRADES WORKER Condition Microalbumin/Creat ratio Normal Males <17 Normal Females <25 Microalbuminuria Males 17-299 Microalbuminuria Females 25-299 Overt proteinuria >=[address] [facility] URINE ORDERABLES Final R esult Performing Organization Address City/[facility]/ZIP Co de Phone Number [facility] CL[facility] [id number] [facility] [place] [address] * (ABNORMAL) HEMOGLOBIN A1C (03/13/2020 1:30 PM STRUCTURAL STEEL TRADES WORKER) HEMOGLOBIN A1C 5.7(H) See Comment % 03/13/2020 8:43 PM STRUCTURAL STEEL TRADES WORKER [facility] [facility] EST. AVG GLUCOSE, A1C 117 mg/dL 03/13/2020 8:43 PM [facility] Blood Venipuncture / Unknown 03/13/2020 1:30 PM STRUCTURAL STEEL TRADES WORKER 03/13/2020 8:18 PM STRUCTURAL STEEL TRADES WORKER Ghazal [facility] [facility] - 03/13/2020 8:43 PM STRUCTURAL STEEL TRADES WORKER HGB A1C INTERPRETATION NORMAL: <5.7% PRE-DIABETES: 5.7 - 6.4% DIABETES: 6.5% OR GREATER Falsely low A1C measurements can occur when: 1. Anemia and/or hemolytic anemia is present. 2. Hemoglobin variants present. 3. Renal failure. 4. Transfusion of blood product in the last 120 days. We recommend ordering a fructosamine test([id number]) to more accurately assess glycemic status if any of the above conditions are present. Dori Cardoza [facility] CHEMISTRY ORDERABLES Fin al Result [facility] CLIA# [id number] [place] [address] * (ABNORMAL) LIPID PANEL (03/13/2020 1:30 PM STRUCTURAL STEEL TRADES WORKER) CHOLESTEROL 217(H) <200 mg/dL 03/13/2020 9:23 PM [facility] TRIGLYCERIDE 190(H) <150 mg/dL 03/13/2020 9:23 PM [facility] [facility] HDL 55 40 - 59 mg/dL 03/13/2020 9:23 PM [facility] [facility] LDL CALCULATED 124(H) <100 mg/dL 03/13/2020 9:23 PM [facility] [facility] NON-HDL CHOLESTEROL 162(H) <130 mg/dL 03/13/2020 9:23 PM [facility] [facility] Blood Venipuncture / Unknown 03/13/2020 1:30 PM STRUCTURAL STEEL TRADES WORKER 03/13/2020 8:18 PM STRUCTURAL STEEL TRADES WORKER Narrative [facility] - 03/13/2020 9:23 PM STRUCTURAL STEEL TRADES WORKER TOTAL CHOLESTEROL mg/dL Desirable <200 Borderline high 200-239 High >=240 TRIGLYCERIDES mg/dL Normal <150 Borderline high 150-199 High 200-499 Very high >=500 HDL CHOLESTEROL mg/dL Low <40 Normal 40-59 Desirable >=60 NON HDL CHOLESTEROL mg/dL Optimal <130 Near Optimal 130-159 Borderline High 160-189 Very High >=190 CALCULATED LDL mg/dL LDL <70, OPTIMAL if have Atherosclerotic cardiovascular disease (ASCVD) or intermediate or higher (>7.5%) 10 year risk of ASCVD including most adults with diabetes. LDL <100, Optimal in adult patients with low (<7.5%) 10 year ASCVD risk LDL 100-160, Suboptimal LDL >160, High LDL >190, Very high ATPIII Guidelines Reference Ranges for Lipid Panels (NCEP/AMA) . Dori Cardoza [facility] CHEMISTRY ORDERABLES Fin al Result [facility] [facility] CLIA# [id number] [place] [address] * ENDOSCOPY, COLON, DIAGNOSTIC (02/17/2020) us Ruby Boyd DIRECTOR MEDICARE SALES GI PROCEDURE ORDERABLES Final Result * MAMMO SCREEN BILAT W OR WO CAD (02/16/2019) Anatomical Region Laterality Modality Breast Bilateral Mammography us Tracee Rivas DO MAMMO ORDERABLES Final Resu lt from Last 3 Months or Most Recently Relevant to Health Maintenance Insurance [employer] Advance Directives For more information, please contact: [phone] * Full Code (Latest Code Status on File) Date Activated Date Inactivated Comments 02/23/2009 11:07 AM 02/24/2009 2:01 AM * Full Code Date Activated Date Inactivated Comments 02/23/2009 10:05 AM 02/23/2009 11:07 AM Care Teams Acid Patroller Relationship Specialty Start Date End Date Tracee Rivas DO [address] [place] [address] PCP - General Family Practice 12/17/17
--- OUTSIDE RECORDS SUMMARY | 2025-02-08 20:22 | XMS_ITS | Encounter Summary ---
Author Organization [facility] Address [address] [place] [address] Care Team Providers Care Tank Crewmember Name Role Phone Tracee Rivas DO Primary Care Provider [phone]- [phone] Encounter Details Date Type Department Care Team (Latest Contact Info) Description 11/02/1999 Outpatient Historical [facility] Fredi Hodge NO ADDRESS ON FILE Dyspepsia and other specified disorders of function of stomach (Primary Dx) Social History Tobacco Use Types Packs/Day Years Used Date Smoking Tobacco: Never Assessed Comments Unknown Sex and Gender Information Value Date Recorded Sex Assigned at Not on file Legal Sex Female 2:49 AM WILDLIFE BIOSTATION RESEARCH ECOLOGIST Gender Identity Not on file Sexual Orientation [...] diff 03/14/2020 03/14/2020 03/15/2020 10:1 1 AM WILDLIFE BIOSTATION RESEARCH ECOLOGIST documented as of this encounter Care Teams Tank Crewmember Relationship Specialty Start Date End Date Tracee Rivas DO [address] [place] [address] PCP - General Family Practice 12/17/17 documented as of this encounter
--- OUTSIDE RECORDS SUMMARY | 2025-02-08 20:22 | XMS_ITS | Encounter Summary ---
Author Organization [facility] Address [address] [place] [address] Care Team Providers Care Dog Hair Clipper Name Role Phone Tracee Rivas DO Primary Care Provider +1- [phone] Encounter Details Date Type Department Care Team (Latest Contact Info) Description 01/26/2003 Outpatient Historical [facility] GENERAL SURGERY EliJasper MD [address] [facility] [address] [place] [address] ABN FIND-STOOL CONTENTS-OCC BLOOD (Primary Dx); ABDOMINAL PAIN EPIGASTRIC; PERS HX DIGEST SYSTEM DIS OTHR SPEC Social History Tobacco Use Types Packs/Day Years Used Date Smoking Tobacco: Never Assessed Comments Unknown Sex and Gender Information Value Date Recorded Sex Assigned at Not on file Legal Sex Female 2:49 AM SUNGLASS CLIP ATTACHER Gender Identity Not on file Sexual Orientation Not on file documented as of this encounter Plan of Treatment Not on file documented as of this encounter Visit Diagnoses Diagnosis Nonspecific abnormal finding in stool contents- Primary Abdominal pain, epigastric Personal history of other diseases of digestive system documented in this encounter Additional Health Concerns Infection Onset Date Last Indicated Resolved Time R/O COVID-19 12/30/2019 12/30/2019 01/01/2020 2:00 AM CDT R/O C. diff 03/14/2020 03/14/2020 03/15/2020 10:1 1 AM SUNGLASS CLIP ATTACHER documented as of this encounter Care Teams Dog Hair Clipper Relationship Specialty Start Date End Date Tracee Rivas DO [address] [place] [phone] PCP - General Family Practice 12/17/17 documented as of this encounter
--- OUTSIDE RECORDS SUMMARY | 2025-02-08 20:23 | XMS_ITS | Encounter Summary ---
Author Organization [facility] Address [address] [place] [address] Care Team Providers Care Undercutter Operator Name Role Phone Tracee Rivas DO Primary Care Provider +1- [phone] Encounter Details Date Type Department Care Team (Latest Contact Info) Description 09/01/2002 Outpatient Historical [facility] Onel Martinez Jr., MD [address] [place] [address] MYALGIA AND MYOSITIS NOS (Primary Dx); SPASM OF MUSCLE Social History Tobacco Use Types Packs/Day Years Used Date Smoking Tobacco: Never Assessed Comments Unknown Sex and Gender Information Value Date Recorded Sex Assigned at Not on file Legal Sex Female 2:49 AM UNIVERSITY INTERN Gender Identity Not on file Sexual Orientation Not on file documented as of this encounter Plan of Treatment Not on file documented as of this encounter Visit Diagnoses Diagnosis Myalgia and myositis, unspecified- Primary Mylagia and myositis, unspecified Spasm of muscle documented in this encounter Additional Health Concerns Infection Onset Date Last Indicated Resolved Time R/O COVID-19 12/30/2019 12/30/2019 01/01/2020 2:00 AM CDT R/O C. diff 03/14/2020 03/14/2020 03/15/2020 10:1 1 AM UNIVERSITY INTERN documented as of this encounter Care Teams Undercutter Operator Relationship Specialty Start Date End Date Tracee Rivas DO [address] [place] [address] PCP - General Family Practice 12/17/17 documented as of this encounter
--- OUTSIDE RECORDS SUMMARY | 2025-02-08 20:23 | XMS_ITS | Encounter Summary ---
Author Organization [facility] Address [address] [place] [address] Care Team Providers Care Molding Utility Worker Name Role Phone Tracee Rivas DO Primary Care Provider +1- [phone] Encounter Details Date Type Department Care Team (Latest Contact Info) Description 11/24/2001 Outpatient Historical [facility] Head and Neck Surgery[address] [place] [address] Titi Gtz MD [address] [address] CONDUCT HEARING LOSS NOS (Primary Dx); PERFORAT TYMPAN MEMB NOS Social History Tobacco Use Types Packs/Day Years Used Date Smoking Tobacco: Never Assessed Comments Unknown Sex and Gender Information Value Date Recorded Sex Assigned at Not on file Legal Sex Female 2:49 AM MYCOLOGIST Gender Identity Not on file Sexual Orientation Not on file documented as of this encounter Plan of Treatment Not on file documented as of this encounter Visit Diagnoses Diagnosis Unspecified conductive hearing loss- Primary Perforation of tympanic membrane, unspecified documented in this encounter Additional Health Concerns Infection Onset Date Last Indicated Resolved Time R/O COVID-19 12/30/2019 12/30/2019 01/01/2020 2:00 AM CDT R/O C. diff 03/14/2020 03/14/2020 03/15/2020 10:1 1 AM MYCOLOGIST documented as of this encounter Care Teams Molding Utility Worker Relationship Specialty Start Date End Date Tracee Rivas DO [address] [place] [address] PCP - General Family Practice 12/17/17 documented as of this encounter
--- OUTSIDE RECORDS SUMMARY | 2025-02-08 20:23 | XMS_ITS | Encounter Summary ---
Author Organization [facility] Address [address] [place] [address] Care Team Providers Care Electrician Outside Name Role Phone Tracee Rivas DO Primary Care Provider +1- [phone] Encounter Details Date Type Department Care Team (Latest Contact Info) Description 05/17/2002 Outpatient Historical [facility] Onel Martinez Jr., MD [address] [place] [address] LUMBAGO (Primary Dx) Social History Tobacco Use Types Packs/Day Years Used Date Smoking Tobacco: Never Assessed Comments Unknown Sex and Gender Information Value Date Recorded Sex Assigned at Not on file Legal Sex Female 2:49 AM LEATHER BELT LOOP CUTTER Gender Identity Not on file Sexual Orientation Not on file documented as of this encounter Plan of Treatment Not on file documented as of this encounter Visit Diagnoses Diagnosis Lumbago- Primary documented in this encounter Additional Health Concerns Infection Onset Date Last Indicated Resolved Time R/O COVID-19 12/30/2019 12/30/2019 01/01/2020 2:00 AM CDT R/O C. diff 03/14/2020 03/14/2020 03/15/2020 10:1 1 AM LEATHER BELT LOOP CUTTER documented as of this encounter Care Teams Electrician Outside Relationship Specialty Start Date End Date Tracee Rivas DO [address] [place] [address] PCP - General Family Practice 12/17/17 documented as of this encounter
--- OUTSIDE RECORDS SUMMARY | 2025-02-08 20:23 | XMS_ITS | Encounter Summary ---
Author Organization [facility] Address [address] [place] [address] Care Team Providers Care Merchandise Planner Name Role Phone Tracee Rivas DO Primary Care Provider +1- [phone] Encounter Details Date Type Department Care Team (Late st Contact Info) Description 12/15/2002 Outpatient Historical [facility] Social History Tobacco Use Types Packs/Day Years Used Date Smoking Tobacco: Never Assessed Comments Unknown Sex and Gender Information Value Date Recorded Sex Assigned at Not on file Legal Sex Female 2:49 AM SENIOR PORTFOLIO ANALYST Gender Identity Not on file Sexual Orientation Not on file documented as of this encounter Plan of Treatment Not on file documented as of this encounter Visit Diagnoses Not on filedocumented in this encounter Additional Health Concerns Infection Onset Date Last Indicated Resolved Time R/O COVID-19 12/30/2019 12/30/2019 01/01/2020 2:00 AM CDT R/O C. diff 03/14/2020 03/14/2020 03/15/2020 10:1 1 AM SENIOR PORTFOLIO ANALYST documented as of this encounter Care Teams Merchandise Planner Relationship Specialty Start Date End Date Tracee Rivas DO [address] [place] [address] PCP - General Family Practice 12/17/17 documented as of this encounter
--- OUTSIDE RECORDS SUMMARY | 2025-02-08 20:23 | XMS_ITS | Encounter Summary ---
Author Organization [facility] Address [address] [place] [address] Care Team Providers Care Fashion Intern Name Role Phone Tracee Rivas DO Primary Care Provider +1- [phone] Encounter Details Date Type Department Care Team (Latest Contact Info) Description 04/26/2002 Outpatient Historical [facility] Onel Martinez Jr., MD [address] [place] [address] MYALGIA AND MYOSITIS NOS (Primary Dx); ANEMIA NOS; INSOMNIA NEC; ROSACEA; VACCINE FOR TETANUS + DIPHTHERIA Social History Tobacco Use Types Packs/Day Years Used Date Smoking Tobacco: Never Assessed Comments Unknown Sex and Gender Information Value Date Recorded Sex Assigned at Not on file Legal Sex Female 2:49 AM RN PROCEDURES Gender Identity Not on file Sexual Orientation Not on file documented as of this encounter Plan of Treatment Not on file documented as of this encounter Visit Diagnoses Diagnosis Myalgia and myositis, unspecified- Primary Mylagia and myositis, unspecified Anemia, unspecified Insomnia, unspecified Rosacea Need for prophylactic vaccination with tetanus-diphtheria (Td) documented in this encounter Additional Health Concerns Infection Onset Date Last Indicated Resolved Time R/O COVID-19 12/30/2019 12/30/2019 01/01/2020 2:00 AM CDT R/O C. diff 03/14/2020 03/14/2020 03/15/2020 10:1 1 AM RN PROCEDURES documented as of this encounter Care Teams Fashion Intern Relationship Specialty Start Date End Date Tracee Rivas DO [address] [place] [address] PCP - General Family Practice 12/17/17 documented as of this encounter
--- OUTSIDE RECORDS SUMMARY | 2025-02-08 20:23 | XMS_ITS | Encounter Summary ---
Author Organization [facility] Address [address] [place] [address] Care Team Providers Care Can Striper Name Role Phone Tracee Rivas DO Primary Care Provider +1- [phone] Encounter Details Date Type Department Care Team (Latest Contact Info) Description 12/21/2001 Outpatient Historical [facility] Ear, Nose and Throat [address] [place] [address] Titi Gtz MD [address] [address] CONDUCT HEARING LOSS NOS (Primary Dx) Social History Tobacco Use Types Packs/Day Years Used Date Smoking Tobacco: Never Assessed Comments Unknown Sex and Gender Information Value Date Recorded Sex Assigned at Not on file Legal Sex Female 2:49 AM DATA ANALYST Gender Identity Not on file Sexual Orientation Not on file documented as of this encounter Plan of Treatment Not on file documented as of this encounter Visit Diagnoses Diagnosis Unspecified conductive hearing loss- Primary documented in this encounter Additional Health Concerns Infection Onset Date Last Indicated Resolved Time R/O COVID-19 12/30/2019 12/30/2019 01/01/2020 2:00 AM CDT R/O C. diff 03/14/2020 03/14/2020 03/15/2020 10:1 1 AM DATA ANALYST documented as of this encounter Care Teams Can Striper Relationship Specialty Start Date End Date Tracee Rivas DO [address] [place] [phone] PCP - General Family Practice 12/17/17 documented as of this encounter
--- OUTSIDE RECORDS SUMMARY | 2025-02-08 20:23 | XMS_ITS | Encounter Summary ---
Author Organization [facility] Address [address] [place] [address] Care Team Providers Care Plumber Pipe Fitting Name Role Phone Tracee Rivas DO Primary Care Provider +1- [phone] Encounter Details Date Type Department Care Team (Latest Contact Info) Description 12/28/[address] [facility] GENERAL SURGERY EliJasper MD [address] [facility] [address] [place] [address] ESOPHAGEAL REFLUX (Primary Dx) Social History Tobacco Use Types Packs/Day Years Used Date Smoking Tobacco: Never Assessed Comments Unknown Sex and Gender Information Value Date Recorded Sex Assigned at Not on file Legal Sex Female 2:49 AM TISSUE REWINDER Gender Identity Not on file Sexual Orientation Not on file documented as of this encounter Plan of Treatment Not on file documented as of this encounter Visit Diagnoses Diagnosis Esophageal reflux- Primary documented in this encounter Additional Health Concerns Infection Onset Date Last Indicated Resolved Time R/O COVID-19 12/30/2019 12/30/2019 01/01/2020 2:00 AM CDT R/O C. diff 03/14/2020 03/14/2020 03/15/2020 10:1 1 AM TISSUE REWINDER documented as of this encounter Care Teams Plumber Pipe Fitting Relationship Specialty Start Date End Date Tracee Rivas DO [address] [place] [address] PCP - General Family Practice 12/17/17 documented as of this encounter
--- OUTSIDE RECORDS SUMMARY | 2025-02-08 20:23 | XMS_ITS | Encounter Summary ---
Author Organization [facility] Address [address] [place] [address] Care Team Providers Care Requirements Manager Name Role Phone Tracee Rivas DO Primary Care Provider +1- [phone] Encounter Details Date Type Department Care Team (Latest Contact Info) Description 11/12/2001 Outpatient Historical [facility] Onel Martinez Jr., MD [address] [place] [address] MYALGIA AND MYOSITIS NOS (Primary Dx); INSOMNIA NEC Social History Tobacco Use Types Packs/Day Years Used Date Smoking Tobacco: Never Assessed Comments Unknown Sex and Gender Information Value Date Recorded Sex Assigned at Not on file Legal Sex Female 2:49 AM INDUSTRIAL ECONOMICS TEACHER Gender Identity Not on file Sexual Orientation Not on file documented as of this encounter Plan of Treatment Not on file documented as of this encounter Visit Diagnoses Diagnosis Myalgia and myositis, unspecified- Primary Mylagia and myositis, unspecified Insomnia, unspecified documented in this encounter Additional Health Concerns Infection Onset Date Last Indicated Resolved Time R/O COVID-19 12/30/2019 12/30/2019 01/01/2020 2:00 AM CDT R/O C. diff 03/14/2020 03/14/2020 03/15/2020 10:1 1 AM INDUSTRIAL ECONOMICS TEACHER documented as of this encounter Care Teams Requirements Manager Relationship Specialty Start Date End Date Tracee Rivas DO [address] [place] [address] PCP - General Family Practice 12/17/17 documented as of this encounter
--- OUTSIDE RECORDS SUMMARY | 2025-02-08 20:23 | XMS_ITS | Encounter Summary ---
Author Organization [facility] Address [address] [place] [address] Care Team Providers Care Collar Setter Overlock Name Role Phone Tracee Rivas DO Primary Care Provider +1- [phone] Encounter Details Date Type Department Care Team (Late st Contact Info) Description 10/28/2001 Outpatient Historical [facility] Ear, Nose and Throat [address] [place] [address] Social History Tobacco Use Types Packs/Day Years Used Date Smoking Tobacco: Never Assessed Comments Unknown Sex and Gender Information Value Date Recorded Sex Assigned at Not on file Legal Sex Female 2:49 AM NUCLEAR ENGINEERING TECHNICIAN Gender Identity Not on file Sexual Orientation Not on file documented as of this encounter Plan of Treatment Not on file documented as of this encounter Visit Diagnoses Not on filedocumented in this encounter Additional Health Concerns Infection Onset Date Last Indicated Resolved Time R/O COVID-19 12/30/2019 12/30/2019 01/01/2020 2:00 AM CDT R/O C. diff 03/14/2020 03/14/2020 03/15/2020 10:1 1 AM NUCLEAR ENGINEERING TECHNICIAN documented as of this encounter Care Teams Collar Setter Overlock Relationship Specialty Start Date End Date Tracee Rivas DO [address] [place] [address] PCP - General Family Practice 12/17/17 documented as of this encounter
--- OUTSIDE RECORDS SUMMARY | 2025-02-08 20:23 | XMS_ITS | Encounter Summary ---
Author Organization [facility] Address [address] [place] [address] Care Team Providers Care Blending Kettle Tender Name Role Phone Tracee Rivas DO Primary Care Provider +1 [phone] Encounter Details Date Type Department Care Team (Latest Contact Info) Description 08/05/2002 Outpatient Historical [facility] Onel Martinez Jr., MD [address] [place] [address] [facility] SYMPT LIMB NEC (Primary Dx); HYPOTHYROIDISM NOS; HYPERTENSION NOS; OBESITY NOS Social History Tobacco Use Types Packs/Day Years Used Date Smoking Tobacco: Never Assessed Comments Unknown Sex and Gender Information Value Date Recorded Sex Assigned at Not on file Legal Sex Female 2:49 AM HOLE FILLER Gender Identity Not on file Sexual Orientation Not on file documented as of this encounter Plan of Treatment Not on file documented as of this encounter Visit Diagnoses Diagnosis Other musculoskeletal symptoms referable to limbs(729.89)- Primary Other musculoskeletal symptoms referable to limbs Unspecified hypothyroidism Unspecified essential hypertension Obesity, unspecified documented in this encounter Additional Health Concerns Infection Onset Date Last Indicated Resolved Time R/O COVID-19 12/30/2019 12/30/2019 01/01/2020 2:00 AM CDT R/O C. diff 03/14/2020 03/14/2020 03/15/2020 10:1 1 AM HOLE FILLER documented as of this encounter Care Teams Blending Kettle Tender Relationship Specialty Start Date End Date Tracee Rivas DO [address] [place] [address] PCP - General Family Practice 12/17/17 documented as of this encounter
--- OUTSIDE RECORDS SUMMARY | 2025-02-08 20:23 | XMS_ITS | Encounter Summary ---
Author Organization [facility] Address [address] [place] [address] Care Team Providers Care Brim Curler Name Role Phone Tracee Rivas DO Primary Care Provider +1- [phone] Encounter Details Date Type Department Care Team (Latest Contact Info) Description 10/28/2001 Outpatient Historical [facility] Ear, Nose and Throat [address] [place] [address] Titi Gtz MD [address] [address] CONDUCT HEARING LOSS NOS (Primary Dx) Social History Tobacco Use Types Packs/Day Years Used Date Smoking Tobacco: Never Assessed Comments Unknown Sex and Gender Information Value Date Recorded Sex Assigned at Not on file Legal Sex Female 2:49 AM PHOTOGRAPHER SCIENTIFIC Gender Identity Not on file Sexual Orientation [...] diff 03/14/2020 03/14/2020 03/15/2020 10:1 1 AM PHOTOGRAPHER SCIENTIFIC documented as of this encounter Care Teams Brim Curler Relationship Specialty Start Date End Date Tracee Rivas DO [address] [place] [phone] PCP - General Family Practice 12/17/17 documented as of this encounter
--- OUTSIDE RECORDS SUMMARY | 2025-02-08 20:23 | XMS_ITS | Encounter Summary ---
Author Organization [facility] Address [address] [place] [address] Care Team Providers Care Club Former Name Role Phone Tracee Rivas DO Primary Care Provider +1- [phone] Encounter Details Date Type Department Care Team (Latest Contact Info) Description 11/02/2002 Outpatient Historical [facility] Thomas Mejia MD NO ADDRESS ON FILE LUMB/LUMBOSAC DISC DEGEN (Primary Dx) Social History Tobacco Use Types Packs/Day Years Used Date Smoking Tobacco: Never Assessed Comments Unknown Sex and Gender Information Value Date Recorded Sex Assigned at Not on file Legal Sex Female 2:49 AM BEEF SELECTOR Gender Identity Not on file Sexual Orientation [...] diff 03/14/2020 03/14/2020 03/15/2020 10:1 1 AM BEEF SELECTOR documented as of this encounter Care Teams Club Former Relationship Specialty Start Date End Date Tracee Rivas DO [address] [place] [address] PCP - General Family Practice 12/17/17 documented as of this encounter
--- OUTSIDE RECORDS SUMMARY | 2025-02-08 20:23 | XMS_ITS | Encounter Summary ---
Author Organization [facility] Address [address] [place] [address] Care Team Providers Care Demand Inspector Name Role Phone Tracee Rivas DO Primary Care Provider +1- [phone] Encounter Details Date Type Department Care Team (Late st Contact Info) Description 10/01/2002 Outpatient Historical [facility] Onel Martinez Jr., MD [address] [place] [address] Social History Tobacco Use Types Packs/Day Years Used Date Smoking Tobacco: Never Assessed Comments Unknown Sex and Gender Information Value Date Recorded Sex Assigned at Not on file Legal Sex Female 2:49 AM FISH FROG OR OYSTER FARMER Gender Identity Not on file Sexual Orientation Not on file documented as of this encounter Plan of Treatment Not on file documented as of this encounter Visit Diagnoses Not on filedocumented in this encounter Additional Health Concerns Infection Onset Date Last Indicated Resolved Time R/O COVID-19 12/30/2019 12/30/2019 01/01/2020 2:00 AM CDT R/O C. diff 03/14/2020 03/14/2020 03/15/2020 10:1 1 AM FISH FROG OR OYSTER FARMER documented as of this encounter Care Teams Demand Inspector Relationship Specialty Start Date End Date Tracee Rivas DO [address] [place] [address] PCP - General Family Practice 12/17/17 documented as of this encounter
--- OUTSIDE RECORDS SUMMARY | 2025-02-08 20:23 | XMS_ITS | Encounter Summary ---
Author Organization [facility] Address [address] [place] [address] Care Team Providers Care Vinyl Installer Name Role Phone Tracee Rivas DO Primary Care Provider +1- [phone] Encounter Details Date Type Department Care Team (Latest Contact Info) Description 04/12/2002 Outpatient Historical [facility] Onel Martinez Jr., MD [address] [place] [address] MYALGIA AND MYOSITIS NOS (Primary Dx); OSTEOARTHROS NOS-UNSPEC; DEPRESSIVE DISORDER NEC Social History Tobacco Use Types Packs/Day Years Used Date Smoking Tobacco: Never Assessed Comments Unknown Sex and Gender Information Value Date Recorded Sex Assigned at Not on file Legal Sex Female 2:49 AM BELT BUILDER HELPER Gender Identity Not on file Sexual Orientation Not on file documented as of this encounter Plan of Treatment Not on file documented as of this encounter Visit Diagnoses Diagnosis Myalgia and myositis, unspecified- Primary Mylagia and myositis, unspecified Osteoarthrosis, unspecified whether generalized or localized, unspecified site Depressive disorder, not elsewhere classified documented in this encounter Additional Health Concerns Infection Onset Date Last Indicated Resolved Time R/O COVID-19 12/30/2019 12/30/2019 01/01/2020 2:00 AM CDT R/O C. diff 03/14/2020 03/14/2020 03/15/2020 10:1 1 AM BELT BUILDER HELPER documented as of this encounter Care Teams Vinyl Installer Relationship Specialty Start Date End Date Tracee Rivas DO [address] [place] [address] PCP - General Family Practice 12/17/17 documented as of this encounter
--- OUTSIDE RECORDS SUMMARY | 2025-02-08 20:23 | XMS_ITS | Encounter Summary ---
Author Organization [facility] Address [address] [place] [address] Care Team Providers Care Ostrich Farm Worker Name Role Phone Tracee Rivas DO Primary Care Provider +1- [phone] Encounter Details Date Type Department Care Team (Late st Contact Info) Description 10/13/2002 Outpatient Historical [facility] Onel Martinez Jr., MD [address] [place] [address] Social History Tobacco Use Types Packs/Day Years Used Date Smoking Tobacco: Never Assessed Comments Unknown Sex and Gender Information Value Date Recorded Sex Assigned at Not on file Legal Sex Female 2:49 AM COSMETIC SALES ASSISTANT Gender Identity Not on file Sexual Orientation Not on file documented as of this encounter Plan of Treatment Not on file documented as of this encounter Visit Diagnoses Not on filedocumented in this encounter Additional Health Concerns Infection Onset Date Last Indicated Resolved Time R/O COVID-19 12/30/2019 12/30/2019 01/01/2020 2:00 AM CDT R/O C. diff 03/14/2020 03/14/2020 03/15/2020 10:1 1 AM COSMETIC SALES ASSISTANT documented as of this encounter Care Teams Ostrich Farm Worker Relationship Specialty Start Date End Date Tracee Rivas DO [address] [place] [address] PCP - General Family Practice 12/17/17 documented as of this encounter
--- OUTSIDE RECORDS SUMMARY | 2025-02-08 20:23 | XMS_ITS | Encounter Summary ---
Author Organization [facility] Address [address] [place] [address] Care Team Providers Care Patient Assessment Coordinator Name Role Phone Tracee Rivas DO Primary Care Provider [phone]- [phone] Encounter Details Date Type Department Care Team (Latest Contact Info) Description 02/12/2002 Outpatient Historical [facility] Onel [place] Jr., [place] [address] [place] [address] ESOPHAGEAL REFLUX (Primary Dx); SPRAIN OF ANKLE NOS; MYALGIA AND MYOSITIS NOS; DEPRESSIVE DISORDER NEC Social History Tobacco Use Types Packs/Day Years Used Date Smoking Tobacco: Never Assessed Comments Unknown Sex and Gender Information Value Date Recorded Sex Assigned at Not on file Legal Sex Female 2:49 AM HEALTH CONCIERGE Gender Identity Not on file Sexual Orientation Not on file documented as of this encounter Plan of Treatment Not on file documented as of this encounter Visit Diagnoses Diagnosis Esophageal reflux- Primary Sprain of ankle, unspecified site Myalgia and myositis, unspecified Mylagia and myositis, unspecified Depressive disorder, not elsewhere classified documented in this encounter Additional Health Concerns Infection Onset Date Last Indicated Resolved Time R/O COVID-19 12/30/2019 12/30/2019 01/01/2020 2:00 AM CDT R/O C. diff 03/14/2020 03/14/2020 03/15/2020 10:1 1 AM HEALTH CONCIERGE documented as of this encounter Care Teams Patient Assessment Coordinator Relationship Specialty Start Date End Date Tracee Rivas DO [address] [place] [address] PCP - General Family Practice 12/17/17 documented as of this encounter
--- OUTSIDE RECORDS SUMMARY | 2025-02-08 20:23 | XMS_ITS | Encounter Summary ---
Author Organization [facility] Address [address] [place] [address] Care Team Providers Care Needle Loom Operator Helper Name Role Phone Tracee Rivas DO Primary Care Provider [phone]- [phone] Encounter Details Date Type Department Care Team (Latest Contact Info) Description 01/11/2002 Outpatient Historical [facility] Onel Martinez Jr., MD [address] [place] [address] MYALGIA AND MYOSITIS NOS (Primary Dx); URIN TRACT INFECTION NOS; DEPRESSIVE DISORDER NEC Social History Tobacco Use Types Packs/Day Years Used Date Smoking Tobacco: Never Assessed Comments Unknown Sex and Gender Information Value Date Recorded Sex Assigned at Not on file Legal Sex Female 2:49 AM POSTDOCTORAL RESEARCH FELLOW Gender Identity Not on file Sexual Orientation Not on file documented as of this encounter Plan of Treatment Not on file documented as of this encounter Visit Diagnoses Diagnosis Myalgia and myositis, unspecified- Primary Mylagia and myositis, unspecified Urinary tract infection, site not specified Depressive disorder, not elsewhere classified documented in this encounter Additional Health Concerns Infection Onset Date Last Indicated Resolved Time R/O COVID-19 12/30/2019 12/30/2019 01/01/2020 2:00 AM CDT R/O C. diff 03/14/2020 03/14/2020 03/15/2020 10:1 1 AM POSTDOCTORAL RESEARCH FELLOW documented as of this encounter Care Teams Needle Loom Operator Helper Relationship Specialty Start Date End Date Tracee Rivas DO [address] [place] [address] PCP - General Family Practice 12/17/17 documented as of this encounter
--- OUTSIDE RECORDS SUMMARY | 2025-02-08 20:23 | XMS_ITS | Encounter Summary ---
Author Organization [facility] Address [address] [place] [address] Care Team Providers Care Family Engagement Specialist Name Role Phone Tracee Rivas DO Primary Care Provider [phone]- [phone] Encounter Details Date Type Department Care Team (Latest Contact Info) Description 10/01/2002 Outpatient Historical [facility] [place] [address] [place] [id number] MYALGIA AND MYOSITIS NOS (Primary Dx); HYPERTENSION NOS; HYPERLIPIDEMIA NEC/NOS; AFTERCARE RESEARCH TECH USE MEDICATN Social History Tobacco Use Types Packs/Day Years Used Date Smoking Tobacco: Never Assessed Comments Unknown Sex and Gender Information Value Date Recorded Sex Assigned at Not on file Legal Sex Female 2:49 AM PRESSURE VESSEL INSPECTOR Gender Identity Not on file Sexual Orientation Not on file documented as of this encounter Plan of Treatment Not on file documented as of this encounter Visit Diagnoses Diagnosis Myalgia and myositis, unspecified- Primary Mylagia and myositis, unspecified Unspecified essential hypertension Other and unspecified hyperlipidemia Encounter for long-term (current) use of other medications documented in this encounter Additional Health Concerns Infection Onset Date Last Indicated Resolved Time R/O COVID-19 12/30/2019 12/30/2019 01/01/2020 2:00 AM CDT R/O C. diff 03/14/2020 03/14/2020 03/15/2020 10:1 1 AM PRESSURE VESSEL INSPECTOR documented as of this encounter Care Teams Family Engagement Specialist Relationship Specialty Start Date End Date Tracee Rivas DO [address] [place] [address] PCP - General Family Practice 12/17/17 documented as of this encounter
--- OUTSIDE RECORDS SUMMARY | 2025-02-08 20:23 | XMS_ITS | Encounter Summary ---
Author Organization [facility] Address [address] [place] [address] Care Team Providers Care Broadcast Chief Engineer Name Role Phone Tracee Rivas DO Primary Care Provider [phone]- [phone] Encounter Details Date Type Department Care Team (Latest Contact Info) Description 07/08/2002 Outpatient Historical [facility] Onel Martinez Jr., MD [address] [place] [address] BACKACHE NOS (Primary Dx); OSTEOARTHROS NOS-UNSPEC; OBESITY NOS Social History Tobacco Use Types Packs/Day Years Used Date Smoking Tobacco: Never Assessed Comments Unknown Sex and Gender Information Value Date Recorded Sex Assigned at Not on file Legal Sex Female 2:49 AM SOCIAL MEDIA CONTENT MANAGER Gender Identity Not on file Sexual Orientation Not on file documented as of this encounter Plan of Treatment Not on file documented as of this encounter Visit Diagnoses Diagnosis Backache, unspecified- Primary Osteoarthrosis, unspecified whether generalized or localized, unspecified site Obesity, unspecified documented in this encounter Additional Health Concerns Infection Onset Date Last Indicated Resolved Time R/O COVID-19 12/30/2019 12/30/2019 01/01/2020 2:00 AM CDT R/O C. diff 03/14/2020 03/14/2020 03/15/2020 10:1 1 AM SOCIAL MEDIA CONTENT MANAGER documented as of this encounter Care Teams Broadcast Chief Engineer Relationship Specialty Start Date End Date Tracee Rivas DO [address] [place] [id number] PCP - General Family Practice 12/17/17 documented as of this encounter
--- OUTSIDE RECORDS SUMMARY | 2025-02-08 20:23 | XMS_ITS | Encounter Summary ---
Author Organization [facility] Address [address] [place] [address] Care Team Providers Care Lottery Office Manager Name Role Phone Tracee Rivas DO Primary Care Provider [phone]- [phone] Encounter Details Date Type Department Care Team (Late st Contact Info) Description 01/18/2002 Outpatient Historical [facility] [address] [place] [id number] Social History Tobacco Use Types Packs/Day Years Used Date Smoking Tobacco: Never Assessed Comments Unknown Sex and Gender Information Value Date Recorded Sex Assigned at Not on file Legal Sex Female 2:49 AM HVAC SPECIALIST Gender Identity Not on file Sexual Orientation Not on file documented as of this encounter Plan of Treatment Not on file documented as of this encounter Visit Diagnoses Not on filedocumented in this encounter Additional Health Concerns Infection Onset Date Last Indicated Resolved Time R/O COVID-19 12/30/2019 12/30/2019 01/01/2020 2:00 AM CDT R/O C. diff 03/14/2020 03/14/2020 03/15/2020 10:1 1 AM HVAC SPECIALIST documented as of this encounter Care Teams Lottery Office Manager Relationship Specialty Start Date End Date Tracee Rivas DO [address] [place] [address] PCP - General Family Practice 12/17/17 documented as of this encounter
--- OUTSIDE RECORDS SUMMARY | 2025-02-08 20:23 | XMS_ITS | Patient Health Record ---
Author Organization [facility] Address [address] [place] [id number] Care Team Providers Care Hat Checker Name Role Phone Rob Tracee ARIAS Primary Care Provider Gustavo Carlos Unavailable [phone] Sidney Sheridan Unavailable [phone] Andrew Heaton Unavailable [phone] Migration, Provider Unavailable Unavailable Aston Peters Unavailable [phone] Allergies Allergen (clinical drug ingredient) Drug/Non Drug Allergy documented on EMR Reaction Allergy Type Onset Date Status nitrofurantoin, macrocrystals / nitrofurantoin, monohydrate Macrobid Unknown Drug Allergy 01/20/2009 Active oxycodone Oxycodone HCl itching Drug Allergy Act kenisha Results Component Value Reference Range Notes Schedule Confirmation (Not y et reviewed by provider) Interpretation: Performing Lab: Notes/Report: MRI Lumbar Spine w/o Cont Schedule Confirmation (Not y et reviewed by provider) Interpretation: Performing Lab: Notes/Report: MRI Lumbar Spine w/o Cont Schedule Confirmation (Not y et reviewed by provider) Interpretation: Performing Lab: Notes/Report: Schedule Confirmation (Not y et reviewed by provider) Interpretation: Performing Lab: Notes/Report: MRI Lumbar Spine w/o Cont Schedule Confirmation (Not y et reviewed by provider) Interpretation: Performing Lab: Notes/Report: MRI Lumbar Spine w/o Cont Schedule Confirmation (Not y et reviewed by provider) Interpretation: Performing Lab: Notes/Report: MRI Lumbar Spine w/o Cont MRI Lumbar Spine w/o Cont-72 148 (Not yet reviewed by provider) Interpretation: Performing Lab: Notes/Report: See Below For Report Technique: Sagittal and axial T1 and T2 and sagittal STIR images of Diagnosis Description: Radiculopathy, lumbar region Read See Below For Report Lumbosacral Spine AP/Lat-721 00 (Not yet reviewed by provider) Interpretation: Performing Lab: Notes/Report: [id number] Lumbosacral Spine AP/Lat-721 00 (Not yet reviewed by provider) Interpretation: Performing Lab: Notes/Report: See Below For Report Lumbosacral Spine AP/Lat Diagnosis Description: Radiculopathy, lumbar region Read See Below For Report MRI Lumbar Spine w/o Cont-72 148 (Not yet reviewed by provider) Interpretation: Performing Lab: Notes/Report: [id number] Schedule Confirmation (Not y et reviewed by provider) Interpretation: Performing Lab: Notes/Report: Schedule Confirmation (Not y et reviewed by provider) Interpretation: Performing Lab: Notes/Report: MRI Lumbar Spine w/o Cont Reason For Referral Reason EMG/NCV study of the right lower extremity Diagnosis 1 Lumbar radiculopathy (M54.16) Diagnosis 2 Pain in right lower leg (M79.661) Referral Organization [facility] [place] Referring Provider First Name Sidney Referring Provider Last Name Arvin Referring Provider Speciality Neurosurge sara Referred Provider [facility] ([facility]) Referred Provider Specialty Physical The rapist Referral Priority Routine Reason Eval and treat with physical therapy for low back pain [id number] x 4-6 weeks Diagnosis 1 Foraminal stenosis o f lumbar region (M48.061) Diagnosis 2 Lumbar spondylosis ( M47.816) Diagnosis 3 Pain in right lower leg (M79.661) Referral Organization [facility] [place] Referring Provider First Name Sidney Referring Provider Last Name Arvin Referring Provider Speciality Neurosurge sara Referred Provider Physical Therapy [facility] Referred Provider Specialty Physical The rapist Referral Priority Routine Reason Right L4-5 lumbar ep idural steroid injection Diagnosis 1 Foraminal stenosis o f lumbar region (M48.061) Diagnosis 2 Lumbar spondylosis ( M47.816) Diagnosis 3 Lumbar radiculopathy (M54.16) Referring Provider First Name Sidney Referring Provider Last Name Arvin Referring Provider Speciality Neurosurge ry Referred Organization [facility] Referred Provider Aston Peters Referred Address [address] [facility] [facility] [address],[place],[address], General Notes Selam Schroeder 2024 02:11:57 PM >Order entered. Patient contacted. States she knows where to go and has had the procedure before Referral Priority Routine Reason Right L4-5 lumbar ep idural steroid injection Diagnosis 1 Foraminal stenosis o f lumbar region (M48.061) Diagnosis 2 Lumbar spondylosis ( M47.816) Diagnosis 3 Lumbar radiculopathy (M54.16) Referral Organization [facility] [place] Referring Provider First Name Sidney Referring Provider Last Name Arvin Referring Provider Speciality Neurosurge ry Referred Organization [facility] Referred Provider Aston Peters Referred Address [address] [facility],[place],[address], Referred Provider Specialty Intervention al Pain Medicine Referral Priority Routine Medications Medication SIG (Take, Route, Frequency, Duration) Notes Start Date End Date Status Omeprazole 20 MG Capsule Delayed Release 1 capsule 1/2 to 1 hour before morning meal Orally Once a day Active Requip 2 mg Tablet Take 1 tablet(s) by mouth po qday Oral; Duration: 30 *please review for potential _update for e-prescription and drug interaction check* Requip (Ropinirole HCl) 2mg Tablet Take 1 tablet(s) by mouth po qday #30 (Thirty) tablet(s) 07/19/2013 Not-Taking Furosemide 40 MG Tablet 1 tablet Orally Once a day Active Spironolactone 25 MG Tablet Take 1 tablet(s) by mouth daily Oral; Duration: 30 Spironolactone 25mg Tablet Take 1 tablet(s) by mouth daily #30 (Thirty) tablet(s) 10/28/2013 Not-Taking Metoprolol Succinate ER 50 MG Tablet Extended Release 24 Hour Take 1 tablet(s) by mouth daily Oral; Duration: 30 Metoprolol 50mg Tablets, Extended Release Take 1 tablet(s) by mouth daily #30 (Thirty) tablet(s) 07/19/2013 Not-Taking Cyclobenzaprine HCl 10 MG Tablet 1 tablet at bedtime as needed Orally Once a day Active Lisinopril 20 MG Tablet Take 1 tablet(s) by mouth daily Oral; Duration: 30 Lisinopril 20mg Tablet Take 1 tablet(s) by mouth daily #30 (Thirty) tablet(s) 06/25/2013 Active dexAMETHasone 2 MG Tablet Day 1-2: 4 mg, q6Day 3-4: 2 mg, q6 Day 5-6: 2 mg, q12 Orally as directed; Duration: 6 days 12/27/2021 Not-Taking Simvastatin 20 MG Tablet Take 1 tablet(s) by mouth at bedtime Oral; Duration: 30 Simvastatin 20mg Tablet Take 1 tablet(s) by mouth at bedtime #30 (Thirty) tablet(s) 10/28/2013 Not-Taking Meloxicam 15 MG Tablet 1 tablet Orally Once a day Active Topamax 100 MG Tablet 1 tab(s) po q 12 Oral; Duration: 30 Topamax (Topiramate) 100mg Tablet 1 tab(s) po q 12 #60 (Sixty) tablet(s) 07/19/2013 Active busPIRone HCl 15 MG Tablet 1 tablet Orally Twice a day Active traMADol HCl 50 MG Tablet 1 tablet as needed Orally Once a day Not-Taking Levothyroxine Sodium 200 MCG Tablet 1 tablet in the morning on an empty stomach Orally Once a day Not-Taking metFORMIN HCl 1000 MG Tablet Take 1 tablet(s) by mouth bid Oral; Duration: 30 Metformin HCl 1,000mg Tablet Take 1 tablet(s) by mouth bid #180 ([address] [place] [address]) tablet(s) 07/19/2013 Not-Taking diazePAM 5 MG Tablet 1 tablet 30 mins prior to MRI Orally Once a day; Duration: 1 days 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 Not-Taking Synthroid 175 MCG Tablet Take 1 tablet(s) by mouth daily Oral; Duration: 30 Synthroid (Levothyroxine Sodium) 0.175mg Tablet Take 1 tablet(s) by mouth daily #90 (Ninety) tablet(s) 10/28/2013 Not-Taking Gabapentin 300 MG Capsule 1 cap(s) po tid Oral; Duration: 30 Gabapentin 300mg Capsules 1 cap(s) po tid #90 (Ninety) capsule(s) 08/19/2013 Active Gabapentin 300 MG Capsule 1 capsule Orally 4 times a day; Duration: 30 days 06/10/2024 Active Immunizations Vaccine Route Administration Date Status Comme nts Flu vaccine no Preserv 3 and > IM Intramuscular 02/24/2012 Administered Flu vaccine no Preserv 3 and > Unknown 02/09/2013 Administered Social History Tobacco Use: Social History Observation Description Date Details (start date - stop date) Never Smoker NA - NA Social History Drugs/Alcohol: Social Info Question Answer Notes Alcohol Screen (Audit-C) Did you have a drink containing alcohol in the past year? No Points 0 Interpretation Negative Drugs Have you used drugs other than those for medical reasons in the past 12 months? 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 Problems Problem Type SNOMED Code ICD Code Onset Dates Problem Status W/U Status Risk Notes Problem Morbid obesity (985762925) Morbid obesity (278.01) 2008 Problem resolved confirmed [id number]- Problem Generalized anxiety disorder (95407787) Generalized anxiety disorder (300.02) 2010 Active confirmed [id number]- Problem Carpal tunnel syndrome (63001806) Carpal tunnel syndrome (354.0) 2010 Problem resolved confirmed [id number]- Problem Right bundle branch block (01736535) Right bundle branch block (426.4) 2016 Problem resolved confirmed [id number]- Problem Acute frontal sinusitis (94050367) Acute frontal sinusitis (461.1) 2013 Problem resolved confirmed [id number]- Problem Acute sinusitis (80326918) Acute sinusitis, unspecified (461.9) 2008 Problem resolved confirmed [id number]- Problem Acute Laryngitis (7342027) Acute laryngitis, without mention of obstruction (464.00) 2011 Problem resolved confirmed [id number]- Problem Hematuria (48913367) Hematuria (599.7) 2007 Problem resolved confirmed [id number]- Problem Impetigo (85781704) Impetigo (684) 2012 Problem resolved confirmed [id number]- Problem Fever (399796636) Fever, unspeci fied (780.60) 2016 Problem resolved confirmed [id number]- Problem Edema (424525402) Edema (782.3) 2009 Problem resolved confirmed [id number]- Problem Cough (57170621) Cough (786.2) 2007 Problem resolved confirmed [id number]- Problem Heartburn (03014410) Heartburn (787.1) 2014 Problem resolved confirmed Silver-[id number] [id number]- Problem Diarrhea (39843028) Diarrhea (787.91) 2011 Problem resolved confirmed [id number]- Problem Dysuria (23295091) Dysuria (788.1) 2011 Problem resolved confirmed Silver-[id number] [id number]- Problem Urinary frequency (431047057) Urinary frequency (788.41) 2013 Active confirmed [id number]- Problem Generalized abdomina l pain (023251499) Abdominal pain, generalized (789.07) 2010 Problem resolved confirmed [id number]- Problem Erythrocyte sedimentation rate raised (690646693) Elevated sedimentation rate (790.1) 2017 Problem resolved confirmed [id number]- Problem Gynecological examination normal (401301788777728) Routine gynecological examination (V72.31) 2006 Problem resolved confirmed [id number]- Problem Chronic pain syndrom e (708462604) Chronic pain syndrome (G89.4) Active confirmed Problem Right side sciatica (861639525076734) Sciatica, right side (M54.31) Active confirmed Problem Lumbar radiculopathy (176178468) Lumbar radiculopathy (M54.16) Active confirmed Problem Lumbar spondylosis (399999767) Lumbar spondylosis (M47.816) Active confirmed Problem Acquired spondylolisthesis (562433517) Lumbar spondylolysis (M43.06) Active confirmed Problem Fever blister (8466539) Fever blister (054.9) 2015 Problem resolved confirmed [id number]- Problem Vitamin B12 deficiency (116801659) Vitamin B12 deficiency (266.2) 2015 Problem resolved confirmed Silver-[id number] 5911- Problem Sleep apnea (08897442) Sleep apnea (780.57) 2008 Problem resolved confirmed Silver-[id number] [id number]- Problem Fibromyalgia (626774014) Fibromyalgia (729.1) 2007 Problem resolved confirmed Silver-[id number] 5911- Problem Rash (831790439) Rash (782.1) 2007 Problem resolved confirmed Silver-[id number] 5911- Problem Low back pain (028979582) Low back pain (724.2) 2016 Active confirmed Silver-98 5911- Problem Degeneration of lumbar intervertebral disc (46846741) Degenerative disc disease, lumbar (M51.36) Active confirmed Problem Neck pain (40794715) Neck pain (723.1) 2010 Problem resolved confirmed Silver-98 5911- Problem Vitamin D deficiency (33038665) Vitamin D deficiency (268.9) 2012 Problem resolved confirmed Silver-98 5911- Problem Viral warts (47494328) Viral warts (078.19) 2012 Problem resolved confirmed Silver-98 5911- Problem Headache (14694909) Headache (307.81) 2009 Problem resolved confirmed Silver-98 5911- Problem Hypercholesterolemia (24760191) Hypercholesterolemia (272.0) 2009 Problem resolved confirmed Silver-98 5911- Problem Sleep disturbance (33504588) Insomnia secondary to hot flashes (780.59) 2007 Problem resolved confirmed Silver-98 5911- Problem Menopause (205746146) Menopause (627.2) 0 2008 Problem resolved confirmed Silver-98 5911- Problem Lumbosacral spondylosis without myelopathy (42819513) 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 Active confirmed Silver-98 5911- Problem Moderate recurrent major depression (05555904) Major depression, recurrent episode, moderate (296.32) 2009 Problem resolved confirmed Silver-98 5911- Problem Mild diabetic neuropathy with slight loss of protective sensation in feet (250.6) 2008 Problem resolved confirmed Silver-98 5911- Problem Radiology result abnormal (802423859) Other nonspecific (abnormal) findings on radiological and other examinations of body structure (793.99) 2011 Problem resolved confirmed Silver-[id number] 5911- Problem Shortness of breath (701023657) Shortness of breath (786.09) 2016 Problem resolved confirmed Silver-98 5911- Problem Shoulder pain (08154929) Shoulder pain (719.41) 2016 Problem resolved confirmed Silver-98 5911- Problem T11 compression fracture (805.2) 2008 Problem resolved confirmed Silver-98 5911- Problem Skin sensation disturbance (37918374) Tingling sensation (782.0) 2009 Problem resolved confirmed Silver-98 5911- Problem Liver function tests abnormal (312053856) Nonspecific abnormality on liver function study (794.8) 2007 Problem resolved confirmed Silver-98 5911- Problem Screening for breast cancer (984287419) Screening for breast cancer (V76.10) 2013 Problem resolved confirmed Silver-98 5911- Problem Right upper quadrant pain (225323380) Abdominal pain (RUQ) (789.01) 2016 Problem resolved confirmed Silver-98 5911- Problem Blood chemistry abnormal (914623142) Abnormal blood levels of uric acid (790.6) 2009 Problem resolved confirmed Silver-98 5911- Problem Acute frontal sinusitis (37715848) Acute sinusitis, frontal (461.1) 2010 Problem resolved confirmed Silver-98 5911- Problem Allergic rhinitis caused by pollen (16647589) Allergies (477.0) 2017 Problem resolved confirmed Silver-98 5911- Problem Angina (958571912) Angina (413.9) 2010 Problem resolved confirmed Silver-98 5911- Problem Disorder of hematopoietic system (29270830) Other abnormal findings on blood examination (790.99) 2017 Problem resolved confirmed Silver-98 5911- Problem Disorder of hematopoietic system (16171967) Other abnormal laboratory result on blood (790.99) 2015 Problem resolved confirmed Silver-98 5911- Problem Sore throat (742024983) Sore Throat (462) 2010 Problem resolved confirmed Silver-98 5911- Problem Acute renal failure (64436299) Acute renal failure, NEC (584.8) 2009 Problem resolved confirmed Silver-98 5911- Problem Carbuncle of face (77911400) Carbuncle of face (680.0) 2012 Problem resolved confirmed Silver-98 5911- Problem Celiac sprue (098812980) Celiac sprue (579.0) 2010 Problem resolved confirmed Silver-98 5911- Problem Chest pain (36320686) Chest pain (786.51) 2008 Problem resolved confirmed Silver-98 5911- Problem Depressive disorder (71125287) Depressive disorder not elsewhere classified (311) 2008 Problem resolved confirmed Silver-98 5911- Problem Gastroesophageal reflux disease (951207265) Gastroesophageal reflux disease (530.81) 2016 Active confirmed Silver-98 5911- Problem Generalized abdomina l pain (168377797) Generalized abdominal pain (789.07) 2006 Problem resolved confirmed Silver-98 5911- Problem Hematochezia (254864911) Hematochezia (578.1) 2007 Problem resolved confirmed Silver-98 5911- Problem Lab: Used to mat ch unlinked laboratory orders (V92) 2013 Active confirmed Silver-98 5911- Problem Lumbosacral spondylosis without myelopathy (73056120) 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) 2014 Problem resolved confirmed Silver-98 5911- Problem Epithelial inclusion cyst (900538173) Epithelial inclusion cyst (706.2) 2010 Problem resolved confirmed Silver-98 5911- Problem Generalized anxiety disorder (20387071) HANNAH (300.02) 2015 Problem resolved confirmed Silver-98 5911- Problem Muscle pain (62992665) Myalgias, unspecified (729.1) 2015 Problem resolved confirmed Silver-98 5911- Problem Ear ache (579988310) Ear ache (388.71) 2013 Problem resolved confirmed Silver-98 5911- Problem Elevated levels of transaminase & lactic acid dehydrogenase (439735453) Elevated SGOT (AST) (790.4) 2016 Problem resolved confirmed Silver-98 5911- Problem Foot pain (87837966) Foot pain (729.5) 2012 Problem resolved confirmed Silver-98 5911- Problem Hypertension (60487600) Hypertension (401.1) 2010 Problem resolved confirmed Silver-98 5911- Problem Insomnia (010534711) Insomnia (307.41) 2010 Problem resolved confirmed Silver-98 5911- Problem Pain in limb (10831371) Leg pain (729.5) 2012 Problem resolved confirmed Silvre-98 5911- Problem Peripheral neuropath y (785977953) Peripheral neuropathy (356.9) 2013 Problem resolved confirmed Silver-98 5911- Problem Screening for malignant neoplasm of colon (330916086) Screening for colorectal cancer (V76.49) 2016 Problem resolved confirmed Silver-98 5911- Problem Serotonin syndrome (978364217) Serotonin syndrome (333.99) 2016 Problem resolved confirmed Silver-98 5911- Problem Sleep apnea (37494952) Sleep apnea, NEC (780.57) 2014 Active confirmed Silver-98 5911- Problem Acute maxillary sinusitis (96552286) Acute sinusitis, maxillary (461.0) 2008 Problem resolved confirmed Silver-98 5911- Problem Iron deficiency anemia (11923941) Other specified iron deficiency anemia (280.8) 2011 Problem resolved confirmed Silver-98 5911- Problem Tachycardia (3380133) Tachycardi a, NOS (785.0) 2009 Problem resolved confirmed Silver-98 5911- Problem Needs influenza immunization (832134117) Vaccination against other viral diseases, Influenza (V04.81) 2012 Problem resolved confirmed Silver-98 5911- Problem Acute upper respiratory infection (49766165) Acute upper respiratory infection (465.8) 2009 Problem resolved confirmed Silver-98 5911- Problem Anxiety depression (408662059) Anxiety with depression (300.4) 2014 Active confirmed Silver-98 5911- Problem Chronic otitis media (35964292) Chronic otitis media (382.9) 2012 Problem resolved confirmed Silver-98 5911- Problem Obstructive sleep apnea (42982761) Obstructive sleep apnea (780.57) 2009 Active confirmed Silver-98 5911- Problem Hormone replacement therapy (562686752) Post-menopausal HRT (V07.4) 2007 Problem resolved confirmed Silver-98 5911- Problem Acute otitis media (1669918) Acute otitis media (382.00) 2014 Problem resolved confirmed Silver-98 5911- Problem Burning sensation (78996200) Burning sensation (782.0) 2008 Problem resolved confirmed Silver-98 5911- Problem Anxiety (66263458) Anxiety (300.02) 04/16 Problem resolved confirmed Silver-98 5911- Problem Constipation (49925194) Constipation (564.01) 2016 Problem resolved confirmed Silver-98 5911- Problem Pain in female pelvi s (299221682) Female pelvic pain (625.9) 2016 Problem resolved confirmed Silver-98 5911- Problem Urinary incontinence (995633798) Incontinence of urine, other (788.39) 2008 Problem resolved confirmed Silver-98 5911- Problem Multiple joint pain (40271250) Joint pain, multiple sites (719.49) 2009 Problem resolved confirmed Silver-98 5911- Problem Knee pain (5301937522) Knee pain (719.46) 2011 Problem resolved confirmed Silver-98 5911- Problem Urinary tract infection (18719551) Urinary tract infection (595.0) 2011 Problem resolved confirmed Silver-98 5911- Problem Acquired hypothyroidism (248142160) Acquired hypothyroidism (244.8) 2009 Problem resolved confirmed Silver-98 5911- Problem Acute sinusitis (41618021) Acute sinusitis (461.8) 2008 Problem resolved confirmed Silver-98 5911- Problem Ankle pain (920268763) Ankle pain (719.47) 2006 Problem resolved confirmed Silver-98 5911- Problem Adjustment disorder with depressed mood (49825510) Bereavement adjustment reaction (309.0) 2014 Problem resolved confirmed Silver-98 5911- Problem Central obesity (889633136) Central obesity (278.1) 2007 Problem resolved confirmed Silver-98 5911- Problem Chondrocalcinosis du e to pyrophosphate crystals (926943386) Chondrocalcinosis due to pyrophosphate crystals (712.28) 2011 Problem resolved confirmed Silver-98 5911- Problem Glossodynia (22278314) Tongue pain (529.6) 2007 Problem resolved confirmed Silver-98 5911- Problem Pneumococcal pneumonia (749093257) Acute lobar pneumonia (481) 2007 Problem resolved confirmed Silver-98 5911- Problem Bereavement (37642526) Bereavement (V62.82) 2006 Problem resolved confirmed Silver-98 5911- Problem Chronic insomnia (421004687) Chronic insomnia (307.42) 2016 Problem resolved confirmed Silver-98 5911- Problem Dermatophytosis (88812504) Trichophytic tinea (110.9) 2007 Problem resolved confirmed Silver-98 5911- Problem Vaginal discharge (242011957) Vaginal discharge (616.10) 2013 Problem resolved confirmed Silver-98 5911- Problem Menstrual disorder (902301963) Disorders of menstruation & other abnormal uterine bleeding (626.8) 2006 Problem resolved confirmed Silver-98 5911- Problem Diverticulitis of colon (731213952) Diverticulitis of colon (562.11) 2010 Problem resolved confirmed Silver-98 5911- Problem Carcinoid syndrome (07448062) Flushing syndrome (259.2) 2007 Problem resolved confirmed Silver-98 5911- Problem Hip pain (50494619) Hip pain (719.45) 2010 Problem resolved confirmed Silver-98 5911- Problem Cramp in lower limb (058005075) Leg cramps (729.82) 2014 Problem resolved confirmed Silver-98 5911- Problem Nausea and vomiting (88662848) Nausea and vomiting (787.01) 2009 Problem resolved confirmed Silver-98 5911- Problem Essential hypertension (27810675) Essential hypertension (401.1) 2014 Active confirmed Silver-98 5911- Problem Excessive sweating (60287418) Excessive sweating (780.8) 2008 Problem resolved confirmed Silver-98 5911- Problem Gastroesophageal reflux disease (114135399) GERD (530.81) 2011 Problem resolved confirmed Silver-98 5911- Problem Hemorrhoids (disorder) (27963015) Hemorrhoids, external (455.3) 2008 Problem resolved confirmed Silver-98 5911- Problem Influenza vaccinatio n (01740675) Influenza vaccination (V04.81) 2013 Problem resolved confirmed Silver-98 5911- Problem Type II diabetes mellitus without complication (956464098) NIDDM (250.00) 2009 Problem resolved confirmed Silver-98 5911- Problem Pedal edema (342410450) Pedal edema (782.3) 2015 Problem resolved confirmed Silver-98 5911- Problem Neurologic disorder associated with type II diabetes mellitus (013390940) Peripheral neuropathy secondary to uncontrolled type II diabetes (250.62) 2010 Problem resolved confirmed Islver-98 5911- Problem Neoplasm of uncertai n behavior of connective and other soft tissues (47969177) Unspecified skin lesion (239.2) 2009 Problem resolved confirmed Silver-98 5911- Problem Spinal stenosis of lumbar region (10308470) Foraminal stenosis of lumbar region (M48.061) Active confirmed Problem Recurrent major depression (28561936) Major depression, recurrent episode, unspecified (296.30) 2016 Problem resolved confirmed Silver-98 5911- Problem Screening for malignant neoplasm of breast (628923351) Screening for breast cancer, unspecified (V76.10) 2014 Problem resolved confirmed Silver-98 5911- Problem Screening mammograph y (91532083) Screening mammogram - other (V76.12) 2017 Problem resolved confirmed Silver-98 5911- Problem Hypertension (17427441) Uncontrolled hypertension (401.9) 2014 Problem resolved confirmed Silver-98 5911- Vital Signs Heart Rate 54 /min 08/24/2024 Temperature 98.3 degrees Fahrenheit 08/24/2024 Respiratory Rate 20 /min 08/24/2024 Oximetry 98 % 08/24/2024 Blood pressure diastolic 102 mm Hg 08/24/2024 Weight-kg 124.29 kg 08/24/2024 Height 68 in 08/24/2024 Blood pressure systolic 153 mm Hg 08/24/2024 Weight 274 lbs 08/24/2024 BMI 41.66 kg/m2 08/24/2024 Procedures Procedure Date Ordered Date Performed Result Body Sit e Epidural, Lumbar/Sacral (Cau cyndie), w/ imaging guidance - 29035 09/28/2024 09/28/2024 N/A Encounters Encounter Location Date Provider Diagnosis Formerly [facility] [address] [place] [address], [place] [address] 02/08/2025 Gustavo Marcos Recurrent pain of right knee M25.561 Formerly [facility] [address] [place] [address] 06/10/2024 Andrew Heaton Lumbar radiculopathy M54.16 and Back pain M54.9 Formerly [facility] [address] [place] [address] 07/27/2024 Sidney Sheridan Foraminal stenosis o f lumbar region M48.061 ; Lumbar spondylosis M47.816 ; Degeneration of intervertebral disc of lumbar region with discogenic back pain and lower extremity pain M51.362 ; Pain in right lower leg M79.661 and Lumbar radiculopathy M54.16 Formerly [facility] [address] [place] [address] 08/24/2024 Sidney Avrin Lumbar spondylosis M47.816 ; Foraminal stenosis of lumbar region M48.061 ; Degeneration of intervertebral disc of lumbar region with discogenic back pain and lower extremity pain M51.362 and Lumbar radiculopathy M54.16 Formerly [facility] [address] [place] [place] [address] 09/28/2024 Aston Peters Lumbar radiculopathy M54.16 Migrated_Facility 0 0 02/28/2024 Provider Migration Migrated_Facility 0 0 02/29/2024 Provider Migration Formerly [facility] [address] [place] [address] 06/11/2024 Andrew Heaton Lumbar radiculopathy M54.16 Formerly [facility] [address] [place] [address] 06/29/2024 Andrew Heaton Formerly [facility] [address] [place] [address] 07/01/2024 Andrew Heaton Lumbar radiculopathy M54.16 ; Numbness of right lower extremity R20.0 and Lumbar spondylolysis M43.06 Formerly [facility] [address] [address] 07/05/2024 Andrew Heaton Lumbar radiculopathy M54.16 ; Numbness of right lower extremity R20.0 ; Lumbar spondylolysis M43.06 and Sciatica, right side M54.31 Formerly [facility] [address] [place] [address] 09/03/2024 Aston Costadeondre Lumbar radiculopathy M54.16 Assessments Encounter Date Diagnosis (ICD Code) Assessment Notes Treatment Notes Treatment Clinical Notes Section Notes 07/01/2024 Lumbar radiculopathy (ICD-10 - M54.16) 07/05/2024 Lumbar radiculopathy (ICD-10 - M54.16) 07/01/2024 Numbness of right lower extremity (ICD-10 - R20.0) 07/27/2024 Lumbar spondylosis (ICD-10 - M47.816) 07/27/2024 Foraminal stenosis of lumbar region (ICD-10 - M48.061) 07/05/2024 Numbness of right lower extremity (ICD-10 - R20.0) 08/24/2024 Lumbar spondylosis (ICD-10 - M47.816) 08/24/2024 Foraminal stenosis of lumbar region (ICD-10 - M48.061) The nerve conduction study showed evidence of an acute on chronic L5 radiculopathy on the right side. I suspect the bulk of the patient's pain is coming from L4-5. We discussed a lumbar epidural steroid injection verses surgery of a laminectomy. I recommended the patient try an injection before deciding on surgery. Questions were asked and answered to the patient's satisfaction. She states her understanding and is in agreement to try the injection. I will make a referral to the pain clinic for a right L4-5 lumbar epidural steroid injection. I will see her back for a follow-up in 6 weeks. The patient is in agreement. ROS reviewed I Jennifer St LPN am scribing for, and in the presence of Sidney Sheridan MD. I, Sidney Sheridan, personally performed the services described in this documentation, as scribed by Jennifer St LPN in my presence, and it is both accurate and complete. 06/10/2024 Lumbar radiculopathy (ICD-10 - M54.16) Patient here today reporting that she has continued with right lower extremity discomfort and pain. Reports that she is feels as if it is return of her symptoms prior to undergoing her L5-S1 type decompression. Further workup and treatment discussed with patient electing to proceed with offer of MRI and x-ray of the lumbar spine. She is having pain in an L5-S1 type distribution and we need MRI to assess for new or worsening stenosis. She is ready, willing, able to undergo epidural steroid injections or surgery if so indicated. I will jake her a temporary increase in her gabapentin as per her request. 09/03/2024 Lumbar radiculopathy (ICD-10 - M54.16) 09/28/2024 Lumbar radiculopathy (ICD-10 - M54.16) 02/08/2025 Recurrent pain of right knee (ICD-10 - M25.561) 06/11/2024 Lumbar radiculopathy (ICD-10 - M54.16) 06/10/2024 Back pain (ICD-10 - M54.9) 08/24/2024 Degeneration of intervertebral disc of lumbar region with discogenic back pain and lower extremity pain (ICD-10 - M51.362) 07/27/2024 Degeneration of intervertebral disc of lumbar region with discogenic back pain and lower extremity pain (ICD-10 - M51.362) 07/01/2024 Lumbar spondylolysis (ICD-10 - M43.06) 07/05/2024 Lumbar spondylolysis (ICD-10 - M43.06) 07/05/2024 Sciatica, right side (ICD-10 - M54.31) 07/27/2024 Pain in right lower leg (ICD-10 - M79.661) 07/27/2024 Lumbar radiculopathy (ICD-10 - M54.16) The patient continues with low back pain with right lower extremity radicular pain. The MRI of the lumbar spine was reviewed and discussed with the patient. There are areas of foraminal stenosis and spondylosis that are most likely contributing to her pain. I don't see significant central stenosis. I would like to order an EMG/NCV study of the right lower extremity for more objective evidence. I recommended a referral to physical therapy for low back pain to see if therapy can provide sustained improvement. The patient has requested [facility] [place]. I will see her back after the nerve conduction study is completed to review the findings. The patient is in agreement to the plan. ROS reviewed I Jennifer St LPN am scribing for, and in the presence of Sidney Sheridan MD. I, Sidney Sheridan, personally performed the services described in this documentation, as scribed by Jennifer St LPN in my presence, and it is both accurate and complete. 08/24/2024 Lumbar radiculopathy (ICD-10 - M54.16) Plan Of Treatment Pending Test Test Name Order Date Knee 4V 02/08/2025 Prothrombin Time 44900 03/18/2022 Prothrombin Time 19386 03/27/2022 Basic Metabolic Panel (BMP) 26701 2021 Basic Metabolic Panel (BMP) 03904 2021 CBC w\ Auto Diff 10386 03/27/2022 CBC w\ Auto Diff 94575 03/18/2022 Partial Thromboplastin Time 61899 2021 Partial Thromboplastin Time 13485 2021 Chest PA/Lat-91015 03/18/2022 Chest PA/Lat-55810 03/27/2022 Lumbosacral Spine AP/Lat-56312 2 Lumbosacral Spine AP/Lat-99108 2 Lumbosacral Spine AP/Lat-01301 5 Lumbosacral Spine AP/Lat-02984 5 Lumbosacral Spine AP/Lat-39606 5 MRI Lumbar Spine w/o Cont-03013 07/01/19 25 MRI Lumbar Spine w/o Cont-26895 07/06/19 25 MRI Lumbar Spine w/o Cont-00283 06/10/19 25 MRI Lumbar Spine w/o Cont-19568 06/11/19 25 Electrocardiogram 12 Lead Tracing-57924 03/18/2022 Glucometer WBG--88851 04/01/2022 Glucometer WBG--41857 04/01/2022 zzzFluoro >1h4 04/01/2022 zzzMRI Outside CD 10/31/2021 Schedule Confirmation 07/02/2024 Schedule Confirmation 07/02/2024 Schedule Confirmation 07/07/2024 Schedule Confirmation 07/07/2024 Schedule Confirmation 07/07/2024 Schedule Confirmation 07/14/2024 Schedule Confirmation 08/16/2024 Schedule Confirmation 08/16/2024 Next Appt Details Provider Name:Aston Peters, 03/28/2025 01:40:00 PM, [address], [place], [address], Insurance Providers Payer Name Payer Address Payer Phone Subscriber Number Group Number Insured Name Patient Relationship to Insured Coverage Start Date Coverage End Date [facility] Medicare Advantage PPO [address] [address] [place] [address] [id number] ANTONIOTRACEE Self - patient is the [place] [address] [place] [phone] [id number] TRACEE ALVAREZ Self - patient is the insured Medical (General) History Medical History History ICD Code HyperlipidemiaHypertensionHe art Murmur Gastroesophageal Reflux Diseaseobstruction of the stomach at age 1 Chronic PainFibromyalgia: dx'd in 1997; Type 2 Diabetes: Testing Frequency: does not check her glucose Is pt treated with Insulin injections? No Is pt using an infusion pump to administer insulin? No; Hypothyroidism: dx'd in 2000; PREVENTIVE HEALTH MAINTENANCE COLONOSCOPY: was last done 2008 MAMMOGRAM: was last done 07/23/13 with normal results PAP SMEAR: was last done EYE EXAM: was last done negative for diabetic retinopathy INFLUENZA VACCINE: was last done 02/09/13 Hep C Screening: was last done 01/20/2012 with negative results TETANUS VACCINE: was last done 11/14 Pertussis VACCINE: was last done 11/14 measles whooping cough arthritis diabetes blood/plasma transfusion back trouble high blood pressure stroke anxiety depression fibromyalgia IBS sleep apnea Heart Disease glaucoma migraine headaches Depression Thyroid disease Surgical History Surgery Date(Month/Year) left knee replacement Cholecystectomy Uvulopalatal plasty 07/2009;upper somnus tongue base ablation 06-19-2009;Left Ear; Hospitalization History Reason Date(Month/Year) see surgical hx
--- OUTSIDE RECORDS SUMMARY | 2025-02-08 20:23 | XMS_ITS | Encounter Summary ---
Author Organization [facility] Address [address] [place] [address] Care Team Providers Care Patient Partner Name Role Phone Tracee Rivas DO Primary Care Provider +1- [phone] Encounter Details Date Type Department Care Team (Latest Contact Info) Description 09/17/2001 Outpatient Historical [facility] Onel Martinez Jr., MD [address] [place] [address] MYALGIA AND MYOSITIS NOS (Primary Dx); ACUTE SINUSITIS NOS; PERFORAT TYMPAN MEMB NOS Social History Tobacco Use Types Packs/Day Years Used Date Smoking Tobacco: Never Assessed Comments Unknown Sex and Gender Information Value Date Recorded Sex Assigned at Not on file Legal Sex Female 2:49 AM REINFORCING BAR SETTER Gender Identity Not on file Sexual Orientation Not on file documented as of this encounter Plan of Treatment Not on file documented as of this encounter Visit Diagnoses Diagnosis Myalgia and myositis, unspecified- Primary Mylagia and myositis, unspecified Acute sinusitis, unspecified Perforation of tympanic membrane, unspecified documented in this encounter Additional Health Concerns Infection Onset Date Last Indicated Resolved Time R/O COVID-19 12/30/2019 12/30/2019 01/01/2020 2:00 AM CDT R/O C. diff 03/14/2020 03/14/2020 03/15/2020 10:1 1 AM REINFORCING BAR SETTER documented as of this encounter Care Teams Patient Partner Relationship Specialty Start Date End Date Tracee Rivas DO [address] [place] [address] PCP - General Family Practice 12/17/17 documented as of this encounter
--- OUTSIDE RECORDS SUMMARY | 2025-02-08 20:23 | XMS_ITS | Encounter Summary ---
Author Organization [facility] Address [address] [place] [address] Care Team Providers Care Riveting Machine Operator Name Role Phone Tracee Rivas DO Primary Care Provider +1- [phone] Encounter Details Date Type Department Care Team (Late st Contact Info) Description 08/05/2002 Outpatient Historical [facility] Onel Martinez Jr., MD [address] [place] [address] Social History Tobacco Use Types Packs/Day Years Used Date Smoking Tobacco: Never Assessed Comments Unknown Sex and Gender Information Value Date Recorded Sex Assigned at Not on file Legal Sex Female 2:49 AM DJANGO DEVELOPER Gender Identity Not on file Sexual Orientation Not on file documented as of this encounter Plan of Treatment Not on file documented as of this encounter Visit Diagnoses Not on filedocumented in this encounter Additional Health Concerns Infection Onset Date Last Indicated Resolved Time R/O COVID-19 12/30/2019 12/30/2019 01/01/2020 2:00 AM CDT R/O C. diff 03/14/2020 03/14/2020 03/15/2020 10:1 1 AM DJANGO DEVELOPER documented as of this encounter Care Teams Riveting Machine Operator Relationship Specialty Start Date End Date Tracee Rivas DO [address] [place] [address] PCP - General Family Practice 12/17/17 documented as of this encounter
--- OUTSIDE RECORDS SUMMARY | 2025-02-08 20:23 | XMS_ITS | Encounter Summary ---
Author Organization [facility] Address [address] [place] [address] Care Team Providers Care Picker And Packer Name Role Phone Tracee Rivas DO Primary Care Provider +1- [phone] Encounter Details Date Type Department Care Team (Latest Contact Info) Description 02/23/2003 Outpatient Historical [facility] GENERAL SURGERY EliJasper MD [address] [facility] [address] [place] [address] SURGERY FOLLOWUP, UNSPEC (Primary Dx) Social History Tobacco Use Types Packs/Day Years Used Date Smoking Tobacco: Never Assessed Comments Unknown Sex and Gender Information Value Date Recorded Sex Assigned at Not on file Legal Sex Female 2:49 AM SHOP TECH Gender Identity Not on file Sexual Orientation Not on file documented as of this encounter Plan of Treatment Not on file documented as of this encounter Visit Diagnoses Diagnosis Follow-up examination, following unspecified surgery- Primary documented in this encounter Additional Health Concerns Infection Onset Date Last Indicated Resolved Time R/O COVID-19 12/30/2019 12/30/2019 01/01/2020 2:00 AM CDT R/O C. diff 03/14/2020 03/14/2020 03/15/2020 10:1 1 AM SHOP TECH documented as of this encounter Care Teams Picker And Packer Relationship Specialty Start Date End Date Tracee Rivas DO [address] [place] [address] PCP - General Family Practice 12/17/17 documented as of this encounter
--- OUTSIDE RECORDS SUMMARY | 2025-02-08 20:23 | XMS_ITS | Encounter Summary ---
Author Organization [facility] Address [address] [place] [address] Care Team Providers Care Bridal Stylist Sales Consultant Name Role Phone Tracee Rivas DO Primary Care Provider +1- [phone] Encounter Details Date Type Department Care Team (Latest Contact Info) Description 12/16/2002 Outpatient Historical [facility] Onel Martinez Jr., MD [address] [place] [address] SCREENING MAL NEOP-RECTUM (Primary Dx) Social History Tobacco Use Types Packs/Day Years Used Date Smoking Tobacco: Never Assessed Comments Unknown Sex and Gender Information Value Date Recorded Sex Assigned at Not on file Legal Sex Female 2:49 AM HOSPICE CONSULTANT Gender Identity Not on file Sexual Orientation Not on file documented as of this encounter Plan of Treatment Not on file documented as of this encounter Visit Diagnoses Diagnosis Screening for malignant neoplasm of the rectum- Primary documented in this encounter Additional Health Concerns Infection Onset Date Last Indicated Resolved Time R/O COVID-19 12/30/2019 12/30/2019 01/01/2020 2:00 AM CDT R/O C. diff 03/14/2020 03/14/2020 03/15/2020 10:1 1 AM HOSPICE CONSULTANT documented as of this encounter Care Teams Bridal Stylist Sales Consultant Relationship Specialty Start Date End Date Tracee Rivas DO [address] [place] [address] PCP - General Family Practice 12/17/17 documented as of this encounter
--- OUTSIDE RECORDS SUMMARY | 2025-02-08 20:23 | XMS_ITS | Encounter Summary ---
Author Organization [facility] Address [address] [place] [address] Care Team Providers Care Environmental Scientist Name Role Phone Tracee Rivas DO Primary Care Provider +1- [phone] Encounter Details Date Type Department Care Team (Latest Contact Info) Description 10/13/2002 Outpatient Historical [facility] Onel Martinez Jr., MD [address] [place] [address] LUMBAGO (Primary Dx); JOINT DIS NOS-PELVIS Social History Tobacco Use Types Packs/Day Years Used Date Smoking Tobacco: Never Assessed Comments Unknown Sex and Gender Information Value Date Recorded Sex Assigned at Not on file Legal Sex Female 2:49 AM BARREL BRIDGE ASSEMBLER Gender Identity Not on file Sexual Orientation Not on file documented as of this encounter Plan of Treatment Not on file documented as of this encounter Visit Diagnoses Diagnosis Lumbago- Primary Unspecified disorder of joint of pelvic region and thigh documented in this encounter Additional Health Concerns Infection Onset Date Last Indicated Resolved Time R/O COVID-19 12/30/2019 12/30/2019 01/01/2020 2:00 AM CDT R/O C. diff 03/14/2020 03/14/2020 03/15/2020 10:1 1 AM BARREL BRIDGE ASSEMBLER documented as of this encounter Care Teams Environmental Scientist Relationship Specialty Start Date End Date Tracee Rivas DO [address] [place] [address] PCP - General Family Practice 12/17/17 documented as of this encounter
--- OUTSIDE RECORDS SUMMARY | 2025-02-08 20:23 | XMS_ITS | Encounter Summary ---
Author Organization [facility] Address [address] [place] [address] Care Team Providers Care Templer Head Name Role Phone Tracee Rivas DO Primary Care Provider +1- [phone] Encounter Details Date Type Department Care Team (Latest Contact Info) Description 06/10/2002 Outpatient Historical [facility] Onel Martinez Jr., MD [address] [place] [address] [facility]B NEC (Primary Dx); LUMBAGO Social History Tobacco Use Types Packs/Day Years Used Date Smoking Tobacco: Never Assessed Comments Unknown Sex and Gender Information Value Date Recorded Sex Assigned at Not on file Legal Sex Female 2:49 AM PERSONAL FINANCIAL COUNSELOR Gender Identity Not on file Sexual Orientation Not on file documented as of this encounter Plan of Treatment Not on file documented as of this encounter Visit Diagnoses Diagnosis Other musculoskeletal symptoms referable to limbs(729.89)- Primary Other musculoskeletal symptoms referable to limbs Lumbago documented in this encounter Additional Health Concerns Infection Onset Date Last Indicated Resolved Time R/O COVID-19 12/30/2019 12/30/2019 01/01/2020 2:00 AM CDT R/O C. diff 03/14/2020 03/14/2020 03/15/2020 10:1 1 AM PERSONAL FINANCIAL COUNSELOR documented as of this encounter Care Teams Templer Head Relationship Specialty Start Date End Date Tracee Rivas DO [address] [place] [address] PCP - General Family Practice 12/17/17 documented as of this encounter
--- OUTSIDE RECORDS SUMMARY | 2025-02-08 20:23 | XMS_ITS | Encounter Summary ---
Author Organization [facility] Address [address] [place] [address] Care Team Providers Care Medication Coordinator Name Role Phone Tracee Rivas DO Primary Care Provider +1- [phone] Encounter Details Date Type Department Care Team (Latest Contact Info) Description 01/18/2002 Outpatient Historical [facility], Nose and Throat [address] [place] [address] Titi Gtz MD [address] [address] CONDUCT HEARING LOSS NOS (Primary Dx) Social History Tobacco Use Types Packs/Day Years Used Date Smoking Tobacco: Never Assessed Comments Unknown Sex and Gender Information Value Date Recorded Sex Assigned at Not on file Legal Sex Female 2:49 AM EVP STRATEGY Gender Identity Not on file Sexual Orientation [...] diff 03/14/2020 03/14/2020 03/15/2020 10:1 1 AM EVP STRATEGY documented as of this encounter Care Teams Medication Coordinator Relationship Specialty Start Date End Date Tracee Rivas DO [address] [place] [address] PCP - General Family Practice 12/17/17 documented as of this encounter
--- OUTSIDE RECORDS SUMMARY | 2025-02-08 20:23 | XMS_ITS | Encounter Summary ---
Author Organization [facility] Address [address] [place] [address] Care Team Providers Care Night Clerk Auditor Name Role Phone Tracee Rivas DO Primary Care Provider +1- [phone] Encounter Details Date Type Department Care Team (Latest Contact Info) Description 01/27/2002 Outpatient Historical [facility] Onel Martinez Jr., MD [address] [place] [address] MYALGIA AND MYOSITIS NOS (Primary Dx); VAGINITIS NOS; GASTROPARESIS Social History Tobacco Use Types Packs/Day Years Used Date Smoking Tobacco: Never Assessed Comments Unknown Sex and Gender Information Value Date Recorded Sex Assigned at Not on file Legal Sex Female 2:49 AM FURNACE UNLOADER Gender Identity Not on file Sexual Orientation Not on file documented as of this encounter Plan of Treatment Not on file documented as of this encounter Visit Diagnoses Diagnosis Myalgia and myositis, unspecified- Primary Mylagia and myositis, unspecified Vaginitis and vulvovaginitis, unspecified Gastroparesis documented in this encounter Additional Health Concerns Infection Onset Date Last Indicated Resolved Time R/O COVID-19 12/30/2019 12/30/2019 01/01/2020 2:00 AM CDT R/O C. diff 03/14/2020 03/14/2020 03/15/2020 10:1 1 AM FURNACE UNLOADER documented as of this encounter Care Teams Night Clerk Auditor Relationship Specialty Start Date End Date Tracee Rivas DO [address] [place] [address] PCP - General Family Practice 12/17/17 documented as of this encounter
--- OUTSIDE RECORDS SUMMARY | 2025-02-08 20:23 | XMS_ITS | Encounter Summary ---
Author Organization [facility] Address [address] [place] [address] Care Team Providers Care Winchman/Crane Operator Name Role Phone Tracee Rivas DO Primary Care Provider +1- [phone] Encounter Details Date Type Department Care Team (Latest Contact Info) Description 11/24/2001 Outpatient Historical [facility] Ear, Nose and Throat [address] [place] [address] Titi Gtz MD [address] [address] CONDUCT HEARING LOSS NOS (Primary Dx); PERFORAT TYMPAN MEMB NOS Social History Tobacco Use Types Packs/Day Years Used Date Smoking Tobacco: Never Assessed Comments Unknown Sex and Gender Information Value Date Recorded Sex Assigned at Not on file Legal Sex Female 2:49 AM POLICE JUSTICE Gender Identity Not on file Sexual Orientation [...] diff 03/14/2020 03/14/2020 03/15/2020 10:1 1 AM POLICE JUSTICE documented as of this encounter Care Teams Winchman/Crane Operator Relationship Specialty Start Date End Date Tracee Rivas DO [address] [place] [address] PCP - General Family Practice 12/17/17 documented as of this encounter
--- OUTSIDE RECORDS SUMMARY | 2025-02-08 20:23 | XMS_ITS | Encounter Summary ---
Author Organization [facility] Address [address] [place] [address] Care Team Providers Care Transmission Calibration Engineer Name Role Phone Tracee Rivas DO Primary Care Provider +1- [phone] Encounter Details Date Type Department Care Team (Latest Contact Info) Description 05/24/2002 Outpatient Historical [facility] Onel Martinez Jr., MD [address] [place] [address] LUMBAGO (Primary Dx) Social History Tobacco Use Types Packs/Day Years Used Date Smoking Tobacco: Never Assessed Comments Unknown Sex and Gender Information Value Date Recorded Sex Assigned at Not on file Legal Sex Female 2:49 AM LINE HAUL TRUCK DRIVER Gender Identity Not on file Sexual Orientation Not on file documented as of this encounter Plan of Treatment Not on file documented as of this encounter Visit Diagnoses Diagnosis Lumbago- Primary documented in this encounter Additional Health Concerns Infection Onset Date Last Indicated Resolved Time R/O COVID-19 12/30/2019 12/30/2019 01/01/2020 2:00 AM CDT R/O C. diff 03/14/2020 03/14/2020 03/15/2020 10:1 1 AM LINE HAUL TRUCK DRIVER documented as of this encounter Care Teams Transmission Calibration Engineer Relationship Specialty Start Date End Date Tracee Rivas DO [address] [place] [address] PCP - General Family Practice 12/17/17 documented as of this encounter
--- OUTSIDE RECORDS SUMMARY | 2025-02-08 20:23 | XMS_ITS | Encounter Summary ---
Author Organization [facility] Address [address] [place] [address] Care Team Providers Care Roller Skater Name Role Phone Tracee Rivas DO Primary Care Provider +1- [phone] Encounter Details Date Type Department Care Team (Latest Contact Info) Description 08/19/2002 Outpatient Historical [facility] Onel Martinez Jr., MD [address] [place] [address] HYPOVOLEMIA (Primary Dx); ACUTE URI NOS; DEPRESSIVE DISORDER NEC Social History Tobacco Use Types Packs/Day Years Used Date Smoking Tobacco: Never Assessed Comments Unknown Sex and Gender Information Value Date Recorded Sex Assigned at Not on file Legal Sex Female 2:49 AM MUSIC THEORY PROFESSOR Gender Identity Not on file Sexual Orientation Not on file documented as of this encounter Plan of Treatment Not on file documented as of this encounter Visit Diagnoses Diagnosis Volume depletion- Primary Acute upper respiratory infections of unspecified site Depressive disorder, not elsewhere classified documented in this encounter Additional Health Concerns Infection Onset Date Last Indicated Resolved Time R/O COVID-19 12/30/2019 12/30/2019 01/01/2020 2:00 AM CDT R/O C. diff 03/14/2020 03/14/2020 03/15/2020 10:1 1 AM MUSIC THEORY PROFESSOR documented as of this encounter Care Teams Roller Skater Relationship Specialty Start Date End Date Tracee Rivas DO [address] [place] [address] PCP - General Family Practice 12/17/17 documented as of this encounter
--- OUTSIDE RECORDS SUMMARY | 2025-02-08 20:23 | XMS_ITS | Encounter Summary ---
Author Organization [facility] Address [address] [place] [address] Care Team Providers Care Pipe Finishing Supervisor Name Role Phone Tracee Rivas DO Primary Care Provider +1- [phone] Encounter Details Date Type Department Care Team (Latest Contact Info) Description 01/20/2002 Outpatient Historical [facility] GENERAL SURGERY EliJasper MD [address] [facility] [address] [place] [address] SURGERY FOLLOWUP, UNSPEC (Primary Dx) Social History Tobacco Use Types Packs/Day Years Used Date Smoking Tobacco: Never Assessed Comments Unknown Sex and Gender Information Value Date Recorded Sex Assigned at Not on file Legal Sex Female 2:49 AM MEDIA PRODUCER Gender Identity Not on file Sexual Orientation [...] diff 03/14/2020 03/14/2020 03/15/2020 10:1 1 AM MEDIA PRODUCER documented as of this encounter Care Teams Pipe Finishing Supervisor Relationship Specialty Start Date End Date Tracee Rivas DO [address] [place] [address] PCP - General Family Practice 12/17/17 documented as of this encounter
--- OUTSIDE RECORDS SUMMARY | 2025-02-08 20:23 | XMS_ITS | Encounter Summary ---
Author Organization [facility] Address [address] [place] [address] Care Team Providers Care Hand Tire Trimmer Name Role Phone Tracee Rivas DO Primary Care Provider +1- [phone] Encounter Details Date Type Department Care Team (Latest Contact Info) Description 10/13/2002 Outpatient Historical [facility] Onel Martinez Jr., MD [address] [place] [address] HYPERTENSION NOS (Primary Dx); ABNORMAL WEIGHT GAIN Social History Tobacco Use Types Packs/Day Years Used Date Smoking Tobacco: Never Assessed Comments Unknown Sex and Gender Information Value Date Recorded Sex Assigned at Not on file Legal Sex Female 2:49 AM MANAGING MEMBER Gender Identity Not on file Sexual Orientation Not on file documented as of this encounter Plan of Treatment Not on file documented as of this encounter Visit Diagnoses Diagnosis Unspecified essential hypertension- Primary Abnormal weight gain documented in this encounter Additional Health Concerns Infection Onset Date Last Indicated Resolved Time R/O COVID-19 12/30/2019 12/30/2019 01/01/2020 2:00 AM CDT R/O C. diff 03/14/2020 03/14/2020 03/15/2020 10:1 1 AM MANAGING MEMBER documented as of this encounter Care Teams Hand Tire Trimmer Relationship Specialty Start Date End Date Tracee Rivas DO [address] [place] [address] PCP - General Family Practice 12/17/17 documented as of this encounter
--- OUTSIDE RECORDS SUMMARY | 2025-02-08 20:24 | XMS_ITS | Encounter Summary ---
Author Organization [facility] Address [address] [place] [address] Care Team Providers Care Painter Spray Name Role Phone Tracee Rivas DO Primary Care Provider +1- [phone] Encounter Details Date Type Department Care Team (Latest Contact Info) Description 09/07/2001 Outpatient Historical [facility] Onel Martinez Jr., MD [address] [place] [address] Gynecologic examination (Primary Dx); SCREENING MAL NEOP-CERVIX; ANEMIA NOS; SCREENING FOR NEPHROPATHY Social History Tobacco Use Types Packs/Day Years Used Date Smoking Tobacco: Never Assessed Comments Unknown Sex and Gender Information Value Date Recorded Sex Assigned at Not on file Legal Sex Female 2:49 AM TRUCK CATERER Gender Identity Not on file Sexual Orientation Not on file documented as of this encounter Plan of Treatment Not on file documented as of this encounter Visit Diagnoses Diagnosis Gynecologic examination- Primary Gynecological examination Screening for malignant neoplasm of the cervix Anemia, unspecified Screening for nephropathy documented in this encounter Additional Health Concerns Infection Onset Date Last Indicated Resolved Time R/O COVID-19 12/30/2019 12/30/2019 01/01/2020 2:00 AM CDT R/O C. diff 03/14/2020 03/14/2020 03/15/2020 10:1 1 AM TRUCK CATERER documented as of this encounter Care Teams Painter Spray Relationship Specialty Start Date End Date Tracee Rivas DO [address] [place] [address] PCP - General Family Practice 12/17/17 documented as of this encounter
--- OUTSIDE RECORDS SUMMARY | 2025-02-08 20:24 | XMS_ITS | Encounter Summary ---
Author Organization [facility] Address [address] [place] [address] Care Team Providers Care Carbide Operator Name Role Phone Tracee Rivas DO Primary Care Provider +1 [phone] Encounter Details Date Type Department Care Team (Latest Contact Info) Description 07/31/2000 Outpatient Historical [facility] Onel Martinez Jr., MD [address] [place] [address] Myalgia and myositis, unspecified (Primary Dx); Allergic rhinitis, cause unspecified; Obesity, unspecified Social History Tobacco Use Types Packs/Day Years Used Date Smoking Tobacco: Never Assessed Comments Unknown Sex and Gender Information Value Date Recorded Sex Assigned at Not on file Legal Sex Female 2:49 AM AUTO TRANSMISSION TECHNICIAN Gender Identity Not on file Sexual Orientation Not on file documented as of this encounter Plan of Treatment Not on file documented as of this encounter Visit Diagnoses Diagnosis Myalgia and myositis, unspecified- Primary Mylagia and myositis, unspecified Allergic rhinitis, cause unspecified Obesity, unspecified documented in this encounter Additional Health Concerns Infection Onset Date Last Indicated Resolved Time R/O COVID-19 12/30/2019 12/30/2019 01/01/2020 2:00 AM CDT R/O C. diff 03/14/2020 03/14/2020 03/15/2020 10:1 1 AM AUTO TRANSMISSION TECHNICIAN documented as of this encounter Care Teams Carbide Operator Relationship Specialty Start Date End Date Tracee Rivas DO [address] [place] [address] PCP - General Family Practice 12/17/17 documented as of this encounter
--- OUTSIDE RECORDS SUMMARY | 2025-02-08 20:24 | XMS_ITS | Encounter Summary ---
Author Organization [facility] Address [address] [place] [address] Care Team Providers Care Plant Safety Engineer Name Role Phone Tracee Rivas DO Primary Care Provider +1- [phone] Encounter Details Date Type Department Care Team (Latest Contact Info) Description 01/12/2001 Outpatient Historical [facility] Onel Martinez Jr., MD [address] [place] [address] Osteoarthrosis, unspecified whether generalized or localized, unspecified site (Primary Dx); Acute sinusitis, unspecified; Polydipsia; Family history of diabetes mellitus Social History Tobacco Use Types Packs/Day Years Used Date Smoking Tobacco: Never Assessed Comments Unknown Sex and Gender Information Value Date Recorded Sex Assigned at Not on file Legal Sex Female 2:49 AM LINOLEUM LAYER APPRENTICE Gender Identity Not on file Sexual Orientation Not on file documented as of this encounter Plan of Treatment Not on file documented as of this encounter Visit Diagnoses Diagnosis Osteoarthrosis, unspecified whether generalized or localized, unspecified site- Primary Acute sinusitis, unspecified Polydipsia Family history of diabetes mellitus documented in this encounter Additional Health Concerns Infection Onset Date Last Indicated Resolved Time R/O COVID-19 12/30/2019 12/30/2019 01/01/2020 2:00 AM CDT R/O C. diff 03/14/2020 03/14/2020 03/15/2020 10:1 1 AM LINOLEUM LAYER APPRENTICE documented as of this encounter Care Teams Plant Safety Engineer Relationship Specialty Start Date End Date Tracee Rivas DO [address] [place] [address] PCP - General Family Practice 12/17/17 documented as of this encounter
--- OUTSIDE RECORDS SUMMARY | 2025-02-08 20:24 | XMS_ITS | Encounter Summary ---
Author Organization [facility] Address [address] [place] [address] Care Team Providers Care Senior Credit Officer Name Role Phone Tracee Rivas DO Primary Care Provider +1- [phone] Encounter Details Date Type Department Care Team (Latest Contact Info) Description 05/28/2001 Outpatient Historical [facility] Onel Martinez Jr., MD [address] [place] [address] ACUTE URI NOS (Primary Dx); ACUTE PHARYNGITIS Social History Tobacco Use Types Packs/Day Years Used Date Smoking Tobacco: Never Assessed Comments Unknown Sex and Gender Information Value Date Recorded Sex Assigned at Not on file Legal Sex Female 2:49 AM OXYGRAPH OPERATOR Gender Identity Not on file Sexual Orientation Not on file documented as of this encounter Plan of Treatment Not on file documented as of this encounter Visit Diagnoses Diagnosis Acute upper respiratory infections of unspecified site- Primary Acute pharyngitis documented in this encounter Additional Health Concerns Infection Onset Date Last Indicated Resolved Time R/O COVID-19 12/30/2019 12/30/2019 01/01/2020 2:00 AM CDT R/O C. diff 03/14/2020 03/14/2020 03/15/2020 10:1 1 AM OXYGRAPH OPERATOR documented as of this encounter Care Teams Senior Credit Officer Relationship Specialty Start Date End Date Tracee Rivas DO [address] [place] [address] PCP - General Family Practice 12/17/17 documented as of this encounter
--- OUTSIDE RECORDS SUMMARY | 2025-02-08 20:24 | XMS_ITS | Encounter Summary ---
Author Organization [facility] Address [address] [place] [address] Care Team Providers Care Railroad Accountant Name Role Phone Tracee Rivas DO Primary Care Provider +1- [phone] Encounter Details Date Type Department Care Team (Latest Contact Info) Description 08/20/2001 Outpatient Historical [facility] Onel Martinez Jr., MD [address] [place] [address] OTHER MALAISE AND FATIGUE (Primary Dx); COUGH; UNS ASTHMA WOSTATUS ASTHMATICUS Social History Tobacco Use Types Packs/Day Years Used Date Smoking Tobacco: Never Assessed Comments Unknown Sex and Gender Information Value Date Recorded Sex Assigned at Not on file Legal Sex Female 2:49 AM SEVERITY OF ILLNESS COORDINATOR Gender Identity Not on file Sexual Orientation Not on file documented as of this encounter Plan of Treatment Not on file documented as of this encounter Visit Diagnoses Diagnosis Other malaise and fatigue- Primary Cough Unspecified asthma(493.90) Unspecified asthma documented in this encounter Additional Health Concerns Infection Onset Date Last Indicated Resolved Time R/O COVID-19 12/30/2019 12/30/2019 01/01/2020 2:00 AM CDT R/O C. diff 03/14/2020 03/14/2020 03/15/2020 10:1 1 AM SEVERITY OF ILLNESS COORDINATOR documented as of this encounter Care Teams Railroad Accountant Relationship Specialty Start Date End Date Tracee Rivas DO [address] [place] [phone] PCP - General Family Practice 12/17/17 documented as of this encounter
--- OUTSIDE RECORDS SUMMARY | 2025-02-08 20:24 | XMS_ITS | Encounter Summary ---
Author Organization [facility] Address [address] [place] [address] Care Team Providers Care Yardage Estimator Name Role Phone Tracee Rivas DO Primary Care Provider +1- [phone] Encounter Details Date Type Department Care Team (Latest Contact Info) Description 06/18/2000 Outpatient Historical [facility] Jasper Benitez MD [address] [place] [address] Anal fissure (Primary Dx) Social History Tobacco Use Types Packs/Day Years Used Date Smoking Tobacco: Never Assessed Comments Unknown Sex and Gender Information Value Date Recorded Sex Assigned at Not on file Legal Sex Female 2:49 AM SHUTTLE PREPARATION SUPERVISOR Gender Identity Not on file Sexual Orientation Not on file documented as of this encounter Plan of Treatment Not on file documented as of this encounter Visit Diagnoses Diagnosis Anal fissure- Primary documented in this encounter Additional Health Concerns Infection Onset Date Last Indicated Resolved Time R/O COVID-19 12/30/2019 12/30/2019 01/01/2020 2:00 AM CDT R/O C. diff 03/14/2020 03/14/2020 03/15/2020 10:1 1 AM SHUTTLE PREPARATION SUPERVISOR documented as of this encounter Care Teams Yardage Estimator Relationship Specialty Start Date End Date Tracee Rivas DO [address] [place] [address] PCP - General Family Practice 12/17/17 documented as of this encounter
--- OUTSIDE RECORDS SUMMARY | 2025-02-08 20:24 | XMS_ITS | Encounter Summary ---
Author Organization [facility] Address [address] [place] [address] Care Team Providers Care Torpedo Shooter Name Role Phone Tracee Rivas DO Primary Care Provider +1- [phone] Encounter Details Date Type Department Care Team (Latest Contact Info) Description 02/19/[address] [facility] Onel Martinez Jr., MD [address] [place] [address] Unspecified adjustment reaction (Primary Dx); Esophageal reflux Social History Tobacco Use Types Packs/Day Years Used Date Smoking Tobacco: Never Assessed Comments Unknown Sex and Gender Information Value Date Recorded Sex Assigned at Not on file Legal Sex Female 2:49 AM TIMBER BUYER Gender Identity Not on file Sexual Orientation Not on file documented as of this encounter Plan of Treatment Not on file documented as of this encounter Visit Diagnoses Diagnosis Unspecified adjustment reaction- Primary Esophageal reflux documented in this encounter Additional Health Concerns Infection Onset Date Last Indicated Resolved Time R/O COVID-19 12/30/2019 12/30/2019 01/01/2020 2:00 AM CDT R/O C. diff 03/14/2020 03/14/2020 03/15/2020 10:1 1 AM TIMBER BUYER documented as of this encounter Care Teams Torpedo Shooter Relationship Specialty Start Date End Date Tracee Rivas DO [address] [place] [address] PCP - General Family Practice 12/17/17 documented as of this encounter
--- OUTSIDE RECORDS SUMMARY | 2025-02-08 20:24 | XMS_ITS | Encounter Summary ---
Author Organization [facility] Address [address] [place]: [place] [address] Care Team Providers Care Jewel Diameter Gauger Name Role Phone Tracee Rivas DO Primary Care Provider +1- [phone] Encounter Details Date Type Department Care Team (Late st Contact Info) Description 09/08/2001 Outpatient Historical Onel Martinez Jr., MD [address] [place] [address] Social History Tobacco Use Types Packs/Day Years Used Date Smoking Tobacco: Never Assessed Comments Unknown Sex and Gender Information Value Date Recorded Sex Assigned at Not on file Legal Sex Female 2:49 AM SAP CONSULTANT Gender Identity Not on file Sexual Orientation Not on file documented as of this encounter Plan of Treatment Not on file documented as of this encounter Visit Diagnoses Not on filedocumented in this encounter Additional Health Concerns Infection Onset Date Last Indicated Resolved Time R/O COVID-19 12/30/2019 12/30/2019 01/01/2020 2:00 AM CDT R/O C. diff 03/14/2020 03/14/2020 03/15/2020 10:1 1 AM SAP CONSULTANT documented as of this encounter Care Teams Jewel Diameter Gauger Relationship Specialty Start Date End Date Tracee Rivas DO [address] [place] [address] PCP - General Family Practice 12/17/17 documented as of this encounter
--- OUTSIDE RECORDS SUMMARY | 2025-02-08 20:24 | XMS_ITS | Encounter Summary ---
Author Organization [facility] Address [address] [place] [address] Care Team Providers Care Seater Assembler Name Role Phone Tracee Rivas DO Primary Care Provider +1- [phone] Encounter Details Date Type Department Care Team (Late st Contact Info) Description 04/21/2001 Outpatient Historical [facility] Rheumatology- [facility] [address] [place] [address] Yunior Lopez DO [address] [place] [address] RHEUMATISM NOS (Primary Dx) Social History Tobacco Use Types Packs/Day Years Used Date Smoking Tobacco: Never Assessed Comments Unknown Sex and Gender Information Value Date Recorded Sex Assigned at Not on file Legal Sex Female 2:49 AM EQUIPMENT MONITOR PHOTOTYPESETTING Gender Identity Not on file Sexual Orientation Not on file documented as of this encounter Plan of Treatment Not on file documented as of this encounter Visit Diagnoses Diagnosis Rheumatism, unspecified and fibrositis- Primary documented in this encounter Additional Health Concerns Infection Onset Date Last Indicated Resolved Time R/O COVID-19 12/30/2019 12/30/2019 01/01/2020 2:00 AM CDT R/O C. diff 03/14/2020 03/14/2020 03/15/2020 10:1 1 AM EQUIPMENT MONITOR PHOTOTYPESETTING documented as of this encounter Care Teams Seater Assembler Relationship Specialty Start Date End Date Tracee Rivas DO [address] [place] [address] PCP - General Family Practice 12/17/17 documented as of this encounter
--- OUTSIDE RECORDS SUMMARY | 2025-02-08 20:24 | XMS_ITS | Encounter Summary ---
Author Organization [facility] Address [address] [place] [address] Care Team Providers Care Team Primary Care Physician Name Role Phone Tracee Rivas DO Primary Care Provider +1- [phone] Encounter Details Date Type Department Care Team (Latest Contact Info) Description 06/09/2000 Outpatient Historical [facility] Onel Martinez Jr., MD [address] [place] [address] Myalgia and myositis, unspecified (Primary Dx); Anal spasm; Carbuncle and furuncle of unspecified site Social History Tobacco Use Types Packs/Day Years Used Date Smoking Tobacco: Never Assessed Comments Unknown Sex and Gender Information Value Date Recorded Sex Assigned at Not on file Legal Sex Female 2:49 AM SHRIMP PACKER Gender Identity Not on file Sexual Orientation Not on file documented as of this encounter Plan of Treatment Not on file documented as of this encounter Visit Diagnoses Diagnosis Myalgia and myositis, unspecified- Primary Mylagia and myositis, unspecified Anal spasm Carbuncle and furuncle of unspecified site documented in this encounter Additional Health Concerns Infection Onset Date Last Indicated Resolved Time R/O COVID-19 12/30/2019 12/30/2019 01/01/2020 2:00 AM CDT R/O C. diff 03/14/2020 03/14/2020 03/15/2020 10:1 1 AM SHRIMP PACKER documented as of this encounter Care Teams Team Primary Care Physician Relationship Specialty Start Date End Date Tracee Rivas DO [address] [place] [address] PCP - General Family Practice 12/17/17 documented as of this encounter
[2025-02-08 20:29] VITALS: BP 165/84; PULSE 60; RESP 18; TEMP 36.6; O2SAT 96; BMI 48.6
--- NOTE | 2025-02-08 20:29 | CTR_ITS ---
PROCEDURE INFORMATION: Exam: CT Chest Without Contrast; Diagnostic Exam date and time: 02/08/2025 8:38 PM Age: 64 years old Clinical indication: Injury or trauma; Fall; Generalized; Blunt trauma (contusions or hematomas); Prior surgery; Surgery date: 6+ months; Surgery type: Gallbladder, appendix; Additional info: Fall/left side pain/left hip pain TECHNIQUE: Imaging protocol: Diagnostic computed tomography of the chest without contrast. Radiation optimization: All CT scans at this facility use at least one of these dose optimization techniques: automated exposure control; mA and/or kV adjustment per patient size (includes targeted exams where dose is matched to clinical indication); or iterative reconstruction. COMPARISON: CR XR chest 1V portable [id number] 11/17/2022 11:26 AM RADIATION DOSE METRICS: Total DLP (mGy-cm): 691.55 FINDINGS: Lungs: Right middle and bilateral lower lobe atelectasis. Pleural spaces: Unremarkable. No pneumothorax. No pleural effusion. Heart: Unremarkable. No cardiomegaly. No pericardial effusion. Lymph nodes: Unremarkable. No enlarged lymph nodes. Vasculature: Unremarkable. No aortic aneurysm. Bones/joints: T11 vertebral body compression fracture, similar to prior exam, consider further evaluation with an MRI. Soft tissues: Unremarkable. PROCEDURE INFORMATION: Exam: CT Abdomen And Pelvis Without Contrast Exam date and time: 02/08/2025 8:38 PM Age: 64 years old Clinical indication: Injury or trauma; Fall; Generalized; Blunt trauma (contusions or hematomas); Prior surgery; Surgery date: 6+ months; Surgery type: Gallbladder, appendix; Additional info: Fall/left side pain/left hip pain TECHNIQUE: Imaging protocol: Computed tomography of the abdomen and pelvis without contrast. Radiation optimization: All CT scans at this facility use at least one of these dose optimization techniques: automated exposure control; mA and/or kV adjustment per patient size (includes targeted exams where dose is matched to clinical indication); or iterative reconstruction. COMPARISON: CT abdomen pelvis w con* [id number] 08/03/2023 10:51 PM RADIATION DOSE METRICS: Total DLP (mGy-cm): 691.55 FINDINGS: Liver: Normal. No mass. Gallbladder and biliary ducts: Cholecystectomy. Pancreas: Normal. No ductal dilation. Spleen: Normal. No splenomegaly. Adrenal glands: Right adrenal 2 cm low-density nodule likely reflecting a benign adenoma. Left adrenal 15 mm low-density nodule likely reflecting a benign adenoma. Kidneys and ureters: Normal. No hydronephrosis. Stomach and bowel: Diverticulosis without diverticulitis. Appendix: No evidence of appendicitis. Intraperitoneal space: Unremarkable. No free air. No significant fluid collection. Vasculature: Unremarkable. No abdominal aortic aneurysm. Lymph nodes: Unremarkable. No enlarged lymph nodes. Urinary bladder: Unremarkable as visualized. Reproductive: Unremarkable as visualized. Bones/joints: Unremarkable. No acute fracture. Soft tissues: Moderate bilateral fat containing inguinal hernias without bowel. Right buttocks mild subcutaneous edema laterally may reflect an area of traumatic injury. CT/[place] [id number] IMPRESSION: 1. Negative for focal acute traumatic injury to the chest. 2. Right middle and bilateral lower lobe atelectasis. 3. T11 vertebral body compression fracture, similar to prior exam, consider further evaluation with an MRI. IMPRESSION: 1. Negative for traumatic injury to the abdomen or pelvis. 2. Cholecystectomy. 3. Right adrenal 2 cm low-density nodule likely reflecting a benign adenoma. Left adrenal 15 mm low-density nodule likely reflecting a benign adenoma. 4. Diverticulosis without diverticulitis. 5. Moderate bilateral fat containing inguinal hernias without bowel. 6. Right buttocks mild subcutaneous edema laterally may reflect an area of traumatic injury. COMMENTS: Consistent with the [employer]'s Incidental Findings Committee white paper (J Am Yehuda Radiol 2017): For any incidental adrenal lesion greater than or equal to 1 cm but less than or equal to 4 cm classified in this report as benign, likely benign, or containing fat (including classification as an adenoma or myelolipoma), no follow-up imaging is recommended per consensus recommendations based on imaging criteria. Further lab evaluation could be pursued if warranted based on clinical findings.
--- NOTE | 2025-02-08 20:37 | W.ED.FALL ---
HPI - Fall General: Chief Complaint: Fall Stated Complaint: fall- lar arm and hip pain Time Seen by Provider: 02/08/25 20:10 Source: patient Mode of arrival: EMS Limitations: no limitations History of Present Illness: Patient is a 64-year-old female with history of morbid obesity, degenerative disc disease, osteoarthritis, and type 2 diabetes who presents to the emergency department by ambulance due to a fall that occurred tonight. This was a mechanical fall where she reportedly tripped and fell directly onto her left side, where there was approximately 5 minutes of downtime as she was unable to get up under her own power. States that she does not recall hitting her head, but does have pain to the cervical spine. She is not on a blood thinner takes aspirin. She is reporting pain to the left hip, left knee, left side, and just overall feeling in pain. She was given 100 mcg of fentanyl prehospital but states her pain is still a 10/10. She is not reporting any visual changes, focal neurological deficit, abdominal pain, headache, or any other concerning symptoms at this time. She is alert and oriented x 3. She states that this was an accidental trip and fall, she had no symptoms preceding the fall. MD complaint: fall Onset (ago): minute(s) Fall from: standing Fall witnessed: no Place fall occurred: home Loss of consciousness: None Prolonged down time: minute(s) (5) Symptoms prior to fall: none Context: tripped/slipped Location of injury: neck, chest and pelvis (left hip) Location of injury - extremities: Left: knee Severity: severe Severity scale (1-10): 10 Associated symptoms-after fall: Reports neck pain; Denies abdominal pain, chest pain or headache(s) Related Data Home Medications ?Medication ?Instructions ?Recorded ?Confirmed topiramate 200 mg capsule,extended 200 mg PO BID 05/26/19 04/14/24 release 24 hr levothyroxine 200 mcg tablet 200 mcg PO DAILY 08/31/19 04/14/24 tramadol 50 mg tablet 50 mg PO DAILY 08/31/19 04/14/24 diclofenac sodium 1 % topical gel See Rx Instructions .Route .COMPLEX 01/06/20 04/14/24 trazodone 150 mg tablet 300 mg PO BEDTIME 01/06/20 04/14/24 bupropion HCl 150 mg tablet,12 hr 300 mg PO DAILY 01/25/20 04/14/24 sustained-release amiodarone 200 mg tablet 200 mg PO DAILY 09/12/22 04/14/24 duloxetine 60 mg capsule,delayed 60 mg PO DAILY 01/13/23 04/14/24 release hydralazine 25 mg tablet 25 mg PO TID PRN Edema 01/13/23 04/14/24 oxybutynin chloride 5 mg tablet 5 mg PO DAILY 01/13/23 04/14/24 potassium chloride 20 mEq 40 meq PO DAILY 01/13/23 04/14/24 tablet,extended release(part/cryst) (Klor-Con M) pravastatin 10 mg tablet 10 mg PO DAILY 01/13/23 04/14/24 aspirin 81 mg tablet 81 mg PO DAILY 10/17/23 04/14/24 hydrocodone 10 mg-acetaminophen 1 tab PO DAILY PRN pain 10/17/23 04/14/24 325 mg tablet semaglutide 1 mg/dose (2 mg/1.5 1 mg SUBCUT DIRECTED 10/17/23 04/14/24 mL) subcutaneous pen injector amlodipine 5 mg tablet 5 mg PO DAILY 10/21/23 04/14/24 gabapentin 300 mg capsule 300 mg PO TID 04/14/24 04/14/24 Previous Rx's ?Medication ?Instructions ?Recorded orphenadrine citrate 100 mg 100 mg PO Q12H PRN Muscle 11/17/22 tablet,extended release spasm/pain #14 tabs methocarbamol 500 mg tablet 500 mg PO QID PRN Muscle spasms 11/30/22 #30 tabs lisinopril 20 mg tablet 20 mg PO DAILY #30 tabs 01/13/23 ondansetron 4 mg disintegrating 4 mg PO Q6H PRN nausea and 08/03/23 tablet vomiting #14 tabs metronidazole 500 mg tablet 500 mg PO Q8H 7 days #21 tabs 08/09/23 pantoprazole 40 mg tablet,delayed See Rx Instructions .Route 01/27/25 release .COMPLEX #90 tabs Allergies Allergy/AdvReac Type Severity Reaction Status Date / Time oxycodone Allergy ALGY-Hives Verified 04/14/24 15:53 Review of Systems General: Reports: 10 or more systems reviewed and unremarkable except in HPI and below Const: Reports: other (Fall); Denies: fever(s) or chills Card: Denies: chest pain Resp: Denies: dyspnea or productive cough GI: Denies: abdominal pain, nausea, vomiting or diarrhea : Denies: flank pain Musc: Reports: neck pain, back pain, joint pain (Left hip/left knee), limited range of motion and other (Left chest wall pain); Denies: extremity swelling, joint swelling, joint redness, joint warmth or muscle weakness Skin/Breast: Denies: rash Neuro: Denies: headache(s), numbness in extremities or weakness in extremities PFSH ED PFSH: Medical History Lumbar disc disorder Cervical disc disorder at C4-C5 level with radiculopathy Primary osteoarthritis of knees, bilateral Degenerative joint disease of knee Depression Restless leg syndrome Morbid obesity JOSE (obstructive sleep apnea) Hypertension Hypothyroid Gastric reflux Controlled type 2 diabetes mellitus Poor high blood pressure control Sleep apnea BMI 45.0-49.9, adult Surgical History History of intestinal surgery Bowel obstruction in childhood Hx of cholecystectomy History of appendectomy Family History Other Cancer Family history of premature coronary artery disease Stroke Social History Smoking and tobacco/nicotine status: never used tobacco/nicotine Alcohol intake: never Substance/Drug Use: never Lives independently: Yes Housing: House Marital status: Single Physical Exam Const: COMMON NORMALS: patient oriented x3 and alert GENERAL APPEARANCE: cooperative NUTRITIONAL APPEARANCE: obese morbidly obese ORIENTATION/CONSCIOUSNESS: Yes awake, Yes oriented to person, Yes oriented to place and Yes oriented to time OTHER: In distress from pain HENMT: COMMON NORMALS: normocephalic and atraumatic HEAD & SCALP: normal to inspection, normocephalic and atraumatic; no Garner's sign, no palpable skull fracture, no raccoon eyes and no scalp tenderness FACE & SINUS: normal facial exam Eye: COMMON NORMALS: Equal, round and reactive pupils present, EOMs intact bilaterally and conjunctivae normal CONJUNCTIVA: Yes conjunctivae normal PUPIL: Yes Equal, round and reactive pupils present Neck/C-Spine: OTHER: Tender to palpation to cervical spine with no step-off deformity. C-collar present. Chest: COMMONS NORMALS: normal inspection of the chest and normal palpation of entire chest wall Resp: COMMON NORMALS: normal respiratory effort, No retractions, No use of accessory muscles and clear to auscultation bilaterally AUSCULTATION: clear to auscultation bilaterally Cardio: COMMON NORMALS: regular rate, regular rhythm, No gallops present (Cardio), No murmurs present (Cardio) and No rub (Cardio) RATE: regular rate RHYTHM: regular rhythm GI: COMMON NORMALS: Soft to palpation and non-tender INSPECTION: Yes central obesity PALPATION: Yes Soft to palpation Back/Pelvis: OTHER: Cannot examine patient's back secondary to body habitus and her positioning. There is pain with range of motion of the lumbar spine. Extremity: NARRATIVE EXTREMITY EXAM: Reproducible tenderness palpation to left lateral hip and left anterior thigh with no shortening or internal/external rotation of the left lower extremity. Distal pulses are symmetrical bilaterally. Reproducible tenderness palpation left knee where there is postoperative scar, however no swelling or bruising or other signs of trauma or deformity. Pain with range of motion of bilateral hips, specifically with leg lift. All other joints and extremities palpated and nontender with no other signs of trauma or injury. Neuro: COMMON NORMALS: patient oriented x3, moves all extremities, no focal motor deficits and no sensory deficits noted SENSORIUM/ORIENTATION: Yes alert, Yes oriented to person, Yes oriented to place and Yes oriented to time Course Vital Signs: Vital signs: Vital Signs Temperature 97.9 F 02/08/25 20:39 Pulse Rate 60 02/08/25 20:39 Respiratory Rate 18 02/08/25 20:39 Blood Pressure 165/84 02/08/25 20:39 Pulse Oximetry 96 02/08/25 20:39 Oxygen Delivery Me thod Room Air 02/08/25 20:39 MDM - Fall Medical Decision Making Patient presenting here by ambulance after a fall, injuring her entire left side, and cervical spine. She did arrive with c-collar in place and did have reproducible tenderness palpation to the cervical spine, however CT of this area is negative as well as head CT. She does have CT chest abdomen pelvis without contrast that does not reveal any acute traumatic findings, specifically no hip pathology as most of her pain was reported to be in her left hip. Left knee x-ray also negative. She is neurologically intact and has relief of symptoms here in the emergency department after IV fentanyl was given prehospital. She is ultimately stable for discharge home, requesting discharge home as well and she is given general return precautions and informed to follow-up with primary care. Lab Data Radiology Impressions Cervical Spine CT 02/08/25 20:20 IMPRESSION: Negative for fracture or dislocation. Head CT 02/08/25 20:20 IMPRESSION: Negative for intracranial hemorrhage or mass effect. Knee X-Ray 02/08/25 20:20 IMPRESSION: 1. Negative for fracture or dislocation. 2. Knee arthroplasty changes in place. Chest/Abdomen/Pelvis CT 02/08/25 20:29 IMPRESSION: 1. Negative for focal acute traumatic injury to the chest. 2. Right middle and bilateral lower lobe atelectasis. 3. T11 vertebral body compression fracture, similar to prior exam, consider further evaluation with an MRI. IMPRESSION: 1. Negative for traumatic injury to the abdomen or pelvis. 2. Cholecystectomy. 3. Right adrenal 2 cm low-density nodule likely reflecting a benign adenoma. Left adrenal 15 mm low-density nodule likely reflecting a benign adenoma. 4. Diverticulosis without diverticulitis. 5. Moderate bilateral fat containing inguinal hernias without bowel. 6. Right buttocks mild subcutaneous edema laterally may reflect an area of traumatic injury. COMMENTS: Consistent with the [place] [employer]'s Incidental Findings Committee white paper (J Am Yehuda Radiol 2017): For any incidental adrenal lesion greater than or equal to 1 cm but less than or equal to 4 cm classified in this report as benign, likely benign, or containing fat (including classification as an adenoma or myelolipoma), no follow-up imaging is recommended per consensus recommendations based on imaging criteria. Further lab evaluation could be pursued if warranted based on clinical findings. All radiology interpretation(s) finalized by discharge Discharge Plan Discharge Patient Disposition: Home Clinical Impression: Fall Qualifiers: Encounter type: initial encounter Qualified Code(s): W19.XXXA - Unspecified fall, initial encounter Cervical sprain Qualifiers: Encounter type: initial encounter Qualified Code(s): S13.9XXA - Sprain of joints and ligaments of unspecified parts of neck, initial encounter Contusion of rib on left side Qualifiers: Encounter type: initial encounter Qualified Code(s): S29.8XXA - Other specified injuries of thorax, initial encounter Contusion of hip, left Qualifiers: Encounter type: initial encounter Qualified Code(s): S70.02XA - Contusion of left hip, initial encounter Contusion of knee, left Qualifiers: Encounter type: initial encounter Qualified Code(s): S80.02XA - Contusion of left knee, initial encounter Condition: Stable Prescriptions: No Action topiramate 200 mg capsule,extended release 24hr 200 mg PO BID amiodarone 200 mg tablet 200 mg PO DAILY potassium chloride [Klor-Con M20] 20 mEq tablet,ER particles/crystals 40 meq PO DAILY duloxetine 60 mg capsule,delayed release(DR/EC) 60 mg PO DAILY pravastatin 10 mg tablet 10 mg PO DAILY oxybutynin chloride 5 mg tablet 5 mg PO DAILY hydralazine 25 mg tablet 25 mg PO TID PRN (Reason: Edema) lisinopril 20 mg tablet 20 mg PO DAILY Qty: 30 4RF metronidazole 500 mg tablet 500 mg PO Q8H 7 Days Qty: 21 0RF gabapentin 300 mg capsule 300 mg PO TID pantoprazole 40 mg tablet,delayed release (DR/EC) See Rx Instructions .ROUTE .COMPLEX Qty: 90 1RF Dose Instruction: TAKE 1 TABLET BY MOUTH EVERY DAY Rx Instructions: TAKE 1 TABLET BY MOUTH EVERY DAY tramadol 50 mg tablet 50 mg PO DAILY levothyroxine 200 mcg tablet 200 mcg PO DAILY Rx Instructions: TAKE WITH 25 MCG FOR A TOTAL OF 225 MCG. trazodone 150 mg tablet 300 mg PO BEDTIME diclofenac sodium 1 % gel See Rx Instructions .ROUTE .COMPLEX Rx Instructions: topically APPLY 2 GRAMS TO AFFECTED AREA QID. bupropion HCl 150 mg tablet sustained-release 12 hr 300 mg PO DAILY orphenadrine citrate 100 mg tablet extended release 100 mg PO Q12H PRN (Reason: Muscle spasm/pain) Qty: 14 0RF methocarbamol 500 mg tablet 500 mg PO QID PRN (Reason: Muscle spasms) Qty: 30 0RF hydrocodone-acetaminophen 10-325 mg tablet 1 tab PO DAILY PRN (Reason: pain) aspirin 81 mg Tablet 81 mg PO DAILY semaglutide 1 mg/dose (2 mg/1.5 mL) Pen Injector 1 mg SUBCUT DIRECTED Rx Instructions: weekly amlodipine 5 mg tablet 5 mg PO DAILY ondansetron 4 mg tablet,disintegrating 4 mg PO Q6H PRN (Reason: nausea and vomiting) Qty: 14 0RF Discharge Orders: Discharge ED (Routine); Ordered 02/08/25 Ordered By: Meño Bryant Referrals: Tracee Rivas DO [Primary Care Provider, [facility]] Patient Instructions: Patient Portal & Zofia Instructions Activity Restrictions/Additional Instructions: Your images today were negative for any acute traumatic injury. Please rest and recover at home, take [id number] pain medications or previously prescribed pain medications. Ice to any affected joints or extremities. Please return with any new or worsening and follow-up with primary care as needed. 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
[2025-02-08 20:39] VITALS: BP 165/84; PULSE 60; RESP 18; TEMP 36.6; O2SAT 96
[2025-02-08 22:03] VITALS: BP 165/94; PULSE 63; RESP 18; O2SAT 97
== END 2025-02-08 22:06 | disposition home or self-care (01) ==
PROVIDERS: Emergency Provider Physician Assistant; PCP Family Medicine
DX: S13.9XXA Sprain of joints and ligaments of unspecified parts of neck, initial encounter (principal); S20.212A Contusion of left front wall of thorax, initial encounter; S70.02XA Contusion of left hip, initial encounter; S80.02XA Contusion of left knee, initial encounter; Z79.82 Long term (current) use of aspirin; W01.0XXA Fall on same level from slipping, tripping and stumbling without subsequent striking against object, initial encounter; E11.9 Type 2 diabetes mellitus without complications; I10 Essential (primary) hypertension
CPT/HCPCS: 36415; 70450; 71250; 72125; 73562; 74176; 99284